=== PATIENT | male | born 1940 | race Caucasian/White ===

== ENCOUNTER → 2017-11-17 14:03 | Outpatient (CLI) | payer MEDICARE, OTHER, SELFPAY ==
[2017-11-17 14:29] LABS: Absolute Lymphocyte Count 0.58 X10^3/ul (0.83-4.51); Absolute Neutrophil Count 4.3 X10^3/uL (2.0-7.7); Basophil# 0.01 X10^3/uL; Basophil% 0.2 % (0-1); Differential Indicated SCAN CRITERIA MET; Eosinophil# 0.14 X10^3/uL; Eosinophils% 2.4 % (0-5); Hematocrit 42.3 % (40-54); Hemoglobin 13.9 g/dl (13.0-16.5); Lymphocyte # 0.58 X10^3/ul (4.0); Lymphocyte % 9.8 % (19-41); Mean Corp Hgb Conc 32.9 g/gl (32-36); Mean Corpuscular Hgb 31.4 pg (27.0-32.0); Mean Corpuscular Volume 95.5 fL (80-94); Mean Platelet Vol. 11.3 fl (6.2-12.0); Monocyte# 0.91 X10^3/uL; Monocyte% 15.3 % (0-10); Neutrophil # 4.27 X10^3/uL (2.7-7.7); POSITIVE COUNT NO; POSITIVE DIFFERENTIAL YES; POSITIVE MORPHOLOGY NO; Platelet Count 175 K/mm3 (150-450); RBC Distribution Width CV 13.6 % (11.6-14.6); RBC Distribution Width SD 46.2 fl (35.1-43.9); Red Blood Count 4.43 M/mm3 (4.6-6.2); White Blood Count 5.9 K/mm3 (4.4-11.0)
[2017-11-17 14:58] LABS: Platelet Estimate ADEQUATE (ADEQ); Platelet Morphology CLUMPED
[2017-11-17 15:35] LABS: BNP,B-Type NATRIURETIC PEPTIDE 278.2 pg/mL (0-100)
== END ==
PROVIDERS: PCP Internal Medicine; Visit Provider Family Medicine
DX: R06.00 Dyspnea, unspecified (principal); R05 Cough; R79.89 Other specified abnormal findings of blood chemistry
CPT/HCPCS: 83880; 85025

== ENCOUNTER → 2018-07-26 13:32 | Outpatient (CLI) | payer MEDICARE, OTHER, SELFPAY ==
--- NOTE | 2018-07-26 13:38 | VDLE_ITS ---
Reason For Study: LLE Pain and Swelling RIGHT LEFT CFV is compressible, spontaneous, phasic, GSV is normal. competent and demonstrates normal CFV is compressible, spontaneous, phasic, augmentation. competent, and demonstrates normal Procedure augmentation. Exam performed in department. FV is compressible, spontaneous, phasic, A preliminary report was called and/or faxed competent and demonstrates normal to Podlog[facility]. augmentation. POP V is compressible, spontaneous, phasic, competent and demonstrates normal augmentation. T/P Trunk is compressible. PTV is compressible. LT PerV is compressible. Interpretation Summary Deep veins of the left lower extremity are patent and compressible segmentally. There is no evidence of left lower extremity deep vein thrombosis. Valvular competence appears intact within the proximal deep venous system on the left . The left greater saphenous vein appears patent and compressible segmentally. Ordering Physician: Rufina Reed, EUFEMIA-Zelda Referring Physician: Ryan Rivera Performed By: Kaushik Coronel RVT and Student
== END ==
PROVIDERS: Family Provider Family Medicine; PCP Family Medicine; Referring Provider Nurse Practitioner Primary Care; Visit Provider Nurse Practitioner Primary Care
DX: M79.662 Pain in left lower leg (principal); M79.89 Other specified soft tissue disorders
CPT/HCPCS: 93971

== ENCOUNTER → 2018-09-19 16:49 | Outpatient (CLI) | payer MEDICARE, OTHER, SELFPAY ==
[2018-09-19 17:47] LABS: Prothrombin Time (Protime)PT. 38.9 SECONDS (11.7-14.9)
--- OUTSIDE RECORDS SUMMARY | 2018-11-06 01:54 | XMS RPT_ITS ---
:1940 Author Organization OHIP Care Team Providers Name Role Phone ROCKY RIVERA) Referring Unavailable ALEN RODRIGUEZ Attending Unavailable ALEN RODRIGUEZ Referring Unavailable ROCYK RIVERA) Referring Unavailable ROCKY RIVERA) Attending Unavailable ROCKY RIVERA) Referring Unavailable ROCKY RIVERA) Referring Unavailable ROCKY RIVERA) Referring Unavailable SUMEET GOLDBERG Attending Unavailable ROCKY RIVERA) Referring Unavailable ROCKY RIVERA) Referring Unavailable ASHAI, AGNIESZKA Attending Unavailable ROCKY RIVERA) Referring Unavailable ASHAI, AGNIESZKA Referring Unavailable ASHAI, AGNIESZKA Referring Unavailable ROCKY RIVERA) Referring Unavailable MAYRA KOLB (TIN CAN LABORER) Referring Unavailable GUILLE HIGH (PA) Attending Unavailable MARY VILLAR Referring Unavailable ROCKY RIVERA) Referring Unavailable ROCKY RIVERA) Attending Unavailable ROCKY RIVERA) Referring Unavailable ROCKY RIVERA) Referring Unavailable ROCKY RIVERA) Referring Unavailable ROCKY RIVERA) Referring Unavailable ASHAI, AGNIESZKA Attending Unavailable ROCKY RIVERA) Referring Unavailable BURSLEYROCKY) Referring Unavailable ALEN RODRIGUEZ Attending Unavailable TESTALEN HOYOS Referring Unavailable BURSLEYROCKY) Referring Unavailable AMALFITANO, SUMEET Valverde Attending Unavailable AMALFITSUMEET WEAVER Referring Unavailable BURSLEYROCKY) Referring Unavailable BURSLEY, ROCKY OLEA) Referring Unavailable BURSLEY, ROCKY OLEA) Referring Unavailable PODLOGAR, RUFINA (TIN CAN LABORER) Attending Unavailable PODLOGAR, RUFINA (TIN CAN LABORER) Attending Unavailable PODLOGAR, RUFINA (TIN CAN LABORER) Referring Unavailable PODLOGAR, RUFINA (TIN CAN LABORER) Referring Unavailable PODLOGAR, RUFINA (TIN CAN LABORER) Referring Unavailable BURSLEY, ROCKY OLEA) Referring Unavailable BURSLEY, ROCKY OLEA) Attending Unavailable ROCKY RIVERA) Referring Unavailable BURSLEY, ROCKY OLEA) Referring Unavailable BURSLEY, ROCKY OLEA) Referring Unavailable BURSLEYROCKY) Referring Unavailable BURSLEY, ROCKY OLEA) Referring Unavailable ABHISHEKTEZ (TIN CAN LABORER) Attending Unavailable ROCKY RIVERA) Referring Unavailable MEFFLGALILEA CABRERA (OD) Attending Unavailable ROCKY RIVERA) Referring Unavailable BURSROCKY HOFFMAN) Attending Unavailable ROCKY RIVERA) Referring Unavailable MARY VILLAR Referring Unavailable MARY VILLAR Admitting Unavailable MARY VILLAR Attending Unavailable Manuel Rivera Attending Unavailable Manuel Rivera Referring Unavailable Jeevan Riveraophe Primary Care Unavailable Manuel Rivera Attending Unavailable Podlogar, Rufina Attending Unavailable Podlogar, Rufina Referring Unavailable Miguel Manuel Primary Care Unavailable PROBLEMS PROBLEMS DATE TYPE CONDITION / CODE ATTENDING STATUS SOURCE Active Peripheral vascular NA Active [place] 8 disease, unspecified / Clinic Main I73.9(ICD-10) [facility] Unknown I48.91 - Unspecified [place], Active [place] 8 atrial fibrillation / Manuel [facility] I48.91(ICD-10) Hospital Repository Active Unspecified atrial NA Active [place] 6 fibrillation / [facility] Main I48.91(ICD-10) [facility] Rep[facility] Active Unspecified injury of Active [place] 8 head, initial encounter Clinic Main / S09.90XA(ICD-10) [facility] Rep[facility] Active Chronic atrial NA Active [place] 8 fibrillation / Clinic Main I48.2(ICD-10) [facility] Rep[facility] Active Secondary ASHAI, 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 Clinic Main renal origin / [facility] N25.81(ICD-10) Repository Active Type 2 diabetes mellitus NA Active [place] 7 without complications / Clinic [facility] E11.9(ICD-10) [facility] Rep[facility] Active Other fpc NA Active [place] 8 (current) drug therapy / Clinic Main Z79.899(ICD-10) [facility] Rep[facility] Active Type 2 diabetes mellitus NA Active [place] 8 with diabetic chronic Clinic Main kidney disease / [facility] E11.22(ICD-10) Repository Active Hypertensive chronic NA Active [place] 8 kidney disease with Clinic Main stage 1 through stage 4 [facility] chronic kidney disease, Repository or unspecified chronic kidney disease / I12.9(ICD-10) Active Chronic kidney disease, NA Active [place] 8 stage 3 (moderate) / Clinic Main N18.3(ICD-10) [facility] Active Other specified abnormal NA Active [place] 8 findings of blood Clinic Main chemistry / [facility] R79.89(ICD-10) Repository Active Dyspnea, unspecified / NA Active [place] 8 R06.00(ICD-10) Clinic Main [facility] Rep[facility] Active Cough / R05(ICD-10) NA Active [place] 8 Clinic Main [facility] Active Encounter for screening NA Active [place] 8 for malignant neoplasm Clinic Other of colon / [facility] Z12.11(ICD-10) Repository Active Essential (primary) NA Active [place] 7 hypertension / Clinic Other I10(ICD-10) [facility] Repository Active Other hyperlipidemia / NA Active [place] 6 E78.4(ICD-10) Clinic Other [facility] Active Encounter for other NA Active [place] 8 preprocedural Clinic Other examination / [facility] Z01.818(ICD-10) Repository Active Shortness of breath / NA Active [place] 8 R06.02(ICD-10) [facility] Repository Active Other specified soft NA Active [place] 8 tissue disorders / [facility] M79.89(ICD-10) [facility] Repository PROCEDURES PROCEDURES No Procedure Records FoundRESULTS RESULTS CNOV Observed: 10/25/2018 Status: COMPLETED Source: [place] 7:00 PM [facility] REPOSITORY Office Visit (FAMPWS) ALIA TREJO ([id number]) 1940 M Date Time Provider Department 10/25/18 7:00 PM ROCKY RIVERA) FAMPWS During your visit today, we recorded the following information about you: Pulse Respiration Blood pressure Weight 70/minute 12/minute 118/76 97.1 kg Rocky Rivera MD 10/26/2018 8:24 AM Signed Chief Complaint Patient presents with: 6 week follow up HPI Alia Trejo is a 78 year old male who presents here today for 3 month follow up. DIABETES MELLITUS: Mr. Trejo was last seen 3 months ago. Since our last visit, patient states he increased his lantus from 40 to 45 units due to hyperglycemia in the 200s. Since then, sugars have been in the 80-120. He denies excessive thirst or increased frequency of urination, numbness, tingling or pain in extremities, new or unusual visual symptoms and low sugar/hypoglycemic reactions. Follows a diabetic diet generally not very much. He is compliant with medication(s) and is tolerating med(s) without any side effects. He reports checking his glucose on a four times a day schedule with sugars in the >200 range in the afternoon and evening. Patient's last HgA1C was Hemoglobin A1C (%) Date Value 08/09/2018 7.9 02/17/2018 7.5 ) Last Ophthalmology exam was within the past 12 months Last Podiatry exam was within the past 12 months HTN: Mr. Trejo indicates that he is feeling well and denies any symptoms referable to elevated blood pressure. Specifically denies headache, chest pain, palpitations, dyspnea and peripheral edema. Patient denies any side effects of his medication(s) and is compliant with their regimen. Alia gets minimal exercise. He watches his diet for sodium, low fat and low cholesterol generally not very much. Last 3 Encounter BP Readings: Date: BP: 10/25/2018 118/76 10/05/2018 129/72 08/10/2018 126/78 Hyperlipidemia: taking Crestor as prescribed. Due for lipid panel in February. Afib: rate controlled on beta santo. Taking coumadin as prescribed for anticoagulation. INR low on last check. Needs to pickler helper 1 mg coumadin tablets. Denies bleeding symptoms. TIA history: denies slurred speech, vision changes, facial droop, numbness/tingling, weakness on current regimen. DERRICK: using CPAP nightly as prescribed. Sleeping well. Denies daytime somnolence. Up to date on immunizations. Past medical history, appointments, medications, allergies reviewed. Previous Medical History PAST MEDICAL HISTORY Diagnosis Date - Acute bronchitis with chronic obstructive pulmonary disease (COPD) ([facility]) 12/28/2015 Pulmonlogy managing - Acute diastolic CHF (congestive heart failure) ([facility]) 12/28/2015 - Atrial fibrillation, permanent ([facility]) 11/04/[address] Goldberg - Benign neoplasm of colon - CKD (chronic kidney disease) stage 3, GFR 30-59 ml/min ([facility]) 11/11/[address] Diaz - Diverticulosis of colon (without mention of hemorrhage) - Hiatal hernia 10/26/201710/2017 CT chest. 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 75 - Diabetes Father - Hypertension Father - other (Alcoholism) Father D. 57 - Cancer Brother Lung D.68 yo - other (MVA) Brother Fatal MVA. D. 17 Patient Allergies ALLERGIES Allergen Reactions - Nabeel Inhibitors Cough Current Medications Current Outpatient Prescriptions on File Prior to Visit: warfarin (COUMADIN) 1 mg tablet Take 3.5 mg PO Sat and 2.5 mg PO all other days insulin glargine (LANTUS SOLOSTAR U-100 INSULIN) 100 unit/mL (3 mL) inpn Inject 40 Units subcutaneously once daily. fluticasone (FLONASE) 50 mcg/actuation nasal spray Use 2 Sprays in each nostril once daily. Rinse mouth after use. insulin regular human (HUMULIN R REGULAR U-100 INSULN) 100 unit/mL injection Inject 5 units if sugar <200 at bedtime or 10 units if >200. losartan (COZAAR) 25 mg tablet Take 0.5 tablets by mouth once daily. metoprolol tartrate, short acting, (LOPRESSOR) 100 mg tablet Take 2 tablets by mouth twice daily. KeybrokerUCH ULTRA BLUE TEST STRIP test strip USE TO TEST 4 TIMES DAILY spironolactone (ALDACTONE) 25 mg tablet Take 1 tablet by mouth once daily. warfarin (COUMADIN) 5 mg tablet TAKE ONE TABLET ON WEDNESDAY/WEDNESDAY AND ONE-HALF TABLETS ON ALL OTHER DAYS rosuvastatin (CRESTOR) 40 mg tablet Take 0.5 tablets by mouth once daily. Cholecalciferol, Vitamin D3, 1,000 unit cap Take 1 capsule by mouth once daily. furosemide (LASIX) 40 mg tablet Take 1 tablet by mouth once daily. flash glucose scanning reader (FREESTYLE RUSSELL READER) misc 1 Device four times daily. flash glucose sensor (FREESTYLE RUSSELL SENSOR) kit 1 Device four times daily. Insulin Alsip, Disposable, (NOVOFINE 32) 32 gauge x 1/4 ndle 1 Each four times daily as needed. Use for Victoza and insulin injections 4 times daily. DX: E11.65 Blood-Glucose Meter (KeybrokerUCH ULTRA2) monitoring kit 1 Each as needed. One Touch Meter Kit Diagnosis: Type 2 DM - Uncontrolled E11.65 therapeutic multivitamin w/ iron (THERAGRAN-M) 9 mg iron-400 mcg tablet Take 1 tablet by mouth once daily. COMPOUNDED PRESCRIPTION insulin syringes 0.3 31 g 02/23 needle CPAP ASV machine. Initiate @ EEP14, Min ps. 3 Max ps 15, cm of water with humidification. Auto rate. Mask (per patient preference) optional chin strap (if indicated) , filters, tubing, humidifier and lifetime supplies. CSA 327.27 and Ryan-Leach 786.04 albuterol 5 mg/mL Nebu Inhale 0.5 mL as instructed every 4 hours as needed for 7 days. 1 DOSE NOW - BACK OFFICE. PLACE 0.5 ML PER DROPPER AND 2.5 ML OF NORMAL SALINE INTO RESERVOIR. No current facility-administered medications on file prior to visit. Social History Social History Marital status: Spouse name: Aixa Years of education: Number of children: 3 Occupational History Occupation Employer Comment [employer] Social History Main Topics Smoking status: Former Smoker Packs/day: 0.50 Years: 10.00 Types: Cigarettes Start date: 01/07/1955 Quit date: 01/08/1976 Smokeless tobacco: Never Used Comment: Age 13 to 31. No smoking in childhood home. Spouse ex-smoker. 12/05/15. TO Alcohol use: No Drug use: No Review of Symptoms REVIEW OF SYSTEMS GENERAL: No weight loss, malaise or fevers RESPIRATORY: Negative for cough, hemoptysis, wheezing, COPD, dyspnea or shortness of breath CARDIOVASCULAR: Negative for chest pain, leg swelling, hypertension, CHF or palpitations GI: No nausea, vomiting, or diarrhea SKIN: Negative for lesions, rash, and itching EXAM: BP 118/76 Pulse 70 Resp 12 Wt 97.1 kg (214 lb) SpO2 97% BMI 34.54 kg/m? General Appearance: Well appearing, alert, in no acute distress, well-hydrated, well nourished.. Skin: Skin color, texture, turgor normal, no suspicious rashes or lesions. Lungs: lungs clear to auscultation. No wheezing, rhonchi, rales. Heart: Negative findings: no murmurs, clicks, or gallops, Positive findings: irregularly irregular rhythm. Abdomen: Normal abdominal exam, Abdomen soft, non-tender. Bowel sounds normal. No masses, organomegaly. Extremities: No deformities, edema. Right foot cold compared to left with slow capillary refill. Pulses barely palpable bilaterally in DP and PT. Health Maintenance List URINE ALBUMIN:CREATININE RATIO due on 10/28/2018 NABEEL/ARB MED PRESCRIBED due on 11/11/2018 STATIN MED ADHERENCE due on 11/11/2018 DIABETES MED ADHERENCE due on 11/11/2018 NABEEL/ARB MED ADHERENCE due on 11/11/2018 HEMOGLOBIN/HEMATOCRIT due on 12/16/2018 HBA1C due on 02/07/2019 DIABETIC FOOT EXAM due on 02/14/2019 LDL CHOLESTEROL due on 02/17/2019 SERUM CREATININE due on 02/17/2019 ANNUAL PCP TEAM CHRONIC DISEASE VISIT due on 10/05/2019 BP CONTROLLED (<130/80) due on 10/05/2019 DILATED RETINAL EXAM due on 10/07/2019 COLORECTAL CANCER SCREENING,SEE MODIFIER due on 11/24/2019 DTAP,TDAP,TD(2 - Td) due on 07/26/2028 ADULT PREVNAR-13 Completed INFLUENZA Completed PNEUMOVAX AGE 65 AND OVER WITH 5YR LOOKBACK Completed Component Latest Ref Rng AND Units 02/17/2018 08/09/2018 Glucose 74 - 99 mg/dL 116 (H) BUN 9 - 24 mg/dL 16 Creatinine 0.73 - 1.22 mg/dL 1.19 Sodium 136 - 144 mmol/L 140 Potassium 3.7 - 5.1 mmol/L 4.3 Chloride 97 - 105 mmol/L 102 CO2 22 - 30 mmol/L 24 Anion Gap 9 - 18 mmol/L 14 Calcium 8.5 - 10.2 mg/dL 8.8 eGFR- >60 eGFR-All Other Races . 59 Cholesterol, Total <200 mg/dL 139 Triglyceride <150 mg/dL 82 HDL Cholesterol >39 mg/dL 33 (L) LDL Cholesterol <100 mg/dL 90 Non HDL Cholesterol <130 mg/dL 106 Fasting Time hrs 11 VLDL Cholesterol <30 mg/dL 16 TC:HDL Ratio <5.10 4.21 LDL:HDL Ratio <2.54 2.73 (H) Hemoglobin A1C 4.3 - 5.6 % 7.5 (H) 7.9 (H) Estimated Average Glucose mg/dL 169 180 ASSESSMENT/PLAN: 1. Type 2 DM with CKD stage 3 and hypertension (HCC) - ICD9: 250.40, 403.90, 585.3, ICD10: E11.22, I12.9, N18.3 (primary diagnosis) Controlled. - Continue current medications - Blood glucose monitoring on a four times a day schedule - Encouraged regular aerobic exercise and weight loss - Daily Asprin therapy recommended - Follow up in 3 months, sooner should any other issues arise. 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 - HGB A1C - ALBUMIN/CREAT RATIO RND UR 2. Atrial fibrillation, unspecified type (HCC) - ICD9: 427.31, ICD10: I48.91 Rate controlled on beta santo. Continue anticoagulation and f/u with cardiology. 3. DERRICK (obstructive sleep apnea) AHI 36 - ICD9: 327.23, ICD10: G47.33 Using CPAP nightly, symptoms controlled. 4. Essential hypertension - ICD9: 401.9, ICD10: I10 - good control - Continue current medication(s) - Encouraged dietary sodium restriction/DASH diet - Recommended regular aerobic exercise. - Reviewed risks of HTN and principles of treatment - Goal of BP <140/90 - COMP METABOLIC PANEL 5. Mixed hyperlipidemia - ICD9: 272.2, ICD10: E78.2 - good control - Continue current medication. - Encouraged following a low fat, low cholesterol diet. - Discussed the benefits of regular aerobic exercise and weight loss. 6. PAD (peripheral artery disease) (HCC) - ICD9: 443.9, ICD10: I73.9 Right foot colder than left. Poor pulses. Repeat GARETT. Consider f/u with vascular surgery. - PVR ANK PRESS MANDA V[facility] LAB 7. nursing home (current) use of anticoagulants - ICD9: V58.61, ICD10: Z79.01 INR recently subtherapeutic. Advised to take coumadin as prescribed. Recheck next week. 8. TIA due to embolism (HCC) - ICD9: 435.9, 444.9, ICD10: G45.9, I74.9 Asymptomatic. Continue secondary stroke prevention. Rocky Rivera MD Referring Provider: SELF [200] Allergies As of Date: 10/25/2018 Noted Allergy Reaction NABEEL INHIBITORS 05/16/2014 3 - Cough Date Reviewed: 10/25/2018 Reviewed by: Brian Kevin Ma - Fully Assessed Reason for Visit: 6 week follow up [Other] Primary Visit Diagnosis:Type 2 DM with CKD stage 3 and hypertension (HCC) [E11.22, I12.9, N18.3] Other Visit Diagnoses:Atrial fibrillation, unspecified type (HCC) [I48.91] DERRICK (obstructive sleep apnea) AHI 36 [G47.33] Essential hypertension [I10] Mixed hyperlipidemia [E78.2] PAD (peripheral artery disease) (HCC) [I73.9] nursing home (current) use of anticoagulants [Z79.01] TIA due to embolism (HCC) [G45.9, I74.9] Order(s):HGB A1C [QWAUK3L] Order #: [id number] FUTURE ALBUMIN/CREAT RATIO RND UR [SQUACR] Order #: [id number] FUTURE COMP METABOLIC PANEL [SQCMP] Order #: [id number] FUTURE PVR ANK PRESS MANDA V[facility] [[id number]] Order #: [id number] FUTURE insulin glargine (LANTUS SOLOSTAR U-100 INSULIN) 100 unit/mL (3 mL) inpnInject 45 Units subcutaneously once daily.Disp: 5 PenRfl: 3 Prescriptions as of 10/25/2018 Sig: INSULIN GLARGINE (U-100) 100 * Inject 45 Units subcutaneousl* WARFARIN 1 MG TABLET Take 3.5 mg PO Sat and 2.5 mg* FLUTICASONE 50 MCG/ACTUATION * Use 2 Sprays in each nostril * INSULIN U-100 REGULAR HUMAN 1* Inject 5 units if sugar <200 * LOSARTAN 25 MG TABLET Take 0.5 tablets by mouth onc* METOPROLOL TARTRATE 100 MG TA* Take 2 tablets by mouth twice* CSS CorpTOUCH ULTRA BLUE TEST STRIP USE TO TEST 4 TIMES DAILY SPIRONOLACTONE 25 MG TABLET Take 1 tablet by mouth once d* WARFARIN 5 MG TABLET TAKE ONE TABLET ON WEDNESDAY/* ROSUVASTATIN 40 MG TABLET Take 0.5 tablets by mouth onc* CHOLECALCIFEROL (VITAMIN D3) * Take 1 capsule by mouth once * FUROSEMIDE 40 MG TABLET Take 1 tablet by mouth once d* FLASH GLUCOSE SCANNING READER 1 Device four times daily. FLASH GLUCOSE SENSOR KIT 1 Device four times daily. PEN NEEDLE, DIABETIC 32 GAUGE* 1 Each four times daily as ne* BLOOD-GLUCOSE METER KIT 1 Each as needed. One Touch M* MULTIVITAMIN-IRON 9 MG-FOLIC * Take 1 tablet by mouth once d* COMPOUNDED PRESCRIPTION insulin syringes 0.3 31 g 5/* CPAP ASV machine. Initiate @ EEP1* Problem List As Of Date 10/25/2018 Noted Resolved Essential hypertension [I10] DIABETES MELLITUS TYPE II UNCONTR UNCOMPL [E11.* 09/12/2014 Hyperlipidemia [E78.5] CHRONIC RHINITIS [J31.0] INVALID FOR* PAD (peripheral artery disease) (HCC) [I73.9] INVALID FOR* VIRAL WARTS NOS [B07.9] INVALID FOR* Type I (juvenile type) diabetes mellitus withou*INVALID FOR*02/06/2014 Unspecified sleep apnea [G47.30] INVALID FOR*07/21/2014 More... BENIGN NEOPLASM LG BOWEL [D12.6] INVALID FOR* DIVERTICULOSIS OF COLON W/O BLEED [K57.30] INVALID FOR* INT HEMORRHOID W/O COMPL [K64.8] INVALID FOR* Premature atrial beats [I49.1] INVALID FOR* Atrial fibrillation, permanent [I48.2] INVALID FOR*01/30/2015 Atherosclerosis of aortic arch [I70.0] INVALID FOR* More... BMI 37.0-37.9, adult [Z68.37] INVALID FOR*01/30/2015 DERRICK (obstructive sleep apnea) AHI 36 [G47.33] INVALID FOR* DM (diabetes mellitus), type 2, uncontrolled (H*INVALID FOR*02/14/2018 Atrial fibrillation (HCC) [I48.91] INVALID FOR* BMI 35.0-35.9,adult [Z68.35] INVALID FOR*11/11/2017 long term care pharmacist (current) use of anticoagulants [Z79.*INVALID FOR* SUMMARY INVALID FOR* More... Cough with expectoration [R05] INVALID FOR* More... Atrial fibrillation with RVR (HCC) [I48.91] INVALID FOR*11/10/2017 Syncope [R55] INVALID FOR* Acute bronchitis with chronic obstructive pulmo*INVALID FOR*07/04/2016 Acute diastolic CHF (congestive heart failure) *INVALID FOR*07/04/2016 Status post placement of implantable loop recor*INVALID FOR* Type 2 diabetes mellitus without retinopathy (H*INVALID FOR* Vitreous floaters of both eyes [H43.393] INVALID FOR* TIA due to embolism (HCC) [G45.9, I74.9] INVALID FOR* Facial droop [R29.810] INVALID FOR*11/11/2017 Controlled type 2 diabetes mellitus without com*INVALID FOR* Combined forms of age-related cataract of both *INVALID FOR* Screening for colon cancer [Z12.11] INVALID FOR*02/14/2018 More... Hiatal hernia [K44.9] INVALID FOR* More... Acute bronchitis with chronic obstructive pulmo*INVALID FOR* More... CKD (chronic kidney disease) stage 3, GFR 30-59*INVALID FOR*03/22/2018 Type 2 DM with CKD stage 3 and hypertension (HC*INVALID FOR* Secondary renal hyperparathyroidism (HCC) [N25.*INVALID FOR* Persistent proteinuria [R80.1] INVALID FOR* Prescriptions ordered this encounter Disp Refills Start End INSULIN GLARGINE (U-100) 100 UNIT/ML* 5 Pen 3 10/26/2018 Class: Med Update Route: SUBCUTANEOUS Sig: Inject 45 Units subcutaneously once daily. Medications Discontinued During This Encounter albuterol 5 mg/mL Nebu 1 mL 0 11/01/2012 10/25/2018 Class: Back Office Route: INHALATION Sig: Inhale 0.5 mL as instructed every 4 hours as needed for 7 days. 1 DOSE NOW - BACK OFFICE. PLACE 0.5 ML PER DROPPER AND 2.5 ML OF NORMAL SALINE INTO RESERVOIR. Disc: Reason for discontinue is not on file. insulin glargine (LANTUS SOLOSTAR U-* 5 Pen 3 10/10/2018 10/26/2018 Route: SUBCUTANEOUS Sig: Inject 40 Units subcutaneously once daily. Disc: Reason for discontinue is not on file. Disposition: Return in about 3 months (around 01/23/2019). Follow-up and Disposition History Recorded Encounter Status:Closed by ROCKY RIVERA MD on 10/26/18 PROGRESS Observed: 10/25/2018 Status: COMPLETED Source: [place] 6:51 PM [facility] REPOSITORY O ID: [id number] Author: Rocky Olea) Miguel Service: (none) Author Type: Physician Type: Progress Notes Filed: 10/26/2018 8:24 AM Note Text: Chief Complaint Patient presents with: 6 week follow up HPI Alia Trejo is a 78 year old male who presents here today for 3 month follow up. DIABETES MELLITUS: Mr. Trejo was last seen 3 months ago. Since our last visit, patient states he increased his lantus from 40 to 45 units due to hyperglycemia in the 200s. Since then, sugars have been in the 80-120. He denies excessive thirst or increased frequency of urination, numbness, tingling or pain in extremities, new or unusual visual symptoms and low sugar/hypoglycemic reactions. Follows a diabetic diet generally not very much. He is compliant with medication(s) and is tolerating med(s) without any side effects. He reports checking his glucose on a four times a day schedule with sugars in the >200 range in the afternoon and evening. Patient's last HgA1C was Hemoglobin A1C (%) Date Value 08/09/2018 7.9 02/17/2018 7.5 ) Last Ophthalmology exam was within the past 12 months Last Podiatry exam was within the past 12 months HTN: Mr. Trejo indicates that he is feeling well and denies any symptoms referable to elevated blood pressure. Specifically denies headache, chest pain, palpitations, dyspnea and peripheral edema. Patient denies any side effects of his medication(s) and is compliant with their regimen. Alia gets minimal exercise. He watches his diet for sodium, low fat and low cholesterol generally not very much. Last 3 Encounter BP Readings: Date: BP: 10/25/2018 118/76 10/05/2018 129/72 08/10/2018 126/78 Hyperlipidemia: taking Crestor as prescribed. Due for lipid panel in February. Afib: rate controlled on beta santo. Taking coumadin as prescribed for anticoagulation. INR low on last check. Needs to pickler helper 1 mg coumadin tablets. Denies bleeding symptoms. TIA history: denies slurred speech, vision changes, facial droop, numbness/tingling, weakness on current regimen. DERRICK: using CPAP nightly as prescribed. Sleeping well. Denies daytime somnolence. Up to date on immunizations. Past medical history, appointments, medications, allergies reviewed. Previous Medical History PAST MEDICAL HISTORY Diagnosis Date - Acute bronchitis with chronic obstructive pulmonary disease (COPD) ([facility]) 12/28/2015 Pulmonlogy managing - Acute diastolic CHF (congestive heart failure) ([facility]) 12/28/2015 - Atrial fibrillation, permanent ([facility]) 11/04/[address] Amalfitano - Benign neoplasm of colon - CKD (chronic kidney disease) stage 3, GFR 30-59 ml/min ([facility]) 11/11/[address] Diaz - Diverticulosis of colon (without mention of hemorrhage) - Hiatal hernia 10/26/201710/2017 CT chest. 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 75 - Diabetes Father - Hypertension Father - other (Alcoholism) Father D. 57 - Cancer Brother Lung D.68 yo - other (MVA) Brother Fatal MVA. D. 17 Patient Allergies ALLERGIES Allergen Reactions - Nabeel Inhibitors Cough Current Medications Current Outpatient Prescriptions on File Prior to Visit: warfarin (COUMADIN) 1 mg tablet Take 3.5 mg PO Sat and 2.5 mg PO all other days insulin glargine (LANTUS SOLOSTAR U-100 INSULIN) 100 unit/mL (3 mL) inpn Inject 40 Units subcutaneously once daily. fluticasone (FLONASE) 50 mcg/actuation nasal spray Use 2 Sprays in each nostril once daily. Rinse mouth after use. insulin regular human (HUMULIN R REGULAR U-100 INSULN) 100 unit/mL injection Inject 5 units if sugar <200 at bedtime or 10 units if >200. losartan (COZAAR) 25 mg tablet Take 0.5 tablets by mouth once daily. metoprolol tartrate, short acting, (LOPRESSOR) 100 mg tablet Take 2 tablets by mouth twice daily. KeybrokerUCH ULTRA BLUE TEST STRIP test strip USE TO TEST 4 TIMES DAILY spironolactone (ALDACTONE) 25 mg tablet Take 1 tablet by mouth once daily. warfarin (COUMADIN) 5 mg tablet TAKE ONE TABLET ON WEDNESDAY/WEDNESDAY AND ONE-HALF TABLETS ON ALL OTHER DAYS rosuvastatin (CRESTOR) 40 mg tablet Take 0.5 tablets by mouth once daily. Cholecalciferol, Vitamin D3, 1,000 unit cap Take 1 capsule by mouth once daily. furosemide (LASIX) 40 mg tablet Take 1 tablet by mouth once daily. flash glucose scanning reader (FREESTYLE RUSSELL READER) misc 1 Device four times daily. flash glucose sensor (FREESTYLE RUSSELL SENSOR) kit 1 Device four times daily. Insulin Alsip, Disposable, (NOVOFINE 32) 32 gauge x 1/4 ndle 1 Each four times daily as needed. Use for Victoza and insulin injections 4 times daily. DX: E11.65 Blood-Glucose Meter (ONETOUCH ULTRA2) monitoring kit 1 Each as needed. One Touch Meter Kit Diagnosis: Type 2 DM - Uncontrolled E11.65 therapeutic multivitamin w/ iron (THERAGRAN-M) 9 mg iron-400 mcg tablet Take 1 tablet by mouth once daily. COMPOUNDED PRESCRIPTION insulin syringes 0.3 31 g 5/16 needle CPAP ASV machine. Initiate @ EEP14, Min ps. 3 Max ps 15, cm of water with humidification. Auto rate. Mask (per patient preference) optional chin strap (if indicated) , filters, tubing, humidifier and lifetime supplies. CSA 327.27 and [employer] 786.04 albuterol 5 mg/mL Nebu Inhale 0.5 mL as instructed every 4 hours as needed for 7 days. 1 DOSE NOW - BACK OFFICE. PLACE 0.5 ML PER DROPPER AND 2.5 ML OF NORMAL SALINE INTO RESERVOIR. No current facility-administered medications on file prior to visit. Social History Social History Marital status: Spouse name: Aixa Years of education: Number of children: 3 Occupational History Occupation Employer Comment [employer] Social History Main Topics Smoking status: Former Smoker Packs/day: 0.50 Years: 10.00 Types: Cigarettes Start date: 01/07/1955 Quit date: 01/08/1976 Smokeless tobacco: Never Used Comment: Age 13 to 31. No smoking in childhood home. Spouse ex-smoker. 12/05/15. TO Alcohol use: No Drug use: No Review of Symptoms REVIEW OF SYSTEMS GENERAL: No weight loss, malaise or fevers RESPIRATORY: Negative for cough, hemoptysis, wheezing, COPD, dyspnea or shortness of breath CARDIOVASCULAR: Negative for chest pain, leg swelling, hypertension, CHF or palpitations GI: No nausea, vomiting, or diarrhea SKIN: Negative for lesions, rash, and itching EXAM: BP 118/76 Pulse 70 Resp 12 Wt 97.1 kg (214 lb) SpO2 97% BMI 34.54 kg/m? General Appearance: Well appearing, alert, in no acute distress, well-hydrated, well nourished.. Skin: Skin color, texture, turgor normal, no suspicious rashes or lesions. Lungs: lungs clear to auscultation. No wheezing, rhonchi, rales. Heart: Negative findings: no murmurs, clicks, or gallops, Positive findings: irregularly irregular rhythm. Abdomen: Normal abdominal exam, Abdomen soft, non-tender. Bowel sounds normal. No masses, organomegaly. Extremities: No deformities, edema. Right foot cold compared to left with slow capillary refill. Pulses barely palpable bilaterally in DP and PT. Health Maintenance List URINE ALBUMIN:CREATININE RATIO due on 10/28/2018 NABEEL/ARB MED PRESCRIBED due on 11/11/2018 STATIN MED ADHERENCE due on 11/11/2018 DIABETES MED ADHERENCE due on 11/11/2018 NABEEL/ARB MED ADHERENCE due on 11/11/2018 HEMOGLOBIN/HEMATOCRIT due on 12/16/2018 HBA1C due on 02/07/2019 DIABETIC FOOT EXAM due on 02/14/2019 LDL CHOLESTEROL due on 02/17/2019 SERUM CREATININE due on 02/17/2019 ANNUAL PCP TEAM CHRONIC DISEASE VISIT due on 10/05/2019 BP CONTROLLED (<130/80) due on 10/05/2019 DILATED RETINAL EXAM due on 10/07/2019 COLORECTAL CANCER SCREENING,SEE MODIFIER due on 11/24/2019 DTAP,TDAP,TD(2 - Td) due on 07/26/2028 ADULT PREVNAR-13 Completed INFLUENZA Completed PNEUMOVAX AGE 65 AND OVER WITH 5YR LOOKBACK Completed Component Latest Ref Rng AND Units 02/17/2018 08/09/2018 Glucose 74 - 99 mg/dL 116 (H) BUN 9 - 24 mg/dL 16 Creatinine 0.73 - 1.22 mg/dL 1.19 Sodium 136 - 144 mmol/L 140 Potassium 3.7 - 5.1 mmol/L 4.3 Chloride 97 - 105 mmol/L 102 CO2 22 - 30 mmol/L 24 Anion Gap 9 - 18 mmol/L 14 Calcium 8.5 - 10.2 mg/dL 8.8 eGFR- >60 eGFR-All Other Races . 59 Cholesterol, Total <200 mg/dL 139 Triglyceride <150 mg/dL 82 HDL Cholesterol >39 mg/dL 33 (L) LDL Cholesterol <100 mg/dL 90 Non HDL Cholesterol <130 mg/dL 106 Fasting Time hrs 11 VLDL Cholesterol <30 mg/dL 16 TC:HDL Ratio <5.10 4.21 LDL:HDL Ratio <2.54 2.73 (H) Hemoglobin A1C 4.3 - 5.6 % 7.5 (H) 7.9 (H) Estimated Average Glucose mg/dL 169 180 ASSESSMENT/PLAN: 1. Type 2 DM with CKD stage 3 and hypertension (HCC) - ICD9: 250.40, 403.90, 585.3, ICD10: E11.22, I12.9, N18.3 (primary diagnosis) Controlled. - Continue current medications - Blood glucose monitoring on a four times a day schedule - Encouraged regular aerobic exercise and weight loss - Daily Asprin therapy recommended - Follow up in 3 months, sooner should any other issues arise. - Discussed diabetic education issues of fpc diabetic complications, hypoglycemic symptoms, hyperglycemic symptoms, diet, medications- side effects and need for compliance, importance of exercise and use and side effects of insulin with patient. - HGB A1C - ALBUMIN/CREAT RATIO RND UR 2. Atrial fibrillation, unspecified type (HCC) - ICD9: 427.31, ICD10: I48.91 Rate controlled on beta santo. Continue anticoagulation and f/u with cardiology. 3. DERRICK (obstructive sleep apnea) AHI 36 - ICD9: 327.23, ICD10: G47.33 Using CPAP nightly, symptoms controlled. 4. Essential hypertension - ICD9: 401.9, ICD10: I10 - good control - Continue current medication(s) - Encouraged dietary sodium restriction/DASH diet - Recommended regular aerobic exercise. - Reviewed risks of HTN and principles of treatment - Goal of BP <140/90 - COMP METABOLIC PANEL 5. Mixed hyperlipidemia - ICD9: 272.2, ICD10: E78.2 - good control - Continue current medication. - Encouraged following a low fat, low cholesterol diet. - Discussed the benefits of regular aerobic exercise and weight loss. 6. PAD (peripheral artery disease) (HCC) - ICD9: 443.9, ICD10: I73.9 Right foot colder than left. Poor pulses. Repeat GARETT. Consider f/u with vascular surgery. - PVR ANK PRESS MANDA [facility] 7. nursing home (current) use of anticoagulants - ICD9: V58.61, ICD10: Z79.01 INR recently subtherapeutic. Advised to take coumadin as prescribed. Recheck next week. 8. TIA due to embolism (HCC) - ICD9: 435.9, 444.9, ICD10: G45.9, I74.9 Asymptomatic. Continue secondary stroke prevention. Rocky Rivera MD PROGRESS Observed: 10/21/2018 Status: COMPLETED Source: [place] 1:12 PM [facility] REPOSITORY HNO ID: [id number] Author: Karen Haley Ma Service: (none) Author Type: (none) Type: Progress Notes Filed: 10/21/2018 3:24 PM Note Text: Detailed message left on , asked to return call to schedule 1 week INR. Tracker updated. Karen Haley Ma PROGRESS Observed: 10/21/2018 Status: COMPLETED Source: [place] 11:56 AM [facility] REPOSITORY HNO ID: [id number] Author: Rocky Rivera Service: (none) Author Type: Physician Type: Progress Notes Filed: 10/21/2018 3:24 PM Note Text: INR subtherapeutic. Increase coumadin to 3.5 mg Sat and 2.5 mg all other days. rx for 1 mg coumadin called to pharmacy. To take in conjunction with 1/2 of 5 mg dose to achieve 3.5 mg dose. Recheck INR in 1 week. PROGRESS Observed: 10/21/2018 Status: COMPLETED Source: [place] 11:44 AM [facility] REPOSITORY HNO ID: [id number] Author: Roseline Gurrola RN Service: (none) Author Type: (none) Type: Progress Notes Filed: 10/21/2018 11:46 AM Note Text: patient had inr completed at [facility] [place] patients inr is 1.7 (patients inr range is 2.0-3.0) patient is currently taking 2.5mg daily patients last dose change was on 09/19/18 due to a high level of 4.0 (dose at that time was 5mg sat and 2.5mg all other days) patient has had no changes in medication and no missed doses and no change in diet Advised patient that they would be contacted regarding medication dose and when to follow up after information is reviewed by provider. After provider review please contact the patient with information and schedule follow up appointment with coumadin clinic. FYI - patient is requesting to go bact on previous dosing of 5mg Sat and 2.5mg all other days patient has been scheduled for a 2 week follow up inr on 11/04/18 PROGRESS Observed: 10/07/2018 Status: COMPLETED Source: [place] 1:34 PM [facility] REPOSITORY HNO ID: [id number] Author: Blanco Scott Service: (none) Author Type: Physician Type: Progress Notes Filed: 10/07/2018 3:51 PM Note Text: I agree with the advice given; stay same and recheck in 2 weeks Blanco Scott MD PROGRESS Observed: 10/07/2018 Status: COMPLETED Source: [place] 12:06 PM [facility] REPOSITORY HNO ID: [id number] Author: Roseline Gurrola RN Service: (none) Author Type: (none) Type: Progress Notes Filed: 10/07/2018 12:07 PM Note Text: patient had inr completed at [facility] [place] patients inr is 1.9 (patients inr range is 2.0-3.0) patient is currently taking 2.5mg daily patients last dose change was on 09/19/18 due to a high level of 5.1 (dose at that time was 5mg Sat and 2.5mg all other days) patient has had no changes in medication and one missed doses and no change in diet Advised patient to continue on the same dose(s) and that they would only be contacted regarding dosage and follow up instructions after review with provider, if a change is needed. Written instructions given and patient verbalized understanding. Presently scheduled in 2 weeks (10/21/18) for follow up INR since level is just slightly low but most likely due to the missed dose PROGRESS Observed: 10/07/2018 Status: COMPLETED Source: [place] 11:01 AM [facility] REPOSITORY HNO ID: [id number] Author: Galilea Cazares Service: (none) Author Type: ROVING TELLER Type: Progress Notes Filed: 10/07/2018 11:03 AM Note Text: ASSESSMENT/PLAN: 1. Type 2 diabetes mellitus without retinopathy (HCC) - ICD9: 250.00, ICD10: E11.9 (primary diagnosis) Patient education on the importance of strict blood sugar control in order to minimize the risk of ocular complications from Diabetes Mellitus. Continue to manage Diabetes Mellitus under the care of Dr. Rivera 2. Vitreous floaters of both eyes - ICD9: 379.24, ICD10: H43.393 Patient was given both written and verbal information on flashes and floaters. Patient was instructed to call the office immediately upon noticing flashes of light, increase in floaters, or changes in vision. 3. Combined forms of age-related cataract of both eyes - ICD9: 366.19, ICD10: H25.813 Not visually significant / Observe Galilea Cazares, MONICA I have confirmed and edited as necessary the relevant ophthalmic history, review of systems, surgical history, and ophthalmological examination findings as obtained by the ophthalmic technical staff. I have seen and examined Alia Trejo. I have discussed the examination findings, diagnosis, and treatment options with Alia Trejo and/or his family. I have also reviewed and agree with the assessment and plan as stated above and agree with all its relevant components. I gave the patient the opportunity to ask questions about the findings, diagnosis, and treatment options. CNOV Observed: 10/05/2018 Status: COMPLETED Source: [place] 11:00 AM [facility] REPOSITORY Office Visit (FAMPWS) ALIA TREJO ([id number]) 1940 M Date Time Provider Department 10/05/18 11:00 AM TEZ WEISS [facility] During your visit today, we recorded the following information about you: Temperature Pulse Blood pressure Weight 97.4 degrees 72/minute 129/72 97.5 kg Tez Weiss APRN.CNP 10/05/2018 11:12 AM Signed Chief Complaint Patient presents with: Cough HPI Alia Trejo is a 78 year old male who presents here today for above complaints. Patient presents to the office for complaints of increased yellow mucus production. Present for the last 3 weeks. Denies any current wheezing, shortness breath, fevers, chills. Does have a cough present. Does have sinus congestion. No ear pain. No sore throat. Does have post- nasal drip. Does have a history of COPD. Does follow with pulmonology. Ex- smoker. Has been exposed to a large number of ill children as he plays as [employer]. Did have a prescription for Flonase, but ran out. Does have a nebulizer at home. Is not using regularly. Past medical history, appointments, medications, allergies reviewed. Previous Medical History PAST MEDICAL HISTORY Diagnosis Date - Acute bronchitis with chronic obstructive pulmonary disease (COPD) ([facility]) 12/28/2015 Pulmonlogy managing - Acute diastolic CHF (congestive heart failure) ([facility]) 12/28/2015 - Atrial fibrillation, permanent ([facility]) 11/04/[address] Goldberg - Benign neoplasm of colon - CKD (chronic kidney disease) stage 3, GFR 30-59 ml/min ([facility]) 11/11/[address] Diaz - Diverticulosis of colon (without mention of hemorrhage) - Hiatal hernia 10/26/201710/2017 CT chest. 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 75 - Diabetes Father - Hypertension Father - other (Alcoholism) Father D. 57 - Cancer Brother Lung D.68 yo - other (MVA) Brother Fatal MVA. D. 17 Patient Allergies ALLERGIES Allergen Reactions - Nabeel Inhibitors Cough Current Medications Current Outpatient Prescriptions on File Prior to Visit: albuterol 5 mg/mL Nebu Inhale 0.5 mL as instructed every 4 hours as needed for 7 days. 1 DOSE NOW - BACK OFFICE. PLACE 0.5 ML PER DROPPER AND 2.5 ML OF NORMAL SALINE INTO RESERVOIR. (Patient not taking: Reported on 02/14/2018 ) Blood-Glucose Meter (ONETOUCH ULTRA2) monitoring kit 1 Each as needed. One Touch Meter Kit Diagnosis: Type 2 DM - Uncontrolled E11.65 Cholecalciferol, Vitamin D3, 1,000 unit cap Take 1 capsule by mouth once daily. COMPOUNDED PRESCRIPTION insulin syringes 0.3 31 g 02/23 needle CPAP ASV machine. Initiate @ EEP14, Min ps. 3 Max ps 15, cm of water with humidification. Auto rate. Mask (per patient preference) optional chin strap (if indicated) , filters, tubing, humidifier and lifetime supplies. CSA 327.27 and [employer] 786.04 flash glucose scanning reader (FREESTYLE RUSSELL READER) misc 1 Device four times daily. flash glucose sensor (FREESTYLE RUSSELL SENSOR) kit 1 Device four times daily. furosemide (LASIX) 40 mg tablet Take 1 tablet by mouth once daily. insulin glargine (LANTUS SOLOSTAR U-100 INSULIN) 100 unit/mL (3 mL) inpn Inject 40 Units subcutaneously once daily. Insulin Alsip, Disposable, (NOVOFINE 32) 32 gauge x 1/4 ndle 1 Each four times daily as needed. Use for Victoza and insulin injections 4 times daily. DX: E11.65 insulin regular human (HUMULIN R REGULAR U-100 INSULN) 100 unit/mL injection Inject 5 units if sugar <200 at bedtime or 10 units if >200. losartan (COZAAR) 25 mg tablet Take 0.5 tablets by mouth once daily. metoprolol tartrate, short acting, (LOPRESSOR) 100 mg tablet Take 2 tablets by mouth twice daily. ONETOUCH ULTRA BLUE TEST STRIP test strip USE TO TEST 4 TIMES DAILY rosuvastatin (CRESTOR) 40 mg tablet Take 0.5 tablets by mouth once daily. spironolactone (ALDACTONE) 25 mg tablet Take 1 tablet by mouth once daily. therapeutic multivitamin w/ iron (THERAGRAN-M) 9 mg iron-400 mcg tablet Take 1 tablet by mouth once daily. warfarin (COUMADIN) 5 mg tablet TAKE ONE TABLET ON WEDNESDAY/WEDNESDAY AND ONE-HALF TABLETS ON ALL OTHER DAYS No current facility-administered medications on file prior to visit. Social History Social History Marital status: Spouse name: Aixa Years of education: Number of children: 3 Occupational History Occupation Employer Comment [employer] Social History Main Topics Smoking status: Former Smoker Packs/day: 0.50 Years: 10.00 Types: Cigarettes Start date: 01/07/1955 Quit date: 01/08/1976 Smokeless tobacco: Never Used Comment: Age 13 to 31. No smoking in childhood home. Spouse ex-smoker. 12/05/15. TO Alcohol use: No Drug use: No REVIEW OF SYSTEMS: as above ? Reviewed relevant PMHx, PSHx, Social Hx, current medications and allergies. EXAM: BP 129/72 Pulse 72 Temp 36.3 ?C (97.4 ?F) (Tympanic) Wt 97.5 kg (215 lb) SpO2 98% BMI 34.70 kg/m? General Appearance: Well appearing, alert, in no acute distress, well-hydrated, well nourished. and Overweight. Head: Normocephalic, no masses, lesions, tenderness or abnormalities. Eyes: Anicteric sclera. Pupils are equally round and reactive to light. Extraocular movements are intact. . Ears: External ears normal, canals clear. Nose/Sinuses: Nares normal, septum midline, mucosa normal, no drainage or sinus tenderness. Oropharynx: Lips, mucosa, and tongue normal, teeth and gums normal, oropharynx normal. Neck: Supple, no adenopathy; thyroid symmetric, normal size. Lungs: positive findings: wheezing in posterior bilateral lung tierney, cough. Heart: Irregularly irregular rhythm. Health Maintenance List DILATED RETINAL EXAM due on 07/13/2018 URINE ALBUMIN:CREATININE RATIO due on 10/28/2018 NABEEL/ARB MED PRESCRIBED due on 10/11/2018 STATIN MED ADHERENCE due on 10/11/2018 DIABETES MED ADHERENCE due on 10/11/2018 NABEEL/ARB MED ADHERENCE due on 10/11/2018 HEMOGLOBIN/HEMATOCRIT due on 12/16/2018 HBA1C due on 02/07/2019 DIABETIC FOOT EXAM due on 02/14/2019 LDL CHOLESTEROL due on 02/17/2019 SERUM CREATININE due on 02/17/2019 ANNUAL PCP TEAM CHRONIC DISEASE VISIT due on 08/10/2019 BP CONTROLLED (<130/80) due on 08/10/2019 COLORECTAL CANCER SCREENING,SEE MODIFIER due on 11/24/2019 DTAP,TDAP,TD(2 - Td) due on 07/26/2028 ADULT PREVNAR-13 Completed INFLUENZA Completed PNEUMOVAX AGE 65 AND OVER WITH 5YR LOOKBACK Completed Data reviewed Component Latest Ref Rng AND Units 02/17/2018 09/23/2018 Glucose 74 - 99 mg/dL 116 (H) BUN 9 - 24 mg/dL 16 Creatinine 0.73 - 1.22 mg/dL 1.19 Sodium 136 - 144 mmol/L 140 Potassium 3.7 - 5.1 mmol/L 4.3 Chloride 97 - 105 mmol/L 102 CO2 22 - 30 mmol/L 24 Anion Gap 9 - 18 mmol/L 14 Calcium 8.5 - 10.2 mg/dL 8.8 eGFR- >60 eGFR-All Other Races . 59 Cholesterol, Total <200 mg/dL 139 Triglyceride <150 mg/dL 82 HDL Cholesterol >39 mg/dL 33 (L) LDL Cholesterol <100 mg/dL 90 Non HDL Cholesterol <130 mg/dL 106 Fasting Time hrs 11 VLDL Cholesterol <30 mg/dL 16 TC:HDL Ratio <5.10 4.21 LDL:HDL Ratio <2.54 2.73 (H) Hemoglobin A1C 4.3 - 5.6 % 7.5 (H) Estimated Average Glucose mg/dL 169 INR (POCT) 0.8 - 1.2 2.6 (H) Internal Quality Check Acceptable ASSESSMENT/PLAN: 1. COPD with exacerbation (HCC) - ICD9: 491.21, ICD10: J44.1 - advised rest, plenty of fluids. We will hold off on antibiotics as he has had not had any fevers, he is on Coumadin and states that he usually ends up in the hospital when placed on antibiotics. - PREDNISONE 20 MG TABLET - FLUTICASONE 50 MCG/ACTUATION NASAL SPRAY,SUSPENSION - GUAIFENESIN ER 600 MG TABLET, EXTENDED RELEASE 12 HR I advised him to return to office if he has any fevers, chills, shortness of breath, wheezing. MEMO Mathis APRN.CNP 10/05/2018 11:08 AM Signed Please drink plenty of water, return to office if you develop fevers, chills, shortness of breath, wheezing. Tez Weiss APRN.CNP Referring Provider: SELF [[id number]] Allergies As of Date: 10/05/2018 Noted Allergy Reaction NABEEL INHIBITORS 05/16/2014 3 - Cough Date Reviewed: 10/05/2018 Reviewed by: Cristin Penaloza Felt Dyeing Machine Tender - Fully Assessed Reason for Visit: Cough [28] Cmt: mucinex - day/ny quil Reason For Visit History Recorded Primary Visit Diagnosis:COPD with exacerbation (HCC) [J44.1] Order(s):predniSONE (DELTASONE) 20 mg tabletTake 2 tablets by mouth once daily for 5 days. Take daily with food.Disp: 10 tabletRfl: 0 fluticasone (FLONASE) 50 mcg/actuation nasal sprayUse 2 Sprays in each nostril once daily. Rinse mouth after use.Disp: 3 BottleRfl: 5 guaiFENesin (MUCINEX) 600 mg 12 hr tabletTake 2 tablets by mouth twice daily for 7 days.Disp: 28 tabletRfl: 0 Prescriptions as of 10/05/2018 Sig: ALBUTEROL SULFATE CONCENTRATE* Inhale 0.5 mL as instructed e* BLOOD-GLUCOSE METER KIT 1 Each as needed. One Touch M* CHOLECALCIFEROL (VITAMIN D3) * Take 1 capsule by mouth once * COMPOUNDED PRESCRIPTION insulin syringes 0.3 31 g 5/* CPAP ASV machine. Initiate @ EEP1* FLASH GLUCOSE SCANNING READER 1 Device four times daily. FLASH GLUCOSE SENSOR KIT 1 Device four times daily. FUROSEMIDE 40 MG TABLET Take 1 tablet by mouth once d* INSULIN GLARGINE (U-100) 100 * Inject 40 Units subcutaneousl* PEN NEEDLE, DIABETIC 32 GAUGE* 1 Each four times daily as ne* INSULIN U-100 REGULAR HUMAN 1* Inject 5 units if sugar <200 * LOSARTAN 25 MG TABLET Take 0.5 tablets by mouth onc* METOPROLOL TARTRATE 100 MG TA* Take 2 tablets by mouth twice* ONETOUCH ULTRA BLUE TEST STRIP USE TO TEST 4 TIMES DAILY ROSUVASTATIN 40 MG TABLET Take 0.5 tablets by mouth onc* SPIRONOLACTONE 25 MG TABLET Take 1 tablet by mouth once d* MULTIVITAMIN-IRON 9 MG-FOLIC * Take 1 tablet by mouth once d* WARFARIN 5 MG TABLET TAKE ONE TABLET ON WEDNESDAY/* FLUTICASONE 50 MCG/ACTUATION * Use 2 Sprays in each nostril * GUAIFENESIN ER 600 MG TABLET,* Take 2 tablets by mouth twice* PREDNISONE 20 MG TABLET Take 2 tablets by mouth once * Problem List As Of Date 10/05/2018 Noted Resolved Essential hypertension [I10] DIABETES MELLITUS TYPE II UNCONTR UNCOMPL [E11.* 09/12/2014 Hyperlipidemia [E78.5] CHRONIC RHINITIS [J31.0] INVALID FOR* PAD (peripheral artery disease) (HCC) [I73.9] INVALID FOR* VIRAL WARTS NOS [B07.9] INVALID FOR* Type I (juvenile type) diabetes mellitus withou*INVALID FOR*02/06/2014 Unspecified sleep apnea [G47.30] INVALID FOR*07/21/2014 More... BENIGN NEOPLASM LG BOWEL [D12.6] INVALID FOR* DIVERTICULOSIS OF COLON W/O BLEED [K57.30] INVALID FOR* INT HEMORRHOID W/O COMPL [K64.8] INVALID FOR* Premature atrial beats [I49.1] INVALID FOR* Atrial fibrillation, permanent [I48.2] INVALID FOR*01/30/2015 Atherosclerosis of aortic arch [I70.0] INVALID FOR* More... BMI 37.0-37.9, adult [Z68.37] INVALID FOR*01/30/2015 DERRICK (obstructive sleep apnea) AHI 36 [G47.33] INVALID FOR* DM (diabetes mellitus), type 2, uncontrolled (H*INVALID FOR*02/14/2018 Atrial fibrillation (HCC) [I48.91] INVALID FOR* BMI 35.0-35.9,adult [Z68.35] INVALID FOR*11/11/2017 long term care pharmacist (current) use of anticoagulants [Z79.*INVALID FOR* SUMMARY INVALID FOR* More... Cough with expectoration [R05] INVALID FOR* More... Atrial fibrillation with RVR (HCC) [I48.91] INVALID FOR*11/10/2017 Syncope [R55] INVALID FOR* Acute bronchitis with chronic obstructive pulmo*INVALID FOR*07/04/2016 Acute diastolic CHF (congestive heart failure) *INVALID FOR*07/04/2016 Status post placement of implantable loop recor*INVALID FOR* Type 2 diabetes mellitus without retinopathy (H*INVALID FOR* Vitreous floaters of both eyes [H43.393] INVALID FOR* TIA due to embolism (HCC) [G45.9, I74.9] INVALID FOR* Facial droop [R29.810] INVALID FOR*11/11/2017 Controlled type 2 diabetes mellitus without com*INVALID FOR* Combined forms of age-related cataract of both *INVALID FOR* Screening for colon cancer [Z12.11] INVALID FOR*02/14/2018 More... Hiatal hernia [K44.9] INVALID FOR* More... Acute bronchitis with chronic obstructive pulmo*INVALID FOR* More... CKD (chronic kidney disease) stage 3, GFR 30-59*INVALID FOR*03/22/2018 Type 2 DM with CKD stage 3 and hypertension (HC*INVALID FOR* Secondary renal hyperparathyroidism (HCC) [N25.*INVALID FOR* Persistent proteinuria [R80.1] INVALID FOR* Other instructions from your clinician: Please drink plenty of water, return to office if you develop fevers, chills, shortness of breath, wheezing. Tez Weiss APRN.PINKY Prescriptions ordered this encounter Disp Refills Start End PREDNISONE 20 MG TABLET 10 t* 0 10/05/2018 10/10/2018 Route: ORAL Sig: Take 2 tablets by mouth once daily for 5 days. Take daily with food. FLUTICASONE 50 MCG/ACTUATION NASAL S* 3 Erlin* 5 10/05/2018 Route: EACH NOSTRIL Sig: Use 2 Sprays in each nostril once daily. Rinse mouth after use. GUAIFENESIN ER 600 MG TABLET, EXTEND* 28 t* 0 10/05/2018 10/12/2018 Route: ORAL Sig: Take 2 tablets by mouth twice daily for 7 days. Disposition: Return if symptoms worsen or fail to improve. Follow-up and Disposition History Recorded Encounter Status:Closed by TEZ WEISS CNP on 10/05/18 PROGRESS Observed: 10/05/2018 Status: COMPLETED Source: [place] 10:53 AM [facility] [place] REPOSITORY O ID: [id number] Author: Tez Weiss Service: (none) Author Type: Nurse Practitioner Type: Progress Notes Filed: 10/05/2018 11:12 AM Note Text: Chief Complaint Patient presents with: Cough HPI Alia Trejo is a 78 year old male who presents here today for above complaints. Patient presents to the office for complaints of increased yellow mucus production. Present for the last 3 weeks. Denies any current wheezing, shortness breath, fevers, chills. Does have a cough present. Does have sinus congestion. No ear pain. No sore throat. Does have post-nasal drip. Does have a history of COPD. Does follow with pulmonology. Ex-smoker. Has been exposed to a large number of ill children as he plays as [employer]. Did have a prescription for Flonase, but ran out. Does have a nebulizer at home. Is not using regularly. Past medical history, appointments, medications, allergies reviewed. Previous Medical History PAST MEDICAL HISTORY Diagnosis Date - Acute bronchitis with chronic obstructive pulmonary disease (COPD) ([facility]) 12/28/2015 Pulmonlogy managing - Acute diastolic CHF (congestive heart failure) ([facility]) 12/28/2015 - Atrial fibrillation, permanent ([facility]) 11/04/[address] Goldberg - Benign neoplasm of colon - CKD (chronic kidney disease) stage 3, GFR 30-59 ml/min ([facility]) 11/11/[address] Diaz - Diverticulosis of colon (without mention of hemorrhage) - Hiatal hernia 10/26/201710/2017 CT chest. 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 75 - Diabetes Father - Hypertension Father - other (Alcoholism) Father D. 57 - Cancer Brother Lung D.68 yo - other (MVA) Brother Fatal MVA. D. 17 Patient Allergies ALLERGIES Allergen Reactions - Nabeel Inhibitors Cough Current Medications Current Outpatient Prescriptions on File Prior to Visit: albuterol 5 mg/mL Nebu Inhale 0.5 mL as instructed every 4 hours as needed for 7 days. 1 DOSE NOW - BACK OFFICE. PLACE 0.5 ML PER DROPPER AND 2.5 ML OF NORMAL SALINE INTO RESERVOIR. (Patient not taking: Reported on 02/14/2018 ) Blood-Glucose Meter (Hytle ULTRA2) monitoring kit 1 Each as needed. One Touch Meter Kit Diagnosis: Type 2 DM - Uncontrolled E11.65 Cholecalciferol, Vitamin D3, 1,000 unit cap Take 1 capsule by mouth once daily. COMPOUNDED PRESCRIPTION insulin syringes 0.3 31 g 16 needle CPAP ASV machine. Initiate @ EEP14, Min ps. 3 Max ps 15, cm of water with humidification. Auto rate. Mask (per patient preference) optional chin strap (if indicated) , filters, tubing, humidifier and lifetime supplies. CSA 327.27 and Ryan-Leach 786.04 flash glucose scanning reader (FREESTYLE RUSSELL READER) misc 1 Device four times daily. flash glucose sensor (FREESTYLE RUSSELL SENSOR) kit 1 Device four times daily. furosemide (LASIX) 40 mg tablet Take 1 tablet by mouth once daily. insulin glargine (LANTUS SOLOSTAR U-100 INSULIN) 100 unit/mL (3 mL) inpn Inject 40 Units subcutaneously once daily. Insulin Alsip, Disposable, (NOVOFINE 32) 32 gauge x 1/4 ndle 1 Each four times daily as needed. Use for Victoza and insulin injections 4 times daily. DX: E11.65 insulin regular human (HUMULIN R REGULAR U-100 INSULN) 100 unit/mL injection Inject 5 units if sugar <200 at bedtime or 10 units if >200. losartan (COZAAR) 25 mg tablet Take 0.5 tablets by mouth once daily. metoprolol tartrate, short acting, (LOPRESSOR) 100 mg tablet Take 2 tablets by mouth twice daily. ONETOUCH ULTRA BLUE TEST STRIP test strip USE TO TEST 4 TIMES DAILY rosuvastatin (CRESTOR) 40 mg tablet Take 0.5 tablets by mouth once daily. spironolactone (ALDACTONE) 25 mg tablet Take 1 tablet by mouth once daily. therapeutic multivitamin w/ iron (THERAGRAN-M) 9 mg iron-400 mcg tablet Take 1 tablet by mouth once daily. warfarin (COUMADIN) 5 mg tablet TAKE ONE TABLET ON WEDNESDAY/WEDNESDAY AND ONE-HALF TABLETS ON ALL OTHER DAYS No current facility-administered medications on file prior to visit. Social History Social History Marital status: Spouse name: Aixa Years of education: Number of children: 3 Occupational History Occupation Employer Comment [employer] Social History Main Topics Smoking status: Former Smoker Packs/day: 0.50 Years: 10.00 Types: Cigarettes Start date: 01/07/1955 Quit date: 01/08/1976 Smokeless tobacco: Never Used Comment: Age 13 to 31. No smoking in childhood home. Spouse ex-smoker. 12/05/15. TO Alcohol use: No Drug use: No REVIEW OF SYSTEMS: as above ? Reviewed relevant PMHx, PSHx, Social Hx, current medications and allergies. EXAM: BP 129/72 Pulse 72 Temp 36.3 ?C (97.4 ?F) (Tympanic) Wt 97.5 kg (215 lb) SpO2 98% BMI 34.70 kg/m? General Appearance: Well appearing, alert, in no acute distress, well-hydrated, well nourished. and Overweight. Head: Normocephalic, no masses, lesions, tenderness or abnormalities. Eyes: Anicteric sclera. Pupils are equally round and reactive to light. Extraocular movements are intact. . Ears: External ears normal, canals clear. Nose/Sinuses: Nares normal, septum midline, mucosa normal, no drainage or sinus tenderness. Oropharynx: Lips, mucosa, and tongue normal, teeth and gums normal, oropharynx normal. Neck: Supple, no adenopathy; thyroid symmetric, normal size. Lungs: positive findings: wheezing in posterior bilateral lung tierney, cough. Heart: Irregularly irregular rhythm. Health Maintenance List DILATED RETINAL EXAM due on 07/13/2018 URINE ALBUMIN:CREATININE RATIO due on 10/28/2018 NABEEL/ARB MED PRESCRIBED due on 10/11/2018 STATIN MED ADHERENCE due on 10/11/2018 DIABETES MED ADHERENCE due on 10/11/2018 NABEEL/ARB MED ADHERENCE due on 10/11/2018 HEMOGLOBIN/HEMATOCRIT due on 12/16/2018 HBA1C due on 02/07/2019 DIABETIC FOOT EXAM due on 02/14/2019 LDL CHOLESTEROL due on 02/17/2019 SERUM CREATININE due on 02/17/2019 ANNUAL PCP TEAM CHRONIC DISEASE VISIT due on 08/10/2019 BP CONTROLLED (<130/80) due on 08/10/2019 COLORECTAL CANCER SCREENING,SEE MODIFIER due on 11/24/2019 DTAP,TDAP,TD(2 - Td) due on 07/26/2028 ADULT PREVNAR-13 Completed INFLUENZA Completed PNEUMOVAX AGE 65 AND OVER WITH 5YR LOOKBACK Completed Data reviewed Component Latest Ref Rng AND Units 02/17/2018 09/23/2018 Glucose 74 - 99 mg/dL 116 (H) BUN 9 - 24 mg/dL 16 Creatinine 0.73 - 1.22 mg/dL 1.19 Sodium 136 - 144 mmol/L 140 Potassium 3.7 - 5.1 mmol/L 4.3 Chloride 97 - 105 mmol/L 102 CO2 22 - 30 mmol/L 24 Anion Gap 9 - 18 mmol/L 14 Calcium 8.5 - 10.2 mg/dL 8.8 eGFR- >60 eGFR-All Other Races . 59 Cholesterol, Total <200 mg/dL 139 Triglyceride <150 mg/dL 82 HDL Cholesterol >39 mg/dL 33 (L) LDL Cholesterol <100 mg/dL 90 Non HDL Cholesterol <130 mg/dL 106 Fasting Time hrs 11 VLDL Cholesterol <30 mg/dL 16 TC:HDL Ratio <5.10 4.21 LDL:HDL Ratio <2.54 2.73 (H) Hemoglobin A1C 4.3 - 5.6 % 7.5 (H) Estimated Average Glucose mg/dL 169 INR (POCT) 0.8 - 1.2 2.6 (H) Internal Quality Check Acceptable ASSESSMENT/PLAN: 1. COPD with exacerbation (HCC) - ICD9: 491.21, ICD10: J44.1 - advised rest, plenty of fluids. We will hold off on antibiotics as he has had not had any fevers, he is on Coumadin and states that he usually ends up in the hospital when placed on antibiotics. - PREDNISONE 20 MG TABLET - FLUTICASONE 50 MCG/ACTUATION NASAL SPRAY,SUSPENSION - GUAIFENESIN ER 600 MG TABLET, EXTENDED RELEASE 12 HR I advised him to return to office if he has any fevers, chills, shortness of breath, wheezing. Tez Weiss APRN.TIN CAN LABORER PROGRESS Observed: 09/23/2018 Status: COMPLETED Source: [place] 11:46 AM [facility] REPOSITORY HNO ID: [id number] Author: Rocky Rivera Service: (none) Author Type: Physician Type: Progress Notes Filed: 09/23/2018 11:47 AM Note Text: INR therapeutic. Continue current coumadin dosage and follow up in 2 weeks. PROGRESS Observed: 09/23/2018 Status: COMPLETED Source: [place] 11:41 AM [facility] [place] REPOSITORY HNO ID: [id number] Author: Roseline Gurrola RN Service: (none) Author Type: (none) Type: Progress Notes Filed: 09/23/2018 11:42 AM Note Text: patient had inr completed at [facility] patients inr is 2.6 (patients inr range is 2.0-3.0) patient is currently taking 2.5mg daily patients last dose change was on 09/19/18 due to a high level of 5.1 (dose at that time was 5mg Sat and 2.5mg all other days) patient has had no changes in medication except for coumadin and no uninstructed missed doses and no change in diet Advised patient to continue on the same dose(s) and that they would only be contacted regarding dosage and follow up instructions after review with provider, if a change is needed. Written instructions given and patient verbalized understanding. Presently scheduled in 2 weeks (10/07/18) for follow up INR since this is the first normal reading since dose change. PROGRESS Observed: 09/19/2018 Status: COMPLETED Source: [place] 4:50 PM [facility] REPOSITORY O ID: [id number] Author: Rocky Olea) Miguel Service: (none) Author Type: Physician Type: Progress Notes Filed: 09/19/2018 4:50 PM Note Text: If taking in more than 2 g of tylenol daily this could elevate his INR. Will await confirmation from lab. Limit tylenol (acetaminophen) less than 1,500 mg daily. PROTIME Collected: 09/19/2018 Status: F Source: [place] 4:32 PM [facility] REPOSITORY TYPE CODE TESTS RESULT OUT OF REFERENCE UNITS RANGE LAB PSEC 9.7-13.0 sec Test PT sent to [facility]. Result Comment: Account Credited HIDE LAB INR 0.9-1.3 Test sent to PT INR [facility]. Result Comment: Account Credited HIDE PROTHROMBIN TIME W/INR Collected: 09/19/2018 Status: F Source: [place] 4:30 PM [facility] REPOSITORY TYPE CODE TESTS RESULT OUT OF REFERENCE UNITS RANGE LAB L300.4150 11.7-14.9 SECONDS High PROTIME 38.9 LAB L300.4200 High alert INR 4.0 Result Comment: CRITICAL VALUE VERIFIED. CALLED TO Moni OVALLE 09/19/18 1832 [address]ing. RESULTS READ BACK BY Moni OVALLE . Performed By: #### L300.3900 #### [facility] [address] [place], [address] PROGRESS Observed: 09/19/2018 Status: COMPLETED Source: [place] 3:58 PM [facility] REPOSITORY HNO ID: [id number] Author: Elsi Dawson LPN Service: (none) Author Type: (none) Type: Progress Notes Filed: 09/19/2018 4:02 PM Note Text: spoke with patient, he will come back to lab now, he was already home. Patient reports that he has taken an entire bottle of NyQuil in the past 5 days. PROGRESS Observed: 09/19/2018 Status: COMPLETED Source: [place] 2:38 PM [facility] REPOSITORY HNO ID: [id number] Author: Rocky Olea) Miguel Service: (none) Author Type: Physician Type: Progress Notes Filed: 09/19/2018 2:38 PM Note Text: INR supratherapeutic. Recommend he have repeat blood draw to confirm. Hold coumadin today while awaiting confirmation. PROGRESS Observed: 09/19/2018 Status: COMPLETED Source: [place] 2:13 PM [facility] REPOSITORY HNO ID: [id number] Author: Roseline Gurrola RN Service: (none) Author Type: (none) Type: Progress Notes Filed: 09/19/2018 2:15 PM Note Text: patient had inr completed at [facility] patients inr is 5.1 (patients inr range is 2.0-3.0) patient is currently taking 5mg Sat and 2.5mg all other days patients last dose change was on 12/01/17 due to a high level of 5.8 (dose at that time was 5mg Wed,Sat and 2.5mg all other days) patient has had no changes in medication and no missed doses and no change in diet Patient has been instructed to hold coumadin until contacted Advised patient that they would be contacted regarding medication dose and when to follow up after information is reviewed by provider. After provider review please contact the patient with information and schedule follow up appointment with coumadin clinic. FYI - patient is unable to return for follow up inr until Wednesday as he is leaving in the morning for [place] CNPTOUTREACH Observed: 09/06/2018 Status: COMPLETED Source: [place] 12:00 AM [facility] REPOSITORY Patient Outreach (FAMPST) ALIA TREJO ([id number]) 1940 M Date Time Provider Department 09/06/18 ROCKY RIVERA) FAMPST During your visit today, we recorded the following information about you: Allergies As of Date: 09/06/2018 Noted Allergy Reaction NABEEL INHIBITORS 05/16/2014 3 - Cough Date Reviewed: 08/10/2018 Reviewed by: Brian Kevin Ma - Fully Assessed Visit Diagnosis:Medication management [Z79.899] Order(s):ALBUMIN/CREAT RATIO RND UR [SQUACR] Order #: [id number] FUTURE Prescriptions as of 09/06/2018 Sig: ALBUTEROL SULFATE CONCENTRATE* Inhale 0.5 mL as instructed e* BLOOD-GLUCOSE METER KIT 1 Each as needed. One Touch M* CHOLECALCIFEROL (VITAMIN D3) * Take 1 capsule by mouth once * COMPOUNDED PRESCRIPTION insulin syringes 0.3 31 g 5/* CPAP ASV machine. Initiate @ EEP1* FLASH GLUCOSE SCANNING READER 1 Device four times daily. FLASH GLUCOSE SENSOR KIT 1 Device four times daily. FUROSEMIDE 40 MG TABLET Take 1 tablet by mouth once d* INSULIN GLARGINE (U-100) 100 * Inject 40 Units subcutaneousl* PEN NEEDLE, DIABETIC 32 GAUGE* 1 Each four times daily as ne* INSULIN U-100 REGULAR HUMAN 1* Inject 5 units if sugar <200 * LOSARTAN 25 MG TABLET Take 0.5 tablets by mouth onc* METOPROLOL TARTRATE 100 MG TA* Take 2 tablets by mouth twice* ONETOUCH ULTRA BLUE TEST STRIP USE TO TEST 4 TIMES DAILY ROSUVASTATIN 40 MG TABLET Take 0.5 tablets by mouth onc* SPIRONOLACTONE 25 MG TABLET Take 1 tablet by mouth once d* MULTIVITAMIN-IRON 9 MG-FOLIC * Take 1 tablet by mouth once d* WARFARIN 5 MG TABLET TAKE ONE TABLET ON WEDNESDAY/* Problem List As Of Date 09/06/2018 Noted Resolved Essential hypertension [I10] DIABETES MELLITUS TYPE II UNCONTR UNCOMPL [E11.* 09/12/2014 Hyperlipidemia [E78.5] CHRONIC RHINITIS [J31.0] INVALID FOR* PAD (peripheral artery disease) (HCC) [I73.9] INVALID FOR* VIRAL WARTS NOS [B07.9] INVALID FOR* Type I (juvenile type) diabetes mellitus withou*INVALID FOR*02/06/2014 Unspecified sleep apnea [G47.30] INVALID FOR*07/21/2014 More... BENIGN NEOPLASM LG BOWEL [D12.6] INVALID FOR* DIVERTICULOSIS OF COLON W/O BLEED [K57.30] INVALID FOR* INT HEMORRHOID W/O COMPL [K64.8] INVALID FOR* Premature atrial beats [I49.1] INVALID FOR* Atrial fibrillation, permanent [I48.2] INVALID FOR*01/30/2015 Atherosclerosis of aortic arch [I70.0] INVALID FOR* More... BMI 37.0-37.9, adult [Z68.37] INVALID FOR*01/30/2015 DERRICK (obstructive sleep apnea) AHI 36 [G47.33] INVALID FOR* DM (diabetes mellitus), type 2, uncontrolled (H*INVALID FOR*02/14/2018 Atrial fibrillation (HCC) [I48.91] INVALID FOR* BMI 35.0-35.9,adult [Z68.35] INVALID FOR*11/11/2017 nursing home (current) use of anticoagulants [Z79.*INVALID FOR* SUMMARY INVALID FOR* More... Cough with expectoration [R05] INVALID FOR* More... Atrial fibrillation with RVR (HCC) [I48.91] INVALID FOR*11/10/2017 Syncope [R55] INVALID FOR* Acute bronchitis with chronic obstructive pulmo*INVALID FOR*07/04/2016 Acute diastolic CHF (congestive heart failure) *INVALID FOR*07/04/2016 Status post placement of implantable loop recor*INVALID FOR* Type 2 diabetes mellitus without retinopathy (H*INVALID FOR* Vitreous floaters of both eyes [H43.393] INVALID FOR* TIA due to embolism (HCC) [G45.9, I74.9] INVALID FOR* Facial droop [R29.810] INVALID FOR*11/11/2017 Controlled type 2 diabetes mellitus without com*INVALID FOR* Combined forms of age-related cataract of both *INVALID FOR* Screening for colon cancer [Z12.11] INVALID FOR*02/14/2018 More... Hiatal hernia [K44.9] INVALID FOR* More... Acute bronchitis with chronic obstructive pulmo*INVALID FOR* More... CKD (chronic kidney disease) stage 3, GFR 30-59*INVALID FOR*03/22/2018 Type 2 DM with CKD stage 3 and hypertension (HC*INVALID FOR* Secondary renal hyperparathyroidism (HCC) [N25.*INVALID FOR* Persistent proteinuria [R80.1] INVALID FOR* Encounter Status:Closed by Sossee on 10/06/18 PROGRESS Observed: 08/24/2018 Status: COMPLETED Source: [place] 12:02 PM [facility] REPOSITORY HNO ID: [id number] Author: Rocky Olea) Miguel Service: (none) Author Type: Physician Type: Progress Notes Filed: 08/24/2018 12:02 PM Note Text: INR therapeutic. Continue current coumadin dosage and follow up in 4 weeks. PROGRESS Observed: 08/24/2018 Status: COMPLETED Source: [place] 11:38 AM [facility] REPOSITORY HNO ID: [id number] Author: Monique Charles RN Service: (none) Author Type: (none) Type: Progress Notes Filed: 08/24/2018 11:39 AM Note Text: Patient had INR completed at [facility] Patient's INR is 2.1 Patient is currently taking 5 mg Sat, 2.5 mg all other days Patient's last dose change was 12/09/17 due to low INR Patient has had NO medication and NO change in diet. Advised patient to continue on same dose and they would only be contacted with different instructions after provider review. Written instructions were given to patient and patient verbalized understanding. Presently, patient has been scheduled for 09/21/18 for INR follow up. PROGRESS Observed: 08/10/2018 Status: COMPLETED Source: [place] 11:45 AM [facility] REPOSITORY HNO ID: [id number] Author: Rocky Olea) Miguel Service: (none) Author Type: Physician Type: Progress Notes Filed: 08/10/2018 2:40 PM Note Text: Chief Complaint Patient presents with: 6 Month Exam HPI Alia Trejo is a 78 year old male who presents here today for 6 month follow up. Patient seen by HOME HOSPICE AIDE twice this month for leg swelling, rash and fall with head trauma. Given keflex for rash which has cleared up. Leg swelling has improved and venous duplex for DVT was negative. Head CT from fall with head trauma was negative for bleeding. Has not had any falls since OV on 07/29. Still not sure if he tripped or blacked out. Is not having any cardiac or neuro symptoms since and hand negative workup. DIABETES MELLITUS: Mr. Trejo was last seen 6 months ago. Since our last visit, switched him from Humalog to humulin R due to cost. He denies excessive thirst or increased frequency of urination, numbness, tingling or pain in extremities and new or unusual visual symptoms. Patient admits to have low sugar/hypoglycemic reactions with single fasting reading of 73, ate and symptoms improved. Follows a diabetic diet some of the time. He is compliant with medication(s) and is tolerating med(s) without any side effects. He reports checking his glucose on a three times a day schedule with sugars in the fasting <120 range. Getting high readings from 9 pm to 12 am into the 200s. Takes his humulin R and improves. Patient's last HgA1C was Hemoglobin A1C (%) Date Value 08/09/2018 7.9 02/17/2018 7.5 ) Last Ophthalmology exam was more than 12 months Last Podiatry exam was within the past 12 months DERRICK: using CPAP nightly and is working well for symptoms. A fib: asymptomatic on beta santo. Taking coumadin as prescribed without bleeding symptoms. F/u with cardiology Dr. Goldberg in November. Past medical history, appointments, medications, allergies reviewed. Previous Medical History PAST MEDICAL HISTORY Diagnosis Date - Acute bronchitis with chronic obstructive pulmonary disease (COPD) ([facility]) 12/28/2015 Pulmonlogy managing - Acute diastolic CHF (congestive heart failure) ([facility]) 12/28/2015 - Atrial fibrillation, permanent ([facility]) 11/04/[address] Goldberg - Benign neoplasm of colon - CKD (chronic kidney disease) stage 3, GFR 30-59 ml/min ([facility]) 11/11/[address] Diaz - Diverticulosis of colon (without mention of hemorrhage) - Hiatal hernia 10/26/201710/2017 CT chest. 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 75 - Diabetes Father - Hypertension Father - other (Alcoholism) Father D. 57 - Cancer Brother Lung D.68 yo - other (MVA) Brother Fatal MVA. D. 17 Patient Allergies ALLERGIES Allergen Reactions - Nabeel Inhibitors Cough Current Medications Current Outpatient Prescriptions on File Prior to Visit: metoprolol tartrate, short acting, (LOPRESSOR) 100 mg tablet Take 2 tablets by mouth twice daily. insulin regular human (HUMULIN R REGULAR U-100 INSULN) 100 unit/mL injection Inject 5 units if sugar <200 at bedtime or 10 units if >200. [place] ULTRA BLUE TEST STRIP test strip USE TO TEST 4 TIMES DAILY spironolactone (ALDACTONE) 25 mg tablet Take 1 tablet by mouth once daily. warfarin (COUMADIN) 5 mg tablet TAKE ONE TABLET ON WEDNESDAY/WEDNESDAY AND ONE-HALF TABLETS ON ALL OTHER DAYS rosuvastatin (CRESTOR) 40 mg tablet Take 0.5 tablets by mouth once daily. insulin glargine (LANTUS SOLOSTAR U-100 INSULIN) 100 unit/mL (3 mL) inpn Inject 40 Units subcutaneously once daily. Cholecalciferol, Vitamin D3, 1,000 unit cap Take 1 capsule by mouth once daily. furosemide (LASIX) 40 mg tablet Take 1 tablet by mouth once daily. flash glucose scanning reader (FREESTYLE RUSSELL READER) misc 1 Device four times daily. flash glucose sensor (FREESTYLE RUSSELL SENSOR) kit 1 Device four times daily. Insulin Alsip, Disposable, (NOVOFINE 32) 32 gauge x 1/4 ndle 1 Each four times daily as needed. Use for Victoza and insulin injections 4 times daily. DX: E11.65 Blood-Glucose Meter (ONETOUCH ULTRA2) monitoring kit 1 Each as needed. One Touch Meter Kit Diagnosis: Type 2 DM - Uncontrolled E11.65 therapeutic multivitamin w/ iron (THERAGRAN-M) 9 mg iron-400 mcg tablet Take 1 tablet by mouth once daily. COMPOUNDED PRESCRIPTION insulin syringes 0.3 31 g 5/16 needle CPAP ASV machine. Initiate @ EEP14, Min ps. 3 Max ps 15, cm of water with humidification. Auto rate. Mask (per patient preference) optional chin strap (if indicated) , filters, tubing, humidifier and lifetime supplies. CSA 327.27 and Ryan-Leach 786.04 insulin lispro (HUMALOG KWIKPEN INSULIN) 100 unit/mL inpn Inject 5 units if sugar <200 at bedtime or 10 units if >200. (Patient not taking: Reported on 08/10/2018 ) rosuvastatin (CRESTOR) 40 mg tablet Take 1 tablet by mouth once daily. (Patient not taking: Reported on 08/10/2018 ) fluticasone (FLONASE) 50 mcg/actuation nasal spray Use 1 Wideman in each nostril daily at bedtime. (Patient not taking: Reported on 08/10/2018 ) albuterol HFA (VENTOLIN HFA) 90 mcg/actuation inhaler Inhale 2 Puffs as instructed every 4 hours as needed. (Patient not taking: Reported on 02/14/2018 ) liraglutide (VICTOZA) 0.6 mg/0.1 mL (18 mg/3 mL) pnij Inject 1.2 mg subcutaneously once daily. DX: E11.65 albuterol 5 mg/mL Nebu Inhale 0.5 mL as instructed every 4 hours as needed for 7 days. 1 DOSE NOW - BACK OFFICE. PLACE 0.5 ML PER DROPPER AND 2.5 ML OF NORMAL SALINE INTO RESERVOIR. (Patient not taking: Reported on 02/14/2018 ) No current facility-administered medications on file prior to visit. Social History Social History Marital status: Spouse name: Aixa Years of education: Number of children: 3 Occupational History Occupation Employer Comment [employer] Social History Main Topics Smoking status: Former Smoker Packs/day: 0.50 Years: 10.00 Types: Cigarettes Start date: 01/07/1955 Quit date: 01/08/1976 Smokeless tobacco: Never Used Comment: Age 13 to 31. No smoking in childhood home. Spouse ex-smoker. 12/05/15. TO Alcohol use: No Drug use: No Review of Symptoms REVIEW OF SYSTEMS GENERAL: No weight loss, malaise or fevers RESPIRATORY: Negative for cough, hemoptysis, wheezing, COPD, dyspnea or shortness of breath CARDIOVASCULAR: Negative for chest pain, leg swelling, hypertension, CHF or palpitations GI: No nausea, vomiting, or diarrhea SKIN: Negative for lesions, rash, and itching EXAM: BP 126/78 Resp 16 Wt 93 kg (205 lb) SpO2 99% BMI 33.09 kg/m? General Appearance: Well appearing, alert, in no acute distress, well-hydrated, well nourished.. Skin: Skin color, texture, turgor normal, no suspicious rashes or lesions. Lungs: Lungs clear to auscultation. No wheezing, rhonchi, rales. Heart: irregularly irregular rhythm without RGM Abdomen: Normal abdominal exam, Abdomen soft, non-tender. Bowel sounds normal. No masses, organomegaly. Extremities: No deformities, edema, skin discoloration, clubbing or cyanosis. Good capillary refill. . Health Maintenance List BP CONTROLLED (<130/80) due on 1959 DILATED RETINAL EXAM due on 07/13/2018 NABEEL/ARB MED PRESCRIBED due on 08/11/2018 STATIN MED ADHERENCE due on 08/11/2018 DIABETES MED ADHERENCE due on 08/11/2018 HBA1C due on 08/20/2018 URINE ALBUMIN:CREATININE RATIO due on 10/28/2018 HEMOGLOBIN/HEMATOCRIT due on 12/16/2018 DIABETIC FOOT EXAM due on 02/14/2019 LDL CHOLESTEROL due on 02/17/2019 SERUM CREATININE due on 02/17/2019 ANNUAL PCP TEAM CHRONIC DISEASE VISIT due on 07/29/2019 COLORECTAL CANCER SCREENING,SEE MODIFIER due on 11/24/2019 DTAP,TDAP,TD(2 - Td) due on 07/26/2028 ADULT PREVNAR-13 Completed INFLUENZA Completed PNEUMOVAX AGE 65 AND OVER WITH 5YR LOOKBACK Completed Data reviewed Component Latest Ref Rng AND Units 12/23/2017 02/17/2018 08/09/2018 Albumin 3.9 - 4.9 g/dL 3.7 (L) Calcium 8.5 - 10.2 mg/dL 9.0 8.8 Phosphorus 2.7 - 4.8 mg/dL 4.3 Glucose 74 - 99 mg/dL 185 (H) 116 (H) BUN 9 - 24 mg/dL 24 16 Creatinine 0.73 - 1.22 mg/dL 1.17 1.19 Sodium 136 - 144 mmol/L 137 140 Potassium 3.7 - 5.1 mmol/L 4.6 4.3 Chloride 97 - 105 mmol/L 100 102 CO2 22 - 30 mmol/L 22 24 Anion Gap 9 - 18 mmol/L 15 14 eGFR- >60 >60 eGFR-All Other Races . >60 59 Cholesterol, Total <200 mg/dL 139 Triglyceride <150 mg/dL 82 HDL Cholesterol >39 mg/dL 33 (L) LDL Cholesterol <100 mg/dL 90 Non HDL Cholesterol <130 mg/dL 106 Fasting Time hrs 11 VLDL Cholesterol <30 mg/dL 16 TC:HDL Ratio <5.10 4.21 LDL:HDL Ratio <2.54 2.73 (H) Hemoglobin A1C 4.3 - 5.6 % 7.5 (H) 7.9 (H) Estimated Average Glucose mg/dL 169 180 ASSESSMENT/PLAN: 1. Type 2 DM with CKD stage 3 and hypertension (HCC) - ICD9: 250.40, 403.90, 585.3, ICD10: E11.22, I12.9, N18.3 (primary diagnosis) - worsening control - Continue current medications - Blood glucose monitoring on a four times a day schedule - Ophthalmology referral for eval/management of diabetic eye changes - Encouraged regular aerobic exercise and weight loss - Daily Asprin therapy recommended - Follow up in 6 weeks, sooner should any other issues arise. - Discussed diabetic education issues of fpc diabetic complications, hypoglycemic symptoms, hyperglycemic symptoms, diet, medications- side effects and need for compliance, importance of exercise and use and side effects of insulin with patient. - LOSARTAN 25 MG TABLET - INSULIN GLARGINE (U-100) 100 UNIT/ML (3 ML) SUBCUTANEOUS PEN 2. Essential hypertension - ICD9: 401.9, ICD10: I10 - good control - Continue current medication(s) - Encouraged dietary sodium restriction/DASH diet - Recommended regular aerobic exercise. - Reviewed risks of HTN and principles of treatment - Goal of BP <140/90 - LOSARTAN 25 MG TABLET 3. Mixed hyperlipidemia - ICD9: 272.2, ICD10: E78.2 - good control - Continue current medication. - Encouraged following a low fat, low cholesterol diet. - Discussed the benefits of regular aerobic exercise and weight loss. 4. DERRICK (obstructive sleep apnea) AHI 36 - ICD9: 327.23, ICD10: G47.33 Using CPAP nightly. Continue as prescribed. 5. Permanent atrial fibrillation (HCC) - ICD9: 427.31, ICD10: I48.2 Rate controlled. Continue anticoagulation. Follow up with cardiology 6. Fall, subsequent encounter - ICD9: V58.89, E888.9, ICD10: W19.XXXD No recurrent falls. Negative workup for CVA. F/u with cardiology with any palpitations or chest pain. Rocky Rivera MD CNOV Observed: 08/10/2018 Status: COMPLETED Source: [place] 11:40 AM [facility] REPOSITORY [facility] ALIA TREJO ([id number]) 1940 M Date Time Provider Department 08/10/18 11:40 AM ROCKY RIVERA () [facility]AMPWS During your visit today, we recorded the following information about you: Pulse Respiration Blood pressure Weight 90/minute 16/minute 126/78 93 kg Rocky Rivera MD 08/10/2018 2:40 PM Signed Chief Complaint Patient presents with: 6 Month Exam HPI Alia Trejo is a 78 year old male who presents here today for 6 month follow up. Patient seen by HOME HOSPICE AIDE twice this month for leg swelling, rash and fall with head trauma. Given keflex for rash which has cleared up. Leg swelling has improved and venous duplex for DVT was negative. Head CT from fall with head trauma was negative for bleeding. Has not had any falls since OV on 07/29. Still not sure if he tripped or blacked out. Is not having any cardiac or neuro symptoms since and hand negative workup. DIABETES MELLITUS: Mr. Trejo was last seen 6 months ago. Since our last visit, switched him from Humalog to humulin R due to cost. He denies excessive thirst or increased frequency of urination, numbness, tingling or pain in extremities and new or unusual visual symptoms. Patient admits to have low sugar/hypoglycemic reactions with single fasting reading of 73, ate and symptoms improved. Follows a diabetic diet some of the time. He is compliant with medication(s) and is tolerating med(s) without any side effects. He reports checking his glucose on a three times a day schedule with sugars in the fasting <120 range. Getting high readings from 9 pm to 12 am into the 200s. Takes his humulin R and improves. Patient's last HgA1C was Hemoglobin A1C (%) Date Value 08/09/2018 7.9 02/17/2018 7.5 ) Last Ophthalmology exam was more than 12 months Last Podiatry exam was within the past 12 months DERRICK: using CPAP nightly and is working well for symptoms. A fib: asymptomatic on beta santo. Taking coumadin as prescribed without bleeding symptoms. F/u with cardiology Dr. Goldberg in November. Past medical history, appointments, medications, allergies reviewed. Previous Medical History PAST MEDICAL HISTORY Diagnosis Date - Acute bronchitis with chronic obstructive pulmonary disease (COPD) ([facility]) 12/28/2015 Pulmonlogy managing - Acute diastolic CHF (congestive heart failure) ([facility]) 12/28/2015 - Atrial fibrillation, permanent ([facility]) 11/04/[address] Goldberg - Benign neoplasm of colon - CKD (chronic kidney disease) stage 3, GFR 30-59 ml/min ([facility]) 11/11/[address] Diaz - Diverticulosis of colon (without mention of hemorrhage) - Hiatal hernia 10/26/201710/2017 CT chest. 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 75 - Diabetes Father - Hypertension Father - other (Alcoholism) Father D. 57 - Cancer Brother Lung D.68 yo - other (MVA) Brother Fatal MVA. D. 17 Patient Allergies ALLERGIES Allergen Reactions - Nabeel Inhibitors Cough Current Medications Current Outpatient Prescriptions on File Prior to Visit: metoprolol tartrate, short acting, (LOPRESSOR) 100 mg tablet Take 2 tablets by mouth twice daily. insulin regular human (HUMULIN R REGULAR U-100 INSULN) 100 unit/mL injection Inject 5 units if sugar <200 at bedtime or 10 units if >200. ONEMesh [place] ULTRA BLUE TEST STRIP test strip USE TO TEST 4 TIMES DAILY spironolactone (ALDACTONE) 25 mg tablet Take 1 tablet by mouth once daily. warfarin (COUMADIN) 5 mg tablet TAKE ONE TABLET ON WEDNESDAY/WEDNESDAY AND ONE-HALF TABLETS ON ALL OTHER DAYS rosuvastatin (CRESTOR) 40 mg tablet Take 0.5 tablets by mouth once daily. insulin glargine (LANTUS SOLOSTAR U-100 INSULIN) 100 unit/mL (3 mL) inpn Inject 40 Units subcutaneously once daily. Cholecalciferol, Vitamin D3, 1,000 unit cap Take 1 capsule by mouth once daily. furosemide (LASIX) 40 mg tablet Take 1 tablet by mouth once daily. flash glucose scanning reader (FREESTYLE RUSSELL READER) misc 1 Device four times daily. flash glucose sensor (FREESTYLE RUSSELL SENSOR) kit 1 Device four times daily. Insulin Alsip, Disposable, (NOVOFINE 32) 32 gauge x 1/4 ndle 1 Each four times daily as needed. Use for Victoza and insulin injections 4 times daily. DX: E11.65 Blood-Glucose Meter (ONETOUCH ULTRA2) monitoring kit 1 Each as needed. One Touch Meter Kit Diagnosis: Type 2 DM - Uncontrolled E11.65 therapeutic multivitamin w/ iron (THERAGRAN-M) 9 mg iron-400 mcg tablet Take 1 tablet by mouth once daily. COMPOUNDED PRESCRIPTION insulin syringes 0.3 31 g 02/23 needle CPAP ASV machine. Initiate @ EEP14, Min ps. 3 Max ps 15, cm of water with humidification. Auto rate. Mask (per patient preference) optional chin strap (if indicated) , filters, tubing, humidifier and lifetime supplies. CSA 327.27 and Ryan-Leach 786.04 insulin lispro (HUMALOG KWIKPEN INSULIN) 100 unit/mL inpn Inject 5 units if sugar <200 at bedtime or 10 units if >200. (Patient not taking: Reported on 08/10/2018 ) rosuvastatin (CRESTOR) 40 mg tablet Take 1 tablet by mouth once daily. (Patient not taking: Reported on 08/10/2018 ) fluticasone (FLONASE) 50 mcg/actuation nasal spray Use 1 Wideman in each nostril daily at bedtime. (Patient not taking: Reported on 08/10/2018 ) albuterol HFA (VENTOLIN HFA) 90 mcg/actuation inhaler Inhale 2 Puffs as instructed every 4 hours as needed. (Patient not taking: Reported on 02/14/2018 ) liraglutide (VICTOZA) 0.6 mg/0.1 mL (18 mg/3 mL) pnij Inject 1.2 mg subcutaneously once daily. DX: E11.65 albuterol 5 mg/mL Nebu Inhale 0.5 mL as instructed every 4 hours as needed for 7 days. 1 DOSE NOW - BACK OFFICE. PLACE 0.5 ML PER DROPPER AND 2.5 ML OF NORMAL SALINE INTO RESERVOIR. (Patient not taking: Reported on 02/14/2018 ) No current facility-administered medications on file prior to visit. Social History Social History Marital status: Spouse name: Aixa Years of education: Number of children: 3 Occupational History Occupation Employer Comment [employer] Social History Main Topics Smoking status: Former Smoker Packs/day: 0.50 Years: 10.00 Types: Cigarettes Start date: 01/07/1955 Quit date: 01/08/1976 Smokeless tobacco: Never Used Comment: Age 13 to 31. No smoking in childhood home. Spouse ex-smoker. 12/05/15. TO Alcohol use: No Drug use: No Review of Symptoms REVIEW OF SYSTEMS GENERAL: No weight loss, malaise or fevers RESPIRATORY: Negative for cough, hemoptysis, wheezing, COPD, dyspnea or shortness of breath CARDIOVASCULAR: Negative for chest pain, leg swelling, hypertension, CHF or palpitations GI: No nausea, vomiting, or diarrhea SKIN: Negative for lesions, rash, and itching EXAM: BP 126/78 Resp 16 Wt 93 kg (205 lb) SpO2 99% BMI 33.09 kg/m? General Appearance: Well appearing, alert, in no acute distress, well-hydrated, well nourished.. Skin: Skin color, texture, turgor normal, no suspicious rashes or lesions. Lungs: Lungs clear to auscultation. No wheezing, rhonchi, rales. Heart: irregularly irregular rhythm without RGM Abdomen: Normal abdominal exam, Abdomen soft, non-tender. Bowel sounds normal. No masses, organomegaly. Extremities: No deformities, edema, skin discoloration, clubbing or cyanosis. Good capillary refill. . Health Maintenance List BP CONTROLLED (<130/80) due on 1959 DILATED RETINAL EXAM due on 07/13/2018 NABEEL/ARB MED PRESCRIBED due on 08/11/2018 STATIN MED ADHERENCE due on 08/11/2018 DIABETES MED ADHERENCE due on 08/11/2018 HBA1C due on 08/20/2018 URINE ALBUMIN:CREATININE RATIO due on 10/28/2018 HEMOGLOBIN/HEMATOCRIT due on 12/16/2018 DIABETIC FOOT EXAM due on 02/14/2019 LDL CHOLESTEROL due on 02/17/2019 SERUM CREATININE due on 02/17/2019 ANNUAL PCP TEAM CHRONIC DISEASE VISIT due on 07/29/2019 COLORECTAL CANCER SCREENING,SEE MODIFIER due on 11/24/2019 DTAP,TDAP,TD(2 - Td) due on 07/26/2028 ADULT PREVNAR-13 Completed INFLUENZA Completed PNEUMOVAX AGE 65 AND OVER WITH 5YR LOOKBACK Completed Data reviewed Component Latest Ref Rng AND Units 12/23/2017 02/17/2018 08/09/2018 Albumin 3.9 - 4.9 g/dL 3.7 (L) Calcium 8.5 - 10.2 mg/dL 9.0 8.8 Phosphorus 2.7 - 4.8 mg/dL 4.3 Glucose 74 - 99 mg/dL 185 (H) 116 (H) BUN 9 - 24 mg/dL 24 16 Creatinine 0.73 - 1.22 mg/dL 1.17 1.19 Sodium 136 - 144 mmol/L 137 140 Potassium 3.7 - 5.1 mmol/L 4.6 4.3 Chloride 97 - 105 mmol/L 100 102 CO2 22 - 30 mmol/L 22 24 Anion Gap 9 - 18 mmol/L 15 14 eGFR- >60 >60 eGFR-All Other Races . >60 59 Cholesterol, Total <200 mg/dL 139 Triglyceride <150 mg/dL 82 HDL Cholesterol >39 mg/dL 33 (L) LDL Cholesterol <100 mg/dL 90 Non HDL Cholesterol <130 mg/dL 106 Fasting Time hrs 11 VLDL Cholesterol <30 mg/dL 16 TC:HDL Ratio <5.10 4.21 LDL:HDL Ratio <2.54 2.73 (H) Hemoglobin A1C 4.3 - 5.6 % 7.5 (H) 7.9 (H) Estimated Average Glucose mg/dL 169 180 ASSESSMENT/PLAN: 1. Type 2 DM with CKD stage 3 and hypertension (HCC) - ICD9: 250.40, 403.90, 585.3, ICD10: E11.22, I12.9, N18.3 (primary diagnosis) - worsening control - Continue current medications - Blood glucose monitoring on a four times a day schedule - Ophthalmology referral for eval/management of diabetic eye changes - Encouraged regular aerobic exercise and weight loss - Daily Asprin therapy recommended - Follow up in 6 weeks, sooner should any other issues arise. 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 - LOSARTAN 25 MG TABLET - INSULIN GLARGINE (U-100) 100 UNIT/ML (3 ML) SUBCUTANEOUS PEN 2. Essential hypertension - ICD9: 401.9, ICD10: I10 - good control - Continue current medication(s) - Encouraged dietary sodium restriction/DASH diet - Recommended regular aerobic exercise. - Reviewed risks of HTN and principles of treatment - Goal of BP <140/90 - LOSARTAN 25 MG TABLET 3. Mixed hyperlipidemia - ICD9: 272.2, ICD10: E78.2 - good control - Continue current medication. - Encouraged following a low fat, low cholesterol diet. - Discussed the benefits of regular aerobic exercise and weight loss. 4. DERRICK (obstructive sleep apnea) AHI 36 - ICD9: 327.23, ICD10: G47.33 Using CPAP nightly. Continue as prescribed. 5. Permanent atrial fibrillation (HCC) - ICD9: 427.31, ICD10: I48.2 Rate controlled. Continue anticoagulation. Follow up with cardiology 6. Fall, subsequent encounter - ICD9: V58.89, E888.9, ICD10: W19.XXXD No recurrent falls. Negative workup for CVA. F/u with cardiology with any palpitations or chest pain. Rocky Rivera MD Referring Provider: ROCKY RIVERA () [[id number]] Allergies As of Date: 08/10/2018 Noted Allergy Reaction NABEEL INHIBITORS 05/16/2014 3 - Cough Date Reviewed: 08/10/2018 Reviewed by: Brian Kevin Ma - Fully Assessed Reason for Visit: 6 Month Exam [189] Primary Visit Diagnosis:Type 2 DM with CKD stage 3 and hypertension (HCC) [E11.22, I12.9, N18.3] Other Visit Diagnoses:Essential hypertension [I10] Mixed hyperlipidemia [E78.2] DERRICK (obstructive sleep apnea) AHI 36 [G47.33] Permanent atrial fibrillation (HCC) [I48.2] Fall, subsequent encounter [W19.XXXD] Order(s):losartan (COZAAR) 25 mg tabletTake 0.5 tablets by mouth once daily.Disp: 45 tabletRfl: 1 insulin glargine (LANTUS SOLOSTAR U-100 INSULIN) 100 unit/mL (3 mL) inpnInject 40 Units subcutaneously once daily.Disp: 5 PenRfl: 3 Prescriptions as of 08/10/2018 Sig: INSULIN GLARGINE (U-100) 100 * Inject 40 Units subcutaneousl* METOPROLOL TARTRATE 100 MG TA* Take 2 tablets by mouth twice* INSULIN U-100 REGULAR HUMAN 1* Inject 5 units if sugar <200 * ONETOUCH ULTRA BLUE TEST STRIP USE TO TEST 4 TIMES DAILY SPIRONOLACTONE 25 MG TABLET Take 1 tablet by mouth once d* WARFARIN 5 MG TABLET TAKE ONE TABLET ON WEDNESDAY/* ROSUVASTATIN 40 MG TABLET Take 0.5 tablets by mouth onc* CHOLECALCIFEROL (VITAMIN D3) * Take 1 capsule by mouth once * FUROSEMIDE 40 MG TABLET Take 1 tablet by mouth once d* FLASH GLUCOSE SCANNING READER 1 Device four times daily. FLASH GLUCOSE SENSOR KIT 1 Device four times daily. PEN NEEDLE, DIABETIC 32 GAUGE* 1 Each four times daily as ne* BLOOD-GLUCOSE METER KIT 1 Each as needed. One Touch M* MULTIVITAMIN-IRON 9 MG-FOLIC * Take 1 tablet by mouth once d* COMPOUNDED PRESCRIPTION insulin syringes 0.3 31 g 5/* CPAP ASV machine. Initiate @ EEP1* LOSARTAN 25 MG TABLET Take 0.5 tablets by mouth onc* ALBUTEROL SULFATE CONCENTRATE* Inhale 0.5 mL as instructed e* Patient not taking: Reported on 02/14/2018 Medication notes this encounter SPIRONOLACTONE 25 MG TABLET >> Rocky Rivera MD 08/10/2018 12:11 PM >> ROCKY RIVERA MD WedAug 10, 2018 12:11 PM Taking Problem List As Of Date 08/10/2018 Noted Resolved Essential hypertension [I10] DIABETES MELLITUS TYPE II UNCONTR UNCOMPL [E11.* 09/12/2014 Hyperlipidemia [E78.5] CHRONIC RHINITIS [J31.0] INVALID FOR* PAD (peripheral artery disease) (HCC) [I73.9] INVALID FOR* VIRAL WARTS NOS [B07.9] INVALID FOR* Type I (juvenile type) diabetes mellitus withou*INVALID FOR*02/06/2014 Unspecified sleep apnea [G47.30] INVALID FOR*07/21/2014 More... BENIGN NEOPLASM LG BOWEL [D12.6] INVALID FOR* DIVERTICULOSIS OF COLON W/O BLEED [K57.30] INVALID FOR* INT HEMORRHOID W/O COMPL [K64.8] INVALID FOR* Premature atrial beats [I49.1] INVALID FOR* Atrial fibrillation, permanent [I48.2] INVALID FOR*01/30/2015 Atherosclerosis of aortic arch [I70.0] INVALID FOR* More... BMI 37.0-37.9, adult [Z68.37] INVALID FOR*01/30/2015 DERRICK (obstructive sleep apnea) AHI 36 [G47.33] INVALID FOR* DM (diabetes mellitus), type 2, uncontrolled (H*INVALID FOR*02/14/2018 Atrial fibrillation (HCC) [I48.91] INVALID FOR* BMI 35.0-35.9,adult [Z68.35] INVALID FOR*11/11/2017 long term care pharmacist (current) use of anticoagulants [Z79.*INVALID FOR* SUMMARY INVALID FOR* More... Cough with expectoration [R05] INVALID FOR* More... Atrial fibrillation with RVR (HCC) [I48.91] INVALID FOR*11/10/2017 Syncope [R55] INVALID FOR* Acute bronchitis with chronic obstructive pulmo*INVALID FOR*07/04/2016 Acute diastolic CHF (congestive heart failure) *INVALID FOR*07/04/2016 Status post placement of implantable loop recor*INVALID FOR* Type 2 diabetes mellitus without retinopathy (H*INVALID FOR* Vitreous floaters of both eyes [H43.393] INVALID FOR* TIA due to embolism (HCC) [G45.9, I74.9] INVALID FOR* Facial droop [R29.810] INVALID FOR*11/11/2017 Controlled type 2 diabetes mellitus without com*INVALID FOR* Combined forms of age-related cataract of both *INVALID FOR* Screening for colon cancer [Z12.11] INVALID FOR*02/14/2018 More... Hiatal hernia [K44.9] INVALID FOR* More... Acute bronchitis with chronic obstructive pulmo*INVALID FOR* More... 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 INSULIN GLARGINE (U-100) 100 UNIT/ML* 5 Pen 3 08/10/2018 Route: SUBCUTANEOUS Sig: Inject 40 Units subcutaneously once daily. Medications Discontinued During This Encounter insulin lispro (HUMALOG KWIKPEN INSU* 45 mL 3 05/20/2018 08/10/2018 Sig: Inject 5 units if sugar <200 at bedtime or 10 units if >200. Patient not taking: Reported on 08/10/2018 Disc: Reason for discontinue is not on file. rosuvastatin (CRESTOR) 40 mg tablet 90 t* 3 02/18/2018 08/10/2018 Route: ORAL Sig: Take 1 tablet by mouth once daily. Patient not taking: Reported on 08/10/2018 Disc: Reason for discontinue is not on file. liraglutide (VICTOZA) 0.6 mg/0.1 mL * 2 Pa* 3 01/24/2016 08/10/2018 Class: Print RX Cmt: Please dispense: 2 packages of 3 pens for 90 days. Route: SUBCUTANEOUS Sig: Inject 1.2 mg subcutaneously once daily. DX: E11.65 Disc: Reason for discontinue is not on file. insulin glargine (LANTUS SOLOSTAR U-* 5 Pen 3 02/14/2018 08/10/2018 Class: Med Update Route: SUBCUTANEOUS Sig: Inject 40 Units subcutaneously once daily. Disc: Reason for discontinue is not on file. albuterol HFA (VENTOLIN HFA) 90 mcg/* 1 In* 1 10/06/2017 08/10/2018 Route: INHALATION Sig: Inhale 2 Puffs as instructed every 4 hours as needed. Patient not taking: Reported on 02/14/2018 Disc: Reason for discontinue is not on file. fluticasone (FLONASE) 50 mcg/actuati* 3 Erlin* 3 10/18/2017 08/10/2018 Route: EACH NOSTRIL Sig: Use 1 Wideman in each nostril daily at bedtime. Patient not taking: Reported on 08/10/2018 Disc: Reason for discontinue is not on file. Disposition: Return in about 6 weeks (around 09/21/2018). Follow-up and Disposition History Recorded Encounter Status:Closed by ROCKY RIVERA MD on 08/10/18 HEMOGLOBIN A1C Collected: 08/09/2018 Status: F Source: [place] 10:03 AM [facility] REPOSITORY TYPE CODE TESTS RESULT OUT OF REFERENCE UNITS RANGE LAB HGBA1C 4.3-5.6 % High Hemoglobin A1c 7.9 LAB HBA0 mg/dL Est. Average Glucose 180 Result Comment: eAG: (Estimated average glucose) is a calculated value from HgbA1c and is digital media representative of the average blood glucose level in the last 2-3 month period. Performed By: #### HBA1C #### [facility] [address] [place], [place] [address] PROGRESS Observed: 08/01/2018 Status: COMPLETED Source: [place] 7:24 AM [facility] REPOSITORY HNO ID: [id number] Author: Rufina (Orthodontist Vice President) Podlogar Service: (none) Author Type: Nurse Practitioner Type: Progress Notes Filed: 08/01/2018 7:24 AM Note Text: Can you adjust coumadin please. Rufina Crowe VENOUS DUPLEX LOWER Observed: 07/30/2018 Status: F Source: [facility] 10:49 AM [facility] Cardiovascular Services [address] [place] [address] Venous Duplex US, Unilateral 07/26/18 1357 MR#: [id number] Acct: [id number] Name: ALIA TREJO Rep #: [id number] : 1940 78 From: Dajuan Flores MD Attending Dr: EMMA Corona Status: REG CLI Ordering Dr: Rufina Reed Date: 07/26/18 Location: [facility] Sex: M C Admitted: Reason For Study: LLE Pain and Swelling RIGHT LEFT CFV is compressible, spontaneous, phasic, GSV is normal. competent and demonstrates normal CFV is compressible, spontaneous, phasic, augmentation. competent, and demonstrates normal Procedure augmentation. Exam performed in department. FV is compressible, spontaneous, phasic, A preliminary report was called and/or faxed competent and demonstrates normal to Podlogar. augmentation. POP V is compressible, spontaneous, phasic, competent and demonstrates normal augmentation. T/P Trunk is compressible. PTV is compressible. LT PerV is compressible. Interpretation Summary Deep veins of the left lower extremity are patent and compressible segmentally. There is no evidence of left lower extremity deep vein thrombosis. Valvular competence appears intact within the proximal deep venous system on the left . The left greater saphenous vein appears patent and compressible segmentally. Ordering Physician: EMMA Corona Referring Physician: Rocky Rivera Performed By: Kaushik Coronel RVT and Student 07/30/18 1048 Date Dajuan Flores MD CC: EMMA Almaraz Podlogar; Manuel Rivera MD Date Dictated: 07/26/18 1357 Date Transcribed: 07/30/18 1048 [employer] Technician: Signed CT BRAIN WO IVCON Observed: 07/29/2018 Status: F Source: [place] 1:49 PM [facility] REPOSITORY * * *Final Report* * * DATE OF EXAM: Jul 29 2018 1:49PM [facility] 0504 - CT BRAIN WO IVCON / PROCEDURE REASON: Injury of head, initial encounter * * * * Physician Interpretation * * * * EXAMINATION: CT BRAIN WO IVCON CLINICAL HISTORY: History of fall 6 days 4 days prior with loss of consciousness, on Coumadin. Facial bruising. Headache. TECHNIQUE: Serial axial images without IV contrast were obtained from the vertex to the foramen magnum. MQ: [id number] CT Dose-Length Product (DLP): 719 mGy*cm CT Dose Reduction Employed: No dose reduction techniques were required COMPARISON: 01/06/2017 RESULT: Post-operative change: None. Acute change: No evidence of an acute infarct or other acute parenchymal process. Hemorrhage: No evidence of acute intracranial hemorrhage. Mass Lesion / Mass Effect: There is no evidence of an intracranial mass or extraaxial fluid collection. No significant mass effect. Chronic change: Scattered patchy foci of low attenuation are present within supratentorial white matter which is a nonspecific finding but likely represents mild microvascular ischemia. Ventricles: Ventricular enlargement concordant with the degree of mild parenchymal volume loss. Paranasal sinuses and skull base: The visualized paranasal sinuses are grossly clear. Small left mastoid effusion. The skull base and imaged soft tissues are unremarkable. IMPRESSION: No acute intracranial abnormality. [employer] Technician: PSCB Transcribe Date/Time: Jul 29 2018 1:58P Dictated by : DIPTI BERNAL MD This examination was interpreted and the report reviewed and electronically signed by: DIPTI BERNAL MD on Jul 29 2018 2:04PM EST [id number] PROGRESS Observed: 07/29/2018 Status: COMPLETED Source: [place] 1:43 PM [facility] REPOSITORY HNO ID: [id number] Author: Melissa Lowry Ct Service: (none) Author Type: (none) Type: Progress Notes Filed: 07/29/2018 1:43 PM Note Text: Radiology Service Progress Note PATIENT NAME: Alia Trejo DATE OF SERVICE: July 29, 2018 TIME: 1:43 PM PATIENT IDENTITY VERIFICATION COMPLETED USING TWO (2) METHODS: Patient confirmed name verbally and Date of . PATIENT GENDER DATA: Male PATIENT RELEVANT IMPLANT DATA REVIEWED: Not Applicable RADIOLOGY DEPARTMENT: CT; Exam(s) Completed: Brain PERIPHERAL IV DATA: Not applicable SIGNED BY: Melissa Lorwy Ct July 29, 2018 1:43 PM PROTIME Collected: 07/29/2018 Status: F Source: [place] 11:40 AM [facility] REPOSITORY TYPE CODE TESTS RESULT OUT OF RANGE REFERENCE UNITS LAB PSEC 9.7-13.0 sec PT Sec 12.8 LAB INR 0.9-1.3 PT INR 1.2 Result Comment: Vitamin K Antagonist (VKA) Therapeutic Range: INR 2 to 3 (Target INR of 2.5) Note: For patients treated with VKA drugs, such as warfarin, the [employer] 2012 Guideline recommends a therapeutic INR range of 2 to 3 (target INR of 2.5). This recommendation includes high-risk patients with antiphospholipid syndrome with previous arterial or venous thromboembolism, current-generation mechanical or bioprosthetic aortic heart valve replacement. Note: Patients with mechanical aortic valve replacement and additional risk factors for thromboembolic events (atrial fibrillation, previous thromboembolism, LV dysfunction, hypercoagulable conditions) or an older generation mechanical AVR (i.e., ball in-Cage) or any mechanical MVR should have a INR therapeutic range of 2.5 to 3.5 (target INR of 3). Alexandro GH, et al. Chest 2012, 141:7S-47S Blanca RA, et al. [facility] 2017, 70: 252-289 Performed By: #### PT #### [facility] [address] [address] PROGRESS Observed: 07/29/2018 Status: COMPLETED Source: [place] 10:45 AM [facility] REPOSITORY HNO ID: [id number] Author: Rufina Velásquez) Podlogar Service: (none) Author Type: Nurse Practitioner Type: Progress Notes Filed: 07/29/2018 3:48 PM Note Text: 07/29/2018 Patient presents with: Recheck: left lower leg, pt states feels much better, redness has gone down quite a bit SUBJECTIVE: This is a 78 year old that is here today for Above Complaints. Seen in office on Wednesday for left lower redness, pain and swelling. US done for DVT which was negative. Place on keflex. Since office visit has been taking keflex and tolerating without side effects. Denies fever, chills, tenderness, increased redness, or warmth On Wednesday evening was walking friend in parking lot. Area was not well lit and he tripped over a curb. Reports he does not remember much about the fall- unsure if he had loss of consciosnessl. Did hit face, knocked out front teeth. Went home and went to bed after fall. Denies headaches, visual changes, slurred speech, confusion, extremity weakness/numbness, tingling, or balance difficulties. PAST MEDICAL HISTORY Diagnosis Date - Acute bronchitis with chronic obstructive pulmonary disease (COPD) ([facility]) 12/28/2015 Pulmonlogy managing - Acute diastolic CHF (congestive heart failure) ([facility]) 12/28/2015 - Atrial fibrillation, permanent ([facility]) 11/04/[address] Goldberg - Benign neoplasm of colon - CKD (chronic kidney disease) stage 3, GFR 30-59 ml/min ([facility]) 11/11/[address] Diaz - Diverticulosis of colon (without mention of hemorrhage) - Hiatal hernia 10/26/201710/2017 CT chest. 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 - Type II or unspecified type diabetes mellitus without mention of complication, uncontrolled Seeing podiatry - Unspecified essential hypertension ALLERGIES Nabeel Inhibitors MEDICATIONS Current Outpatient Prescriptions: cephALEXin (KEFLEX) 500 mg capsule Take 1 capsule by mouth four times daily for 10 days. insulin regular human (HUMULIN R REGULAR U-100 INSULN) 100 unit/mL injection Inject 5 units if sugar <200 at bedtime or 10 units if >200. metoprolol tartrate, short acting, (LOPRESSOR) 100 mg tablet Take 2 tablets by mouth twice daily. CSS CorpTOUCH ULTRA BLUE TEST STRIP test strip USE TO TEST 4 TIMES DAILY insulin lispro (HUMALOG KWIKPEN INSULIN) 100 unit/mL inpn Inject 5 units if sugar <200 at bedtime or 10 units if >200. warfarin (COUMADIN) 5 mg tablet TAKE ONE TABLET ON WEDNESDAY/WEDNESDAY AND ONE-HALF TABLETS ON ALL OTHER DAYS rosuvastatin (CRESTOR) 40 mg tablet Take 0.5 tablets by mouth once daily. rosuvastatin (CRESTOR) 40 mg tablet Take 1 tablet by mouth once daily. insulin glargine (LANTUS SOLOSTAR U-100 INSULIN) 100 unit/mL (3 mL) inpn Inject 40 Units subcutaneously once daily. Cholecalciferol, Vitamin D3, 1,000 unit cap Take 1 capsule by mouth once daily. furosemide (LASIX) 40 mg tablet Take 1 tablet by mouth once daily. flash glucose scanning reader (FREESTYLE RUSSELL READER) misc 1 Device four times daily. flash glucose sensor (FREESTYLE RUSSELL SENSOR) kit 1 Device four times daily. Insulin Alsip, Disposable, (NOVOFINE 32) 32 gauge x 1/4 ndle 1 Each four times daily as needed. Use for Victoza and insulin injections 4 times daily. DX: E11.65 Blood-Glucose Meter (KeybrokerUCH ULTRA2) monitoring kit 1 Each as needed. One Touch Meter Kit Diagnosis: Type 2 DM - Uncontrolled E11.65 therapeutic multivitamin w/ iron (THERAGRAN-M) 9 mg iron-400 mcg tablet Take 1 tablet by mouth once daily. COMPOUNDED PRESCRIPTION insulin syringes 0.3 31 g 5/16 needle CPAP ASV machine. Initiate @ EEP14, Min ps. 3 Max ps 15, cm of water with humidification. Auto rate. Mask (per patient preference) optional chin strap (if indicated) , filters, tubing, humidifier and lifetime supplies. CSA 327.27 and Ryan-Leach 786.04 spironolactone (ALDACTONE) 25 mg tablet Take 1 tablet by mouth once daily. fluticasone (FLONASE) 50 mcg/actuation nasal spray Use 1 Wideman in each nostril daily at bedtime. albuterol HFA (VENTOLIN HFA) 90 mcg/actuation inhaler Inhale 2 Puffs as instructed every 4 hours as needed. (Patient not taking: Reported on 02/14/2018 ) liraglutide (VICTOZA) 0.6 mg/0.1 mL (18 mg/3 mL) pnij Inject 1.2 mg subcutaneously once daily. DX: E11.65 albuterol 5 mg/mL Nebu Inhale 0.5 mL as instructed every 4 hours as needed for 7 days. 1 DOSE NOW - BACK OFFICE. PLACE 0.5 ML PER DROPPER AND 2.5 ML OF NORMAL SALINE INTO RESERVOIR. (Patient not taking: Reported on 02/14/2018 ) No current facility-administered medications for this visit. Medications and allergies reviewed by this provider. SOCIAL HISTORY Social History Marital status: Spouse name: Aixa Years of education: Number of children: 3 Occupational History Occupation Employer Comment [employer] Social History Main Topics Smoking status: Former Smoker Packs/day: 0.50 Years: 10.00 Types: Cigarettes Start date: 01/07/1955 Quit date: 01/08/1976 Smokeless tobacco: Never Used Comment: Age 13 to 31. No smoking in childhood home. Spouse ex-smoker. 12/05/15. TO Alcohol use: No Drug use: No REVIEW OF SYSTEMS All other reviewed and negative other than HPI. OBJECTIVE: BP 132/78 (BP Site: Left Arm, BP Position: Sitting, BP Cuff Size: Regular Adult) Pulse 78 Resp 18 Wt 91.2 kg (201 lb) BMI 32.44 kg/m? . Vital signs reviewed by this provider. APPEARANCE Well appearing, alert, in no acute distress, well-hydrated, well nourished. EYES PERRLA, conjunctiva and sclera normal. EARS External ears normal, canals clear NOSE/SINUS Nares normal. Septum midline. Mucosa normal. No drainage or sinus tenderness. HEART S1 and S2, no murmurs, no gallops, no JVD appreciated. Irregularly, irregular rhythm LUNG clear to auscultation. NO wheezes, rhonchi, or rales EXTREMITIES receding redness from outlines area placed on Wednesday. Trace edema BLE. Some tenderness to posterior calf. NEURO Awake, alert and oriented x 3, Cranial nerves II-XII grossly intact, Reflexes symmetrical, Normal gait, No involuntary motions. and negative findings: mental status intact, gait, including heel, toe, and tandem walking normal, Romberg negative, muscle tone normal, muscle strength normal, rapid alternating movements normal, finger to nose normal, reflexes normal and symmetric, plantar response downgoing bilaterally SKIN: ecchymosis under bilateral eyes and above eyes. Nose with ecchymosis. ASSESSMENT/PLAN: 1. Pain and swelling of right lower leg - ICD9: 729.5, 729.81, ICD10: M79.661, M79.89 (primary diagnosis) - resolving - complete full course of keflex - return to office if worsening or persisting, to ER with red flag symtpoms 2. Injury of head, initial encounter - ICD9: 959.01, ICD10: S09.90XA - concern for bleed with anticoagulation treatment, will get CT today - no red flag exam findings - red flag symptoms discussed, verbalizes understanding - CT BRAIN WO IVCON - follow-up pending results 3. long term care pharmacist current use of anticoagulant therapy - ICD9: V58.61, ICD10: Z79.01 - PROTHROMBIN TIME/PT Rufina Reed APRN.CNP Prescription instructions reviewed with patient as applicable. Patient advised if symptoms do not improve or if symptoms worsen sooner, to contact their primary care physician. Potential red flag symptoms discussed with the patient. Reviewed appropriate action plan to take if red flag symptoms occur. Patient agreeable to treatment plan. JOHANOV Observed: 07/29/2018 Status: COMPLETED Source: [place] 10:20 AM [facility] REPOSITORY Office Visit (FAMPWS) ALIA TREJO ([id number]) 1940 M Date Time Provider Department 07/29/18 10:20 AM RUFINA REED (PINKY) FAMPWS During your visit today, we recorded the following information about you: Pulse Respiration Blood pressure Weight 78/minute 18/minute 132/78 91.2 kg Rufina Reed APRN.CNP 07/29/2018 3:48 PM Signed 07/29/2018 Patient presents with: Recheck: left lower leg, pt states feels much better, redness has gone down quite a bit SUBJECTIVE: This is a 78 year old that is here today for Above Complaints. Seen in office on Wednesday for left lower redness, pain and swelling. US done for DVT which was negative. Place on keflex. Since office visit has been taking keflex and tolerating without side effects. Denies fever, chills, tenderness, increased redness, or warmth On Wednesday evening was walking friend in parking lot. Area was not well lit and he tripped over a curb. Reports he does not remember much about the fall- unsure if he had loss of consciosnessl. Did hit face, knocked out front teeth. Went home and went to bed after fall. Denies headaches, visual changes, slurred speech, confusion, extremity weakness/numbness, tingling, or balance difficulties. PAST MEDICAL HISTORY Diagnosis Date - Acute bronchitis with chronic obstructive pulmonary disease (COPD) ([facility]) 12/28/2015 Pulmonlogy managing - Acute diastolic CHF (congestive heart failure) ([facility]) 12/28/2015 - Atrial fibrillation, permanent ([facility]) 11/04/[address] Goldberg - Benign neoplasm of colon - CKD (chronic kidney disease) stage 3, GFR 30-59 ml/min ([facility]) 11/11/[address] Diaz - Diverticulosis of colon (without mention of hemorrhage) - Hiatal hernia 10/26/201710/2017 CT chest. 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 - Type II or unspecified type diabetes mellitus without mention of complication, uncontrolled Seeing podiatry - Unspecified essential hypertension ALLERGIES Nabeel Inhibitors MEDICATIONS Current Outpatient Prescriptions: cephALEXin (KEFLEX) 500 mg capsule Take 1 capsule by mouth four times daily for 10 days. insulin regular human (HUMULIN R REGULAR U-100 INSULN) 100 unit/mL injection Inject 5 units if sugar <200 at bedtime or 10 units if >200. metoprolol tartrate, short acting, (LOPRESSOR) 100 mg tablet Take 2 tablets by mouth twice daily. ONETOUCH ULTRA BLUE TEST STRIP test strip USE TO TEST 4 TIMES DAILY insulin lispro (HUMALOG KWIKPEN INSULIN) 100 unit/mL inpn Inject 5 units if sugar <200 at bedtime or 10 units if >200. warfarin (COUMADIN) 5 mg tablet TAKE ONE TABLET ON WEDNESDAY/WEDNESDAY AND ONE-HALF TABLETS ON ALL OTHER DAYS rosuvastatin (CRESTOR) 40 mg tablet Take 0.5 tablets by mouth once daily. rosuvastatin (CRESTOR) 40 mg tablet Take 1 tablet by mouth once daily. insulin glargine (LANTUS SOLOSTAR U-100 INSULIN) 100 unit/mL (3 mL) inpn Inject 40 Units subcutaneously once daily. Cholecalciferol, Vitamin D3, 1,000 unit cap Take 1 capsule by mouth once daily. furosemide (LASIX) 40 mg tablet Take 1 tablet by mouth once daily. flash glucose scanning reader (FREESTYLE RUSSELL READER) misc 1 Device four times daily. flash glucose sensor (FREESTYLE RUSSELL SENSOR) kit 1 Device four times daily. Insulin Alsip, Disposable, (NOVOFINE 32) 32 gauge x 1/4 ndle 1 Each four times daily as needed. Use for Victoza and insulin injections 4 times daily. DX: E11.65 Blood-Glucose Meter (KeybrokerUCH ULTRA2) monitoring kit 1 Each as needed. One Touch Meter Kit Diagnosis: Type 2 DM - Uncontrolled E11.65 therapeutic multivitamin w/ iron (THERAGRAN-M) 9 mg iron-400 mcg tablet Take 1 tablet by mouth once daily. COMPOUNDED PRESCRIPTION insulin syringes 0.3 31 g 02/23 needle CPAP ASV machine. Initiate @ EEP14, Min ps. 3 Max ps 15, cm of water with humidification. Auto rate. Mask (per patient preference) optional chin strap (if indicated) , filters, tubing, humidifier and lifetime supplies. CSA 327.27 and Ryan-Leach 786.04 spironolactone (ALDACTONE) 25 mg tablet Take 1 tablet by mouth once daily. fluticasone (FLONASE) 50 mcg/actuation nasal spray Use 1 Wideman in each nostril daily at bedtime. albuterol HFA (VENTOLIN HFA) 90 mcg/actuation inhaler Inhale 2 Puffs as instructed every 4 hours as needed. (Patient not taking: Reported on 02/14/2018 ) liraglutide (VICTOZA) 0.6 mg/0.1 mL (18 mg/3 mL) pnij Inject 1.2 mg subcutaneously once daily. DX: E11.65 albuterol 5 mg/mL Nebu Inhale 0.5 mL as instructed every 4 hours as needed for 7 days. 1 DOSE NOW - BACK OFFICE. PLACE 0.5 ML PER DROPPER AND 2.5 ML OF NORMAL SALINE INTO RESERVOIR. (Patient not taking: Reported on 02/14/2018 ) No current facility-administered medications for this visit. Medications and allergies reviewed by this provider. SOCIAL HISTORY Social History Marital status: Spouse name: Aixa Years of education: Number of children: 3 Occupational History Occupation Employer Comment [employer] Social History Main Topics Smoking status: Former Smoker Packs/day: 0.50 Years: 10.00 Types: Cigarettes Start date: 01/07/1955 Quit date: 01/08/1976 Smokeless tobacco: Never Used Comment: Age 13 to 31. No smoking in childhood home. Spouse ex-smoker. 12/05/15. TO Alcohol use: No Drug use: No REVIEW OF SYSTEMS All other reviewed and negative other than HPI. OBJECTIVE: BP 132/78 (BP Site: Left Arm, BP Position: Sitting, BP Cuff Size: Regular Adult) Pulse 78 Resp 18 Wt 91.2 kg (201 lb) BMI 32.44 kg/m? . Vital signs reviewed by this provider. APPEARANCE Well appearing, alert, in no acute distress, well- hydrated, well nourished. EYES PERRLA, conjunctiva and sclera normal. EARS External ears normal, canals clear NOSE/SINUS Nares normal. Septum midline. Mucosa normal. No drainage or sinus tenderness. HEART S1 and S2, no murmurs, no gallops, no JVD appreciated. Irregularly, irregular rhythm LUNG clear to auscultation. NO wheezes, rhonchi, or rales EXTREMITIES receding redness from outlines area placed on Wednesday. Trace edema BLE. Some tenderness to posterior calf. NEURO Awake, alert and oriented x 3, Cranial nerves II-XII grossly intact, Reflexes symmetrical, Normal gait, No involuntary motions. and negative findings: mental status intact, gait, including heel, toe, and tandem walking normal, Romberg negative, muscle tone normal, muscle strength normal, rapid alternating movements normal, finger to nose normal, reflexes normal and symmetric, plantar response downgoing bilaterally SKIN: ecchymosis under bilateral eyes and above eyes. Nose with ecchymosis. ASSESSMENT/PLAN: 1. Pain and swelling of right lower leg - ICD9: 729.5, 729.81, ICD10: M79.661, M79.89 (primary diagnosis) - resolving - complete full course of keflex - return to office if worsening or persisting, to ER with red flag symtpoms 2. Injury of head, initial encounter - ICD9: 959.01, ICD10: S09.90XA - concern for bleed with anticoagulation treatment, will get CT today - no red flag exam findings - red flag symptoms discussed, verbalizes understanding - CT BRAIN WO IVCON - follow-up pending results 3. nursing home current use of anticoagulant therapy - ICD9: V58.61, ICD10: Z79.01 - PROTHROMBIN TIME/PT Rufina Reed APRN.TIN CAN LABORER Prescription instructions reviewed with patient as applicable. Patient advised if symptoms do not improve or if symptoms worsen sooner, to contact their primary care physician. Potential red flag symptoms discussed with the patient. Reviewed appropriate action plan to take if red flag symptoms occur. Patient agreeable to treatment plan. Rufina Reed APRN.CNP 07/29/2018 11:16 AM Signed If you develop headaches, confusion, visual changes, slurred speech, extremity numbness, tingling weakness, or balance difficulty go to ER Referring Provider: RUFINA REED (PINKY) [[id number]] Allergies As of Date: 07/29/2018 Noted Allergy Reaction NABEEL INHIBITORS 05/16/2014 3 - Cough Date Reviewed: 07/29/2018 Reviewed by: Jane Jasmine (Appraiser Art) WILFREDO Serrano - Fully Assessed Reason for Visit: Recheck [92] Cmt: left lower leg, pt states feels much better, redness has gone down quite a bit Primary Visit Diagnosis:Pain and swelling of right lower leg [M79.661, M79.89] Other Visit Diagnoses:Injury of head, initial encounter [S09.90XA] long term care pharmacist current use of anticoagulant therapy [Z79.01] Order(s):CT BRAIN WO IVCON [[id number]] Order #: [id number] FUTURE PROTHROMBIN TIME/PT [SQPT] Order #: [id number] FUTURE Prescriptions as of 07/29/2018 Sig: FLASH GLUCOSE SCANNING READER 1 Device four times daily. PEN NEEDLE, DIABETIC 32 GAUGE* 1 Each four times daily as ne* BLOOD-GLUCOSE METER KIT 1 Each as needed. One Touch M* MULTIVITAMIN-IRON 9 MG-FOLIC * Take 1 tablet by mouth once d* COMPOUNDED PRESCRIPTION insulin syringes 0.3 31 g 5/* CPAP ASV machine. Initiate @ EEP1* CEPHALEXIN 500 MG CAPSULE Take 1 capsule by mouth four * INSULIN U-100 REGULAR HUMAN 1* Inject 5 units if sugar <200 * METOPROLOL TARTRATE 100 MG TA* Take 2 tablets by mouth twice* Hytle ULTRA BLUE TEST STRIP USE TO TEST 4 TIMES DAILY SPIRONOLACTONE 25 MG TABLET Take 1 tablet by mouth once d* INSULIN LISPRO (U-100) 100 UN* Inject 5 units if sugar <200 * WARFARIN 5 MG TABLET TAKE ONE TABLET ON * ROSUVASTATIN 40 MG TABLET Take 0.5 tablets by mouth onc* ROSUVASTATIN 40 MG TABLET Take 1 tablet by mouth once d* INSULIN GLARGINE (U-100) 100 * Inject 40 Units subcutaneousl* CHOLECALCIFEROL (VITAMIN D3) * Take 1 capsule by mouth once * FUROSEMIDE 40 MG TABLET Take 1 tablet by mouth once d* FLASH GLUCOSE SENSOR KIT 1 Device four times daily. FLUTICASONE 50 MCG/ACTUATION * Use 1 Wideman in each nostril d* ALBUTEROL SULFATE HFA 90 MCG/* Inhale 2 Puffs as instructed * Patient not taking: Reported on 02/14/2018 LIRAGLUTIDE 0.6 MG/0.1 ML (18* Inject 1.2 mg subcutaneously * ALBUTEROL SULFATE CONCENTRATE* Inhale 0.5 mL as instructed e* Patient not taking: Reported on 02/14/2018 Problem List As Of Date 07/29/2018 Noted Resolved Essential hypertension [I10] DIABETES MELLITUS TYPE II UNCONTR UNCOMPL [E11.* 09/12/2014 Hyperlipidemia [E78.5] CHRONIC RHINITIS [J31.0] INVALID FOR* PAD (peripheral artery disease) (HCC) [I73.9] INVALID FOR* VIRAL WARTS NOS [B07.9] INVALID FOR* Type I (juvenile type) diabetes mellitus withou*INVALID FOR*02/06/2014 Unspecified sleep apnea [G47.30] INVALID FOR*07/21/2014 More... BENIGN NEOPLASM LG BOWEL [D12.6] INVALID FOR* DIVERTICULOSIS OF COLON W/O BLEED [K57.30] INVALID FOR* INT HEMORRHOID W/O COMPL [K64.8] INVALID FOR* Premature atrial beats [I49.1] INVALID FOR* Atrial fibrillation, permanent [I48.2] INVALID FOR*01/30/2015 Atherosclerosis of aortic arch [I70.0] INVALID FOR* More... BMI 37.0-37.9, adult [Z68.37] INVALID FOR*01/30/2015 DERRICK (obstructive sleep apnea) AHI 36 [G47.33] INVALID FOR* DM (diabetes mellitus), type 2, uncontrolled (H*INVALID FOR*02/14/2018 Atrial fibrillation (HCC) [I48.91] INVALID FOR* BMI 35.0-35.9,adult [Z68.35] INVALID FOR*11/11/2017 long term care pharmacist (current) use of anticoagulants [Z79.*INVALID FOR* SUMMARY INVALID FOR* More... Cough with expectoration [R05] INVALID FOR* More... Atrial fibrillation with RVR (HCC) [I48.91] INVALID FOR*11/10/2017 Syncope [R55] INVALID FOR* Acute bronchitis with chronic obstructive pulmo*INVALID FOR*07/04/2016 Acute diastolic CHF (congestive heart failure) *INVALID FOR*07/04/2016 Status post placement of implantable loop recor*INVALID FOR* Type 2 diabetes mellitus without retinopathy (H*INVALID FOR* Vitreous floaters of both eyes [H43.393] INVALID FOR* TIA due to embolism (HCC) [G45.9, I74.9] INVALID FOR* Facial droop [R29.810] INVALID FOR*11/11/2017 Controlled type 2 diabetes mellitus without com*INVALID FOR* Combined forms of age-related cataract of both *INVALID FOR* Screening for colon cancer [Z12.11] INVALID FOR*02/14/2018 More... Hiatal hernia [K44.9] INVALID FOR* More... Acute bronchitis with chronic obstructive pulmo*INVALID FOR* More... CKD (chronic kidney disease) stage 3, GFR 30-59*INVALID FOR*03/22/2018 Type 2 DM with CKD stage 3 and hypertension (HC*INVALID FOR* Secondary renal hyperparathyroidism (HCC) [N25.*INVALID FOR* Persistent proteinuria [R80.1] INVALID FOR* Other instructions from your clinician: If you develop headaches, confusion, visual changes, slurred speech, extremity numbness, tingling weakness, or balance difficulty go to ER Follow-up and Disposition History Recorded Encounter Status:Closed by PODLOGRUFINA IQBAL CNP on 07/29/18 PROGRESS Observed: 07/26/2018 Status: COMPLETED Source: [place] 10:35 AM [facility] [place] REPOSITORY HNO ID: [id number] Author: Rufina (Orthodontist Vice President) Podlogar Service: (none) Author Type: Nurse Practitioner Type: Progress Notes Filed: 07/26/2018 1:26 PM Note Text: 78 year old male here for INACTIVATED INFLUENZA VACCINE. Season Patient is identified by name and date of : Yes [] CONTRAINDICATIONS color enhanced section Age less than 6 months? No Allergy to eggs, chicken, chicken feathers, or chicken dander? No Allergy to thimerosal (a preservative) or formaldehyde, gelatin? No History of severe reaction to any vaccine component or a previous dose of influenza vaccination? No History of Guillain-Willard Syndrome within 6 weeks after a previous influenza vaccine? No Patient is not moderately or severely ill? No Current temperature greater or equal to 100.4F? No History of Bone Marrow Transplant prior 6 months or solid organ transplant in the past 3 months ? No History of fainting after a prior injection or medical procedure? No- ? If patient has fainted in the past, the CDC recommends sitting or lying down for 15 minutes after the vaccination. [] VERIFICATION color enhanced section Was the answer Yes for any of the above contraindications? No contraindications present. Acceptable to proceed with vaccine. Patient/guardian agrees the above answers are true to the best of their knowledge? Yes Flu vaccine information sheet given? Yes See immunization activity in [facility] for details of immunizations adminstered today. Patient age: [age] year old For The 4026-3673 Flu Season 6-35 months old: Fluzone 0.25 ml - IM (Preservative Free) 3 years of age: Fluzone 0.5 ml - IM (Preservative Free) 3 years and older: Fluzone 0.5 ml- IM-(with Preservatives) 65+ years old: 2-49 years old Fluzone High-Dose 0.5 ml - IM (Preservative Free) FLUMIST- intranasal REMEMBER: If patient is less than 9 years of age and this is the first vaccine of Influenza to be received in any flu season, they should receive a second dose in one months time. PROGRESS Observed: 07/26/2018 Status: COMPLETED Source: [place] 10:24 AM [facility] REPOSITORY HNO ID: [id number] Author: Rufina Velásquez) Podlogar Service: (none) Author Type: Nurse Practitioner Type: Progress Notes Filed: 07/26/2018 1:26 PM Note Text: 07/26/2018 Patient presents with: Edema: left lower leg and red warm to touch from ankle almost up to knee. Started wednesday the Imm/Inj: Flu Vaccine SUBJECTIVE: This is a 78 year old that is here today for Above Complaints. ONSET: July 24 LOCATION: left lower leg DURATION: constant CHARACTERISTICS: swelling, red and warm to touch, painful when walking on it AGGRAVATING FEATURES: walking on it ALLEVIATING FEATURES: has not tried anything to help Denies fever, chills, recent injury or traveling, hx of DVT, SOB, dyspnea, or chest pain. Positive for hx of A-Fb- Last INR 07/22/2018 was 2.1 Modified Wells Rule for DVT (1pt each) - active cancer (tx or palliation in last 6mo)= 0 - paralysis, paresis or recent leg casting= 0 - bedridden >3D/major surgery w/in 4 wks= 0 - localized tenderness along deep venous system= 1 - entire ext swollen= 0 - unilateral calf swelling >3cm below Tibial tuberosity= 0 - unilateral pitting edema= 0 - prominent non-varicose collateral superficial veins= 0 Score -2 if alt dx as likely as DVT= -2 Score Total: 0 Pretest probabilty: High >= 3, Intermediate 1-2, Low 0 PAST MEDICAL HISTORY Diagnosis Date - Acute bronchitis with chronic obstructive pulmonary disease (COPD) ([facility]) 12/28/2015 Pulmonlogy managing - Acute diastolic CHF (congestive heart failure) ([facility]) 12/28/2015 - Atrial fibrillation, permanent ([facility]) 11/04/[address] Goldberg - Benign neoplasm of colon - CKD (chronic kidney disease) stage 3, GFR 30-59 ml/min ([facility]) 11/11/[address] Diaz - Diverticulosis of colon (without mention of hemorrhage) - Hiatal hernia 10/26/201710/2017 CT chest. 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 - Type II or unspecified type diabetes mellitus without mention of complication, uncontrolled Seeing podiatry - Unspecified essential hypertension ALLERGIES Nabeel Inhibitors MEDICATIONS Current Outpatient Prescriptions: insulin regular human (HUMULIN R REGULAR U-100 INSULN) 100 unit/mL injection Inject 5 units if sugar <200 at bedtime or 10 units if >200. metoprolol tartrate, short acting, (LOPRESSOR) 100 mg tablet Take 2 tablets by mouth twice daily. Hytle ULTRA BLUE TEST STRIP test strip USE TO TEST 4 TIMES DAILY spironolactone (ALDACTONE) 25 mg tablet Take 1 tablet by mouth once daily. insulin lispro (HUMALOG KWIKPEN INSULIN) 100 unit/mL inpn Inject 5 units if sugar <200 at bedtime or 10 units if >200. warfarin (COUMADIN) 5 mg tablet TAKE ONE TABLET ON WEDNESDAY/WEDNESDAY AND ONE-HALF TABLETS ON ALL OTHER DAYS rosuvastatin (CRESTOR) 40 mg tablet Take 0.5 tablets by mouth once daily. (Patient not taking: Reported on 03/22/2018 ) rosuvastatin (CRESTOR) 40 mg tablet Take 1 tablet by mouth once daily. insulin glargine (LANTUS SOLOSTAR U-100 INSULIN) 100 unit/mL (3 mL) inpn Inject 40 Units subcutaneously once daily. Cholecalciferol, Vitamin D3, 1,000 unit cap Take 1 capsule by mouth once daily. furosemide (LASIX) 40 mg tablet Take 1 tablet by mouth once daily. flash glucose scanning reader (FREESTYLE RUSSELL READER) misc 1 Device four times daily. flash glucose sensor (FREESTYLE RUSSELL SENSOR) kit 1 Device four times daily. fluticasone (FLONASE) 50 mcg/actuation nasal spray Use 1 Wideman in each nostril daily at bedtime. albuterol HFA (VENTOLIN HFA) 90 mcg/actuation inhaler Inhale 2 Puffs as instructed every 4 hours as needed. (Patient not taking: Reported on 02/14/2018 ) Insulin Alsip, Disposable, (NOVOFINE 32) 32 gauge x 1/4 ndle 1 Each four times daily as needed. Use for Victoza and insulin injections 4 times daily. DX: E11.65 Blood-Glucose Meter (ONETOUCH ULTRA2) monitoring kit 1 Each as needed. One Touch Meter Kit Diagnosis: Type 2 DM - Uncontrolled E11.65 liraglutide (VICTOZA) 0.6 mg/0.1 mL (18 mg/3 mL) pnij Inject 1.2 mg subcutaneously once daily. DX: E11.65 therapeutic multivitamin w/ iron (THERAGRAN-M) 9 mg iron-400 mcg tablet Take 1 tablet by mouth once daily. COMPOUNDED PRESCRIPTION insulin syringes 0.3 31 g 16 needle CPAP ASV machine. Initiate @ EEP14, Min ps. 3 Max ps 15, cm of water with humidification. Auto rate. Mask (per patient preference) optional chin strap (if indicated) , filters, tubing, humidifier and lifetime supplies. CSA 327.27 and Ryan-Leach 786.04 albuterol 5 mg/mL Nebu Inhale 0.5 mL as instructed every 4 hours as needed for 7 days. 1 DOSE NOW - BACK OFFICE. PLACE 0.5 ML PER DROPPER AND 2.5 ML OF NORMAL SALINE INTO RESERVOIR. (Patient not taking: Reported on 02/14/2018 ) No current facility-administered medications for this visit. Medications and allergies reviewed by this provider. SOCIAL HISTORY Social History Marital status: Spouse name: Aixa Years of education: Number of children: 3 Occupational History Occupation Employer Comment [employer] Social History Main Topics Smoking status: Former Smoker Packs/day: 0.50 Years: 10.00 Types: Cigarettes Start date: 01/07/1955 Quit date: 01/08/1976 Smokeless tobacco: Never Used Comment: Age 13 to 31. No smoking in childhood home. Spouse ex-smoker. 12/05/15. TO Alcohol use: No Drug use: No REVIEW OF SYSTEMS All other reviewed and negative other than HPI. OBJECTIVE: BP 120/62 (BP Site: Left Arm, BP Position: Sitting, BP Cuff Size: Large Adult) Pulse 64 Temp 36.9 ?C (98.5 ?F) Resp 18 Wt 93.9 kg (207 lb 0.6 oz) BMI 33.42 kg/m? . Vital signs reviewed by this provider. APPEARANCE Well appearing, alert, in no acute distress, well-hydrated, well nourished. HEART normal S1 and S2, no murmurs, no gallops, no JVD appreciated and irregularly, irregular rhythm LUNG clear to auscultation EXTREMITIES positive findings: normal exam of the extremities, edema on right: Trace, 1+, edema onTrace, 1+ erythema to left lower extremity from ankle extending to below knee. Mild TTP posterior calf and warmth. No palpable cords. Discomfort with plantar flexion and extension. Right calf 15.5 inches Right tibial tuberosity 15.5 inches. Left calf 15 inches Left tibial tuberosity 15 inches ASSESSMENT/PLAN: 1. Pain and swelling of lower leg, left - ICD9: 729.5, 729.81, ICD10: M79.662, M79.89 (primary diagnosis) - consider DVT vs cellulitis vs unknown - is on coumadin for A-fib - will start keflex 500 mg four times daily for 10 days - red flag symptoms discussed, verbalizes understanding - area of erythema defined for patient- discussed redness or red streaking need to go to ER - US LEG VEIN DVT UNL VAS LAB- STAT - follow-up Wednesday, sooner if needed, to ER with red flag symptoms 2. Redness - ICD9: 695.9, ICD10: L53.9 -plan as in #1 3. Need for vaccination - ICD9: V05.9, ICD10: Z23 - INFLUENZA SEASONAL HIGH DOSE AGE 65+ Rufina Podlogsteph, HOUSEKEEPING AIDE.TIN CAN LABORER Prescription instructions reviewed with patient as applicable. Patient advised if symptoms do not improve or if symptoms worsen sooner, to contact their primary care physician. Potential red flag symptoms discussed with the patient. Reviewed appropriate action plan to take if red flag symptoms occur. Patient agreeable to treatment plan. CNOV Observed: 07/26/2018 Status: COMPLETED Source: [place] 10:20 AM [facility] REPOSITORY [facility] ALIA TREJO ([id number]) 1940 M Date Time Provider Department 07/26/18 10:20 AM RUFINA REED (PINKY) JENNA During your visit today, we recorded the following information about you: Temperature Pulse Respiration Blood pressure 98.5 degrees 64/minute 18/minute 120/62 Weight 93.9 kg Rufina Reed APRN.CNP 07/26/2018 1:26 PM Signed 07/26/2018 Patient presents with: Edema: left lower leg and red warm to touch from ankle almost up to knee. Started wednesday the Imm/Inj: Flu Vaccine SUBJECTIVE: This is a 78 year old that is here today for Above Complaints. ONSET: July 24 LOCATION: left lower leg DURATION: constant CHARACTERISTICS: swelling, red and warm to touch, painful when walking on it AGGRAVATING FEATURES: walking on it ALLEVIATING FEATURES: has not tried anything to help Denies fever, chills, recent injury or traveling, hx of DVT, SOB, dyspnea, or chest pain. Positive for hx of A-Fb- Last INR 07/22/2018 was 2.1 Modified Wells Rule for DVT (1pt each) - active cancer (tx or palliation in last 6mo)= 0 - paralysis, paresis or recent leg casting= 0 - bedridden >3D/major surgery w/in 4 wks= 0 - localized tenderness along deep venous system= 1 - entire ext swollen= 0 - unilateral calf swelling >3cm below Tibial tuberosity= 0 - unilateral pitting edema= 0 - prominent non-varicose collateral superficial veins= 0 Score -2 if alt dx as likely as DVT= -2 Score Total: 0 Pretest probabilty: High >= 3, Intermediate 1-2, Low 0 PAST MEDICAL HISTORY Diagnosis Date - Acute bronchitis with chronic obstructive pulmonary disease (COPD) ([facility]) 12/28/2015 Pulmonlogy managing - Acute diastolic CHF (congestive heart failure) ([facility]) 12/28/2015 - Atrial fibrillation, permanent ([facility]) 11/04/[address] Goldberg - Benign neoplasm of colon - CKD (chronic kidney disease) stage 3, GFR 30-59 ml/min ([facility]) 11/11/[address] Diza - Diverticulosis of colon (without mention of hemorrhage) - Hiatal hernia 10/26/201710/2017 CT chest. 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 - Type II or unspecified type diabetes mellitus without mention of complication, uncontrolled Seeing podiatry - Unspecified essential hypertension ALLERGIES Nabeel Inhibitors MEDICATIONS Current Outpatient Prescriptions: insulin regular human (HUMULIN R REGULAR U-100 INSULN) 100 unit/mL injection Inject 5 units if sugar <200 at bedtime or 10 units if >200. metoprolol tartrate, short acting, (LOPRESSOR) 100 mg tablet Take 2 tablets by mouth twice daily. ONETOUCH ULTRA BLUE TEST STRIP test strip USE TO TEST 4 TIMES DAILY spironolactone (ALDACTONE) 25 mg tablet Take 1 tablet by mouth once daily. insulin lispro (HUMALOG KWIKPEN INSULIN) 100 unit/mL inpn Inject 5 units if sugar <200 at bedtime or 10 units if >200. warfarin (COUMADIN) 5 mg tablet TAKE ONE TABLET ON WEDNESDAY/WEDNESDAY AND ONE-HALF TABLETS ON ALL OTHER DAYS rosuvastatin (CRESTOR) 40 mg tablet Take 0.5 tablets by mouth once daily. (Patient not taking: Reported on 03/22/2018 ) rosuvastatin (CRESTOR) 40 mg tablet Take 1 tablet by mouth once daily. insulin glargine (LANTUS SOLOSTAR U-100 INSULIN) 100 unit/mL (3 mL) inpn Inject 40 Units subcutaneously once daily. Cholecalciferol, Vitamin D3, 1,000 unit cap Take 1 capsule by mouth once daily. furosemide (LASIX) 40 mg tablet Take 1 tablet by mouth once daily. flash glucose scanning reader (FREESTYLE RUSSELL READER) misc 1 Device four times daily. flash glucose sensor (FREESTYLE RUSSELL SENSOR) kit 1 Device four times daily. fluticasone (FLONASE) 50 mcg/actuation nasal spray Use 1 Wideman in each nostril daily at bedtime. albuterol HFA (VENTOLIN HFA) 90 mcg/actuation inhaler Inhale 2 Puffs as instructed every 4 hours as needed. (Patient not taking: Reported on 02/14/2018 ) Insulin Alsip, Disposable, (NOVOFINE 32) 32 gauge x 1/4 ndle 1 Each four times daily as needed. Use for Victoza and insulin injections 4 times daily. DX: E11.65 Blood-Glucose Meter (CSS CorpTOUCH ULTRA2) monitoring kit 1 Each as needed. One Touch Meter Kit Diagnosis: Type 2 DM - Uncontrolled E11.65 liraglutide (VICTOZA) 0.6 mg/0.1 mL (18 mg/3 mL) pnij Inject 1.2 mg subcutaneously once daily. DX: E11.65 therapeutic multivitamin w/ iron (THERAGRAN-M) 9 mg iron-400 mcg tablet Take 1 tablet by mouth once daily. COMPOUNDED PRESCRIPTION insulin syringes 0.3 31 g 02/23 needle CPAP ASV machine. Initiate @ EEP14, Min ps. 3 Max ps 15, cm of water with humidification. Auto rate. Mask (per patient preference) optional chin strap (if indicated) , filters, tubing, humidifier and lifetime supplies. CSA 327.27 and Ryan-Leach 786.04 albuterol 5 mg/mL Nebu Inhale 0.5 mL as instructed every 4 hours as needed for 7 days. 1 DOSE NOW - BACK OFFICE. PLACE 0.5 ML PER DROPPER AND 2.5 ML OF NORMAL SALINE INTO RESERVOIR. (Patient not taking: Reported on 02/14/2018 ) No current facility-administered medications for this visit. Medications and allergies reviewed by this provider. SOCIAL HISTORY Social History Marital status: Spouse name: Aixa Years of education: Number of children: 3 Occupational History Occupation Employer Comment [employer] Social History Main Topics Smoking status: Former Smoker Packs/day: 0.50 Years: 10.00 Types: Cigarettes Start date: 01/07/1955 Quit date: 01/08/1976 Smokeless tobacco: Never Used Comment: Age 13 to 31. No smoking in childhood home. Spouse ex-smoker. 12/05/15. TO Alcohol use: No Drug use: No REVIEW OF SYSTEMS All other reviewed and negative other than HPI. OBJECTIVE: BP 120/62 (BP Site: Left Arm, BP Position: Sitting, BP Cuff Size: Large Adult) Pulse 64 Temp 36.9 ?C (98.5 ?F) Resp 18 Wt 93.9 kg (207 lb 0.6 oz) BMI 33.42 kg/m? . Vital signs reviewed by this provider. APPEARANCE Well appearing, alert, in no acute distress, well- hydrated, well nourished. HEART normal S1 and S2, no murmurs, no gallops, no JVD appreciated and irregularly, irregular rhythm LUNG clear to auscultation EXTREMITIES positive findings: normal exam of the extremities, edema on right: Trace, 1+, edema onTrace, 1+ erythema to left lower extremity from ankle extending to below knee. Mild TTP posterior calf and warmth. No palpable cords. Discomfort with plantar flexion and extension. Right calf 15.5 inches Right tibial tuberosity 15.5 inches. Left calf 15 inches Left tibial tuberosity 15 inches ASSESSMENT/PLAN: 1. Pain and swelling of lower leg, left - ICD9: 729.5, 729.81, ICD10: M79.662, M79.89 (primary diagnosis) - consider DVT vs cellulitis vs unknown - is on coumadin for A-fib - will start keflex 500 mg four times daily for 10 days - red flag symptoms discussed, verbalizes understanding - area of erythema defined for patient- discussed redness or red streaking need to go to ER - US LEG VEIN DVT UNL VAS LAB- STAT - follow-up Wednesday, sooner if needed, to ER with red flag symptoms 2. Redness - ICD9: 695.9, ICD10: L53.9 -plan as in #1 3. Need for vaccination - ICD9: V05.9, ICD10: Z23 - INFLUENZA SEASONAL HIGH DOSE AGE 65+ Rufina Podlogar, AMAIRANI.PINKY Prescription instructions reviewed with patient as applicable. Patient advised if symptoms do not improve or if symptoms worsen sooner, to contact their primary care physician. Potential red flag symptoms discussed with the patient. Reviewed appropriate action plan to take if red flag symptoms occur. Patient agreeable to treatment plan. Rufina Reed APRN.CNP 07/26/2018 1:26 PM Signed 78 year old male here for INACTIVATED INFLUENZA VACCINE. [id number] Season Patient is identified by name and date of : Yes [] CONTRAINDICATIONS color enhanced section Age less than 6 months? No Allergy to eggs, chicken, chicken feathers, or chicken dander? No Allergy to thimerosal (a preservative) or formaldehyde, gelatin? No History of severe reaction to any vaccine component or a previous dose of influenza vaccination? No History of Guillain-Willard Syndrome within 6 weeks after a previous influenza vaccine? No Patient is not moderately or severely ill? No Current temperature greater or equal to 100.4F? No History of Bone Marrow Transplant prior 6 months or solid organ transplant in the past 3 months ? No History of fainting after a prior injection or medical procedure? No- ? If patient has fainted in the past, the CDC recommends sitting or lying down for 15 minutes after the vaccination. [] VERIFICATION color enhanced section Was the answer Yes for any of the above contraindications? No contraindications present. Acceptable to proceed with vaccine. Patient/guardian agrees the above answers are true to the best of their knowledge? Yes Flu vaccine information sheet given? Yes See immunization activity in [facility] for details of immunizations adminstered today. Patient age: [age] year old For The 0345-9968 Flu Season 6-35 months old: Fluzone 0.25 ml - IM (Preservative Free) 3 years of age: Fluzone 0.5 ml - IM (Preservative Free) 3 years and older: Fluzone 0.5 ml- IM-(with Preservatives) 65+ years old: 2-49 years old Fluzone High-Dose 0.5 ml - IM (Preservative Free) FLUMIST- intranasal REMEMBER: If patient is less than 9 years of age and this is the first vaccine of Influenza to be received in any flu season, they should receive a second dose in one months time. Rufina Reed APRN.TIN CAN LABORER 07/26/2018 10:57 AM Signed If you develop redness extending beyond the marked area, fever, chills, increased tenderness and warmth go to ER Referring Provider: SELF [200] Allergies As of Date: 07/26/2018 Noted Allergy Reaction NABEEL INHIBITORS 05/16/2014 3 - Cough Date Reviewed: 07/26/2018 Reviewed by: Jane Jasmine (Wilfredo) WILFREDO Serrano - Fully Assessed Reason for Visit: Edema [39] Cmt: left lower leg and red warm to touch from ankle almost up to knee. Started wednesday the Imm/Inj [58] Cmt: Flu Vaccine Reason For Visit History Recorded Primary Visit Diagnosis:Pain and swelling of lower leg, left [M79.662, M79.89] Other Visit Diagnoses:Redness [L53.9] Need for vaccination [Z23] Order(s):INFLUENZA SEASONAL HIGH DOSE AGE 65+ [[id number]] Order #: [id number] cephALEXin (KEFLEX) 500 mg capsuleTake 1 capsule by mouth four times daily for 10 days.Disp: 40 capsuleRfl: 0 US LEG VEIN DVT UNL VAS LAB [[id number]] Order #: [id number] FUTURE Prescriptions as of 07/26/2018 Sig: INSULIN U-100 REGULAR HUMAN 1* Inject 5 units if sugar <200 * METOPROLOL TARTRATE 100 MG TA* Take 2 tablets by mouth twice* ONEMesh KoreaUCH ULTRA BLUE TEST STRIP USE TO TEST 4 TIMES DAILY SPIRONOLACTONE 25 MG TABLET Take 1 tablet by mouth once d* INSULIN LISPRO (U-100) 100 UN* Inject 5 units if sugar <200 * WARFARIN 5 MG TABLET TAKE ONE TABLET ON WEDNESDAY/* ROSUVASTATIN 40 MG TABLET Take 0.5 tablets by mouth onc* ROSUVASTATIN 40 MG TABLET Take 1 tablet by mouth once d* INSULIN GLARGINE (U-100) 100 * Inject 40 Units subcutaneousl* CHOLECALCIFEROL (VITAMIN D3) * Take 1 capsule by mouth once * FUROSEMIDE 40 MG TABLET Take 1 tablet by mouth once d* FLASH GLUCOSE SCANNING READER 1 Device four times daily. FLASH GLUCOSE SENSOR KIT 1 Device four times daily. PEN NEEDLE, DIABETIC 32 GAUGE* 1 Each four times daily as ne* BLOOD-GLUCOSE METER KIT 1 Each as needed. One Touch M* MULTIVITAMIN-IRON 9 MG-FOLIC * Take 1 tablet by mouth once d* COMPOUNDED PRESCRIPTION insulin syringes 0.3 31 g 5/* CPAP ASV machine. Initiate @ EEP1* CEPHALEXIN 500 MG CAPSULE Take 1 capsule by mouth four * FLUTICASONE 50 MCG/ACTUATION * Use 1 Wideman in each nostril d* ALBUTEROL SULFATE HFA 90 MCG/* Inhale 2 Puffs as instructed * Patient not taking: Reported on 02/14/2018 LIRAGLUTIDE 0.6 MG/0.1 ML (18* Inject 1.2 mg subcutaneously * ALBUTEROL SULFATE CONCENTRATE* Inhale 0.5 mL as instructed e* Patient not taking: Reported on 02/14/2018 Problem List As Of Date 07/26/2018 Noted Resolved Essential hypertension [I10] DIABETES MELLITUS TYPE II UNCONTR UNCOMPL [E11.* 09/12/2014 Hyperlipidemia [E78.5] CHRONIC RHINITIS [J31.0] INVALID FOR* PAD (peripheral artery disease) (HCC) [I73.9] INVALID FOR* VIRAL WARTS NOS [B07.9] INVALID FOR* Type I (juvenile type) diabetes mellitus withou*INVALID FOR*02/06/2014 Unspecified sleep apnea [G47.30] INVALID FOR*07/21/2014 More... BENIGN NEOPLASM LG BOWEL [D12.6] INVALID FOR* DIVERTICULOSIS OF COLON W/O BLEED [K57.30] INVALID FOR* INT HEMORRHOID W/O COMPL [K64.8] INVALID FOR* Premature atrial beats [I49.1] INVALID FOR* Atrial fibrillation, permanent [I48.2] INVALID FOR*01/30/2015 Atherosclerosis of aortic arch [I70.0] INVALID FOR* More... BMI 37.0-37.9, adult [Z68.37] INVALID FOR*01/30/2015 DERRICK (obstructive sleep apnea) AHI 36 [G47.33] INVALID FOR* DM (diabetes mellitus), type 2, uncontrolled (H*INVALID FOR*02/14/2018 Atrial fibrillation (HCC) [I48.91] INVALID FOR* BMI 35.0-35.9,adult [Z68.35] INVALID FOR*11/11/2017 long term care pharmacist (current) use of anticoagulants [Z79.*INVALID FOR* SUMMARY INVALID FOR* More... Cough with expectoration [R05] INVALID FOR* More... Atrial fibrillation with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 KIT 1 Each as needed. One Touch M* LIRAGLUTIDE 0.6 MG/0.1 ML (18* Inject 1.2 mg subcutaneously * MULTIVITAMIN-IRON 9 MG-FOLIC * Take 1 tablet by mouth once d* COMPOUNDED PRESCRIPTION insulin syringes 0.3 31 g 5/* CPAP ASV machine. Initiate @ EEP1* ROSUVASTATIN 40 MG TABLET Take 0.5 tablets by mouth onc* Patient not taking: Reported on 03/22/2018 ALBUTEROL SULFATE HFA 90 MCG/* Inhale 2 Puffs as instructed * Patient not taking: Reported on 02/14/2018 ALBUTEROL SULFATE CONCENTRATE* Inhale 0.5 mL as instructed e* Patient not taking: Reported on 02/14/2018 Problem List As Of Date 04/07/2018 Noted Resolved Essential hypertension [I10] DIABETES MELLITUS TYPE II UNCONTR UNCOMPL [E11.* 09/12/2014 Hyperlipidemia [E78.5] CHRONIC RHINITIS [J31.0] INVALID FOR* PAD (peripheral artery disease) (HCC) [I73.9] INVALID FOR* VIRAL WARTS NOS [B07.9] INVALID FOR* Type I (juvenile type) diabetes mellitus withou*INVALID FOR*02/06/2014 Unspecified sleep apnea [G47.30] INVALID FOR*07/21/2014 More... BENIGN NEOPLASM LG BOWEL [D12.6] INVALID FOR* DIVERTICULOSIS OF COLON W/O BLEED [K57.30] INVALID FOR* INT HEMORRHOID W/O COMPL [K64.8] INVALID FOR* Premature atrial beats [I49.1] INVALID FOR* Atrial fibrillation, permanent [I48.2] INVALID FOR*01/30/2015 Atherosclerosis of aortic arch [I70.0] INVALID FOR* More... BMI 37.0-37.9, adult [Z68.37] INVALID FOR*01/30/2015 DERRICK (obstructive sleep apnea) AHI 36 [G47.33] INVALID FOR* DM (diabetes mellitus), type 2, uncontrolled (H*INVALID FOR*02/14/2018 Atrial fibrillation (HCC) [I48.91] INVALID FOR* BMI 35.0-35.9,adult [Z68.35] INVALID FOR*11/11/2017 nursing home (current) use of anticoagulants [Z79.*INVALID FOR* SUMMARY INVALID FOR* More... Cough with expectoration [R05] INVALID FOR* More... Atrial fibrillation with RVR (HCC) [I48.91] INVALID FOR*11/10/2017 Syncope [R55] INVALID FOR* Acute bronchitis with chronic obstructive pulmo*INVALID FOR*07/04/2016 Acute diastolic CHF (congestive heart failure) *INVALID FOR*07/04/2016 Status post placement of implantable loop recor*INVALID FOR* Type 2 diabetes mellitus without retinopathy (H*INVALID FOR* Vitreous floaters of both eyes [H43.393] INVALID FOR* TIA due to embolism (HCC) [G45.9, I74.9] INVALID FOR* Facial droop [R29.810] INVALID FOR*11/11/2017 Controlled type 2 diabetes mellitus without com*INVALID FOR* Combined forms of age-related cataract of both *INVALID FOR* Screening for colon cancer [Z12.11] INVALID FOR*02/14/2018 More... Hiatal hernia [K44.9] INVALID FOR* More... Acute bronchitis with chronic obstructive pulmo*INVALID FOR* More... CKD (chronic kidney disease) stage 3, GFR 30-59*INVALID FOR*03/22/2018 Type 2 DM with CKD stage 3 and hypertension (HC*INVALID FOR* Secondary renal hyperparathyroidism (HCC) [N25.*INVALID FOR* Persistent proteinuria [R80.1] INVALID FOR* Encounter Status:Closed by ALEN RODRIGUEZ DPM on 04/07/18 PROGRESS Observed: 04/07/2018 Status: COMPLETED Source: [place] 1:15 PM [facility] REPOSITORY O ID: [id number] Author: Alen Rodriguez Service: (none) Author Type: Physician Type: Progress Notes Filed: 04/07/2018 1:46 PM Note Text: Alen Rodriguez DPM Department of Podiatry [address] [facility] [address] Dept: [phone] Dept Diabetic Nail Care SUBJECTIVE: Follow up office visit: This 77 year old male presents to clinic c/o painful toenails. Patient states that the nails are especially painful with shoe gear and pressure. Patient questioning status of pvr. Denies any sores. Patient admits to being diabetic and states that their blood sugar was 78 mg/dL this AM. Patient denies claudication type symptoms when walking. No other pedal complaints at this time. No change in medications or medical history since last visit. REVIEW OF SYSTEMS: CONSTITUTIONAL: No fevers, chills, nightsweats, unintended weight loss HEENT: Denies frequent or severe heaches, nasal congestion/sinus symptoms, problematic allergy problems. EYES: No diplopia or blurry vision. CARDIOVASCULAR: No chest pain, dyspnea, palpitations, orthopnea, PND, ankle edema. PULM: No dyspnea, unexplained cough. GI: No dysphagia/odynophagia, problematic reflux, constipation, diarrhea, changes in stool habits, hematochezia, melena. : No new urinary complaints, including dysuria, gross hematuria or pyuria. NEURO: No new balance problems, peripheral weakness/paresthesias or numbness of concern. MUSC-SKEL: No new joint pain, swelling, or erythema. PSY: No concerns regarding depression, anxiety or panic. INTEGUMENTARY: Thick discolored toenails OBJECTIVE: Patient presents to clinic ambulating in slip on shoes. Vasc: DP and PT pulses are nonpalpable bilateral. CFT is less than 5 seconds bilateral. Skin temperature is warm to cool proximal to distal bilateral. There is moderate edema or varicosities noted. Hair growth absent. Neuro: Protective sensation is absent to the foot and toes when tested with the 5.07 SWM bilateral. Vibratory sensation is absent at the hallux bilateral. significant neurological defecits. Derm: Inspection and palpation performed. Nails 1-5 b/l are painful, discolored-yellow, thick, crumbly, dystrophic and with subungal debris. Skin is pallor upon elevation. Hyperkeratosis not present. NO ulcerations, scars, verruca or other lesions noted. Mild macerated webspaces. No open wounds or signs of infection. Ortho: Ankle joint DF is full with the knee extended and full with knee flexed. No pain or crepitus noted. STJ, MTJ ROM are full and free of pain or crepitus. Muscle strength is 5/5 for dorsiflexors, plantarflexors, inverters, everters. ASSESSMENT: (E11.49) Other diabetic neurological complication associated with type 2 diabetes mellitus (HCC) (primary encounter diagnosis) Plan: 1. Patient was seen and evaluated. 2. Nails 1-5 bilateral were debrided in length and thickness. 3. Patient was instructed on the continued importance of diabetic foot care along with proper diet and keeping their blood sugar under control to prevent complications. 4. RTC 3-4 months for DFC (B35.1) Onychomycosis Plan: same as above (M79.675) Pain in toe of left foot Plan: same as above (M79.674) Pain in toe of right foot Plan: same as above (I73.9) PAD (peripheral artery disease) (HCC) Reviewed pvr. Patient has falsely elevated garett with likely small vessel disease. He has no sores on exam. If he develops sores, he is to present to ed immediately. Offered vascular referral, he declined. Diabetic shoes were ordered today. Recommend he dry thoroughly between toes. DFE due 02/14/19 Diabetic shoes due 11/04/18 although patient pt states he chooses not wear them Alen Rodriguez DPM PROGRESS Observed: 03/25/2018 Status: COMPLETED Source: [place] 5:33 PM [facility] REPOSITORY HNO ID: [id number] Author: Roseline Gurrola RN Service: (none) Author Type: (none) Type: Progress Notes Filed: 03/25/2018 5:34 PM Note Text: per written order by dr ovalle he agrees with information below PROGRESS Observed: 03/25/2018 Status: COMPLETED Source: [place] 9:59 AM [facility] REPOSITORY HNO ID: [id number] Author: Roseline Gurrola RN Service: (none) Author Type: (none) Type: Progress Notes Filed: 03/25/2018 10:00 AM Note Text: patient had inr completed at [facility] patients inr is 2.6 (patients inr range is 2.0-3.0) patient is currently taking 5mg Sat and 2.5mg all other days patients last dose change was on 12/01/17 due to a high level of 5.8 (dose at that time was 5mg Wed,Sat and 2.5mg all other days) patient has had no changes in medication and no missed doses and no change in diet Advised patient to continue on the same dose(s) and that they would only be contacted regarding dosage and follow up instructions after review with provider, if a change is needed. Written instructions given and patient verbalized understanding. Presently scheduled in 4 weeks (04/22/18) for follow up INR. CNOV Observed: 03/22/2018 Status: COMPLETED Source: [place] 1:45 PM [facility] REPOSITORY Office Visit (NEPHST) ALIA TREJO ([id number]) 1940 M Date Time Provider Department 03/22/18 1:45 PM AGNIESZKA DIAZ NEPH During your visit today, we recorded the following information about you: Blood pressure Weight 103/69 95.3 kg Agnieszka Diaz MD 03/22/2018 2:16 PM Signed [facility]ION [facility]: Name:Alia Trejo The patient, Alia Trejo, identity was verified by name and MRN. He is accompanied in the office today by his CHIEF COMPLAINT: F/U for DM2 with diabetic CKD stage 3 w/HTN Initial visit with me on 12/16/17 Subjective/interval history: Alia Trejo is a 77 year old male with moderate CKD in the setting of DM and HTN. His serum creatinine was noted to be elevated on 10/28/2017 at 1.52 mg/dL. Serum creatinine prior to that was from 10/09/17 and was normal. His eGFR has been less than 60 even with normal serum creatinine as far back as December 2016. He has microalbuminuria. Kidney US done on 06/19/18 was reported as Rt kidney 11.8cm;Left Kidney 13.2 cm with a complex cyst Other medical problems include hyperlipidemia, PAD, atrial fibrillation-on Coumadin, DERRICK-on CPAP, COPD, history of TIA, DJD. Patient denies CP, worsening SOB, orthopnea or PND. Denies progressive leg edema No nausea, emesis,abdominal pain or diarrhea No dysuria, gross hematuria or new flank pain. No fever or chills. No dizziness,WILKINSON or focal numbness or weakness. Current Outpatient Prescriptions: insulin lispro (HUMALOG KWIKPEN INSULIN) 100 unit/mL inpn Inject 5 units if sugar <200 at bedtime or 10 units if >200. insulin glargine (LANTUS SOLOSTAR U-100 INSULIN) 100 unit/mL (3 mL) inpn Inject 40 Units subcutaneously once daily. spironolactone (ALDACTONE) 25 mg tablet TAKE ONE BY MOUTH DAILY Cholecalciferol, Vitamin D3, 1,000 unit cap Take 1 capsule by mouth once daily. warfarin (COUMADIN) 5 mg tablet Take 5 mg Sat, 2.5 mg all other days or as directed furosemide (LASIX) 40 mg tablet Take 1 tablet by mouth once daily. flash glucose scanning reader (FREESTYLE RUSSELL READER) misc 1 Device four times daily. flash glucose sensor (FREESTYLE RUSSELL SENSOR) kit 1 Device four times daily. fluticasone (FLONASE) 50 mcg/actuation nasal spray Use 1 Wideman in each nostril daily at bedtime. metoprolol tartrate, short acting, (LOPRESSOR) 100 mg tablet Take 2 tablets by mouth twice daily. Insulin Alsip, Disposable, (NOVOFINE 32) 32 gauge x 1/4 ndle 1 Each four times daily as needed. Use for Victoza and insulin injections 4 times daily. DX: E11.65 therapeutic multivitamin w/ iron (THERAGRAN-M) 9 mg iron-400 mcg tablet Take 1 tablet by mouth once daily. COMPOUNDED PRESCRIPTION insulin syringes 0.3 31 g 02/23 needle CPAP ASV machine. Initiate @ EEP14, Min ps. 3 Max ps 15, cm of water with humidification. Auto rate. Mask (per patient preference) optional chin strap (if indicated) , filters, tubing, humidifier and lifetime supplies. CSA 327.27 and Ryan-Leach 786.04 rosuvastatin (CRESTOR) 40 mg tablet Take 0.5 tablets by mouth once daily. (Patient not taking: Reported on 03/22/2018 ) rosuvastatin (CRESTOR) 40 mg tablet Take 1 tablet by mouth once daily. ONETOUCH ULTRA BLUE TEST STRIP test strip USE TO TEST 4 TIMES DAILY albuterol HFA (VENTOLIN HFA) 90 mcg/actuation inhaler Inhale 2 Puffs as instructed every 4 hours as needed. (Patient not taking: Reported on 02/14/2018 ) insulin lispro (HUMALOG) 100 unit/mL injection Inject 10 Units subcutaneously daily at bedtime. Blood-Glucose Meter (ONETOUCH ULTRA2) monitoring kit 1 Each as needed. One Touch Meter Kit Diagnosis: Type 2 DM - Uncontrolled E11.65 liraglutide (VICTOZA) 0.6 mg/0.1 mL (18 mg/3 mL) pnij Inject 1.2 mg subcutaneously once daily. DX: E11.65 (Patient not taking: Reported on 02/14/2018 ) albuterol 5 mg/mL Nebu Inhale 0.5 mL as instructed every 4 hours as needed for 7 days. 1 DOSE NOW - BACK OFFICE. PLACE 0.5 ML PER DROPPER AND 2.5 ML OF NORMAL SALINE INTO RESERVOIR. (Patient not taking: Reported on 02/14/2018 ) No current facility-administered medications for this visit. PAST MEDICAL HISTORY Diagnosis Date - Acute bronchitis with chronic obstructive pulmonary disease (COPD) ([facility]) 12/28/2015 Pulmonlogy managing - Acute diastolic CHF (congestive heart failure) ([facility]) 12/28/2015 - Atrial fibrillation, permanent ([facility]) 11/04/[address] Goldberg - Benign neoplasm of colon - CKD (chronic kidney disease) stage 3, GFR 30-59 ml/min 11/11/[address] Diaz - Diverticulosis of colon (without mention of hemorrhage) - Hiatal hernia 10/26/201710/2017 CT chest. 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 - Type II or unspecified type diabetes mellitus without mention of complication, uncontrolled Seeing podiatry - Unspecified essential hypertension Social History Substance Use Topics - Smoking status: Former Smoker Packs/day: 0.50 Years: 10.00 Types: Cigarettes Start date: 01/07/1955 Quit date: 01/08/1976 - Smokeless tobacco: Never Used Comment: Age 13 to 31. No smoking in childhood home. Spouse ex-smoker. 12/05/15. TO - Alcohol use No FAMILY HISTORY Problem Relation Age of Onset - Diabetes Mother - Hypertension Mother - Stroke Mother - Alzheimer's Disease Mother D. 75 - Diabetes Father - Hypertension Father - Alcoholism [OTHER] Father D. 57 - Cancer Brother Lung D.68 yo - MVA [OTHER] Brother Fatal MVA. D. 17 REVIEW OF SYSTEMS: Pertinent positives and negatives in HPI. All other systems reviewed and negative PHYSICAL EXAM: Last 3 Encounter BP Readings: Date: BP: 02/14/2018 128/82 01/13/2018 92/68 12/16/2017 125/87 Last 3 Encounter Wt Readings: Date: Wt: 02/14/2018 99.3 kg (219 lb) 01/13/2018 95.3 kg (210 lb) 12/16/2017 92.1 kg (203 lb) O: BP 103/69 (BP Site: Right Arm, BP Position: Sitting, BP Cuff Size: Large Adult) Wt 95.3 kg (210 lb) BMI 33.89 kg/m? GENERAL: alert, well appearing, in no acute distress. LUNGS: clear to auscultation;Normal respiratory effort CVS: S1 S2 normal. NO S3 OR S4. No murmurs ABD: soft,protuberant, nontender; organomegaly could not be excluded : BS positive EXT: Trace leg edema ; no cyanosis. SKIN: no generalized skin rash or ulcers. NEURO:Alert;No focal deficit on limited exam PSYCHIATRY: Appropriate mood and affect. LABS: Following labs were reviewed in today's visit. CKD LAB FLOWSHEET Latest Ref Rng AND Units 10/09/2017 10/28/2017 11/17/2017 12/16/2017 12/23/2017 02/17/2018 EGFR- - >60 54 - 41 >60 >60 EGFR-ALL OTHER RACES . 59 45 - 34 >60 59 CREATININE 0.73 - 1.22 mg/dL 1.20 1.52(H) - 1.94(H) 1.17 1.19 BUN 9 - 24 mg/dL 12 25(H) - 30(H) 24 16 SODIUM 136 - 144 mmol/L 136 140 - 138 137 140 POTASSIUM 3.7 - 5.1 mmol/L 4.0 4.3 - 5.4(H) 4.6 4.3 CHLORIDE 97 - 105 mmol/L 96(L) 98 - 97 100 102 CO2 22 - 30 mmol/L 29 28 - 22 22 24 GLUCOSE 74 - 99 mg/dL 95 120(H) - 275(H) 185(H) 116(H) CALCIUM 8.5 - 10.2 mg/dL 9.5 9.3 - 9.3 9.0 8.8 PHOSPHORUS 2.7 - 4.8 mg/dL - - - 4.1 4.3 - ALBUMIN 3.9 - 4.9 g/dL 3.4(L) 4.0 - 4.1 3.7(L) - ALT 10 - 54 U/L 53(H) 43 - - - - WBC 3.70 - 11.00 k/uL 8.72 6.43 Test sent to [facility]. - - - HEMOGLOBIN 13.0 - 17.0 g/dL 13.5 14.5 Test sent to [facility]. 14.9 - - PLATELET COUNT 150 - 400 k/uL 253 267 Test sent to [facility]. - - - VITAMIN D 25 HYDROXY 31.0 - 80.0 ng/mL - - - 26.9(L) - - PTH, INTACT 15 - 65 pg/mL - - - 118(H) - - CREATININE, UR RANDOM (UCRR) 20 - 300 mg/dL - 64.1 - - - - CHOLESTEROL, TOTAL <200 mg/dL - - - - - 139 TRIGLYCERIDE <150 mg/dL - - - - - 82 HDL CHOLESTEROL >39 mg/dL - - - - - 33(L) LDL CHOLESTEROL <100 mg/dL - - - - - 90 URIC ACID 4.0 - 8.1 mg/dL - - - 6.2 - - Some recent data might be hidden ] ASSESSMENT: 1. Type 2 DM with CKD stage 3 and hypertension (HCC) (primary encounter diagnosis): Elevation in serum creatinine in the setting of long-standing DM and HTN and eGFR less than 60 even with normal serum creatinine since December 2016. Latest serum creatinine from February 2018 was in the normal range with eGFR less than 60 -consistent with stage III CKD. Noted to have microalbuminuria in the past-no dipstick proteinuria on recent check. Discussed at length the management of risk factors to prevent progression of CKD. BP controlled on current regimen Blood sugar controlled-last hemoglobin A1c from February 2018 was on target. 2. Secondary renal hyperparathyroidism (HCC): Stable without need for Rocaltrol. Received vitamin D replacement for low vitamin D. Will update labs periodically to check need for Rocaltrol/25 hydroxy vitamin D PLAN: Avoid Advil ,Ibuprofen(Motrin),Aleve(Naproxen),Meloxicam and other pain/arthritis medications called NSAIDS. You can take Tylenol if necessary. Continue current management Follow low salt diet. Do in 6 months: -RENAL FUNCTION PANEL -PTH INTACT BLD -URINALYSIS WITH MICROSCOPIC -VITAMIN D 25 HYDROXY FOLLOW-UP: In 6 months with Mayra Kolb SIGNATURE:Agnieszka Diaz MD Staff Pediatric Clinical Nurse Specialist DATE:March 21, 2018 TIME:6:43 PM Agnieszka Diaz MD 03/22/2018 2:01 PM Signed Avoid Advil ,Ibuprofen(Motrin),Aleve(Naproxen),Meloxicam and other pain/arthritis medications called NSAIDS. You can take Tylenol if necessary. Avoid intravenous contrast Follow low salt diet. Have blood work done in 6 months . Follow up with Mayra Kolb in 6 months. Please have you lab work done one week prior to your appointment. Please bring a complete list of your medications, the dosage and times taken- to every visit. We want to know that ALL of your concerns/needs relevant to this visit- were met today and that we have hopefully exceeded your expectations. If not-please let us know how we can improve our service to you by calling [phone] You may be receiving a survey regarding your care today. If you do, please take a few minutes to fill it out and send it back. It would be greatly appreciated. Referring Provider: ROCKY RIVERA) [[id number]] Allergies As of Date: 03/22/2018 Noted Allergy Reaction NABEEL INHIBITORS 05/16/2014 3 - Cough Date Reviewed: 03/22/2018 Reviewed by: Agnieszka Diaz - Fully Assessed Reason for Visit: Follow Up [171] Primary Visit Diagnosis:Type 2 DM with CKD stage 3 and hypertension (HCC) [E11.22, I12.9, N18.3] Other Visit Diagnosis:Secondary renal hyperparathyroidism (HCC) [N25.81] Order(s):RENAL FUNCTION PANEL [SQRFP] Order #: [id number] PTH INTACT BLD [SQPTHI] Order #: [id number] URINALYSIS WITH MICROSCOPIC [SQUAWMIC] Order #: [id number] FUTURE VITAMIN D 25 HYDROXY [SQVITD] Order #: [id number] Prescriptions as of 03/22/2018 Sig: INSULIN LISPRO (U-100) 100 UN* Inject 5 units if sugar <200 * INSULIN GLARGINE (U-100) 100 * Inject 40 Units subcutaneousl* SPIRONOLACTONE 25 MG TABLET TAKE ONE BY MOUTH DAILY CHOLECALCIFEROL (VITAMIN D3) * Take 1 capsule by mouth once * WARFARIN 5 MG TABLET Take 5 mg Sat, 2.5 mg all oth* FUROSEMIDE 40 MG TABLET Take 1 tablet by mouth once d* FLASH GLUCOSE SCANNING READER 1 Device four times daily. FLASH GLUCOSE SENSOR KIT 1 Device four times daily. FLUTICASONE 50 MCG/ACTUATION * Use 1 Wideman in each nostril d* METOPROLOL TARTRATE 100 MG TA* Take 2 tablets by mouth twice* PEN NEEDLE, DIABETIC 32 GAUGE* 1 Each four times daily as ne* MULTIVITAMIN-IRON 9 MG-FOLIC * Take 1 tablet by mouth once d* COMPOUNDED PRESCRIPTION insulin syringes 0.3 31 g 5/* CPAP ASV machine. Initiate @ EEP1* ROSUVASTATIN 40 MG TABLET Take 0.5 tablets by mouth onc* Patient not taking: Reported on 03/22/2018 ROSUVASTATIN 40 MG TABLET Take 1 tablet by mouth once d* [place] ULTRA BLUE TEST STRIP USE TO TEST 4 TIMES DAILY ALBUTEROL SULFATE HFA 90 MCG/* Inhale 2 Puffs as instructed * Patient not taking: Reported on 02/14/2018 INSULIN LISPRO (U-100) 100 UN* Inject 10 Units subcutaneousl* BLOOD-GLUCOSE METER KIT 1 Each as needed. One Touch M* LIRAGLUTIDE 0.6 MG/0.1 ML (18* Inject 1.2 mg subcutaneously * Patient not taking: Reported on 02/14/2018 ALBUTEROL SULFATE CONCENTRATE* Inhale 0.5 mL as instructed e* Patient not taking: Reported on 02/14/2018 Problem List As Of Date 03/22/2018 Noted Resolved Essential hypertension [I10] DIABETES MELLITUS TYPE II UNCONTR UNCOMPL [E11.* 09/12/2014 Hyperlipidemia [E78.5] CHRONIC RHINITIS [J31.0] INVALID FOR* PAD (peripheral artery disease) (HCC) [I73.9] INVALID FOR* VIRAL WARTS NOS [B07.9] INVALID FOR* Type I (juvenile type) diabetes mellitus withou*INVALID FOR*02/06/2014 Unspecified sleep apnea [G47.30] INVALID FOR*07/21/2014 More... BENIGN NEOPLASM LG BOWEL [D12.6] INVALID FOR* DIVERTICULOSIS OF COLON W/O BLEED [K57.30] INVALID FOR* INT HEMORRHOID W/O COMPL [K64.8] INVALID FOR* Premature atrial beats [I49.1] INVALID FOR* Atrial fibrillation, permanent [I48.2] INVALID FOR*01/30/2015 Atherosclerosis of aortic arch [I70.0] INVALID FOR* More... BMI 37.0-37.9, adult [Z68.37] INVALID FOR*01/30/2015 DERRICK (obstructive sleep apnea) AHI 36 [G47.33] INVALID FOR* DM (diabetes mellitus), type 2, uncontrolled (H*INVALID FOR*02/14/2018 Atrial fibrillation (HCC) [I48.91] INVALID FOR* BMI 35.0-35.9,adult [Z68.35] INVALID FOR*11/11/2017 long term care pharmacist (current) use of anticoagulants [Z79.*INVALID FOR* SUMMARY INVALID FOR* More... Cough with expectoration [R05] INVALID FOR* More... Atrial fibrillation with RVR (HCC) [I48.91] INVALID FOR*11/10/2017 Syncope [R55] INVALID FOR* Acute bronchitis with chronic obstructive pulmo*INVALID FOR*07/04/2016 Acute diastolic CHF (congestive heart failure) *INVALID FOR*07/04/2016 Status post placement of implantable loop recor*INVALID FOR* Type 2 diabetes mellitus without retinopathy (H*INVALID FOR* Vitreous floaters of both eyes [H43.393] INVALID FOR* TIA due to embolism (HCC) [G45.9, I74.9] INVALID FOR* Facial droop [R29.810] INVALID FOR*11/11/2017 Controlled type 2 diabetes mellitus without com*INVALID FOR* Combined forms of age-related cataract of both *INVALID FOR* Screening for colon cancer [Z12.11] INVALID FOR*02/14/2018 More... Hiatal hernia [K44.9] INVALID FOR* More... Acute bronchitis with chronic obstructive pulmo*INVALID FOR* More... CKD (chronic kidney disease) stage 3, GFR 30-59*INVALID FOR*03/22/2018 Type 2 DM with CKD stage 3 and hypertension (HC*INVALID FOR* Secondary renal hyperparathyroidism (HCC) [N25.*INVALID FOR* Persistent proteinuria [R80.1] INVALID FOR* Other instructions from your clinician: Avoid Advil ,Ibuprofen(Motrin),Aleve(Naproxen),Meloxicam and other pain/arthritis medications called NSAIDS. You can take Tylenol if necessary. Avoid intravenous contrast Follow low salt diet. Have blood work done in 6 months . Follow up with Mayra Kolb in 6 months. Please have you lab work done one week prior to your appointment. Please bring a complete list of your medications, the dosage and times taken- to every visit. We want to know that ALL of your concerns/needs relevant to this visit- were met today and that we have hopefully exceeded your expectations. If not-please let us know how we can improve our service to you by calling [phone] You may be receiving a survey regarding your care today. If you do, please take a few minutes to fill it out and send it back. It would be greatly appreciated. Disposition: Return in about 6 months (around 09/21/2018). Follow-up and Disposition History Recorded Encounter Status:Closed by AGNIESZKA DIAZ on 03/22/18 PROGRESS Observed: 03/21/2018 Status: COMPLETED Source: [place] 6:42 PM [facility] REPOSITORY O ID: [id number] Author: Agnieszka Diaz Service: (none) Author Type: Physician Type: Progress Notes Filed: 03/22/2018 2:16 PM Note Text: [facility]: Name:Alia Trejo The patient, Alia Trejo, identity was verified by name and MRN. He is accompanied in the office today by his CHIEF COMPLAINT: F/U for DM2 with diabetic CKD stage 3 w/HTN Initial visit with me on 12/16/17 Subjective/interval history: Alia Trejo is a 77 year old male with moderate CKD in the setting of DM and HTN. His serum creatinine was noted to be elevated on 10/28/2017 at 1.52 mg/dL. Serum creatinine prior to that was from 10/09/17 and was normal. His eGFR has been less than 60 even with normal serum creatinine as far back as December 2016. He has microalbuminuria. Kidney US done on 06/19/18 was reported as Rt kidney 11.8cm;Left Kidney 13.2 cm with a complex cyst Other medical problems include hyperlipidemia, PAD, atrial fibrillation-on Coumadin, DERRICK-on CPAP, COPD, history of TIA, DJD. Patient denies CP, worsening SOB, orthopnea or PND. Denies progressive leg edema No nausea, emesis,abdominal pain or diarrhea No dysuria, gross hematuria or new flank pain. No fever or chills. No dizziness,WILKINSON or focal numbness or weakness. Current Outpatient Prescriptions: insulin lispro (HUMALOG KWIKPEN INSULIN) 100 unit/mL inpn Inject 5 units if sugar <200 at bedtime or 10 units if >200. insulin glargine (LANTUS SOLOSTAR U-100 INSULIN) 100 unit/mL (3 mL) inpn Inject 40 Units subcutaneously once daily. spironolactone (ALDACTONE) 25 mg tablet TAKE ONE BY MOUTH DAILY Cholecalciferol, Vitamin D3, 1,000 unit cap Take 1 capsule by mouth once daily. warfarin (COUMADIN) 5 mg tablet Take 5 mg Sat, 2.5 mg all other days or as directed furosemide (LASIX) 40 mg tablet Take 1 tablet by mouth once daily. flash glucose scanning reader (FREESTYLE RUSSELL READER) misc 1 Device four times daily. flash glucose sensor (FREESTYLE RUSSELL SENSOR) kit 1 Device four times daily. fluticasone (FLONASE) 50 mcg/actuation nasal spray Use 1 Wideman in each nostril daily at bedtime. metoprolol tartrate, short acting, (LOPRESSOR) 100 mg tablet Take 2 tablets by mouth twice daily. Insulin Alsip, Disposable, (NOVOFINE 32) 32 gauge x 1/4 ndle 1 Each four times daily as needed. Use for Victoza and insulin injections 4 times daily. DX: E11.65 therapeutic multivitamin w/ iron (THERAGRAN-M) 9 mg iron-400 mcg tablet Take 1 tablet by mouth once daily. COMPOUNDED PRESCRIPTION insulin syringes 0.3 31 g 02/23 needle CPAP ASV machine. Initiate @ EEP14, Min ps. 3 Max ps 15, cm of water with humidification. Auto rate. Mask (per patient preference) optional chin strap (if indicated) , filters, tubing, humidifier and lifetime supplies. CSA 327.27 and Ryan-Leach 786.04 rosuvastatin (CRESTOR) 40 mg tablet Take 0.5 tablets by mouth once daily. (Patient not taking: Reported on 03/22/2018 ) rosuvastatin (CRESTOR) 40 mg tablet Take 1 tablet by mouth once daily. ONETOUCH ULTRA BLUE TEST STRIP test strip USE TO TEST 4 TIMES DAILY albuterol HFA (VENTOLIN HFA) 90 mcg/actuation inhaler Inhale 2 Puffs as instructed every 4 hours as needed. (Patient not taking: Reported on 02/14/2018 ) insulin lispro (HUMALOG) 100 unit/mL injection Inject 10 Units subcutaneously daily at bedtime. Blood-Glucose Meter (ONETOUCH ULTRA2) monitoring kit 1 Each as needed. One Touch Meter Kit Diagnosis: Type 2 DM - Uncontrolled E11.65 liraglutide (VICTOZA) 0.6 mg/0.1 mL (18 mg/3 mL) pnij Inject 1.2 mg subcutaneously once daily. DX: E11.65 (Patient not taking: Reported on 02/14/2018 ) albuterol 5 mg/mL Nebu Inhale 0.5 mL as instructed every 4 hours as needed for 7 days. 1 DOSE NOW - BACK OFFICE. PLACE 0.5 ML PER DROPPER AND 2.5 ML OF NORMAL SALINE INTO RESERVOIR. (Patient not taking: Reported on 02/14/2018 ) No current facility-administered medications for this visit. PAST MEDICAL HISTORY Diagnosis Date - Acute bronchitis with chronic obstructive pulmonary disease (COPD) ([facility]) 12/28/2015 Pulmonlogy managing - Acute diastolic CHF (congestive heart failure) ([facility]) 12/28/2015 - Atrial fibrillation, permanent ([facility]) 11/04/[address] Goldberg - Benign neoplasm of colon - CKD (chronic kidney disease) stage 3, GFR 30-59 ml/min 11/11/[address] Diaz - Diverticulosis of colon (without mention of hemorrhage) - Hiatal hernia 10/26/201710/2017 CT chest. 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 - Type II or unspecified type diabetes mellitus without mention of complication, uncontrolled Seeing podiatry - Unspecified essential hypertension Social History Substance Use Topics - Smoking status: Former Smoker Packs/day: 0.50 Years: 10.00 Types: Cigarettes Start date: 01/07/1955 Quit date: 01/08/1976 - Smokeless tobacco: Never Used Comment: Age 13 to 31. No smoking in childhood home. Spouse ex-smoker. 12/05/15. TO - Alcohol use No FAMILY HISTORY Problem Relation Age of Onset - Diabetes Mother - Hypertension Mother - Stroke Mother - Alzheimer's Disease Mother D. 75 - Diabetes Father - Hypertension Father - Alcoholism [OTHER] Father D. 57 - Cancer Brother Lung D.68 yo - MVA [OTHER] Brother Fatal MVA. D. 17 REVIEW OF SYSTEMS: Pertinent positives and negatives in HPI. All other systems reviewed and negative PHYSICAL EXAM: Last 3 Encounter BP Readings: Date: BP: 02/14/2018 128/82 01/13/2018 92/68 12/16/2017 125/87 Last 3 Encounter Wt Readings: Date: Wt: 02/14/2018 99.3 kg (219 lb) 01/13/2018 95.3 kg (210 lb) 12/16/2017 92.1 kg (203 lb) O: BP 103/69 (BP Site: Right Arm, BP Position: Sitting, BP Cuff Size: Large Adult) Wt 95.3 kg (210 lb) BMI 33.89 kg/m? GENERAL: alert, well appearing, in no acute distress. LUNGS: clear to auscultation;Normal respiratory effort CVS: S1 S2 normal. NO S3 OR S4. No murmurs ABD: soft,protuberant, nontender; organomegaly could not be excluded : BS positive EXT: Trace leg edema ; no cyanosis. SKIN: no generalized skin rash or ulcers. NEURO:Alert;No focal deficit on limited exam PSYCHIATRY: Appropriate mood and affect. LABS: Following labs were reviewed in today's visit. CKD LAB FLOWSHEET Latest Ref Rng AND Units 10/09/2017 10/28/2017 11/17/2017 12/16/2017 12/23/2017 02/17/2018 EGFR- - >60 54 - 41 >60 >60 EGFR-ALL OTHER RACES . 59 45 - 34 >60 59 CREATININE 0.73 - 1.22 mg/dL 1.20 1.52(H) - 1.94(H) 1.17 1.19 BUN 9 - 24 mg/dL 12 25(H) - 30(H) 24 16 SODIUM 136 - 144 mmol/L 136 140 - 138 137 140 POTASSIUM 3.7 - 5.1 mmol/L 4.0 4.3 - 5.4(H) 4.6 4.3 CHLORIDE 97 - 105 mmol/L 96(L) 98 - 97 100 102 CO2 22 - 30 mmol/L 29 28 - 22 22 24 GLUCOSE 74 - 99 mg/dL 95 120(H) - 275(H) 185(H) 116(H) CALCIUM 8.5 - 10.2 mg/dL 9.5 9.3 - 9.3 9.0 8.8 PHOSPHORUS 2.7 - 4.8 mg/dL - - - 4.1 4.3 - ALBUMIN 3.9 - 4.9 g/dL 3.4(L) 4.0 - 4.1 3.7(L) - ALT 10 - 54 U/L 53(H) 43 - - - - WBC 3.70 - 11.00 k/uL 8.72 6.43 Test sent to [facility]. - - - HEMOGLOBIN 13.0 - 17.0 g/dL 13.5 14.5 Test sent to [facility]. 14.9 - - PLATELET COUNT 150 - 400 k/uL 253 267 Test sent to [facility]. - - - VITAMIN D 25 HYDROXY 31.0 - 80.0 ng/mL - - - 26.9(L) - - PTH, INTACT 15 - 65 pg/mL - - - 118(H) - - CREATININE, UR RANDOM (UCRR) 20 - 300 mg/dL - 64.1 - - - - CHOLESTEROL, TOTAL <200 mg/dL - - - - - 139 TRIGLYCERIDE <150 mg/dL - - - - - 82 HDL CHOLESTEROL >39 mg/dL - - - - - 33(L) LDL CHOLESTEROL <100 mg/dL - - - - - 90 URIC ACID 4.0 - 8.1 mg/dL - - - 6.2 - - Some recent data might be hidden ] ASSESSMENT: 1. Type 2 DM with CKD stage 3 and hypertension (HCC) (primary encounter diagnosis): Elevation in serum creatinine in the setting of long-standing DM and HTN and eGFR less than 60 even with normal serum creatinine since December 2016. Latest serum creatinine from February 2018 was in the normal range with eGFR less than 60 -consistent with stage III CKD. Noted to have microalbuminuria in the past-no dipstick proteinuria on recent check. Discussed at length the management of risk factors to prevent progression of CKD. BP controlled on current regimen Blood sugar controlled-last hemoglobin A1c from February 2018 was on target. 2. Secondary renal hyperparathyroidism (HCC): Stable without need for Rocaltrol. Received vitamin D replacement for low vitamin D. Will update labs periodically to check need for Rocaltrol/25 hydroxy vitamin D PLAN: Avoid Advil ,Ibuprofen(Motrin),Aleve(Naproxen),Meloxicam and other pain/arthritis medications called NSAIDS. You can take Tylenol if necessary. Continue current management Follow low salt diet. Do in 6 months: -RENAL FUNCTION PANEL -PTH INTACT BLD -URINALYSIS WITH MICROSCOPIC -VITAMIN D 25 HYDROXY FOLLOW-UP: In 6 months with Mayra Kolb SIGNATURE:Agnieszka Diaz MD Staff Pediatric Clinical Nurse Specialist DATE:March 21, 2018 TIME:6:43 PM PROGRESS Observed: 02/25/2018 Status: COMPLETED Source: [place] 10:14 AM [facility] REPOSITORY HNO ID: [id number] Author: Rocky Olea) Miguel Service: (none) Author Type: Physician Type: Progress Notes Filed: 02/25/2018 10:14 AM Note Text: INR therapeutic. Continue current coumadin dosage and follow up in 4 weeks. PROGRESS Observed: 02/25/2018 Status: COMPLETED Source: [place] 10:07 AM [facility] REPOSITORY HNO ID: [id number] Author: Roseline Gurrola RN Service: (none) Author Type: (none) Type: Progress Notes Filed: 02/25/2018 10:09 AM Note Text: patient had inr completed at [facility] patients inr is 2.2 (patients inr range is 2.0-3.0) patient is currently taking 5mg Sat and 2.5mg all other days patients last dose change was on 12/01/17 due to a high level of 5.8 (dose at that time was 5mg Wed,Sat and 2.5mg all other days) patient has had no changes in medication and no missed doses and no change in diet Advised patient to continue on the same dose(s) and that they would only be contacted regarding dosage and follow up instructions after review with provider, if a change is needed. Written instructions given and patient verbalized understanding. Presently scheduled in 4 weeks (03/25/18) for follow up INR. PROGRESS Observed: 02/17/2018 Status: COMPLETED Source: [place] 11:58 AM [facility] REPOSITORY HNO ID: [id number] Author: Monique Charles RN Service: (none) Author Type: (none) Type: Progress Notes Filed: 02/17/2018 12:01 PM Note Text: Patient notified of instructions below. Verbalized understanding. Scheduled for 02/24/18 PROGRESS Observed: 02/17/2018 Status: COMPLETED Source: [place] 10:23 AM [facility] REPOSITORY HNO ID: [id number] Author: Rocky Rivera) Service: (none) Author Type: Physician Type: Progress Notes Filed: 02/17/2018 10:24 AM Note Text: INR low, likely due to missed doses. Have patient take daily as prescribed and return in 1 week for recheck. PROGRESS Observed: 02/17/2018 Status: COMPLETED Source: [place] 10:18 AM [facility] REPOSITORY HNO ID: [id number] Author: Monique Charles RN Service: (none) Author Type: (none) Type: Progress Notes Filed: 02/17/2018 10:20 AM Note Text: Patient had INR completed at [facility] Patient's INR is 1.5 Patient is currently taking 5 mg Sat, 2.5mg all other days. Patient's last dose change was 12/09/17 due to low INR at 2.0 Patient has had no medication and no change in diet. States he missed two days of Coumadin this past week but unsure which days he missed. Advised patient that they would be contacted regarding medication dose and follow-up once reviewed by provider. After provider review, please contact patient with information and schedule follow-up appointment with coumadin clinic. BASIC METABOLIC PANL Collected: 02/17/2018 Status: F Source: [place] 9:54 AM [facility] REPOSITORY TYPE CODE TESTS RESULT OUT OF REFERENCE UNITS RANGE LAB GLU 74-99 mg/dL High Glucose 116 Result Comment: The [place] Diabetes Association (ADA) provides guidance for cutoff values for fasting glucose and random glucose. The ADA defines fasting as no caloric intake for at least 8 hours. Fas ting plasma glucose results between 100 to 125 mg/dL indicate increased risk for diabetes (prediabetes). Fasting plasma glucose results greater than or equal to 126 mg/dL meet the criteria for diagnosis of diabetes. In the absence of unequivocal hyperglycemia, results should be confirmed by repeat testing. In a patient with classic symptoms of hyperglycemia or hyperglycemic crisis, random plasma glucose results greater than or equal to 200 mg/dL meet the criteria for diagnosis of diabetes. Reference: Standards of Medical Care in Diabetes 2016, [place] [employer] Association. Diabetes Care. 2016.39(Suppl 1). LAB BUN 9-24 mg/dL BUN 16 LAB CRET 0.73-1.22 mg/dL Creatinine 1.19 LAB NA 136-144 mmol/L Sodium 140 LAB K 3.7-5.1 mmol/L Potassium 4.3 LAB CL 97-105 mmol/L Chloride 102 LAB CO2 22-30 mmol/L CO2 24 LAB AGAP 9-18 mmol/L Anion Gap 14 LAB CA 8.5-10.2 mg/dL Calcium, Total 8.8 LAB GFRAA eGFR- Amer. >60 LAB GFRNAA . eGFR-All Other Races 59 Result Comment: eGFR (Estimated GFR) Units of measure: mL/min/1.73 meters squared eGFR is derived from the reexpressed MDRD Study equation using the following parameters: serum creatinine, age, gender and race. The creatinine assay has been calibrated to be traceable to IDMS. An eGFR <60 mL/min/1.73m2 for >3 months is consistent with chronic kidney disease. Refer to KDOQI guidelines for clinical interpretation. In patients with unstable renal function, e.g. those with acute kidney injury, the eGFR may not accurately reflect actual GFR. Performed By: #### BMP #### [facility] [address], [place] [address] LIPID PANEL, BASIC Collected: 02/17/2018 Status: F Source: [place] 9:54 AM [facility] REPOSITORY TYPE CODE TESTS RESULT OUT OF REFERENCE UNITS RANGE LAB CHOL <200 mg/dL Cholesterol 139 Result Comment: <200 mg/dL, Desirable 200-239 mg/dL, Borderline high >239 mg/dL, High LAB TRIGLY <150 mg/dL Triglyceride 82 Result Comment: <150 mg/dL, Normal 150-199 mg/dL, Borderline high 200-499 mg/dL, High >499 mg/dL, Very high LAB HDL >39 mg/dL HDL-Cholesterol Low 33 Result Comment: 40-59 mg/dL, Acceptable >59 mg/dL, High: Negative risk factor for coronary heart disease <40 mg/dL, Low: Positive risk factor for coronary heart disease LAB LDL <100 mg/dL LDL-Cholesterol 90 Result Comment: <100 mg/dL, Optimal 100-129 mg/dL, Near optimal/above optimal 130-159 mg/dL, Borderline high 160-189 mg/dL, High >189 mg/dL, Very high Secondary prevention optimal LDL Cholesterol levels are recommended to be < 70 mg/dL LAB NONHDL <130 mg/dL Non HDL Cholesterol 106 Result Comment: <130 mg/dL, Optimal 130-159 mg/dL, Near optimal/above optimal 160-189 mg/dL, Borderline high 190-219 mg/dL, High >219 mg/dL, Very high Secondary prevention optimal non HDL Cholesterol levels are recommended to be < 100 mg/dL LAB FT hrs Fasting Time 11 LAB VLDL <30 mg/dL VLDL Cholesterol 16 LAB TCHDL <5.10 TC:HDL Ratio 4.21 LAB LDLHDL <2.54 High LDL:HDL Ratio 2.73 Result Comment: Reference: 1. National Cholesterol Education Program ATP III Guideline At-A-Glance Quick Desk Reference: National Heart, Lung, and Blood [place]. National Institutes of Health. 2001: NIH Publication No. 01-3305. 2. An International Atherosclerosis Society position paper: global recommendations for the management of dyslipidemia: executive summary, Atherosclerosis. 2014: 232(2):410-413. Performed By: #### LIPB #### [facility] [address] [place] [address] HEMOGLOBIN A1C Collected: 02/17/2018 Status: F Source: [place] 9:54 AM [facility] REPOSITORY TYPE CODE TESTS RESULT OUT OF REFERENCE UNITS RANGE LAB HGBA1C 4.3-5.6 % High Hemoglobin A1c 7.5 LAB HBA0 mg/dL Est. Average Glucose 169 Result Comment: eAG: (Estimated average glucose) is a calculated value from HgbA1c and is digital media representative of the average blood glucose level in the last 2-3 month period. Performed By: #### HBA1C #### [facility] [address] [place] [address] CNOV Observed: 02/14/2018 Status: COMPLETED Source: [place] 1:20 PM [facility] REPOSITORY Office Visit (FAMPWS) ALIA TREJO ([id number]) 1940 M Date Time Provider Department 02/14/18 1:20 PM ROCKY RIVERA) FAMPWS During your visit today, we recorded the following information about you: Pulse Respiration Blood pressure Weight 88/minute 22/minute 128/82 99.3 kg Rocky Rivera () 02/14/2018 2:08 PM Signed Chief Complaint Patient presents with: F/U 3 Month HPI Alia Trejo is a 77 year old male who presents here today for 3 month follow up visit. DIABETES MELLITUS: Mr. Trejo was last seen 4 months ago. Since our last visit he denies excessive thirst or increased frequency of urination, numbness, tingling or pain in extremities, new or unusual visual symptoms and low sugar/hypoglycemic reactions. Follows a diabetic diet most of the time. He is compliant with medication(s) and is tolerating med(s) without any side effects. Has increased his Lantus from 25-35 to 40 units in the morning. Taking 10 units of Humalog at night. He reports checking his glucose on a three times a day schedule with sugars in the fasting 120s range with evening sugars up to 200. Patient's last HgA1C was Hemoglobin A1C (%) Date Value 10/28/2017 7.5 01/07/2017 7.0 ) Last Ophthalmology exam was within the past 12 months Last Podiatry exam was within the past 12 months, follows up with Dr. Rodriguez Has followed up with Dr. Diaz regarding CKD stage III and they recommended he eat low sodium diet, avoid NSAIDs, no IV contrast, and continue hydration. Seen by Dr. Goldberg (Cardiology) for history of a fib and CHF and they recommended continuing metoprolol and coumadin, but decreased his lasix to 40 mg daily due to lightheadedness. Past medical history, appointments, medications, allergies reviewed. Previous Medical History PAST MEDICAL HISTORY Diagnosis Date - Acute bronchitis with chronic obstructive pulmonary disease (COPD) ([facility]) 12/28/2015 Pulmonlogy managing - Acute diastolic CHF (congestive heart failure) ([facility]) 12/28/2015 - Atrial fibrillation, permanent ([facility]) 11/04/[address] Goldberg - Benign neoplasm of colon - CKD (chronic kidney disease) stage 3, GFR 30-59 ml/min 11/11/2017 - Diverticulosis of colon (without mention of hemorrhage) - Hiatal hernia 10/26/201710/2017 CT chest. 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 75 - Diabetes Father - Hypertension Father - Alcoholism [OTHER] Father D. 57 - Cancer Brother Lung D.68 yo - MVA [OTHER] Brother Fatal MVA. D. 17 Patient Allergies ALLERGIES Allergen Reactions - Nabeel Inhibitors Cough Current Medications Current Outpatient Prescriptions on File Prior to Visit: [place] ULTRA BLUE TEST STRIP test strip USE TO TEST 4 TIMES DAILY spironolactone (ALDACTONE) 25 mg tablet TAKE ONE BY MOUTH DAILY Cholecalciferol, Vitamin D3, 1,000 unit cap Take 1 capsule by mouth once daily. warfarin (COUMADIN) 5 mg tablet Take 5 mg Sat, 2.5 mg all other days or as directed LANTUS SOLOSTAR U-100 INSULIN 100 unit/mL (3 mL) inpn INJECT 25-35 UNITS SUBCUTANEOUSLY ONCE DAILY. furosemide (LASIX) 40 mg tablet Take 1 tablet by mouth once daily. flash glucose scanning reader (FREESTYLE RUSSELL READER) misc 1 Device four times daily. flash glucose sensor (FREESTYLE RUSSELL SENSOR) kit 1 Device four times daily. fluticasone (FLONASE) 50 mcg/actuation nasal spray Use 1 Wideman in each nostril daily at bedtime. albuterol HFA (VENTOLIN HFA) 90 mcg/actuation inhaler Inhale 2 Puffs as instructed every 4 hours as needed. insulin lispro (HUMALOG) 100 unit/mL injection Inject 10 Units subcutaneously daily at bedtime. metoprolol tartrate, short acting, (LOPRESSOR) 100 mg tablet Take 2 tablets by mouth twice daily. rosuvastatin (CRESTOR) 40 mg tablet Take 20 mg by mouth once daily. Insulin Alsip, Disposable, (NOVOFINE 32) 32 gauge x 1/4 ndle 1 Each four times daily as needed. Use for Victoza and insulin injections 4 times daily. DX: E11.65 Insulin Lispro, Human, (HUMALOG KWIKPEN) 100 unit/mL inpn Inject 5 units if sugar <200 at bedtime or 10 units if >200. Blood-Glucose Meter (ONETOUCH ULTRA2) monitoring kit 1 Each as needed. One Touch Meter Kit Diagnosis: Type 2 DM - Uncontrolled E11.65 liraglutide (VICTOZA) 0.6 mg/0.1 mL (18 mg/3 mL) pnij Inject 1.2 mg subcutaneously once daily. DX: E11.65 therapeutic multivitamin w/ iron (THERAGRAN-M) 9 mg iron-400 mcg tablet Take 1 tablet by mouth once daily. COMPOUNDED PRESCRIPTION insulin syringes 0.3 31 g 02/23 needle CPAP ASV machine. Initiate @ EEP14, Min ps. 3 Max ps 15, cm of water with humidification. Auto rate. Mask (per patient preference) optional chin strap (if indicated) , filters, tubing, humidifier and lifetime supplies. CSA 327.27 and Ryan-Leach 786.04 albuterol 5 mg/mL Nebu Inhale 0.5 mL as instructed every 4 hours as needed for 7 days. 1 DOSE NOW - BACK OFFICE. PLACE 0.5 ML PER DROPPER AND 2.5 ML OF NORMAL SALINE INTO RESERVOIR. No current facility-administered medications on file prior to visit. Social History Social History Marital status: Spouse name: Aixa Years of education: Number of children: 3 Occupational History Occupation Employer Comment [employer] Social History Main Topics Smoking status: Former Smoker Packs/day: 0.50 Years: 10.00 Types: Cigarettes Start date: 01/07/1955 Quit date: 01/08/1976 Smokeless tobacco: Never Used Comment: Age 13 to 31. No smoking in childhood home. Spouse ex-smoker. 12/05/15. TO Alcohol use: No Drug use: No Review of Symptoms REVIEW OF SYSTEMS GENERAL: No weight loss, malaise or fevers RESPIRATORY: Negative for cough, hemoptysis, wheezing, COPD, dyspnea or shortness of breath CARDIOVASCULAR: Negative for chest pain, leg swelling, hypertension, CHF or palpitations GI: No nausea, vomiting, or diarrhea SKIN: Negative for lesions, rash, and itching EXAM: BP 128/82 Pulse 88 Resp 22 Wt 99.3 kg (219 lb) BMI 35.35 kg/m? General Appearance: Well appearing, alert, in no acute distress, well-hydrated, well nourished.. Skin: Skin color, texture, turgor normal, no suspicious rashes or lesions. Lungs: Lungs clear to auscultation. No wheezing, rhonchi, rales. Heart: Negative findings: no murmurs, rubs, clicks or gallops, Positive findings: irregularly irregular rhythm. Abdomen: Normal abdominal exam, Abdomen soft, non-tender. Bowel sounds normal. No masses, organomegaly. Extremities: No deformities, edema, skin discoloration, clubbing or cyanosis. Good capillary refill. . Feet: Shoes and socks removed, No deformities, ulcers, calluses, normal distal pulses and not sensitive to monofilament bilaterally Health Maintenance List DTAP,TDAP,TD(1 - Tdap) due on 1960 DIABETIC FOOT EXAM due on 03/20/2017 LDL due on 01/07/2018 HBA1C due on 04/27/2018 DILATED RETINAL EXAM due on 07/13/2018 URINE ALBUMIN CREATININE RATIO due on 10/28/2018 COLORECTAL CANCER SCREENING,SEE MODIFIER due on 11/24/2019 PROSTATE CANCER SCREENING DISCUSSION Completed ADULT PREVNAR-13 Completed INFLUENZA Completed PNEUMOVAX AGE 65 AND OVER WITH 5YR LOOKBACK Completed Data reviewed Component Latest Ref Rng AND Units 10/28/2017 12/16/2017 12/23/2017 01/20/2018 Protein, Total 6.3 - 8.0 g/dL 7.0 Albumin 3.9 - 4.9 g/dL 4.0 4.1 3.7 (L) Calcium 8.5 - 10.2 mg/dL 9.3 9.3 9.0 Bilirubin, Total 0.2 - 1.3 mg/dL 0.6 Alkaline Phosphatase 36 - 108 U/L 82 AST 14 - 40 U/L 44 (H) Glucose 74 - 99 mg/dL 120 (H) 275 (H) 185 (H) BUN 9 - 24 mg/dL 25 (H) 30 (H) 24 Creatinine 0.73 - 1.22 mg/dL 1.52 (H) 1.94 (H) 1.17 Sodium 136 - 144 mmol/L 140 138 137 Potassium 3.7 - 5.1 mmol/L 4.3 5.4 (H) 4.6 Chloride 97 - 105 mmol/L 98 97 100 CO2 22 - 30 mmol/L 28 22 22 Anion Gap 9 - 18 mmol/L 14 19 (H) 15 ALT 10 - 54 U/L 43 eGFR- 54 41 >60 eGFR-All Other Races . 45 34 >60 Phosphorus 2.7 - 4.8 mg/dL 4.1 4.3 Creatinine, Ur Random (UCRR) 20 - 300 mg/dL 64.1 Albumin, Urine Random 0.0 - 23.0 mg/L 92.6 (H) Albumin/Creat Ratio 0 - 30 mg/g 144 (H) Hemoglobin A1C 4.3 - 5.6 % 7.5 (H) Estimated Average Glucose mg/dL 169 INR (POCT) 0.8 - 1.2 2.6 (H) Internal Quality Check Acceptable PTH, Intact 15 - 65 pg/mL 118 (H) Uric Acid 4.0 - 8.1 mg/dL 6.2 Vitamin D 25 Hydroxy 31.0 - 80.0 ng/mL 26.9 (L) Hemoglobin 13.0 - 17.0 g/dL 14.9 Hematocrit 39.0 - 51.0 % 45.7 ASSESSMENT/PLAN: 1. Controlled type 2 diabetes mellitus without complication, without long-term current use of insulin (HCC) - ICD9: 250.00, ICD10: E11.9 (primary diagnosis) Controlled. - Continue current medications - Blood glucose monitoring on a three times a day schedule - Encouraged regular aerobic exercise and weight loss - Daily Asprin therapy recommended - Follow up in 6 months, sooner should any other issues arise. - Will have patient follow up with Dr. Rodriguez regarding bilateral numbness without pain. - HGB A1C 2. Essential hypertension - ICD9: 401.9, ICD10: I10 - good control - Continue current medication(s) - Encouraged dietary sodium restriction/DASH diet - Recommended regular aerobic exercise. - Reviewed risks of HTN and principles of treatment - Goal of BP <140/90 3. Hyperlipidemia, unspecified hyperlipidemia type - ICD9: 272.4, ICD10: E78.5 - to be determined upon return of lab results - Continue current medication. - Encouraged following a low fat, low cholesterol diet. - Discussed the benefits of regular aerobic exercise and weight loss. 4. Permanent atrial fibrillation (HCC) - ICD9: 427.31, ICD10: I48.2 Continue beta santo and anticoagulation. INR well controlled on last check. f/u with cardiology. 5. DERRICK (obstructive sleep apnea) AHI 36 - ICD9: 327.23, ICD10: G47.33 Continue CPAP nightly, working well for symptoms. 6. CKD (chronic kidney disease) stage 3, GFR 30-59 ml/min - ICD9: 585.3, ICD10: N18.3 Improved on last CMP. Continue recommendations per Dr. Diaz. 7. Secondary renal hyperparathyroidism (HCC) - ICD9: 588.81, ICD10: N25.81 Per nephrology. Rocky Rivera MD Referring Provider: ROCKY RIVERA () [[id number]] Allergies As of Date: 02/14/2018 Noted Allergy Reaction NABEEL INHIBITORS 05/16/2014 3 - Cough Date Reviewed: 02/14/2018 Reviewed by: Brian Kevin Ma - Fully Assessed Reason for Visit: F/U 3 Month [443] Primary Visit Diagnosis:Controlled type 2 diabetes mellitus without complication, without long-term current use of insulin (HCC) [E11.9] Other Visit Diagnoses:Essential hypertension [I10] Hyperlipidemia, unspecified hyperlipidemia type [E78.5] Permanent atrial fibrillation (HCC) [I48.2] DERRICK (obstructive sleep apnea) AHI 36 [G47.33] CKD (chronic kidney disease) stage 3, GFR 30-59 ml/min [N18.3] Secondary renal hyperparathyroidism (HCC) [N25.81] Order(s):insulin glargine (LANTUS SOLOSTAR U-100 INSULIN) 100 unit/mL (3 mL) inpnInject 40 Units subcutaneously once daily.Disp: 5 PenRfl: 3 HGB A1C [[id number]] Order #: [id number] FUTURE Prescriptions as of 02/14/2018 Sig: INSULIN GLARGINE (U-100) 100 * Inject 40 Units subcutaneousl* CSS CorpTOUCH ULTRA BLUE TEST STRIP USE TO TEST 4 TIMES DAILY SPIRONOLACTONE 25 MG TABLET TAKE ONE BY MOUTH DAILY CHOLECALCIFEROL (VITAMIN D3) * Take 1 capsule by mouth once * WARFARIN 5 MG TABLET Take 5 mg Sat, 2.5 mg all oth* FUROSEMIDE 40 MG TABLET Take 1 tablet by mouth once d* FLASH GLUCOSE SCANNING READER 1 Device four times daily. FLASH GLUCOSE SENSOR KIT 1 Device four times daily. FLUTICASONE 50 MCG/ACTUATION * Use 1 Wideman in each nostril d* INSULIN LISPRO (U-100) 100 UN* Inject 10 Units subcutaneousl* METOPROLOL TARTRATE 100 MG TA* Take 2 tablets by mouth twice* ROSUVASTATIN 40 MG TABLET Take 20 mg by mouth once jenn* PEN NEEDLE, DIABETIC 32 GAUGE* 1 Each four times daily as ne* INSULIN LISPRO (U-100) 100 UN* Inject 5 units if sugar <200 * BLOOD-GLUCOSE METER KIT 1 Each as needed. One Touch M* MULTIVITAMIN-IRON 9 MG-FOLIC * Take 1 tablet by mouth once d* COMPOUNDED PRESCRIPTION insulin syringes 0.3 31 g 5/* CPAP ASV machine. Initiate @ EEP1* ALBUTEROL SULFATE HFA 90 MCG/* Inhale 2 Puffs as instructed * Patient not taking: Reported on 02/14/2018 LIRAGLUTIDE 0.6 MG/0.1 ML (18* Inject 1.2 mg subcutaneously * Patient not taking: Reported on 02/14/2018 ALBUTEROL SULFATE CONCENTRATE* Inhale 0.5 mL as instructed e* Patient not taking: Reported on 02/14/2018 Problem List As Of Date 02/14/2018 Noted Resolved Essential hypertension [I10] DIABETES MELLITUS TYPE II UNCONTR UNCOMPL [E11.* 09/12/2014 Hyperlipidemia [E78.5] CHRONIC RHINITIS [J31.0] INVALID FOR* PAD (peripheral artery disease) (HCC) [I73.9] INVALID FOR* VIRAL WARTS NOS [B07.9] INVALID FOR* Type I (juvenile type) diabetes mellitus withou*INVALID FOR*02/06/2014 Unspecified sleep apnea [G47.30] INVALID FOR*07/21/2014 More... BENIGN NEOPLASM LG BOWEL [D12.6] INVALID FOR* DIVERTICULOSIS OF COLON W/O BLEED [K57.30] INVALID FOR* INT HEMORRHOID W/O COMPL [K64.8] INVALID FOR* Premature atrial beats [I49.1] INVALID FOR* Atrial fibrillation, permanent [I48.2] INVALID FOR*01/30/2015 Atherosclerosis of aortic arch [I70.0] INVALID FOR* More... BMI 37.0-37.9, adult [Z68.37] INVALID FOR*01/30/2015 DERRICK (obstructive sleep apnea) AHI 36 [G47.33] INVALID FOR* DM (diabetes mellitus), type 2, uncontrolled (H*INVALID FOR*02/14/2018 Atrial fibrillation (HCC) [I48.91] INVALID FOR* BMI 35.0-35.9,adult [Z68.35] INVALID FOR*11/11/2017 nursing home (current) use of anticoagulants [Z79.*INVALID FOR* SUMMARY INVALID FOR* More... Cough with expectoration [R05] INVALID FOR* More... Atrial fibrillation with RVR (HCC) [I48.91] INVALID FOR*11/10/2017 Syncope [R55] INVALID FOR* Acute bronchitis with chronic obstructive pulmo*INVALID FOR*07/04/2016 Acute diastolic CHF (congestive heart failure) *INVALID FOR*07/04/2016 Status post placement of implantable loop recor*INVALID FOR* Type 2 diabetes mellitus without retinopathy (H*INVALID FOR* Vitreous floaters of both eyes [H43.393] INVALID FOR* TIA due to embolism (HCC) [G45.9, I74.9] INVALID FOR* Facial droop [R29.810] INVALID FOR*11/11/2017 Controlled type 2 diabetes mellitus without com*INVALID FOR* Combined forms of age-related cataract of both *INVALID FOR* Screening for colon cancer [Z12.11] INVALID FOR*02/14/2018 More... Hiatal hernia [K44.9] INVALID FOR* More... Acute bronchitis with chronic obstructive pulmo*INVALID FOR* More... CKD (chronic kidney disease) stage 3, GFR 30-59*INVALID FOR* Type 2 DM with CKD stage 3 and hypertension (HC*INVALID FOR* Secondary renal hyperparathyroidism (HCC) [N25.*INVALID FOR* Persistent proteinuria [R80.1] INVALID FOR* Prescriptions ordered this encounter Disp Refills Start End INSULIN GLARGINE (U-100) 100 UNIT/ML* 5 Pen 3 02/14/2018 Class: Med Update Route: SUBCUTANEOUS Sig: Inject 40 Units subcutaneously once daily. Medications Discontinued During This Encounter LANTUS SOLOSTAR U-100 INSULIN 100 un* 5 Pen 3 12/01/2017 02/14/2018 Sig: INJECT 25-35 UNITS SUBCUTANEOUSLY ONCE DAILY. Disc: Reason for discontinue is not on file. Disposition: Return in about 6 months (around 08/17/2018). Follow-up and Disposition History Recorded Encounter Status:Closed by ROCKY RIVERA MD on 02/14/18 PROGRESS Observed: 02/14/2018 Status: COMPLETED Source: [place] 1:14 PM [facility] [place] REPOSITORY HNO ID: [id number] Author: Rocky Rivera () Service: (none) Author Type: Physician Type: Progress Notes Filed: 02/14/2018 2:08 PM Note Text: Chief Complaint Patient presents with: F/U 3 Month HPI Alia Trejo is a 77 year old male who presents here today for 3 month follow up visit. DIABETES MELLITUS: Mr. Trejo was last seen 4 months ago. Since our last visit he denies excessive thirst or increased frequency of urination, numbness, tingling or pain in extremities, new or unusual visual symptoms and low sugar/hypoglycemic reactions. Follows a diabetic diet most of the time. He is compliant with medication(s) and is tolerating med(s) without any side effects. Has increased his Lantus from 25-35 to 40 units in the morning. Taking 10 units of Humalog at night. He reports checking his glucose on a three times a day schedule with sugars in the fasting 120s range with evening sugars up to 200. Patient's last HgA1C was Hemoglobin A1C (%) Date Value 10/28/2017 7.5 01/07/2017 7.0 ) Last Ophthalmology exam was within the past 12 months Last Podiatry exam was within the past 12 months, follows up with Dr. Rodriguez Has followed up with Dr. Diaz regarding CKD stage III and they recommended he eat low sodium diet, avoid NSAIDs, no IV contrast, and continue hydration. Seen by Dr. Goldberg (Cardiology) for history of a fib and CHF and they recommended continuing metoprolol and coumadin, but decreased his lasix to 40 mg daily due to lightheadedness. Past medical history, appointments, medications, allergies reviewed. Previous Medical History PAST MEDICAL HISTORY Diagnosis Date - Acute bronchitis with chronic obstructive pulmonary disease (COPD) ([facility]) 12/28/2015 Pulmonlogy managing - Acute diastolic CHF (congestive heart failure) ([facility]) 12/28/2015 - Atrial fibrillation, permanent ([facility]) 11/04/[address] Goldberg - Benign neoplasm of colon - CKD (chronic kidney disease) stage 3, GFR 30-59 ml/min 11/11/2017 - Diverticulosis of colon (without mention of hemorrhage) - Hiatal hernia 10/26/201710/2017 CT chest. 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 75 - Diabetes Father - Hypertension Father - Alcoholism [OTHER] Father D. 57 - Cancer Brother Lung D.68 yo - MVA [OTHER] Brother Fatal MVA. D. 17 Patient Allergies ALLERGIES Allergen Reactions - Nabeel Inhibitors Cough Current Medications Current Outpatient Prescriptions on File Prior to Visit: Hytle ULTRA BLUE TEST STRIP test strip USE TO TEST 4 TIMES DAILY spironolactone (ALDACTONE) 25 mg tablet TAKE ONE BY MOUTH DAILY Cholecalciferol, Vitamin D3, 1,000 unit cap Take 1 capsule by mouth once daily. warfarin (COUMADIN) 5 mg tablet Take 5 mg Sat, 2.5 mg all other days or as directed LANTUS SOLOSTAR U-100 INSULIN 100 unit/mL (3 mL) inpn INJECT 25-35 UNITS SUBCUTANEOUSLY ONCE DAILY. furosemide (LASIX) 40 mg tablet Take 1 tablet by mouth once daily. flash glucose scanning reader (PictureHealingSTYLE RUSSELL READER) misc 1 Device four times daily. flash glucose sensor (FREESTYLE RUSSELL SENSOR) kit 1 Device four times daily. fluticasone (FLONASE) 50 mcg/actuation nasal spray Use 1 Wideman in each nostril daily at bedtime. albuterol HFA (VENTOLIN HFA) 90 mcg/actuation inhaler Inhale 2 Puffs as instructed every 4 hours as needed. insulin lispro (HUMALOG) 100 unit/mL injection Inject 10 Units subcutaneously daily at bedtime. metoprolol tartrate, short acting, (LOPRESSOR) 100 mg tablet Take 2 tablets by mouth twice daily. rosuvastatin (CRESTOR) 40 mg tablet Take 20 mg by mouth once daily. Insulin Alsip, Disposable, (NOVOFINE 32) 32 gauge x 1/4 ndle 1 Each four times daily as needed. Use for Victoza and insulin injections 4 times daily. DX: E11.65 Insulin Lispro, Human, (HUMALOG KWIKPEN) 100 unit/mL inpn Inject 5 units if sugar <200 at bedtime or 10 units if >200. Blood-Glucose Meter (Hytle ULTRA2) monitoring kit 1 Each as needed. One Touch Meter Kit Diagnosis: Type 2 DM - Uncontrolled E11.65 liraglutide (VICTOZA) 0.6 mg/0.1 mL (18 mg/3 mL) pnij Inject 1.2 mg subcutaneously once daily. DX: E11.65 therapeutic multivitamin w/ iron (THERAGRAN-M) 9 mg iron-400 mcg tablet Take 1 tablet by mouth once daily. COMPOUNDED PRESCRIPTION insulin syringes 0.3 31 g /16 needle CPAP ASV machine. Initiate @ EEP14, Min ps. 3 Max ps 15, cm of water with humidification. Auto rate. Mask (per patient preference) optional chin strap (if indicated) , filters, tubing, humidifier and lifetime supplies. CSA 327.27 and Ryan-Leach 786.04 albuterol 5 mg/mL Nebu Inhale 0.5 mL as instructed every 4 hours as needed for 7 days. 1 DOSE NOW - BACK OFFICE. PLACE 0.5 ML PER DROPPER AND 2.5 ML OF NORMAL SALINE INTO RESERVOIR. No current facility-administered medications on file prior to visit. Social History Social History Marital status: Spouse name: Aixa Years of education: Number of children: 3 Occupational History Occupation Employer Comment [employer] Social History Main Topics Smoking status: Former Smoker Packs/day: 0.50 Years: 10.00 Types: Cigarettes Start date: 01/07/1955 Quit date: 01/08/1976 Smokeless tobacco: Never Used Comment: Age 13 to 31. No smoking in childhood home. Spouse ex-smoker. 12/05/15. TO Alcohol use: No Drug use: No Review of Symptoms REVIEW OF SYSTEMS GENERAL: No weight loss, malaise or fevers RESPIRATORY: Negative for cough, hemoptysis, wheezing, COPD, dyspnea or shortness of breath CARDIOVASCULAR: Negative for chest pain, leg swelling, hypertension, CHF or palpitations GI: No nausea, vomiting, or diarrhea SKIN: Negative for lesions, rash, and itching EXAM: BP 128/82 Pulse 88 Resp 22 Wt 99.3 kg (219 lb) BMI 35.35 kg/m? General Appearance: Well appearing, alert, in no acute distress, well-hydrated, well nourished.. Skin: Skin color, texture, turgor normal, no suspicious rashes or lesions. Lungs: Lungs clear to auscultation. No wheezing, rhonchi, rales. Heart: Negative findings: no murmurs, rubs, clicks or gallops, Positive findings: irregularly irregular rhythm. Abdomen: Normal abdominal exam, Abdomen soft, non-tender. Bowel sounds normal. No masses, organomegaly. Extremities: No deformities, edema, skin discoloration, clubbing or cyanosis. Good capillary refill. . Feet: Shoes and socks removed, No deformities, ulcers, calluses, normal distal pulses and not sensitive to monofilament bilaterally Health Maintenance List DTAP,TDAP,TD(1 - Tdap) due on 1960 DIABETIC FOOT EXAM due on 03/20/2017 LDL due on 01/07/2018 HBA1C due on 04/27/2018 DILATED RETINAL EXAM due on 07/13/2018 URINE ALBUMIN CREATININE RATIO due on 10/28/2018 COLORECTAL CANCER SCREENING,SEE MODIFIER due on 11/24/2019 PROSTATE CANCER SCREENING DISCUSSION Completed ADULT PREVNAR-13 Completed INFLUENZA Completed PNEUMOVAX AGE 65 AND OVER WITH 5YR LOOKBACK Completed Data reviewed Component Latest Ref Rng AND Units 10/28/2017 12/16/2017 12/23/2017 01/20/2018 Protein, Total 6.3 - 8.0 g/dL 7.0 Albumin 3.9 - 4.9 g/dL 4.0 4.1 3.7 (L) Calcium 8.5 - 10.2 mg/dL 9.3 9.3 9.0 Bilirubin, Total 0.2 - 1.3 mg/dL 0.6 Alkaline Phosphatase 36 - 108 U/L 82 AST 14 - 40 U/L 44 (H) Glucose 74 - 99 mg/dL 120 (H) 275 (H) 185 (H) BUN 9 - 24 mg/dL 25 (H) 30 (H) 24 Creatinine 0.73 - 1.22 mg/dL 1.52 (H) 1.94 (H) 1.17 Sodium 136 - 144 mmol/L 140 138 137 Potassium 3.7 - 5.1 mmol/L 4.3 5.4 (H) 4.6 Chloride 97 - 105 mmol/L 98 97 100 CO2 22 - 30 mmol/L 28 22 22 Anion Gap 9 - 18 mmol/L 14 19 (H) 15 ALT 10 - 54 U/L 43 eGFR- 54 41 >60 eGFR-All Other Races . 45 34 >60 Phosphorus 2.7 - 4.8 mg/dL 4.1 4.3 Creatinine, Ur Random (UCRR) 20 - 300 mg/dL 64.1 Albumin, Urine Random 0.0 - 23.0 mg/L 92.6 (H) Albumin/Creat Ratio 0 - 30 mg/g 144 (H) Hemoglobin A1C 4.3 - 5.6 % 7.5 (H) Estimated Average Glucose mg/dL 169 INR (POCT) 0.8 - 1.2 2.6 (H) Internal Quality Check Acceptable PTH, Intact 15 - 65 pg/mL 118 (H) Uric Acid 4.0 - 8.1 mg/dL 6.2 Vitamin D 25 Hydroxy 31.0 - 80.0 ng/mL 26.9 (L) Hemoglobin 13.0 - 17.0 g/dL 14.9 Hematocrit 39.0 - 51.0 % 45.7 ASSESSMENT/PLAN: 1. Controlled type 2 diabetes mellitus without complication, without long-term current use of insulin (HCC) - ICD9: 250.00, ICD10: E11.9 (primary diagnosis) Controlled. - Continue current medications - Blood glucose monitoring on a three times a day schedule - Encouraged regular aerobic exercise and weight loss - Daily Asprin therapy recommended - Follow up in 6 months, sooner should any other issues arise. - Will have patient follow up with Dr. Rodriguez regarding bilateral numbness without pain. - HGB A1C 2. Essential hypertension - ICD9: 401.9, ICD10: I10 - good control - Continue current medication(s) - Encouraged dietary sodium restriction/DASH diet - Recommended regular aerobic exercise. - Reviewed risks of HTN and principles of treatment - Goal of BP <140/90 3. Hyperlipidemia, unspecified hyperlipidemia type - ICD9: 272.4, ICD10: E78.5 - to be determined upon return of lab results - Continue current medication. - Encouraged following a low fat, low cholesterol diet. - Discussed the benefits of regular aerobic exercise and weight loss. 4. Permanent atrial fibrillation (HCC) - ICD9: 427.31, ICD10: I48.2 Continue beta santo and anticoagulation. INR well controlled on last check. f/u with cardiology. 5. DERRICK (obstructive sleep apnea) AHI 36 - ICD9: 327.23, ICD10: G47.33 Continue CPAP nightly, working well for symptoms. 6. CKD (chronic kidney disease) stage 3, GFR 30-59 ml/min - ICD9: 585.3, ICD10: N18.3 Improved on last CMP. Continue recommendations per Dr. Diaz. 7. Secondary renal hyperparathyroidism (HCC) - ICD9: 588.81, ICD10: N25.81 Per nephrology. Rocky Rivera MD [facility] Observed: 01/25/2018 Status: COMPLETED Source: [place] 12:00 AM [facility] REPOSITORY Patient Outreach ([facility]) ALIA TREJO ([id number]) 1940 M Date Time Provider Department 01/25/18 ROCKY RIVERA) [facility] During your visit today, we recorded the following information about you: Allergies As of Date: 01/25/2018 Noted Allergy Reaction NABEEL INHIBITORS 05/16/2014 3 - Cough Date Reviewed: 01/13/2018 Reviewed by: Mervat Morrow Ma - Fully Assessed Visit Diagnosis:Medication management [Z79.899] Order(s):LIPID PANEL BASIC [SQLIPB] Order #: [id number] FUTURE Prescriptions as of 01/25/2018 Sig: CHOLECALCIFEROL (VITAMIN D3) * Take 1 capsule by mouth once * X WARFARIN 5 MG TABLET Take 5 mg Sat, 2.5 mg all oth* X LANTUS SOLOSTAR U-100 INSULIN* INJECT 25-35 UNITS SUBCUTANEO* FUROSEMIDE 40 MG TABLET Take 1 tablet by mouth once d* FLASH GLUCOSE SCANNING READER 1 Device four times daily. FLASH GLUCOSE SENSOR KIT 1 Device four times daily. FLUTICASONE 50 MCG/ACTUATION * Use 1 Wideman in each nostril d* ALBUTEROL SULFATE HFA 90 MCG/* Inhale 2 Puffs as instructed * Patient not taking: Reported on 02/14/2018 X INSULIN LISPRO (U-100) 100 UN* Inject 10 Units subcutaneousl* X METOPROLOL TARTRATE 100 MG TA* Take 2 tablets by mouth twice* X SPIRONOLACTONE 25 MG TABLET Take 1 tablet by mouth once d* X ROSUVASTATIN 40 MG TABLET Take 20 mg by mouth once jenn* X BLOOD SUGAR DIAGNOSTIC STRIPS Use as instructed to check gl* PEN NEEDLE, DIABETIC 32 GAUGE* 1 Each four times daily as ne* X INSULIN LISPRO (U-100) 100 UN* Inject 5 units if sugar <200 * BLOOD-GLUCOSE METER KIT 1 Each as needed. One Touch M* LIRAGLUTIDE 0.6 MG/0.1 ML (18* Inject 1.2 mg subcutaneously * MULTIVITAMIN-IRON 9 MG-FOLIC * Take 1 tablet by mouth once d* COMPOUNDED PRESCRIPTION insulin syringes 0.3 31 g 5/* CPAP ASV machine. Initiate @ EEP1* ALBUTEROL SULFATE CONCENTRATE* Inhale 0.5 mL as instructed e* Patient not taking: Reported on 02/14/2018 Problem List As Of Date 01/25/2018 Noted Resolved Essential hypertension [I10] DIABETES MELLITUS TYPE II UNCONTR UNCOMPL [E11.* 09/12/2014 Hyperlipidemia [E78.5] CHRONIC RHINITIS [J31.0] INVALID FOR* PAD (peripheral artery disease) (HCC) [I73.9] INVALID FOR* VIRAL WARTS NOS [B07.9] INVALID FOR* Type I (juvenile type) diabetes mellitus withou*INVALID FOR*02/06/2014 Unspecified sleep apnea [G47.30] INVALID FOR*07/21/2014 More... BENIGN NEOPLASM LG BOWEL [D12.6] INVALID FOR* DIVERTICULOSIS OF COLON W/O BLEED [K57.30] INVALID FOR* INT HEMORRHOID W/O COMPL [K64.8] INVALID FOR* Premature atrial beats [I49.1] INVALID FOR* Atrial fibrillation, permanent [I48.2] INVALID FOR*01/30/2015 Atherosclerosis of aortic arch [I70.0] INVALID FOR* More... BMI 37.0-37.9, adult [Z68.37] INVALID FOR*01/30/2015 DERRICK (obstructive sleep apnea) AHI 36 [G47.33] INVALID FOR* DM (diabetes mellitus), type 2, uncontrolled (H*INVALID FOR* Atrial fibrillation (HCC) [I48.91] INVALID FOR* BMI 35.0-35.9,adult [Z68.35] INVALID FOR*11/11/2017 nursing home (current) use of anticoagulants [Z79.*INVALID FOR* SUMMARY INVALID FOR* More... Cough with expectoration [R05] INVALID FOR* More... Atrial fibrillation with RVR (HCC) [I48.91] INVALID FOR*11/10/2017 Syncope [R55] INVALID FOR* Acute bronchitis with chronic obstructive pulmo*INVALID FOR*07/04/2016 Acute diastolic CHF (congestive heart failure) *INVALID FOR*07/04/2016 Status post placement of implantable loop recor*INVALID FOR* Type 2 diabetes mellitus without retinopathy (H*INVALID FOR* Vitreous floaters of both eyes [H43.393] INVALID FOR* TIA due to embolism (HCC) [G45.9, I74.9] INVALID FOR* Facial droop [R29.810] INVALID FOR*11/11/2017 Controlled type 2 diabetes mellitus without com*INVALID FOR* Combined forms of age-related cataract of both *INVALID FOR* Screening for colon cancer [Z12.11] INVALID FOR* More... Hiatal hernia [K44.9] INVALID FOR* More... Acute bronchitis with chronic obstructive pulmo*INVALID FOR* More... CKD (chronic kidney disease) stage 3, GFR 30-59*INVALID FOR* Type 2 DM with CKD stage 3 and hypertension (HC*INVALID FOR* Secondary renal hyperparathyroidism (HCC) [N25.*INVALID FOR* Persistent proteinuria [R80.1] INVALID FOR* Encounter Status:Closed by VALORIE PRODUSER on 07/22/18 PROGRESS Observed: 01/20/2018 Status: COMPLETED Source: [place] 11:00 AM [facility] REPOSITORY HNO ID: [id number] Author: Rocky Rivera Service: (none) Author Type: Physician Type: Progress Notes Filed: 01/20/2018 11:00 AM Note Text: INR therapeutic. Continue current coumadin dosage and follow up in 4 weeks. PROGRESS Observed: 01/20/2018 Status: COMPLETED Source: [place] 10:59 AM [facility] REPOSITORY HNO ID: [id number] Author: Monique Charles RN Service: (none) Author Type: (none) Type: Progress Notes Filed: 01/20/2018 10:59 AM Note Text: Patient had INR completed at [facility] Patient's INR is 2.6 Patient is currently taking 5 mg Sat, 2.5 mg all other days Patient's last dose change was 12/09/17 due to low INR at 2.0 Patient has had no medication and no change in diet. Advised patient to continue on same dose and they would only be contacted with different instructions after provider review. Written instructions were given to patient and patient verbalized understanding. Presently, patient has been scheduled for 02/17/18 for INR follow up. PROGRESS Observed: 01/13/2018 Status: COMPLETED Source: [place] 1:51 PM [facility] REPOSITORY HNO ID: [id number] Author: Guille High ([place]) Service: (none) Author Type: Physician Ship Rigger Apprentice Type: Progress Notes Filed: 01/17/2018 12:05 PM Note Text: [facility] [place] PATIENT INFO: Alia Trejo 77 year old PCP: Rocky Rivera MD Referred by: Dr. Villar Consult: Aconsultation requested by Dr. Villar for an opinion regarding My final recommendations communicated back to the requesting physician by way of shared Medical record. CHIEF COMPLAINT: Elevated PSA HPI: This is a 77 year old male, who has had a colonoscopy in November 2017 and a PSA the same day , which started in 2017, and involves the Prostate Patient states this mild in severity and mild in quality, and is happening N/A Aggravating factors: No , Alleviating Factors: No . And the patient denies having Fever, Chills, Rigors and Nausea I have discussed the elevated PSA with the patient and his at length, the PSA could be elevated simply by manipulation of the colonoscopy But there was also a nodule noted during that exam as well. So , Discussed the possible causes of this finding and the patient and his Were quite clear that at this point they are doing very [facility] and are not interested in having any further PSA 's or prostate biopsy. But that they would call the office and let us know if they change their minds VOIDING SYMPTOMS: NTF: 2 Times DTF: Q 2-3 HOURS FOS: Average SEXUAL SYMPTOMS: No Complaints ALLERGY: ALLERGIES Allergen Reactions - Nabeel Inhibitors Cough MEDICATIONS: Current Outpatient Prescriptions: Cholecalciferol, Vitamin D3, 1,000 unit cap Take 1 capsule by mouth once daily. Disp: Rfl: warfarin (COUMADIN) 5 mg tablet Take 5 mg Sat, 2.5 mg all other days or as directed Disp: 30 tablet Rfl: 11 LANTUS SOLOSTAR U-100 INSULIN 100 unit/mL (3 mL) inpn INJECT 25-35 UNITS SUBCUTANEOUSLY ONCE DAILY. Disp: 5 Pen Rfl: 3 furosemide (LASIX) 40 mg tablet Take 1 tablet by mouth once daily. Disp: 30 tablet Rfl: 6 flash glucose scanning reader (FREESTYLE RUSSELL READER) misc 1 Device four times daily. Disp: 1 Device Rfl: 0 flash glucose sensor (FREESTYLE RUSSELL SENSOR) kit 1 Device four times daily. Disp: 1 Device Rfl: 0 fluticasone (FLONASE) 50 mcg/actuation nasal spray Use 1 Wideman in each nostril daily at bedtime. Disp: 3 Bottle Rfl: 3 insulin lispro (HUMALOG) 100 unit/mL injection Inject 10 Units subcutaneously daily at bedtime. Disp: Rfl: metoprolol tartrate, short acting, (LOPRESSOR) 100 mg tablet Take 2 tablets by mouth twice daily. Disp: 360 tablet Rfl: 3 spironolactone (ALDACTONE) 25 mg tablet Take 1 tablet by mouth once daily. Disp: 90 tablet Rfl: 3 rosuvastatin (CRESTOR) 40 mg tablet Take 20 mg by mouth once daily. Disp: Rfl: blood sugar diagnostic (ONETOUCH ULTRA TEST) test strip Use as instructed to check glucose 4 times daily. Dx: insulin dependent type II diabetic. Disp: 500 Strip Rfl: 3 Insulin Alsip, Disposable, (NOVOFINE 32) 32 gauge x 1/4 ndle 1 Each four times daily as needed. Use for Victoza and insulin injections 4 times daily. DX: E11.65 Disp: 400 Each Rfl: 3 Insulin Lispro, Human, (HUMALOG KWIKPEN) 100 unit/mL inpn Inject 5 units if sugar <200 at bedtime or 10 units if >200. Disp: 15 mL Rfl: 11 Blood-Glucose Meter (ONETOUCH ULTRA2) monitoring kit 1 Each as needed. One Touch Meter Kit Diagnosis: Type 2 DM - Uncontrolled Disp: 1 Each Rfl: 0 liraglutide (VICTOZA) 0.6 mg/0.1 mL (18 mg/3 mL) pnij Inject 1.2 mg subcutaneously once daily. DX: E11 Disp: 2 Package Rfl: 3 therapeutic multivitamin w/ iron (THERAGRAN-M) 9 mg iron-400 mcg tablet Take 1 tablet by mouth once daily. Disp: Rfl: COMPOUNDED PRESCRIPTION insulin syringes 0.3 31 g 02/23 needle Disp: 100 Each Rfl: 11 CPAP ASV machine. Initiate @ EEP14, Min ps. 3 Max ps 15, cm of water with humidification. Auto rate. Mask (per patient preference) optional chin strap (if indicated) , filters, tubing, humidifier and lifetime supplies. CSA [phone] and Ryan-Leach [phone] Disp: 1 Units Rfl: 0 albuterol HFA (VENTOLIN HFA) 90 mcg/actuation inhaler Inhale 2 Puffs as instructed every 4 hours as needed. Disp: 1 Inhaler Rfl: 1 albuterol 5 mg/mL Nebu Inhale 0.5 mL as instructed every 4 hours as needed for 7 days. 1 DOSE NOW - BACK OFFICE. PLACE 0.5 ML PER DROPPER AND 2.5 ML OF NORMAL SALINE INTO RESERVOIR. Disp: 1 mL Rfl: 0 No current facility-administered medications for this visit. Past Medical History PAST MEDICAL HISTORY Diagnosis Date - Acute bronchitis with chronic obstructive pulmonary disease (COPD) ([facility]) 12/28/2015 Pulmonlogy managing - Acute diastolic CHF (congestive heart failure) ([facility]) 12/28/2015 - Atrial fibrillation, permanent ([facility]) 11/04/[address] Goldberg - Benign neoplasm of colon - CKD (chronic kidney disease) stage 3, GFR 30-59 ml/min 11/11/2017 - Diverticulosis of colon (without mention of hemorrhage) - Hiatal hernia 10/26/201710/2017 CT chest. 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 75 - Diabetes Father - Hypertension Father - Alcoholism [OTHER] Father D. 57 - Cancer Brother Lung D.68 yo - MVA [OTHER] Brother Fatal MVA. D. 17 REVIEW OF SYSTEMS: General: General: Well developed, well nourished. No acute distress HEENT: Negative for sore throat, difficulty swallowing. Negative for frequent or significant headaches, changes in vision or hearing. Cardiovascular: No history of cardiovascular symtoms or problems. No history of angina, CHF, PA, cardiac surgery of stents. Respiratory: Negative for current cough, dyspnea. No hx of pneumonia in the past six weeks Gastrointestinal: No history of GERD, PUD, abd pain, difficulty swallowing, GI bleed. Renal: Negative for renal failure Musculoskeletal: Negative for joint pain or swelling, back pain or muscle pain. Skin: Negative for lesions, rash and itching. Psychological: No history of psychiatric symptoms or problems. Neurologic: No neurological symptoms or problems. Hematology/Oncology: No history of bleeding or clotting disorder. Pt is not taking anti-coagulation or platelet medications. No history of hematological symptoms or problems. Endocrine: No history of endocrinological symtoms or problems No history of DM; has not taken steroids w/in past 30 days. Negative for excessive sweating, thirst or hunger PHYSICAL EXAMINATION: General Appearance/ Constitutional: Well developed, well nourished, and in no apparent distress HEENT: Not examined Neck: Lymph Nodes: Not examined Cardiac: Normal Breast: Not examined Pulmonary: Ascultation: Normal Effort: Normal GI: Soft and Non-tender Peripheral Vascular: Not examined Extremities: Cyanosis absent and Edema absent Skin: Normal Neurologic: Grossly non-focal and Alert and oriented ADDITIONAL DATA REVIEWED: Most recent imaging Most recent labs Results for orders placed or performed in visit on 01/13/18 UA DIP, URINE (POC) Result Value Ref Range GLUCOSE UA (POCT) Negative Negative mg/dL BILIRUBIN UA (POCT) Negative Negative KETONE UA (POCT) Negative Negative mg/dL SPECIFIC GRAVITY UA (POCT) 1.010 (A) 1.005 - 1.030 HEMOGLOBIN/BLOOD UA (POCT) Negative Negative PH UA (POCT) 5.5 4.5 - 8.0 PROTEIN UA (POCT) Negative Negative mg/dL UROBILINOGEN UA (POCT) 0.2 Normal E.U./dL NITRITE UA (POCT) Negative Negative LEUKOCYTES UA (POCT) Negative Negative COLOR UA (POCT) Yellow CLARITY UA (POCT) Clear *Note: Due to a large number of results and/or encounters for the requested time period, some results have not been displayed. A complete set of results can be found in Results Review. RADIOLOGY: N/A IMPRESSION / PLAN: > History of Elevated PSA > Patient does not wish to pursue any further PSA and prostate testing > Patient will call if anything changes or has urinary symptoms I spent approximately 40 minutes in this visit, with more than 50% of the time devoted to patient discussion, counseling, review of records and/or coordination of care. RUCHI Dyer, [place], ALISON KRAUS Observed: 01/13/2018 Status: COMPLETED Source: [place] 10:30 AM [facility] REPOSITORY Office Visit (UROLWS) ALIA TREJO ([id number]) 1940 M Date Time Provider Department 01/13/18 10:30 AM GUILLE HIGH) UROLWS During your visit today, we recorded the following information about you: Pulse Blood pressure Weight Height 68/minute 92/68 95.3 kg 1.676 m GLENN Hickman 01/17/2018 12:05 PM Signed [facility] [place] PATIENT INFO: Alia Trejo 77 year old PCP: Rocky Rivera MD Referred by: Dr. Villar Consult: Aconsultation requested by Dr. Villar for an opinion regarding My final recommendations communicated back to the requesting physician by way of shared Medical record. CHIEF COMPLAINT: Elevated PSA HPI: This is a 77 year old male, who has had a colonoscopy in November 2017 and a PSA the same day , which started in 2018, and involves the Prostate Patient states this mild in severity and mild in quality, and is happening N/A Aggravating factors: No , Alleviating Factors: No . And the patient denies having Fever, Chills, Rigors and Nausea I have discussed the elevated PSA with the patient and his at length, the PSA could be elevated simply by manipulation of the colonoscopy But there was also a nodule noted during that exam as well. So , Discussed the possible causes of this finding and the patient and his Were quite clear that at this point they are doing very [facility] and are not interested in having any further PSA 's or prostate biopsy. But that they would call the office and let us know if they change their minds VOIDING SYMPTOMS: NTF: 2 Times DTF: Q 2-3 HOURS FOS: Average SEXUAL SYMPTOMS: No Complaints ALLERGY: ALLERGIES Allergen Reactions - Nabeel Inhibitors Cough MEDICATIONS: Current Outpatient Prescriptions: Cholecalciferol, Vitamin D3, 1,000 unit cap Take 1 capsule by mouth once daily. Disp: Rfl: warfarin (COUMADIN) 5 mg tablet Take 5 mg Sat, 2.5 mg all other days or as directed Disp: 30 tablet Rfl: 11 LANTUS SOLOSTAR U-100 INSULIN 100 unit/mL (3 mL) inpn INJECT 25-35 UNITS SUBCUTANEOUSLY ONCE DAILY. Disp: 5 Pen Rfl: 3 furosemide (LASIX) 40 mg tablet Take 1 tablet by mouth once daily. Disp: 30 tablet Rfl: 6 flash glucose scanning reader (FREESTYLE RUSSELL READER) misc 1 Device four times daily. Disp: 1 Device Rfl: 0 flash glucose sensor (FREESTYLE RUSSELL SENSOR) kit 1 Device four times daily. Disp: 1 Device Rfl: 0 fluticasone (FLONASE) 50 mcg/actuation nasal spray Use 1 Wideman in each nostril daily at bedtime. Disp: 3 Bottle Rfl: 3 insulin lispro (HUMALOG) 100 unit/mL injection Inject 10 Units subcutaneously daily at bedtime. Disp: Rfl: metoprolol tartrate, short acting, (LOPRESSOR) 100 mg tablet Take 2 tablets by mouth twice daily. Disp: 360 tablet Rfl: 3 spironolactone (ALDACTONE) 25 mg tablet Take 1 tablet by mouth once daily. Disp: 90 tablet Rfl: 3 rosuvastatin (CRESTOR) 40 mg tablet Take 20 mg by mouth once daily. Disp: Rfl: blood sugar diagnostic (ONETOUCH ULTRA TEST) test strip Use as instructed to check glucose 4 times daily. Dx: insulin dependent type II diabetic. Disp: 500 Strip Rfl: 3 Insulin Alsip, Disposable, (NOVOFINE 32) 32 gauge x 1/4ANDquot; ndle 1 Each four times daily as needed. Use for Victoza and insulin injections 4 times daily. DX: E11. Disp: 400 Each Rfl: 3 Insulin Lispro, Human, (HUMALOG KWIKPEN) 100 unit/mL inpn Inject 5 units if sugar ANDlt;200 at bedtime or 10 units if ANDgt;200. Disp: 15 mL Rfl: 11 Blood-Glucose Meter (ONETOUCH ULTRA2) monitoring kit 1 Each as needed. One Touch Meter Kit Diagnosis: Type 2 DM - Uncontrolled Disp: 1 Each Rfl: 0 liraglutide (VICTOZA) 0.6 mg/0.1 mL (18 mg/3 mL) pnij Inject 1.2 mg subcutaneously once daily. DX: E11 Disp: 2 Package Rfl: 3 therapeutic multivitamin w/ iron (THERAGRAN-M) 9 mg iron-400 mcg tablet Take 1 tablet by mouth once daily. Disp: Rfl: COMPOUNDED PRESCRIPTION insulin syringes 0.3 31 g 5/16 needle Disp: 100 Each Rfl: 11 CPAP ASV machine. Initiate @ EEP14, Min ps. 3 Max ps 15, cm of water with humidification. Auto rate. Mask (per patient preference) optional chin strap (if indicated) , filters, tubing, humidifier and lifetime supplies. CSA [phone] and Ryan-Leach [phone] Disp: 1 Units Rfl: 0 albuterol HFA (VENTOLIN HFA) 90 mcg/actuation inhaler Inhale 2 Puffs as instructed every 4 hours as needed. Disp: 1 Inhaler Rfl: 1 albuterol 5 mg/mL Nebu Inhale 0.5 mL as instructed every 4 hours as needed for 7 days. 1 DOSE NOW - BACK OFFICE. PLACE 0.5 ML PER DROPPER AND 2.5 ML OF NORMAL SALINE INTO RESERVOIR. Disp: 1 mL Rfl: 0 No current facility-administered medications for this visit. Past Medical History PAST MEDICAL HISTORY Diagnosis Date - Acute bronchitis with chronic obstructive pulmonary disease (COPD) ([facility]) 12/28/2015 Pulmonlogy managing - Acute diastolic CHF (congestive heart failure) ([facility]) 12/28/2015 - Atrial fibrillation, permanent ([facility]) 11/04/[address] Goldberg - Benign neoplasm of colon - CKD (chronic kidney disease) stage 3, GFR 30-59 ml/min 11/11/2017 - Diverticulosis of colon (without mention of hemorrhage) - Hiatal hernia 10/26/201710/2017 CT chest. 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 75 - Diabetes Father - Hypertension Father - Alcoholism [OTHER] Father D. 57 - Cancer Brother Lung D.68 yo - MVA [OTHER] Brother Fatal MVA. D. 17 REVIEW OF SYSTEMS: General: General: Well developed, well nourished. No acute distress HEENT: Negative for sore throat, difficulty swallowing. Negative for frequent or significant headaches, changes in vision or hearing. Cardiovascular: No history of cardiovascular symtoms or problems. No history of angina, CHF, PA, cardiac surgery of stents. Respiratory: Negative for current cough, dyspnea. No hx of pneumonia in the past six weeks Gastrointestinal: No history of GERD, PUD, abd pain, difficulty swallowing, GI bleed. Renal: Negative for renal failure Musculoskeletal: Negative for joint pain or swelling, back pain or muscle pain. Skin: Negative for lesions, rash and itching. Psychological: No history of psychiatric symptoms or problems. Neurologic: No neurological symptoms or problems. Hematology/Oncology: No history of bleeding or clotting disorder. Pt is not taking anti-coagulation or platelet medications. No history of hematological symptoms or problems. Endocrine: No history of endocrinological symtoms or problems No history of DM; has not taken steroids w/in past 30 days. Negative for excessive sweating, thirst or hunger PHYSICAL EXAMINATION: General Appearance/ Constitutional: Well developed, well nourished, and in no apparent distress HEENT: Not examined Neck: Lymph Nodes: Not examined Cardiac: Normal Breast: Not examined Pulmonary: Ascultation: Normal Effort: Normal GI: Soft and Non-tender Peripheral Vascular: Not examined Extremities: Cyanosis absent and Edema absent Skin: Normal Neurologic: Grossly non-focal and Alert and oriented ADDITIONAL DATA REVIEWED: Most recent imaging Most recent labs Results for orders placed or performed in visit on 01/13/18 UA DIP, URINE (POC) Result Value Ref Range GLUCOSE UA (POCT) Negative Negative mg/dL BILIRUBIN UA (POCT) Negative Negative KETONE UA (POCT) Negative Negative mg/dL SPECIFIC GRAVITY UA (POCT) 1.010 (A) 1.005 - 1.030 HEMOGLOBIN/BLOOD UA (POCT) Negative Negative PH UA (POCT) 5.5 4.5 - 8.0 PROTEIN UA (POCT) Negative Negative mg/dL UROBILINOGEN UA (POCT) 0.2 Normal E.U./dL NITRITE UA (POCT) Negative Negative LEUKOCYTES UA (POCT) Negative Negative COLOR UA (POCT) Yellow CLARITY UA (POCT) Clear *Note: Due to a large number of results and/or encounters for the requested time period, some results have not been displayed. A complete set of results can be found in Results Review. RADIOLOGY: N/A IMPRESSION / PLAN: ANDgt; History of Elevated PSA ANDgt; Patient does not wish to pursue any further PSA and prostate testing ANDgt; Patient will call if anything changes or has urinary symptoms I spent approximately 40 minutes in this visit, with more than 50% of the time devoted to patient discussion, counseling, review of records and/or coordination of care. Guille High, RUCHI, MT, PA-C Referring Provider: MARY VILLAR [[id number]] Allergies As of Date: 01/13/2018 Noted Allergy Reaction NABEEL INHIBITORS 05/16/2014 3 - Cough Date Reviewed: 01/13/2018 Reviewed by: Mervat Morrow Ma - Fully Assessed Reason for Visit: New Patient [172] PSA [337] Primary Visit Diagnosis:Elevated prostate specific antigen (PSA) [R97.20] Order(s):UA DIP, URINE (POC) [[id number]] Order #: [id number] UA DIP, URINE (POC) [[id number]] Order #: [id number]. #:[id number] Prescriptions as of 01/13/2018 Sig: CHOLECALCIFEROL (VITAMIN D3) * Take 1 capsule by mouth once * WARFARIN 5 MG TABLET Take 5 mg Sat, 2.5 mg all oth* LANTUS SOLOSTAR U-100 INSULIN* INJECT 25-35 UNITS SUBCUTANEO* FUROSEMIDE 40 MG TABLET Take 1 tablet by mouth once d* FLASH GLUCOSE SCANNING READER 1 Device four times daily. FLASH GLUCOSE SENSOR KIT 1 Device four times daily. FLUTICASONE 50 MCG/ACTUATION * Use 1 Wideman in each nostril d* INSULIN LISPRO (U-100) 100 UN* Inject 10 Units subcutaneousl* METOPROLOL TARTRATE 100 MG TA* Take 2 tablets by mouth twice* SPIRONOLACTONE 25 MG TABLET Take 1 tablet by mouth once d* ROSUVASTATIN 40 MG TABLET Take 20 mg by mouth once jenn* BLOOD SUGAR DIAGNOSTIC STRIPS Use as instructed to check gl* PEN NEEDLE, DIABETIC 32 GAUGE* 1 Each four times daily as ne* INSULIN LISPRO (U-100) 100 UN* Inject 5 units if sugar <200 * BLOOD-GLUCOSE METER KIT 1 Each as needed. One Touch M* LIRAGLUTIDE 0.6 MG/0.1 ML (18* Inject 1.2 mg subcutaneously * MULTIVITAMIN-IRON 9 MG-FOLIC * Take 1 tablet by mouth once d* COMPOUNDED PRESCRIPTION insulin syringes 0.3 31 g 5/* CPAP ASV machine. Initiate @ EEP1* ALBUTEROL SULFATE HFA 90 MCG/* Inhale 2 Puffs as instructed * ALBUTEROL SULFATE CONCENTRATE* Inhale 0.5 mL as instructed e* Problem List As Of Date 01/13/2018 Noted Resolved Essential hypertension [I10] DIABETES MELLITUS TYPE II UNCONTR UNCOMPL [E11.* 09/12/2014 Hyperlipidemia [E78.5] CHRONIC RHINITIS [J31.0] INVALID FOR* PAD (peripheral artery disease) (HCC) [I73.9] INVALID FOR* VIRAL WARTS NOS [B07.9] INVALID FOR* Type I (juvenile type) diabetes mellitus withou*INVALID FOR*02/06/2014 Unspecified sleep apnea [G47.30] INVALID FOR*07/21/2014 More... BENIGN NEOPLASM LG BOWEL [D12.6] INVALID FOR* DIVERTICULOSIS OF COLON W/O BLEED [K57.30] INVALID FOR* INT HEMORRHOID W/O COMPL [K64.8] INVALID FOR* Premature atrial beats [I49.1] INVALID FOR* Atrial fibrillation, permanent [I48.2] INVALID FOR*01/30/2015 Atherosclerosis of aortic arch [I70.0] INVALID FOR* More... BMI 37.0-37.9, adult [Z68.37] INVALID FOR*01/30/2015 DERRICK (obstructive sleep apnea) AHI 36 [G47.33] INVALID FOR* DM (diabetes mellitus), type 2, uncontrolled (H*INVALID FOR* Atrial fibrillation (HCC) [I48.91] INVALID FOR* BMI 35.0-35.9,adult [Z68.35] INVALID FOR*11/11/2017 long term care pharmacist (current) use of anticoagulants [Z79.*INVALID FOR* SUMMARY INVALID FOR* More... Cough with expectoration [R05] INVALID FOR* More... Atrial fibrillation with RVR (HCC) [I48.91] INVALID FOR*11/10/2017 Syncope [R55] INVALID FOR* Acute bronchitis with chronic obstructive pulmo*INVALID FOR*07/04/2016 Acute diastolic CHF (congestive heart failure) *INVALID FOR*07/04/2016 Status post placement of implantable loop recor*INVALID FOR* Type 2 diabetes mellitus without retinopathy (H*INVALID FOR* Vitreous floaters of both eyes [H43.393] INVALID FOR* TIA due to embolism (HCC) [G45.9, I74.9] INVALID FOR* Facial droop [R29.810] INVALID FOR*11/11/2017 Controlled type 2 diabetes mellitus without com*INVALID FOR* Combined forms of age-related cataract of both *INVALID FOR* Screening for colon cancer [Z12.11] INVALID FOR* More... Hiatal hernia [K44.9] INVALID FOR* More... Acute bronchitis with chronic obstructive pulmo*INVALID FOR* More... 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 The ADA defines fasting as no caloric intake for at least 8 hours. Fas ting plasma glucose results between 100 to 125 mg/dL indicate increased risk for diabetes (prediabetes). Fasting plasma glucose results greater than or equal to 126 mg/dL meet the criteria for diagnosis of diabetes. In the absence of unequivocal hyperglycemia, results should be confirmed by repeat testing. In a patient with classic symptoms of hyperglycemia or hyperglycemic crisis, random plasma glucose results greater than or equal to 200 mg/dL meet the criteria for diagnosis of diabetes. Reference: Standards of Medical Care in Diabetes 2016, [place] [employer]. Diabetes Care. 2016.39(Suppl 1). LAB BUN 9-24 mg/dL BUN 24 LAB CRET 0.73-1.22 mg/dL Creatinine 1.17 LAB NA 136-144 mmol/L Sodium 137 LAB K 3.7-5.1 mmol/L Potassium 4.6 LAB CL 97-105 mmol/L Chloride 100 LAB CO2 22-30 mmol/L CO2 22 LAB AGAP 9-18 mmol/L Anion Gap 15 LAB GFRAA eGFR- Amer. >60 LAB GFRNAA . eGFR-All Other Races >60 Result Comment: eGFR (Estimated GFR) Units of measure: mL/min/1.73 meters squared eGFR is derived from the reexpressed MDRD Study equation using the following parameters: serum creatinine, age, gender and race. The creatinine assay has been calibrated to be traceable to IDMS. An eGFR <60 mL/min/1.73m2 for >3 months is consistent with chronic kidney disease. Refer to KDOQI guidelines for clinical interpretation. In patients with unstable renal function, e.g. those with acute kidney injury, the eGFR may not accurately reflect actual GFR. Performed By: #### RFP #### [facility] [address] [place] [id number] PROGRESS Observed: 12/23/2017 Status: COMPLETED Source: [place] 9:53 AM [facility] REPOSITORY HNO ID: [id number] Author: Rocky Olea) Miguel Service: (none) Author Type: Physician Type: Progress Notes Filed: 12/23/2017 9:54 AM Note Text: INR therapeutic. Continue current coumadin dosage and follow up in 4 weeks. PROGRESS Observed: 12/23/2017 Status: COMPLETED Source: [place] 9:51 AM [facility] REPOSITORY HNO ID: [id number] Author: Roseline Gurrola RN Service: (none) Author Type: (none) Type: Progress Notes Filed: 12/23/2017 9:52 AM Note Text: patient had inr completed at [facility] patients inr is 2.5 (patients inr range is 2.0-3.0) patient is currently taking 5mg Sat and 2.5mg all other days patients last dose change was on 12/01/17 due to a high level of 5.8 (dose at that time was 5mg Wed,Sat and 2.5mg all other days) patient has had no changes in medication and no missed doses and no change in diet Advised patient to continue on the same dose(s) and that they would only be contacted regarding dosage and follow up instructions after review with provider, if a change is needed. Written instructions given and patient verbalized understanding. Presently scheduled in 4 weeks (01/20/18) for follow up INR. US KIDNEY/BLADDER Observed: 12/17/2017 Status: F Source: [place] 10:24 AM [facility] REPOSITORY * * *Final Report* * * DATE OF EXAM: Dec 17 2017 10:24AM [id number] - US KIDNEY/BLADDER / PROCEDURE REASON: multiple diagnoses * * * * Physician Interpretation * * * * US KIDNEY/BLADDER HISTORY: CKD stage III. COMPARISON: None. TECHNIQUE: Sonography of the kidneys and urinary bladder was performed. Images were obtained and stored in a permanent archive. RESULT: Limitations: Body habitus. Right Kidney: -Renal length: 11.8 cm. -Parenchyma: Renal parenchyma echogenicity is normal. -Parenchymal thickness: 2 cm. -Hydronephrosis: None. -Calculus: No echogenic, shadowing calculus. -Lesion: None. Left Kidney: -Renal length: 13.2 cm. -Parenchyma: Renal parenchyma echogenicity is normal. -Parenchymal thickness: 1.3 cm. -Hydronephrosis: None. -Calculus: No echogenic, shadowing calculus. -Lesion: There are 2 cysts/cystic lesions noted, including a 1.1 x 0.7 x 1 cm cyst in the lower pole of the kidney and a 1.5 x 1.1 x 1.4 cm cyst with septations in the interpolar kidney. Bladder: The prevoid volume was 234 cc and post void volume was 44 cc. No mass lesion identified. IMPRESSION: Left renal cysts/cystic lesions. Consider follow-up. [employer] [facility] Technician: ASIA Transcribe Date/Time: Dec 17 2017 2:47P Dictated by : SAMMY KANG MD This examination was interpreted and the report reviewed and electronically signed by: SAMMY KANG MD on Dec 17 2017 2:52PM EST [id number] PROGRESS Observed: 12/17/2017 Status: COMPLETED Source: [place] 9:46 AM [facility] REPOSITORY HNO ID: [id number] Author: Sunitha Cline Service: (none) Author Type: (none) Type: Progress Notes Filed: 12/17/2017 10:25 AM Note Text: Radiology Service Progress Note PATIENT NAME: Alia Trejo DATE OF SERVICE: December 17, 2017 TIME: 9:46 AM PATIENT IDENTITY VERIFICATION COMPLETED USING TWO (2) METHODS: Patient confirmed name verbally and Date of . PATIENT GENDER DATA: Male PATIENT RELEVANT IMPLANT DATA REVIEWED: Not Applicable RADIOLOGY DEPARTMENT: Ultrasound PERIPHERAL IV DATA: Not applicable SIGNED BY: Sunitha Cline December 17, 2017 9:46 AM HEMATOCRIT Collected: 12/16/2017 Status: F Source: [place] 2:00 PM [facility] REPOSITORY TYPE CODE TESTS RESULT OUT OF REFERENCE UNITS RANGE LAB HCT 39.0-51.0 % Hematocrit 45.7 Performed By: #### HCT, HGB #### [facility] [address] [place] [address] HEMOGLOBIN Collected: 12/16/2017 Status: F Source: [place] 2:00 PM [facility] REPOSITORY TYPE CODE TESTS RESULT OUT OF REFERENCE UNITS RANGE LAB HGB 13.0-17.0 g/dL Hemoglobin 14.9 Performed By: #### HCT, HGB #### [place] [address] PTH, INTACT Collected: 12/16/2017 Status: F Source: [place] 2:00 PM [facility] REPOSITORY TYPE CODE TESTS RESULT OUT OF REFERENCE UNITS RANGE LAB PTH 15-65 pg/mL High PTH, Intact 118 Performed By: #### PTHI, RFP, URIC, VITD #### [place] [address] RENAL FUNCTION PANEL Collected: 12/16/2017 Status: F Source: [place] 2:00 [facility] REPOSITORY TYPE CODE TESTS RESULT OUT OF REFERENCE UNITS RANGE LAB ALB 3.9-4.9 g/dL Albumin 4.1 LAB CA 8.5-10.2 mg/dL Calcium, Total 9.3 LAB PHOS 2.7-4.8 mg/dL Phosphorus 4.1 LAB GLU 74-99 mg/dL Glucose High 275 Result Comment: The [place] Diabetes Association (ADA) provides guidance for cutoff values for fasting glucose and random glucose. The ADA defines fasting as no caloric intake for at least 8 hours. Fas ting plasma glucose results between 100 to 125 mg/dL indicate increased risk for diabetes (prediabetes). Fasting plasma glucose results greater than or equal to 126 mg/dL meet the criteria for diagnosis of diabetes. In the absence of unequivocal hyperglycemia, results should be confirmed by repeat testing. In a patient with classic symptoms of hyperglycemia or hyperglycemic crisis, random plasma glucose results greater than or equal to 200 mg/dL meet the criteria for diagnosis of diabetes. Reference: Standards of Medical Care in Diabetes 2016, [place] [employer]. Diabetes Care. 2016.39(Suppl 1). LAB BUN 9-24 mg/dL BUN High 30 LAB CRET 0.73-1.22 mg/dL Creatinine High 1.94 LAB NA 136-144 mmol/L Sodium 138 LAB K 3.7-5.1 mmol/L Potassium High 5.4 LAB CL 97-105 mmol/L Chloride 97 LAB CO2 22-30 mmol/L CO2 22 LAB AGAP 9-18 mmol/L Anion Gap High 19 LAB GFRAA eGFR- Amer. 41 LAB GFRNAA . eGFR-All Other Races 34 Result Comment: eGFR (Estimated GFR) Units of measure: mL/min/1.73 meters squared eGFR is derived from the reexpressed MDRD Study equation using the following parameters: serum creatinine, age, gender and race. The creatinine assay has been calibrated to be traceable to IDMS. An eGFR <60 mL/min/1.73m2 for >3 months is consistent with chronic kidney disease. Refer to KDOQI guidelines for clinical interpretation. In patients with unstable renal function, e.g. those with acute kidney injury, the eGFR may not accurately reflect actual GFR. Performed By: #### PTHI, RFP, URIC, VITD #### [facility] [address] [place] [address] URIC ACID Collected: 12/16/2017 Status: F Source: [place] 2:00 [facility] REPOSITORY TYPE CODE TESTS RESULT OUT OF RANGE REFERENCE UNITS LAB URIC 4.0-8.1 mg/dL Uric Acid 6.2 Performed By: #### PTHI, RFP, URIC, VITD #### [facility] [address] [place] [address] VITAMIN D 25 HYDROXY Collected: 12/16/2017 Status: F Source: [place] 2:00 PM [facility] REPOSITORY TYPE CODE TESTS RESULT OUT OF REFERENCE UNITS RANGE LAB VITD 31.0-80.0 ng/mL Low Vitamin D 25 26.9 Hydroxy Result Comment: Classification of 25 OH Vitamin D status: Insufficiency/Moderate Deficiency: < or = 30 ng/mL Sufficiency/Optimal Levels: 31 to 80 ng/mL Toxicity: > 100 ng/mL Test performed by chemiluminescent immunoassay. Performed By: #### PTHI, RFP, URIC, VITD #### [facility] [address] [place] [address] PROGRESS Observed: 12/16/2017 Status: COMPLETED Source: [place] 1:41 PM [facility] REPOSITORY HNO ID: [id number] Author: Agnieszka Diaz Service: (none) Author Type: Physician Type: Progress Notes Filed: 12/16/2017 3:07 PM Note Text: [facility]. Name:Alia Trejo The patient, Alia Trejo's, identity was verified by name and MRN. Pt is accompanied in the office today by his Consultation requested by Dr. Rocky Rivera ,for my opinion regarding CKD. My final recommendations will be communicated back to the requesting physician by way of shared Medical record or letter . PCP:Rocky Rivera MD HPI: 77-year-old male with long-standing history of DM and HTN. Other medical problems include hyperlipidemia, PAD, atrial fibrillation-on Coumadin, DERRICK-on CPAP, COPD, history of TIA, DJD and CKD. His serum creatinine was noted to be elevated on 10/28/2017 at 1.52 mg/dL. Serum creatinine prior to that was from 10/09/17 and was normal. His eGFR has been less than 60 even with normal serum creatinine as far back as December 2016. He has microalbuminuria. No H/O frequent bladder infections or kidney stones in the past. Denies NSAID use. Has COPD and DERRICK-on CPAP Denies CP,worsening SOB, orthopnea, PND or palpitations. No fever, chills or dizziness. No dysuria, gross hematuria or new flank pain. 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 Detailed review of systems is as below. I have reviewed current medications and allergies Current Outpatient Prescriptions: warfarin (COUMADIN) 5 mg tablet Take 5 mg Sat, 2.5 mg all other days or as directed LANTUS SOLOSTAR U-100 INSULIN 100 unit/mL (3 mL) inpn INJECT 25-35 UNITS SUBCUTANEOUSLY ONCE DAILY. furosemide (LASIX) 40 mg tablet Take 1 tablet by mouth once daily. flash glucose scanning reader (PictureHealingSTYLE RUSSELL READER) misc 1 Device four times daily. flash glucose sensor (FREESTYLE RUSSELL SENSOR) kit 1 Device four times daily. fluticasone (FLONASE) 50 mcg/actuation nasal spray Use 1 Wideman in each nostril daily at bedtime. insulin lispro (HUMALOG) 100 unit/mL injection Inject 10 Units subcutaneously daily at bedtime. metoprolol tartrate, short acting, (LOPRESSOR) 100 mg tablet Take 2 tablets by mouth twice daily. spironolactone (ALDACTONE) 25 mg tablet Take 1 tablet by mouth once daily. rosuvastatin (CRESTOR) 40 mg tablet Take 20 mg by mouth once daily. blood sugar diagnostic (ONETOUCH ULTRA TEST) test strip Use as instructed to check glucose 4 times daily. Dx: insulin dependent type II diabetic. Insulin Alsip, Disposable, (NOVOFINE 32) 32 gauge x 1/4 ndle 1 Each four times daily as needed. Use for Victoza and insulin injections 4 times daily. DX: E11.65 Insulin Lispro, Human, (HUMALOG KWIKPEN) 100 unit/mL inpn Inject 5 units if sugar <200 at bedtime or 10 units if >200. Blood-Glucose Meter (ONETOUCH ULTRA2) monitoring kit 1 Each as needed. One Touch Meter Kit Diagnosis: Type 2 DM - Uncontrolled E11.65 liraglutide (VICTOZA) 0.6 mg/0.1 mL (18 mg/3 mL) pnij Inject 1.2 mg subcutaneously once daily. DX: E11.65 therapeutic multivitamin w/ iron (THERAGRAN-M) 9 mg iron-400 mcg tablet Take 1 tablet by mouth once daily. COMPOUNDED PRESCRIPTION insulin syringes 0.3 31 g 5/16 needle CPAP ASV machine. Initiate @ EEP14, Min ps. 3 Max ps 15, cm of water with humidification. Auto rate. Mask (per patient preference) optional chin strap (if indicated) , filters, tubing, humidifier and lifetime supplies. CSA 327.27 and Ryan-Leach 786.04 albuterol HFA (VENTOLIN HFA) 90 mcg/actuation inhaler Inhale 2 Puffs as instructed every 4 hours as needed. albuterol 5 mg/mL Nebu Inhale 0.5 mL as instructed every 4 hours as needed for 7 days. 1 DOSE NOW - BACK OFFICE. PLACE 0.5 ML PER DROPPER AND 2.5 ML OF NORMAL SALINE INTO RESERVOIR. No current facility-administered medications for this visit. PAST MEDICAL HISTORY Diagnosis Date - Acute bronchitis with chronic obstructive pulmonary disease (COPD) ([facility]) 12/28/2015 Pulmonlogy managing - Acute diastolic CHF (congestive heart failure) ([facility]) 12/28/2015 - Atrial fibrillation, permanent ([facility]) 11/04/[address] Goldberg - Benign neoplasm of colon - CKD (chronic kidney disease) stage 3, GFR 30-59 ml/min 11/11/2017 - Diverticulosis of colon (without mention of hemorrhage) - Hiatal hernia 10/26/201710/2017 CT chest. 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 No smoking in childhood home. Spouse ex-smoker. 12/05/15. TO Alcohol use: No Drug use: No FAMILY HISTORY: FAMILY HISTORY Problem Relation Age of Onset - Diabetes Mother - Hypertension Mother - Stroke Mother - Alzheimer's Disease Mother D. 75 - Diabetes Father - Hypertension Father - Alcoholism [OTHER] Father D. 57 - Cancer Brother Lung D.68 yo - MVA [OTHER] Brother Fatal MVA. D. 17 No known history of any hereditary renal disease REVIEW OF SYSTEMS: GENERAL: no fever, chills or weight loss HEENT: no blurred vision, WILKINSON or oral lesions RESP: no worsening SOB, cough, or pleuritic chest pain CARDIAC: no chest pain, palpitations or leg edema GASTROINTESTINAL:No nausea,emesis or abdominal pain;No diarrhea GENITO-URINARY: no dysuria or gross hematuria PERIPHERAL VASCULAR: History of PAD RHEUMATOLOGICAL: DJD SKIN: no generalized skin rash or ulcers INFECTIOUS DISEASES: no complaints stated NEUROLOGICAL: History of TIA no focal weakness or seizures PSYCHIATRIC: Denies depressive illness,anxiety disorder. PHYSICAL EXAMINATION: BP 125/87 Pulse 91 Temp 36.4 ?C (97.6 ?F) Wt 92.1 kg (203 lb) BMI 32.77 kg/m2 GENERAL: alert, well appearing, and in no acute distress. SPEECH PATTERN: normal HEENT: EOMI-nonicteric sclera. Moist mucosa NECK: supple- no carotid bruit; No LN or thyromegaly LUNGS: clear to auscultation, normal respiratory effort. HEART: Irregularly irregular rhythm Normal S1, S2, no S3,S4- No murmurs or rub. ABDOMEN: Abdomen soft and protuberant with slight asymmetry, nontender, organomegaly could not be excluded ; bowel sounds present. EXTREMITIES: no leg edema, no cyanosis MUSCULOSKELETAL: No spinal or CVA tenderness. NEURO: Alert and oriented ?3; no focal deficit on limited exam;normal gait SKIN: no generalized skin rash or ulcers PSYCHIATRY:Appropriate mood and affect REVIEWED LABS : CKD LAB FLOWSHEET Latest Ref Rng AND Units 01/06/2017 01/07/2017 10/09/2017 10/28/2017 11/17/2017 EGFR- - - - >60 54 - EGFR-ALL OTHER RACES . >60 58 59 45 - CREATININE 0.73 - 1.22 mg/dL 1.09 1.22 1.20 1.52(H) - BUN 9 - 24 mg/dL 16 18 12 25(H) - SODIUM 136 - 144 mmol/L 139 140 136 140 - POTASSIUM 3.7 - 5.1 mmol/L 4.2 4.2 4.0 4.3 - CHLORIDE 97 - 105 mmol/L 97(L) 99 96(L) 98 - CO2 22 - 30 mmol/L 24 28 29 28 - GLUCOSE 74 - 99 mg/dL 218(H) 134(H) 95 120(H) - CALCIUM 8.5 - 10.2 mg/dL 9.4 8.5 9.5 9.3 - ALBUMIN 3.9 - 4.9 g/dL 4.0 3.1(L) 3.4(L) 4.0 - ALT 10 - 54 U/L 32 25 53(H) 43 - WBC 3.70 - 11.00 k/uL 12.43(H) 8.12 8.72 6.43 Test sent to [facility]. HEMOGLOBIN 13.0 - 17.0 g/dL 14.3 11.3(L) 13.5 14.5 Test sent to [facility]. PLATELET COUNT 150 - 400 k/uL 275 232 253 267 Test sent to [facility]. CREATININE, UR RANDOM (UCRR) 20 - 300 mg/dL - - - 64.1 - CHOLESTEROL, TOTAL 100 - 199 mg/dL - 100 - - - TRIGLYCERIDE 30 - 149 mg/dL - 151(H) - - - HDL CHOLESTEROL >45 mg/dL - 3(L) - - - LDL CHOLESTEROL 60 - 129 mg/dL - 67 - - - Some recent data might be hidden ] CBC, Coags, BMP, Mg, Phos Invalid input(s): ICA Office urinalysis: GLUCOSE UA (POCT) Negative Neg mg/dL Final [facility] BILIRUBIN UA (POCT) Negative Neg Final [facility] KETONE UA (POCT) Negative Neg mg/dL Final [facility] SPECIFIC GRAVITY UA (POCT) 1.015 1.005 - 1.030 Final [facility] HEMOGLOBIN/BLOOD UA ?(POCT) Trace-intact (A) Neg Final [facility] PH UA (POCT) 5.0 4.5 - 8 Final [facility] PROTEIN UA (POCT) Negative Neg mg/dL Final [facility] UROBILINOGEN UA (POCT) 0.2 Normal(<1.1) E.U./dL Final [facility] NITRITE UA (POCT) Negative Neg Final [facility] LEUKOCYTES UA (POCT) Negative Neg Final [facility] COLOR UA (POCT) Yellow Final [facility] CLARITY UA (POCT) Clear Final ASSESSMENT: 1. Type 2 DM with CKD stage 3 and hypertension (HCC) (primary encounter diagnosis): Elevation in serum creatinine in the setting of long-standing DM and HTN and eGFR less than 60 even with normal serum creatinine since December 2016. Noted to have microalbuminuria in the past-no dipstick proteinuria at this time. Lack of significant proteinuria makes acute or subacute GN less likely. He has no signs or symptoms suggestive of vasculitis.Will update labs to check trend of creatinine before initiating further workup. Discussed at length the management of risk factors to prevent progression of CKD. 2. Secondary renal hyperparathyroidism (HCC): Will update labs to check need for Rocaltrol/25 hydroxy vitamin D 3. Hyperlipidemia:On statins-Recommend LDL goal of <100 to prevent progression of CKD. PLAN: Avoid Aleve,Advil,Naproxen,Indocin and other related medications called NSAIDS. Can take Tylenol if necessary. Avoid intravenous contrast Follow low salt diet. Daily fluid intake should be around 50 ounces per day -US KIDNEY/BLADDER to assess size -UA DIP, URINE (POC) Do today: -RENAL FUNCTION PANEL -PTH INTACT BLD -URIC ACID BLOOD -VITAMIN D 25 HYDROXY -HEMOGLOBIN (HGB) -HEMATOCRIT (HCT) -ALBUMIN BLD BMP in 2 weeks Do in 3 months: -RENAL FUNCTION PANEL -PTH INTACT BLD -PROTEIN CREATININE RATIO -URIC ACID BLOOD -URINALYSIS WITH MICROSCOPIC -VITAMIN D 25 HYDROXY -HEMOGLOBIN (HGB) -HEMATOCRIT (HCT) F/U in 3 months Thank you for the consult. SIGNATURE:Agnieszka Diaz MD DATE:December 16, 2017 TIME:1:41 PM CC: REFERRING PROVIDER: Rocky Rivera * PRIMARY CARE PHYSICIAN: Rocky Rivera MD This note was generated with voice recognition software and may contain errors, including spelling, grammar, syntax and misrecognition of what was dictated, that are not fully corrected CNOV Observed: 12/16/2017 Status: COMPLETED Source: [place] 1:00 PM [facility] REPOSITORY Office Visit (NEPHST) ALIA TREJO ([id number]) 1940 M Date Time Provider Department 12/16/17 1:00 PM AGNIESZKA DIAZ NEPH During your visit today, we recorded the following information about you: Temperature Pulse Blood pressure Weight 97.6 degrees 91/minute 125/87 92.1 kg Agnieszka Diaz MD 12/16/2017 1:38 PM Addendum Avoid Advil ,Ibuprofen(Motrin),Aleve(Naproxen),Meloxicam and other pain/arthritis medications called NSAIDS. You can take Tylenol if necessary. Avoid intravenous contrast Follow low salt diet. Daily fluid intake should be around 50 ounces per day Kidney US in 1-2 weeks Please stop by the lab today and in 2 weeks to have blood work drawn. Have blood work done in 3 months . Follow up with Dr. Diaz in 3 months. Please have you lab work done one week prior to your appointment. Please bring a complete list of your medications, the dosage and times taken- to every visit. We want to know that ALL of your concerns/needs relevant to this visit- were met today and that we have hopefully exceeded your expectations. If not-please let us know how we can improve our service to you by calling [phone] You may be receiving a survey regarding your care today. If you do, please take a few minutes to fill it out and send it back. It would be greatly appreciated. Agnieszka Diaz MD 12/16/2017 3:07 PM Signed [facility]; [facility]. Name:Alia Trejo The patient, Alia Trejo'huong, identity was verified by name and MRN. Pt is accompanied in the office today by his Consultation requested by Dr. Rocky Rivera ,for my opinion regarding CKD. My final recommendations will be communicated back to the requesting physician by way of shared Medical record or letter . PCP:Rocky Rivera MD HPI: 77-year-old male with long-standing history of DM and HTN. Other medical problems include hyperlipidemia, PAD, atrial fibrillation-on Coumadin, DERRICK-on CPAP, COPD, history of TIA, DJD and CKD. His serum creatinine was noted to be elevated on 10/28/2017 at 1.52 mg/dL. Serum creatinine prior to that was from 10/09/17 and was normal. His eGFR has been less than 60 even with normal serum creatinine as far back as December 2016. He has microalbuminuria. No H/O frequent bladder infections or kidney stones in the past. Denies NSAID use. Has COPD and DERRICK-on CPAP Denies CP,worsening SOB, orthopnea, PND or palpitations. No fever, chills or dizziness. No dysuria, gross hematuria or new flank pain. 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 Detailed review of systems is as below. I have reviewed current medications and allergies Current Outpatient Prescriptions: warfarin (COUMADIN) 5 mg tablet Take 5 mg Sat, 2.5 mg all other days or as directed LANTUS SOLOSTAR U-100 INSULIN 100 unit/mL (3 mL) inpn INJECT 25-35 UNITS SUBCUTANEOUSLY ONCE DAILY. furosemide (LASIX) 40 mg tablet Take 1 tablet by mouth once daily. flash glucose scanning reader (FREESTYLE RUSSELL READER) misc 1 Device four times daily. flash glucose sensor (FREESTYLE RUSSELL SENSOR) kit 1 Device four times daily. fluticasone (FLONASE) 50 mcg/actuation nasal spray Use 1 Wideman in each nostril daily at bedtime. insulin lispro (HUMALOG) 100 unit/mL injection Inject 10 Units subcutaneously daily at bedtime. metoprolol tartrate, short acting, (LOPRESSOR) 100 mg tablet Take 2 tablets by mouth twice daily. spironolactone (ALDACTONE) 25 mg tablet Take 1 tablet by mouth once daily. rosuvastatin (CRESTOR) 40 mg tablet Take 20 mg by mouth once daily. blood sugar diagnostic (ONETOUCH ULTRA TEST) test strip Use as instructed to check glucose 4 times daily. Dx: insulin dependent type II diabetic. Insulin Alsip, Disposable, (NOVOFINE 32) 32 gauge x 1/4ANDquot; ndle 1 Each four times daily as needed. Use for Victoza and insulin injections 4 times daily. DX: E11.65 Insulin Lispro, Human, (HUMALOG KWIKPEN) 100 unit/mL inpn Inject 5 units if sugar ANDlt;200 at bedtime or 10 units if ANDgt;200. Blood-Glucose Meter (ONETOUCH ULTRA2) monitoring kit 1 Each as needed. One Touch Meter Kit Diagnosis: Type 2 DM - Uncontrolled E11.65 liraglutide (VICTOZA) 0.6 mg/0.1 mL (18 mg/3 mL) pnij Inject 1.2 mg subcutaneously once daily. DX: E11.65 therapeutic multivitamin w/ iron (THERAGRAN-M) 9 mg iron-400 mcg tablet Take 1 tablet by mouth once daily. COMPOUNDED PRESCRIPTION insulin syringes 0.3 31 g 02/23 needle CPAP ASV machine. Initiate @ EEP14, Min ps. 3 Max ps 15, cm of water with humidification. Auto rate. Mask (per patient preference) optional chin strap (if indicated) , filters, tubing, humidifier and lifetime supplies. CSA 327.27 and [place]Leach 786.04 albuterol HFA (VENTOLIN HFA) 90 mcg/actuation inhaler Inhale 2 Puffs as instructed every 4 hours as needed. albuterol 5 mg/mL Nebu Inhale 0.5 mL as instructed every 4 hours as needed for 7 days. 1 DOSE NOW - BACK OFFICE. PLACE 0.5 ML PER DROPPER AND 2.5 ML OF NORMAL SALINE INTO RESERVOIR. No current facility-administered medications for this visit. PAST MEDICAL HISTORY Diagnosis Date - Acute bronchitis with chronic obstructive pulmonary disease (COPD) ([facility]) 12/28/2015 Pulmonlogy managing - Acute diastolic CHF (congestive heart failure) ([facility]) 12/28/2015 - Atrial fibrillation, permanent ([facility]) 11/04/[address] Goldberg - Benign neoplasm of colon - CKD (chronic kidney disease) stage 3, GFR 30-59 ml/min 11/11/2017 - Diverticulosis of colon (without mention of hemorrhage) - Hiatal hernia 10/26/201710/2017 CT chest. 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 No smoking in childhood home. Spouse ex-smoker. 12/05/15. TO Alcohol use: No Drug use: No FAMILY HISTORY: FAMILY HISTORY Problem Relation Age of Onset - Diabetes Mother - Hypertension Mother - Stroke Mother - Alzheimer's Disease Mother D. 75 - Diabetes Father - Hypertension Father - Alcoholism [OTHER] Father D. 57 - Cancer Brother Lung D.68 yo - MVA [OTHER] Brother Fatal MVA. D. 17 No known history of any hereditary renal disease REVIEW OF SYSTEMS: GENERAL: no fever, chills or weight loss HEENT: no blurred vision, WILKINSON or oral lesions RESP: no worsening SOB, cough, or pleuritic chest pain CARDIAC: no chest pain, palpitations or leg edema GASTROINTESTINAL:No nausea,emesis or abdominal pain;No diarrhea GENITO-URINARY: no dysuria or gross hematuria PERIPHERAL VASCULAR: History of PAD RHEUMATOLOGICAL: DJD SKIN: no generalized skin rash or ulcers INFECTIOUS DISEASES: no complaints stated NEUROLOGICAL: History of TIA no focal weakness or seizures PSYCHIATRIC: Denies depressive illness,anxiety disorder. PHYSICAL EXAMINATION: BP 125/87 Pulse 91 Temp 36.4 ?C (97.6 ?F) Wt 92.1 kg (203 lb) BMI 32.77 kg/m2 GENERAL: alert, well appearing, and in no acute distress. SPEECH PATTERN: normal HEENT: EOMI-nonicteric sclera. Moist mucosa NECK: supple- no carotid bruit; No LN or thyromegaly LUNGS: clear to auscultation, normal respiratory effort. HEART: Irregularly irregular rhythm Normal S1, S2, no S3,S4- No murmurs or rub. ABDOMEN: Abdomen soft and protuberant with slight asymmetry, nontender, organomegaly could not be excluded ; bowel sounds present. EXTREMITIES: no leg edema, no cyanosis MUSCULOSKELETAL: No spinal or CVA tenderness. NEURO: Alert and oriented ?3; no focal deficit on limited exam;normal gait SKIN: no generalized skin rash or ulcers PSYCHIATRY:Appropriate mood and affect REVIEWED LABS : CKD LAB FLOWSHEET Latest Ref Rng ANDamp; Units 01/06/2017 01/07/2017 10/09/2017 10/28/2017 11/17/2017 EGFR- - - - ANDgt;60 54 - EGFR-ALL OTHER RACES . ANDgt;60 58 59 45 - CREATININE 0.73 - 1.22 mg/dL 1.09 1.22 1.20 1.52(H) - BUN 9 - 24 mg/dL 16 18 12 25(H) - SODIUM 136 - 144 mmol/L 139 140 136 140 - POTASSIUM 3.7 - 5.1 mmol/L 4.2 4.2 4.0 4.3 - CHLORIDE 97 - 105 mmol/L 97(L) 99 96(L) 98 - CO2 22 - 30 mmol/L 24 28 29 28 - GLUCOSE 74 - 99 mg/dL 218(H) 134(H) 95 120(H) - CALCIUM 8.5 - 10.2 mg/dL 9.4 8.5 9.5 9.3 - ALBUMIN 3.9 - 4.9 g/dL 4.0 3.1(L) 3.4(L) 4.0 - ALT 10 - 54 U/L 32 25 53(H) 43 - WBC 3.70 - 11.00 k/uL 12.43(H) 8.12 8.72 6.43 Test sent to [facility]. HEMOGLOBIN 13.0 - 17.0 g/dL 14.3 11.3(L) 13.5 14.5 Test sent to [facility]. PLATELET COUNT 150 - 400 k/uL 275 232 253 267 Test sent to [facility]. CREATININE, UR RANDOM (UCRR) 20 - 300 mg/dL - - - 64.1 - CHOLESTEROL, TOTAL 100 - 199 mg/dL - 100 - - - TRIGLYCERIDE 30 - 149 mg/dL - 151(H) - - - HDL CHOLESTEROL ANDgt;45 mg/dL - 3(L) - - - LDL CHOLESTEROL 60 - 129 mg/dL - 67 - - - Some recent data might be hidden ] CBC, Coags, BMP, Mg, Phos Invalid input(s): ICA Office urinalysis: GLUCOSE UA (POCT) Negative Neg mg/dL Final [facility] BILIRUBIN UA (POCT) Negative Neg Final [facility] KETONE UA (POCT) Negative Neg mg/dL Final [facility] SPECIFIC GRAVITY UA (POCT) 1.015 1.005 - 1.030 Final [facility] HEMOGLOBIN/BLOOD UA ?(POCT) Trace-intact (A) Neg Final [facility] PH UA (POCT) 5.0 4.5 - 8 Final [facility] PROTEIN UA (POCT) Negative Neg mg/dL Final [facility] UROBILINOGEN UA (POCT) 0.2 Normal(ANDlt;1.1) E.U./dL Final [facility] NITRITE UA (POCT) Negative Neg Final [facility] LEUKOCYTES UA (POCT) Negative Neg Final [facility] COLOR UA (POCT) Yellow Final [facility] CLARITY UA (POCT) Clear Final ASSESSMENT: 1. Type 2 DM with CKD stage 3 and hypertension (HCC) (primary encounter diagnosis): Elevation in serum creatinine in the setting of long-standing DM and HTN and eGFR less than 60 even with normal serum creatinine since December 2016. Noted to have microalbuminuria in the past-no dipstick proteinuria at this time. Lack of significant proteinuria makes acute or subacute GN less likely. He has no signs or symptoms suggestive of vasculitis.Will update labs to check trend of creatinine before initiating further workup. Discussed at length the management of risk factors to prevent progression of CKD. 2. Secondary renal hyperparathyroidism (HCC): Will update labs to check need for Rocaltrol/25 hydroxy vitamin D 3. Hyperlipidemia:On statins-Recommend LDL goal of ANDlt;100 to prevent progression of CKD. PLAN: Avoid Aleve,Advil,Naproxen,Indocin and other related medications called NSAIDS. Can take Tylenol if necessary. Avoid intravenous contrast Follow low salt diet. Daily fluid intake should be around 50 ounces per day -US KIDNEY/BLADDER to assess size -UA DIP, URINE (POC) Do today: -RENAL FUNCTION PANEL -PTH INTACT BLD -URIC ACID BLOOD -VITAMIN D 25 HYDROXY -HEMOGLOBIN (HGB) -HEMATOCRIT (HCT) -ALBUMIN BLD BMP in 2 weeks Do in 3 months: -RENAL FUNCTION PANEL -PTH INTACT BLD -PROTEIN CREATININE RATIO -URIC ACID BLOOD -URINALYSIS WITH MICROSCOPIC -VITAMIN D 25 HYDROXY -HEMOGLOBIN (HGB) -HEMATOCRIT (HCT) F/U in 3 months Thank you for the consult. SIGNATURE:Agnieszka Diaz MD DATE:December 16, 2017 TIME:1:41 PM CC: REFERRING PROVIDER: Rocky Rivera * PRIMARY CARE PHYSICIAN: Rocky Rivera MD This note was generated with voice recognition software and may contain errors, including spelling, grammar, syntax and misrecognition of what was dictated, that are not fully corrected Referring Provider: ROCKY RIVERA) [[id number]] Allergies As of Date: 12/16/2017 Noted Allergy Reaction NABEEL INHIBITORS 05/16/2014 3 - Cough Date Reviewed: 12/16/2017 Reviewed by: Agnieszka Diaz - Fully Assessed Reason for Visit: New Patient [172] Primary Visit Diagnosis:Type 2 DM with CKD stage 3 and hypertension (HCC) [E11.22, I12.9, N18.3] Other Visit Diagnoses:Secondary renal hyperparathyroidism (HCC) [N25.81] Hyperlipidemia, unspecified hyperlipidemia type [E78.5] Order(s):UA DIP, URINE (POC) [1248112] Order #: [id number]. #:[id number] RENAL FUNCTION PANEL [SQRFP] Order #: [id number]. #:[id number] PTH INTACT BLD [SQPTHI] Order #: [id number]. #:[id number] URIC ACID BLOOD [SQURIC] Order #: [id number]. #:[id number] VITAMIN D 25 HYDROXY [SQVITD] Order #: [id number]. #:[id number] HEMOGLOBIN (HGB) [SQHGB] Order #: [id number] FUTURE HEMATOCRIT (HCT) [SQHCT] Order #: [id number] FUTURE ALBUMIN BLD [SQALB] Order #: [id number] FUTURE US KIDNEY/BLADDER [1926428] Order #: [id number] FUTURE RENAL FUNCTION PANEL [SQRFP] Order #: [id number] FUTURE PTH INTACT BLD [SQPTHI] Order #: [id number] FUTURE PROTEIN CREATININE RATIO [SQPRATIO] Order #: [id number] FUTURE URIC ACID BLOOD [SQURIC] Order #: [id number] FUTURE URINALYSIS WITH MICROSCOPIC [SQUAWMIC] Order #: [id number] FUTURE VITAMIN D 25 HYDROXY [SQVITD] Order #: [id number] FUTURE HEMOGLOBIN (HGB) [SQHGB] Order #: [id number] FUTURE HEMATOCRIT (HCT) [SQHCT] Order #: [id number] FUTURE BASIC METABOLIC PNL [SQBMP] Order #: [id number] FUTURE Prescriptions as of 12/16/2017 Sig: WARFARIN 5 MG TABLET Take 5 mg Sat, 2.5 mg all oth* LANTUS SOLOSTAR U-100 INSULIN* INJECT 25-35 UNITS SUBCUTANEO* FUROSEMIDE 40 MG TABLET Take 1 tablet by mouth once d* FLASH GLUCOSE SCANNING READER 1 Device four times daily. FLASH GLUCOSE SENSOR KIT 1 Device four times daily. FLUTICASONE 50 MCG/ACTUATION * Use 1 Wideman in each nostril d* INSULIN LISPRO (U-100) 100 UN* Inject 10 Units subcutaneousl* METOPROLOL TARTRATE 100 MG TA* Take 2 tablets by mouth twice* SPIRONOLACTONE 25 MG TABLET Take 1 tablet by mouth once d* ROSUVASTATIN 40 MG TABLET Take 20 mg by mouth once jenn* BLOOD SUGAR DIAGNOSTIC STRIPS Use as instructed to check gl* PEN NEEDLE, DIABETIC 32 GAUGE* 1 Each four times daily as ne* INSULIN LISPRO (U-100) 100 UN* Inject 5 units if sugar <200 * BLOOD-GLUCOSE METER KIT 1 Each as needed. One Touch M* LIRAGLUTIDE 0.6 MG/0.1 ML (18* Inject 1.2 mg subcutaneously * MULTIVITAMIN-IRON 9 MG-FOLIC * Take 1 tablet by mouth once d* COMPOUNDED PRESCRIPTION insulin syringes 0.3 31 g 5/* CPAP ASV machine. Initiate @ EEP1* ALBUTEROL SULFATE HFA 90 MCG/* Inhale 2 Puffs as instructed * ALBUTEROL SULFATE CONCENTRATE* Inhale 0.5 mL as instructed e* Problem List As Of Date 12/16/2017 Noted Resolved Essential hypertension [I10] DIABETES MELLITUS TYPE II UNCONTR UNCOMPL [E11.* 09/12/2014 Hyperlipidemia [E78.5] CHRONIC RHINITIS [J31.0] INVALID FOR* PAD (peripheral artery disease) (HCC) [I73.9] INVALID FOR* VIRAL WARTS NOS [B07.9] INVALID FOR* Type I (juvenile type) diabetes mellitus withou*INVALID FOR*02/06/2014 Unspecified sleep apnea [G47.30] INVALID FOR*07/21/2014 More... BENIGN NEOPLASM LG BOWEL [D12.6] INVALID FOR* DIVERTICULOSIS OF COLON W/O BLEED [K57.30] INVALID FOR* INT HEMORRHOID W/O COMPL [K64.8] INVALID FOR* Premature atrial beats [I49.1] INVALID FOR* Atrial fibrillation, permanent [I48.2] INVALID FOR*01/30/2015 Atherosclerosis of aortic arch [I70.0] INVALID FOR* More... BMI 37.0-37.9, adult [Z68.37] INVALID FOR*01/30/2015 DERRICK (obstructive sleep apnea) AHI 36 [G47.33] INVALID FOR* DM (diabetes mellitus), type 2, uncontrolled (H*INVALID FOR* Atrial fibrillation (HCC) [I48.91] INVALID FOR* BMI 35.0-35.9,adult [Z68.35] INVALID FOR*11/11/2017 long term care pharmacist (current) use of anticoagulants [Z79.*INVALID FOR* SUMMARY INVALID FOR* More... Cough with expectoration [R05] INVALID FOR* More... Atrial fibrillation with RVR (HCC) [I48.91] INVALID FOR*11/10/2017 Syncope [R55] INVALID FOR* Acute bronchitis with chronic obstructive pulmo*INVALID FOR*07/04/2016 Acute diastolic CHF (congestive heart failure) *INVALID FOR*07/04/2016 Status post placement of implantable loop recor*INVALID FOR* Type 2 diabetes mellitus without retinopathy (H*INVALID FOR* Vitreous floaters of both eyes [H43.393] INVALID FOR* TIA due to embolism (HCC) [G45.9, I74.9] INVALID FOR* Facial droop [R29.810] INVALID FOR*11/11/2017 Controlled type 2 diabetes mellitus without com*INVALID FOR* Combined forms of age-related cataract of both *INVALID FOR* Screening for colon cancer [Z12.11] INVALID FOR* More... Hiatal hernia [K44.9] INVALID FOR* More... Acute bronchitis with chronic obstructive pulmo*INVALID FOR* More... CKD (chronic kidney disease) stage 3, GFR 30-59*INVALID FOR* Type 2 DM with CKD stage 3 and hypertension (HC*INVALID FOR* Secondary renal hyperparathyroidism (HCC) [N25.*INVALID FOR* Persistent proteinuria [R80.1] INVALID FOR* Other instructions from your clinician: Avoid Advil ,Ibuprofen(Motrin),Aleve(Naproxen),Meloxicam and other pain/arthritis medications called NSAIDS. You can take Tylenol if necessary. Avoid intravenous contrast Follow low salt diet. Daily fluid intake should be around 50 ounces per day Kidney US in 1-2 weeks Please stop by the lab today and in 2 weeks to have blood work drawn. Have blood work done in 3 months . Follow up with Dr. Diaz in 3 months. Please have you lab work done one week prior to your appointment. Please bring a complete list of your medications, the dosage and times taken- to every visit. We want to know that ALL of your concerns/needs relevant to this visit- were met today and that we have hopefully exceeded your expectations. If not-please let us know how we can improve our service to you by calling [phone] You may be receiving a survey regarding your care today. If you do, please take a few minutes to fill it out and send it back. It would be greatly appreciated. Disposition: Return in about 3 months (around 03/18/2018). Follow-up and Disposition History Recorded Encounter Status:Closed by AGNIESZKA DIAZ on 12/16/17 PROGRESS Observed: 12/09/2017 Status: COMPLETED Source: [place] 11:30 AM [facility] REPOSITORY HNO ID: [id number] Author: Mervat Gaming RN Service: (none) Author Type: (none) Type: Progress Notes Filed: 12/09/2017 11:32 AM Note Text: Left detailed message with instructions below and asked patient to call back if any questions and Scheduled next INR check for 2 weeks at 10 am. Mervat Gaming RN PROGRESS Observed: 12/09/2017 Status: COMPLETED Source: [place] 9:38 AM [facility] REPOSITORY HNO ID: [id number] Author: Rocky Rivera Service: (none) Author Type: Physician Type: Progress Notes Filed: 12/09/2017 9:38 AM Note Text: INR therapeutic. Continue current coumadin dosage and follow up in 2 weeks. PROGRESS Observed: 12/09/2017 Status: COMPLETED Source: [place] 9:30 AM [facility] REPOSITORY HNO ID: [id number] Author: Mervat Gaming RN Service: (none) Author Type: (none) Type: Progress Notes Filed: 12/09/2017 11:32 AM Note Text: INR 2.0-results reviewed with patient. Current Coumadin dose is Hold next 2 doses of coumadin and then decrease dose to 5 mg Sat, 2.5 mg all other days with last dose change on 12/01/17 and previous dose of 5 mg Wed/Sat and 2.5 mg all other days. Last INR on 12/01/17 was 5.8 and previous INR on 11/16/17 was 2.2. Advised patient would be contacted regarding dosage and followup instructions after review by provider. Written instructions given and patient verbalized understanding. Mervat Gaming RN PROGRESS Observed: 12/01/2017 Status: COMPLETED Source: [place] 11:49 AM [facility] REPOSITORY HNO ID: [id number] Author: Florecita Garcia Ma Service: (none) Author Type: (none) Type: Progress Notes Filed: 12/01/2017 11:51 AM Note Text: Pt notified and voiced understanding. Appt set up in 1 week with coumadin clinic for recheck. Tracker and med list updated. Florecita Garcia Ma PROGRESS Observed: 12/01/2017 Status: COMPLETED Source: [place] 11:06 AM [facility] REPOSITORY HNO ID: [id number] Author: Rocky Olea) Miguel Service: (none) Author Type: Physician Type: Progress Notes Filed: 12/01/2017 11:07 AM Note Text: INR supra therapeutic. Hold next 2 doses of coumadin and then decrease dose to 5 mg Sat, 2.5 mg all other days. Recheck in 1 week. To contact us sooner with bleeding symptoms. PROGRESS Observed: 12/01/2017 Status: COMPLETED Source: [place] 9:41 AM [facility] REPOSITORY HNO ID: [id number] Author: Roseline Gurrola RN Service: (none) Author Type: (none) Type: Progress Notes Filed: 12/01/2017 9:41 AM Note Text: patient had inr completed at [facility] patients inr is 5.8 (patients inr range is 2.0-3.0) patient is currently taking 5mg WEd,Sat and 2.5mg all other days patients last dose change was on 11/09/17 due to a low level of 1.5 (dose at that time was 2.5mg daily) patient has had no changes in medications and no missed doses and no change in diet Advised patient that they would be contacted regarding medication dose and when to follow up after information is reviewed by provider. After provider review please contact the patient with information and schedule follow up appointment with coumadin clinic. PROGRESS Observed: 11/30/2017 Status: COMPLETED Source: [place] 8:28 AM [facility] REPOSITORY HNO ID: [id number] Author: Sumeet Goldberg Service: (none) Author Type: Physician Type: Progress Notes Filed: 11/30/2017 9:20 AM Note Text: [facility] [place] [facility] Department of Cardiovascular Medicine SECTION OF REGIONAL CARDIOLOGY ASIA: 09/26/17 HPI: Alia Trejo is a 77 year old male who is here today for follow up. He was in the emergency room October 09, 2017 in [place] was found to have pneumonia. He also had elevated BNP during that time. The chest x-ray however did not suggest any heart failure. He also has had a CT scan of the chest since then on 10/29/17 that did not show any pulmonary congestion however he had a persistent small stable pericardial effusion. He has been doing well since his ER visit. He did have his Lasix increased for her BNP greater than 4000. The patient denies any regular aerobic exercise Patient denies SOB, chest pain, dizziness, lightheadedness, palpitations, lower extremity edema, PND, orthopnea, presyncope, syncope or claudication symptoms. Prior history: He has a history of metabolic syndrome including hypertension, diabetes, obesity with chronic atrial fibrillation and remote unexplained syncope. He has had an implantable loop recorder with initially no evidence of hemodynamically significant dysrhythmias. He initially had loop recorder placed for syncope but has not had any recurrent episodes in the last 2 years since this was placed. In December 2016 he had a possible (MRI/CT negative) CVA likely embolic secondary to atrial fibrillation. He did have a second episode of some facial twitching on adequate anticoagulation. His atrial fibrillation had been poorly controlled and on at his prior visit with Dr. Curtis his metoprolol was titrated to 200 mg twice a day and his rate was much better controlled. He feels well and has lost weight. PAST MEDICAL HISTORY Diagnosis Date - Acute bronchitis with chronic obstructive pulmonary disease (COPD) ([facility]) 12/28/2015 Pulmonlogy managing - Acute diastolic CHF (congestive heart failure) ([facility]) 12/28/2015 - Atrial fibrillation, permanent ([facility]) 11/04/[address] Goldberg - Benign neoplasm of colon - CKD (chronic kidney disease) stage 3, GFR 30-59 ml/min 11/11/2017 - Diverticulosis of colon (without mention of hemorrhage) - Hiatal hernia 10/26/201710/2017 CT chest. 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 75 - Diabetes Father - Hypertension Father - Alcoholism [OTHER] Father D. 57 - Cancer Brother Lung D.68 yo - MVA [OTHER] Brother Fatal MVA. D. 17 SOCIAL HISTORY Social History Marital status: Spouse name: Aixa Years of education: Number of children: 3 Occupational History Occupation Employer Comment [employer] Social History Main Topics Smoking status: Former Smoker Packs/day: 0.50 Years: 10.00 Types: Cigarettes Start date: 01/07/1955 Quit date: 01/08/1976 Smokeless status: Never Used Comment: Age 13 to 31. No smoking in childhood home. Spouse ex-smoker. 12/05/15. TO Alcohol use: No Drug use: No ALLERGIES: Nabeel Inhibitors CURRENT MEDICATIONS: Current Outpatient Prescriptions: flash glucose scanning reader (FREESTYLE RUSSELL READER) misc 1 Device four times daily. flash glucose sensor (FREESTYLE RUSSELL SENSOR) kit 1 Device four times daily. furosemide (LASIX) 40 mg tablet Take 1 tablet by mouth twice daily. fluticasone (FLONASE) 50 mcg/actuation nasal spray Use 1 Wideman in each nostril daily at bedtime. warfarin (COUMADIN) 5 mg tablet hold his coumadin for next 3 days and take 1/2 of normal dose on Wednesday 10/11. To return on 10/12 for recheck INR. all other days insulin lispro (HUMALOG) 100 unit/mL injection Inject 10 Units subcutaneously daily at bedtime. metoprolol tartrate, short acting, (LOPRESSOR) 100 mg tablet Take 2 tablets by mouth twice daily. spironolactone (ALDACTONE) 25 mg tablet Take 1 tablet by mouth once daily. rosuvastatin (CRESTOR) 40 mg tablet Take 20 mg by mouth once daily. blood sugar diagnostic (ONETOUCH ULTRA TEST) test strip Use as instructed to check glucose 4 times daily. Dx: insulin dependent type II diabetic. Insulin Alsip, Disposable, (NOVOFINE 32) 32 gauge x 1/4 ndle 1 Each four times daily as needed. Use for Victoza and insulin injections 4 times daily. DX: E11.65 insulin glargine (LANTUS SOLOSTAR) 100 unit/mL (3 mL) inpn Inject 30 Units subcutaneously once daily. (Patient taking differently: Inject 40 Units subcutaneously once daily.) Insulin Lispro, Human, (HUMALOG KWIKPEN) 100 unit/mL inpn Inject 5 units if sugar <200 at bedtime or 10 units if >200. Blood-Glucose Meter (ONETOUCH ULTRA2) monitoring kit 1 Each as needed. One Touch Meter Kit Diagnosis: Type 2 DM - Uncontrolled E11.65 liraglutide (VICTOZA) 0.6 mg/0.1 mL (18 mg/3 mL) pnij Inject 1.2 mg subcutaneously once daily. DX: E11.65 therapeutic multivitamin w/ iron (THERAGRAN-M) 9 mg iron-400 mcg tablet Take 1 tablet by mouth once daily. COMPOUNDED PRESCRIPTION insulin syringes 0.3 31 g 5/16 needle CPAP ASV machine. Initiate @ EEP14, Min ps. 3 Max ps 15, cm of water with humidification. Auto rate. Mask (per patient preference) optional chin strap (if indicated) , filters, tubing, humidifier and lifetime supplies. CSA 327.27 and Ryan-Leach 786.04 albuterol HFA (VENTOLIN HFA) 90 mcg/actuation inhaler Inhale 2 Puffs as instructed every 4 hours as needed. albuterol 5 mg/mL Nebu Inhale 0.5 mL as instructed every 4 hours as needed for 7 days. 1 DOSE NOW - BACK OFFICE. PLACE 0.5 ML PER DROPPER AND 2.5 ML OF NORMAL SALINE INTO RESERVOIR. No current facility-administered medications for this visit. ROS: Card: See present history. Pulm: Negative for cough, hemoptysis, wheezing, COPD, dyspnea or shortness of breath Gastro: No nausea, vomiting, or diarrhea GenUr: No history of dysuria, frequency or incontinence Endo: Negative for cold or heat intolerance, polyuria or polydipsia. Neuro: no focal weakness, focal sensory loss, headache, visual changes, seizure activity, ataxia, speech/language loss. Musculoskeletal: Negative for joint or muscle pain, back pain, or swelling. Infect: no fevers, chills, rigors or night sweats. Skin: Negative for lesions, rash, and itching. Heme: Negative for prolonged bleeding, bruising easily or swollen nodes. The remainder of the review of systems is negative. PHYSICAL EXAMINATION: GENERAL: alert cooperative, pleasant oriented x 3 (self, time and place) in no acute distress obese BP 98/58 (BP Site: Left Arm, BP Position: Sitting, BP Cuff Size: Large Adult) Pulse 88 Ht 167.6 cm (5' 6) Wt 93.7 kg (206 lb 8 oz) SpO2 96% BMI 33.33 kg/m2 Last 3 Encounter BP Readings: Date: BP: 09/16/2017 88/62 03/17/2017 116/80 02/26/2017 112/68 Last 3 Encounter Pulse Readings: Date: Pulse: 09/16/2017 75 03/17/2017 62 02/26/2017 56 Last 3 Encounter Wt Readings: Date: Wt: 09/16/2017 94.9 kg (209 lb 4.8 oz) 03/17/2017 95.7 kg (211 lb) 02/26/2017 95.3 kg (210 lb) SKIN: warm, dry, no rash. NECK: supple, no palpable masses, no JVD, carotids well felt, no bruits. CARDIAC: Butler palpable in the 5th intercostal space mid clavicular line, normal S1 and S2, no murmurs, gallops, or rubs. CHEST: Normal respiratory efforts, lungs clear to auscultation bilaterally. ABDOMEN: Soft, no tenderness, rigidity, or masses. No palpable liver or spleen. Normal bowel sounds, no bruits. NEURO: intact cranial nerves II through XII, no motor or sensory deficits in all 4 extremities. EXTREMITIES: No cyanosis, clubbing, or edema. Peripheral pulses well felt. CARDIAC (AND OTHER IMPORTANT) TESTING: LABS: Cholesterol, Total (mg/dL) Date Value 01/07/2017 100 HDL Cholesterol (mg/dL) Date Value 01/07/2017 3 LDL Cholesterol (mg/dL) Date Value 01/07/2017 67 Triglyceride (mg/dL) Date Value 01/07/2017 151 ASSESSMENT/PLAN: 1. Permanent atrial fibrillation Continue rate control (Metoprolol 200 twice a day) and anticoagulation (warfarin) 2. Acute on chronic diastolic heart failure - Likely exacerbation due to pneumonia however can have elevated BNP with pneumonia alone. 3. Transient cerebral ischemia, unspecified type Remote 4. Essential hypertension - good control - Encouraged dietary sodium restriction/DASH diet - Recommended regular aerobic exercise. - Discussed need and benefit for weight loss. - Goal of BP <130/80 5. Other hyperlipidemia - suboptimal control - Continue current medication. 6. Syncope, unspecified syncope type 7. Status post placement of implantable loop recorder 8. DERRICK (obstructive sleep apnea) AHI 36 9. Uncontrolled type 2 diabetes mellitus with chronic kidney disease, without long-term current use of insulin, unspecified CKD stage He was in the emergency room on October 09, 2017 in [place] and was found to have pneumonia. He also had elevated BNP during that time at > 4k. The chest x-ray however did not suggest any heart failure. He also has had a CT scan of the chest since then on 10/29/17 done for bilateral pulmonary nodules that did not show any pulmonary congestion however he had a persistent small stable pericardial effusion. He has been doing well since his ER visit. He did have his Lasix increased to 40 twice a day for BNP elevation and possibly some peripheral edema. It is possible he had acute diastolic heart failure exacerbated by pneumonia however BNP may also be elevated in any respiratory disease -including pneumonia. He is fortunately doing quite well without complaints. His echocardiogram done in [place] and read by [facility] on 10/29/17 showed normal LV systolic function with mild biatrial enlargement. There was mild tricuspid regurgitation. Diastolic function was not assessed due to atrial fibrillation. I will decrease his Lasix back to 40 mg daily in light of his occasional dizziness and low blood pressure. He should otherwise continue his cardiac medications and we'll follow-up with him periodically. Thank you for allowing me the privilege of participating in the care of your patient. Please do not hesitate to contact me if there are any questions. Sumeet Goldberg, DO, FACC, FCCP, FACOI CC: Rocky Rivera MD [address] [place] [address] ANES POST Observed: 11/24/2017 Status: COMPLETED Source: [place] 4:25 PM [facility] OTHER CAMPUS REPOSITORY HNO ID: [id number] Author: Haseeb Donovan Service: Anesthesiology Author Type: Anesthesiologist Type: Anesthesia PostOp Filed: 11/24/2017 5:13 PM Note Text: POST ANESTHESIA EVALUATION NOTE SERVICE DATE: 11/24/2017 SERVICE TIME: 1599 : 1941 Vitals: 11/24/17 1027 11/24/17 1510 11/24/17 1600 Temp: 36.2 ?C (97.2 ?F) 36.3 ?C (97.3 ?F) 36.4 ?C (97.5 ?F) 11/24/17 1530 11/24/17 1545 11/24/17 1600 11/24/17 1615 BP: 143/64 140/68 143/72 148/76 11/24/17 1530 11/24/17 1545 11/24/17 1600 11/24/17 1615 Pulse: 82 89 95 88 11/24/17 1530 11/24/17 1545 11/24/17 1600 11/24/17 1615 Resp: 16 16 16 16 11/24/17 1530 11/24/17 1545 11/24/17 1600 11/24/17 1615 SpO2: 99% 96% 95% 95% Validated Vital Signs: YES No apparent anesthetic complications. The patient is appropriately hydrated with stable respiratory and cardiovascular status. Patient has safe and adequate airway control. The patient has appropriate pain relief and no significant post operative nausea or vomiting. The patient has achieved baseline mental status. Further assessment by Anesthesia Service: None Other Remarks: SIGNATURE: Haseeb Donovan MD PATIENT NAME: Alia Trejo DATE: November 24, 2017 TIME: 5:13 PM PAGER/CONTACT #: [phone] PT ED Observed: 11/24/2017 Status: COMPLETED Source: [place] 4:17 PM [facility] REPOSITORY HNO ID: [id number] Author: Tamie AugusteRn) YEMI Ridley Service: (none) Author Type: Registered Nurse Type: Patient Education Filed: 11/24/2017 4:18 PM Note Text: POST OP LEARNING RESPONSE INSTRUCTION PROVIDED TO: Patient and family member METHOD OF INSTRUCTION: Teach Back done Written instruction - handouts PATIENT / FAMILY RESPONSE: Verbalizes understanding of: POST-OPERATIVE INSTRUCTIONS-Correct actions to take to reduce postoperative complications FOLLOW-UP PLAN: Patient instructed to call with any further issues SUPPLEMENTAL MATERIAL: None REFERRAL (RECOMMENDATION): None Electronically Signed By: Tamie Ridley RN In Department: [facility] NURSING PROG Observed: 11/24/2017 Status: COMPLETED Source: [place] 4:16 PM [facility] REPOSITORY HNO ID: [id number] Author: Tamie (Rn) YEMI Ridley Service: (none) Author Type: Registered Nurse Type: Nursing Progress Note Filed: 11/24/2017 4:16 PM Note Text: Nursing Progress Note Patient Name: Alia Trejo Patient Location: [facility] 1540 Dr. Villar at bedside. Lab called re: need for lab draw. Pt awake and appropriate. Passing gas intermittently. 1545 maintenance parts technician at bedside. 1600 Dr[address] Villar called and he confirmed pt may resume Coumadin this evening. at bedside. Pt laughing and joking. This note was completed by: Tamie Ridley RN PSA, DIAGNOSTIC Collected: 11/24/2017 Status: F Source: [place] 3:37 PM [facility] REPOSITORY TYPE CODE TESTS RESULT OUT OF REFERENCE UNITS RANGE LAB PSAD 0.00-2.59 ng/mL PSA, High Diagnostic 3.74 Result Comment: Total PSA test methodology used is the Electrochemiluminescence Immunoassay. The presence of an abnormal result flag in this range (2.6 to 4.0 ng/mL) should not necessarily be an automatic indicator for prostate biopsy. For an individual patient, the significance of a PSA level should be interpreted in a broad clinical context, including age, race, family history, digital rectal exam, prostate size, results of prior te sting (prostate biopsy, free PSA, PCA3), and use of 5-alpha reductase inhibitors. Considering the high incidence of asymptomatic cancer in the general population that may not pose an ultimate risk to a patient, the decision to recommend urological evaluation or prostate biopsy should be individualized after consideration of all these factors. REFERENCE: Mahesh Florez M.D., M.P.H., Yoav Barger M.D., Ph.D., Juan Diego Worley M.D., Melissa Flynn, M.P.H., Sana Weir, Sc.D. Effect of Verification Bias on Screening for Prostate Cancer by Measurement of Prostatic Specific Antigen. N Engl J Med 2003,349:335-42. Performed By: #### PSAD #### [facility] [address] [place], [place] [address] SURGICAL PATHOLOGY Observed: 11/24/2017 Status: F Source: [place] 3:30 PM [facility] OTHER CAMPUS REPOSITORY Specimen originated from [facility] Specimen #: [id number] Submitting Physician: MARY VILLAR MD FINAL DIAGNOSIS Polyp, rectum, polypectomy - Fragments of tubulovillous adenoma. JJ/rw 11/25/2017 Cristin Restrepo M.D. (Electronic Signature) SPECIMEN SUBMITTED A: RECTAL POLYP CLINICAL DATA HISTORY POLYPS GROSS DESCRIPTION A. Received in formalin are six pieces of reyes, soft tissue aggregating to 1.5 x 0.3 x 0.2 cm. Totally submitted in one cassette. Gross examination performed at [facility], [address] [place] [address] 11/24/2017 8:23:11 PM Date of Report: 11/25/2017 Date of Procedure: 11/24/2017 Date of Receipt: 11/24/2017 Submitted by: MARY VILLAR MD Location: [facility] Diagnostic interpretation performed at [facility], [address] [place] [address]. Performed By: #### PATHS #### [place] [address] [phone] HISTORY PHYSICAL Observed: 11/24/2017 Status: COMPLETED Source: [place] 11:03 AM CLINIC OTHER CAMPUS REPOSITORY HNO ID: [id number] Author: Mary Villar Service: General Surgery Author Type: Physician Type: HANDP Filed: 11/24/2017 11:03 AM Note Text: HISTORY AND PHYSICAL ? Alia Trejo 1940 ? REFERRING PHYSICIAN: Rocky Rivera ? CHIEF COMPLAINT: Consult (Consult Colonoscopy) ? HPI: The patient is a 77 year old male referred for endoscopy. Alia notes no history of colon complaints. Specifically he denies any change in bowel habits, weight changes, blood in stools, black tarry stools or abdominal pain. He denies any known family history of colon cancer. The patient notes no history of upper GI complaints. Alia has undergone prior endoscopy. Most recent was in 2006 with benign non-adenomatous polyp at that time, due for 10-year follow-up. ? The patient is being seen by me today at the request of Dr. Rivera for my opinion and advice regarding screening colonoscopy. Patient notes he is currently being treated for pneumonia. He notes feeling improved, has follow-up scheduled with pulmonology on 10/29/17. Other past medical history is significant for atrial fibrillation-maintained on warfarin, TIA approximately one year ago, implantable loop recorder, CHF, sleep apnea, and insulin-dependent diabetes mellitus for which he follows with Dr. Rivera. ? ? PAST?MEDICAL?HISTORY PAST MEDICAL HISTORY Diagnosis Date - Acute bronchitis with chronic obstructive pulmonary disease (COPD) (HCC) 12/28/2015 - Acute diastolic CHF (congestive heart failure) (HCC) 12/28/2015 - Atrial fibrillation, permanent (HCC) 11/04/2011 ? Seeing Dr Curtis-cardiology - Benign neoplasm of colon ? - Diverticulosis of colon (without mention of hemorrhage) ? - Obstructive sleep apnea ? - Other and unspecified hyperlipidemia ? - Other malignant neoplasm of other specified sites of skin 01/2007 ? Forehead. - Type II or unspecified type diabetes mellitus without mention of complication, uncontrolled ? ? Seeing WILDER Rodrigues - Unspecified essential hypertension ? ? ? PAST?SURGICAL?HISTORY PAST SURGICAL HISTORY Procedure Laterality Date - COLONOSCOPY W/BX ? 10/25/06 - SKIN BX, 1 LESION ? 01/2007 ? BASAL CELL CARCINOMA - UNLISTED CARDIAC SURGERY ? 01/2016 ? 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 ? ? CURRENT?MEDICATIONS ? Current Outpatient Prescriptions: fluticasone (FLONASE) 50 mcg/actuation nasal spray Use 1 Wideman in each nostril daily at bedtime. amoxicillin (AMOXIL) 875 mg tablet Take 1 tablet by mouth twice daily for 10 days. warfarin (COUMADIN) 5 mg tablet hold his coumadin for next 3 days and take 1/2 of normal dose on Wednesday 10/11. To return on 10/12 for recheck INR. all other days albuterol HFA (VENTOLIN HFA) 90 mcg/actuation inhaler Inhale 2 Puffs as instructed every 4 hours as needed. insulin lispro (HUMALOG) 100 unit/mL injection Inject 10 Units subcutaneously daily at bedtime. metoprolol tartrate, short acting, (LOPRESSOR) 100 mg tablet Take 2 tablets by mouth twice daily. furosemide (LASIX) 40 mg tablet Take 1 tablet by mouth once daily. spironolactone (ALDACTONE) 25 mg tablet Take 1 tablet by mouth once daily. rosuvastatin (CRESTOR) 40 mg tablet Take 20 mg by mouth once daily. blood sugar diagnostic (Hytle ULTRA TEST) test strip Use as instructed to check glucose 4 times daily. Dx: insulin dependent type II diabetic. Insulin Alsip, Disposable, (NOVOFINE 32) 32 gauge x 1/4 ndle 1 Each four times daily as needed. Use for Victoza and insulin injections 4 times daily. DX: E11.65 insulin glargine (LANTUS SOLOSTAR) 100 unit/mL (3 mL) inpn Inject 30 Units subcutaneously once daily. (Patient taking differently: Inject 40 Units subcutaneously once daily.) Insulin Lispro, Human, (HUMALOG KWIKPEN) 100 unit/mL inpn Inject 5 units if sugar <200 at bedtime or 10 units if >200. Blood-Glucose Meter (ONETOUCH ULTRA2) monitoring kit 1 Each as needed. One Touch Meter Kit Diagnosis: Type 2 DM - Uncontrolled E11.65 liraglutide (VICTOZA) 0.6 mg/0.1 mL (18 mg/3 mL) pnij Inject 1.2 mg subcutaneously once daily. DX: E11.65 therapeutic multivitamin w/ iron (THERAGRAN-M) 9 mg iron-400 mcg tablet Take 1 tablet by mouth once daily. COMPOUNDED PRESCRIPTION insulin syringes 0.3 31 g 02/23 needle CPAP ASV machine. Initiate @ EEP14, Min ps. 3 Max ps 15, cm of water with humidification. Auto rate. Mask (per patient preference) optional chin strap (if indicated) , filters, tubing, humidifier and lifetime supplies. CSA 327.27 and Ryan-Leach 786.04 albuterol 5 mg/mL Nebu Inhale 0.5 mL as instructed every 4 hours as needed for 7 days. 1 DOSE NOW - BACK OFFICE. PLACE 0.5 ML PER DROPPER AND 2.5 ML OF NORMAL SALINE INTO RESERVOIR. ? No current facility-administered medications for this visit. ? ALLERGIES: Nabeel Inhibitors ? PERSONAL HISTORY: SOCIAL?HISTORY Social History Marital status: Spouse name: Aixa Years of education: Number of children: 3 ? Occupational History Occupation Employer Comment [employer] ? Social History Main Topics Smoking status: Former Smoker Packs/day: 1.00 Years: 21.00 Types: Cigarettes Start date: 01/07/1955 Quit date: 01/08/1976 Smokeless status: Never Used Comment: Age 13 to 31. No smoking in childhood home. Spouse ex-smoker. 12/05/15. TO Alcohol use: No Drug use: No ? FAMILY HISTORY: FAMILY?HISTORY FAMILY HISTORY Problem Relation Age of Onset - Diabetes Mother ? - Hypertension Mother ? - Stroke Mother ? - Alzheimer's Disease Mother ? - Diabetes Father ? - Hypertension Father ? - Alcoholism [OTHER] Father ? - Cancer Brother ? ? ? Lung - MVA [OTHER] Brother ? ? ? Fatal MVA. ? ? REVIEW OF SYMPTOMS: The review of systems data was entered by the nurse and reviewed by me ? There are no exam notes on file for this visit. ? ?? PHYSICAL EXAMINATION: ? General: The patient is 77 year old male, well nourished, well hydrated in no acute distress. The patient is oriented to time, place, and person. ? VITALS: There were no vitals taken for this visit. There is no height or weight on file to calculate BMI. ? HEENT: Normal cephalic, ataumatic, pupils are equally round, sclera are anicteric, mucous membranes are moist, oropharynx is clear. Neck has no masses, asymmetry or lymphadenopathy. Thyroid is unremarkable. ? Respiratory: Clear to auscultation and percussion. Normal respiratory excursion and pattern. ? Cardiac: Examination is regular rate and rhythm. ? Abdominal exam: Soft, nontender, with no palpable masses. No hepatosplenomegaly. No palpable hernias. ? Rectal exam: exam deferred ? Extremities: no clubbing, cyanosis or edema. No adenopathy. ? Other: ? LABORATORY VALUES: As Noted ? RADIOLOGIC STUDIES: As Noted ? Assessment IMPRESSION: encounter for screening colonoscopy. Pneumonia- will require clearance prior to endoscopy ? PLAN: Pending medical maximization, will plan for screening colonoscopy. Would delay this until after he has followed up with pulmonology to ensure pneumonia has resolved. The patient also notes he just had an echocardiogram performed today. Will plan for MAC for his procedure. We discussed the risks and benefits of the planned endoscopy. I have informed the patient that complications can occur including failure to complete the endoscopy and perforation. The patient had the opportunity to ask questions concerning the planned endoscopy. My staff has also explained the procedure to the patient in understandable terms and has given the patient printed material concerning the procedure. The patient freely consents to surgery. ? I plan to use golytely bowel preparation for endoscopy ? The patient may remain on his warfarin per Dr. Villar ? Patient is instructed to follow up with his PCP for instructions regarding his diabetic medications for the clear liquid diet, bowel prep and procedure day ? The patient has medical comorbidities for which I plan to perform the procedure under monitored anesthetic care. ? Patient verbalized understanding of all above and agreed with the plan ? Diagnoses: (Z12.11) Special screening for malignant neoplasms, colon (primary encounter diagnosis) (I48.91) Atrial fibrillation, unspecified type (HCC) (J18.1) Community acquired pneumonia of right lower lobe of lung (HCC) ? My findings have been communicated to Dr. Rivera via shared medical record. This note will be forwarded to Dr. Rocky Rivera MD. ?? Return to Clinic: The patient is instructed to follow-up with me 1 week post operatively. ? I spent 30 minutes in the visit, with more than 50% of the total [id number] time of the visit in counseling / coordination of care. ? Allison Wisdom PA-C ANES PREOP Observed: 11/24/2017 Status: COMPLETED Source: [place] 10:46 AM [facility] OTHER CAMPUS REPOSITORY O ID: [id number] Author: Abdi Henderson Service: Anesthesiology Author Type: Anesthesiologist Type: Anesthesia PreOp Filed: 11/24/2017 10:47 AM Note Text: ANESTHESIOLOGY DAY OF SURGERY NOTE SERVICE DATE: 11/24/2017 SERVICE TIME: 10:46 AM : 1940 Procedure(s) (LRB): COLONOSCOPY (N/A) Surgeon(s): Mary Villar Estimated body mass index is 32.79 kg/(m2) as calculated from the following: Height as of this encounter: 167.6 cm (5' 5.98). Weight as of this encounter: 92.1 kg (203 lb 0.7 oz). Most recent hematocrit and potassium results: Hematocrit Test sent to [facility]. 11/17/2017 Potassium 4.3 10/28/2017 ANES DOS/PREOP NOTE: Vitals: 11/24/17 1027 BP: 103/63 Pulse: 72 Resp: 16 Temp: 36.2 ?C (97.2 ?F) TempSrc: Temporal Artery SpO2: 98% Weight: 92.1 kg (203 lb 0.7 oz) Height: 167.6 cm (5' 5.98) ACTIVE PROBLEM LIST Essential Hypertension Hyperlipidemia Chronic Rhinitis Pad (Peripheral Artery Disease) ([facility]) Viral Warts, Unspecified Benign Neoplasm of Colon Diverticulosis of Colon (Without Mention of Hemorrhage) Internal Hemorrhoids Without Mention of Complication Premature Atrial Beats Atherosclerosis of Aortic Arch ([facility]) DERRICK (obstructive sleep apnea) AHI 36 Dm (Diabetes Mellitus), Type 2, Uncontrolled ([facility]) Atrial Fibrillation ([facility]) [place] Sewer (Current) Use of Anticoagulants Summary Cough With Expectoration Syncope Status Post Placement of Implantable Loop Recorder Type 2 Diabetes Mellitus Without Retinopathy ([facility]) Vitreous Floaters of Both Eyes Tia Due to Embolism ([facility]) Controlled Type 2 Diabetes Mellitus Without Complication, Without Long-Term Current Use of Insulin ([facility]) Combined Forms of Age-Related Cataract of Both Eyes Screening for Colon Cancer Hiatal Hernia Acute Bronchitis With Chronic Obstructive Pulmonary Disease (Copd) ([facility]) Ckd (Chronic Kidney Disease) Stage 3, Gfr 30-59 Ml/Min PAST MEDICAL HISTORY Diagnosis Date - Acute bronchitis with chronic obstructive pulmonary disease (COPD) ([facility]) 12/28/2015 Pulmonlogy managing - Acute diastolic CHF (congestive heart failure) ([facility]) 12/28/2015 - Atrial fibrillation, permanent ([facility]) 11/04/[address] Goldberg - Benign neoplasm of colon - CKD (chronic kidney disease) stage 3, GFR 30-59 ml/min 11/11/2017 - Diverticulosis of colon (without mention of hemorrhage) - Hiatal hernia 10/26/201710/2017 CT chest. 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 75 - Diabetes Father - Hypertension Father - Alcoholism [OTHER] Father D. 57 - Cancer Brother Lung D.68 yo - MVA [OTHER] Brother Fatal MVA. D. 17 Social History: Social History Substance Use Topics - Smoking status: Former Smoker Packs/day: 0.50 Years: 10.00 Types: Cigarettes Start date: 01/07/1955 Quit date: 01/08/1976 - Smokeless tobacco: Never Used Comment: Age 13 to 31. No smoking in childhood home. Spouse ex-smoker. 12/05/15. TO - Alcohol use No No current facility-administered medications on file prior to encounter. Current Outpatient Prescriptions on File Prior to Encounter: fluticasone (FLONASE) 50 mcg/actuation nasal spray Use 1 Wideman in each nostril daily at bedtime. warfarin (COUMADIN) 5 mg tablet hold his coumadin for next 3 days and take 1/2 of normal dose on Wednesday 10/11. To return on 10/12 for recheck INR. all other days albuterol HFA (VENTOLIN HFA) 90 mcg/actuation inhaler Inhale 2 Puffs as instructed every 4 hours as needed. metoprolol tartrate, short acting, (LOPRESSOR) 100 mg tablet Take 2 tablets by mouth twice daily. rosuvastatin (CRESTOR) 40 mg tablet Take 20 mg by mouth once daily. insulin glargine (LANTUS SOLOSTAR) 100 unit/mL (3 mL) inpn Inject 30 Units subcutaneously once daily. (Patient taking differently: Inject 40 Units subcutaneously once daily.) Insulin Lispro, Human, (HUMALOG KWIKPEN) 100 unit/mL inpn Inject 5 units if sugar <200 at bedtime or 10 units if >200. liraglutide (VICTOZA) 0.6 mg/0.1 mL (18 mg/3 mL) pnij Inject 1.2 mg subcutaneously once daily. DX: E11.65 therapeutic multivitamin w/ iron (THERAGRAN-M) 9 mg iron-400 mcg tablet Take 1 tablet by mouth once daily. albuterol 5 mg/mL Nebu Inhale 0.5 mL as instructed every 4 hours as needed for 7 days. 1 DOSE NOW - BACK OFFICE. PLACE 0.5 ML PER DROPPER AND 2.5 ML OF NORMAL SALINE INTO RESERVOIR. insulin lispro (HUMALOG) 100 unit/mL injection Inject 10 Units subcutaneously daily at bedtime. spironolactone (ALDACTONE) 25 mg tablet Take 1 tablet by mouth once daily. blood sugar diagnostic (ONETOUCH ULTRA TEST) test strip Use as instructed to check glucose 4 times daily. Dx: insulin dependent type II diabetic. Insulin Alsip, Disposable, (NOVOFINE 32) 32 gauge x 1/4 ndle 1 Each four times daily as needed. Use for Victoza and insulin injections 4 times daily. DX: E11.65 Blood-Glucose Meter (ONETOUCH ULTRA2) monitoring kit 1 Each as needed. One Touch Meter Kit Diagnosis: Type 2 DM - Uncontrolled E11.65 COMPOUNDED PRESCRIPTION insulin syringes 0.3 31 g 5/16 needle CPAP ASV machine. Initiate @ EEP14, Min ps. 3 Max ps 15, cm of water with humidification. Auto rate. Mask (per patient preference) optional chin strap (if indicated) , filters, tubing, humidifier and lifetime supplies. CSA 327.27 and Ryan-Leach 786.04 Current Facility-Administered Medications: NaCl 0.9% iv infusion 30 mL/hr INTRAVENOUS CONTINUOUS Mary Villar Allergies: ALLERGIES Allergen Reactions - Nabeel Inhibitors Cough DOS EXAM: Adequate NPO status: has protein shake at 6 Anesthetic risks, benefits, alternatives, personnel and consent discussed: Yes Patient agrees to proceed: Yes Previous Anesthesia: No history of adverse event. Airway Assessment: MP 2; Neck ROM: Full ROM without neurologic symptoms; Airway Evaluation: No significant abnormalities Symptoms of Sleep Apnea: None Dentition: Teeth intact Additional Physical Exam: Lungs: Patient health status unchanged since recent history and physical. See history and physical for exam findings. Cardiac: Patient health status unchanged since recent history and physical. See history and physical for exam findings. Additional Pertinent Findings: N/A Blood Products: Not anticipated for this procedure. Anesthetic Plan: General, Standard ASA Monitors/ MAC Pain Management Plan: Parenteral or Oral ASA Class: 3 Other Medical Problems: None I have interviewed and examined the patient. I have reviewed the medical record and/or the pre-anesthesia evaluation, pertinent labs, and test results. Significant changes in the patient's condition since the History and Physical, not otherwise documented in primary service progress notes: No This contains updated information obtained within 48 hours of Surgery/Procedure. SIGNATURE: Abdi Henderson MD PATIENT NAME: Alia Trejo DATE: November 24, 2017 TIME: 10:46 AM CSN: [id number] NURSING PROG Observed: 11/24/2017 Status: COMPLETED Source: [place] 10:12 AM [facility] REPOSITORY HNO ID: [id number] Author: Lauren Saldivar) YEMI Presley Service: Nursing Author Type: Registered Nurse Type: Nursing Progress Note Filed: 11/24/2017 11:02 AM Note Text: 1012 pt to ASCU. AANDOx3. BAUER TCx4. Denies pain. PIV started. BS 62. Pt states drinking 8oz Protein shake @ 0600, Dr. Henderson updated on BS AND drinking, states procedure will be delayed. Endo aware AND pt aware. VSS no s/sx of distress. 1045 pt ready for Endo, family @ BS. XR CHEST 2V FRONTAL/LAT Observed: 11/17/2017 Status: F Source: [place] 1:08 PM [facility] REPOSITORY * * *Final Report* * * DATE OF EXAM: Nov 17 2017 1:08PM WOX [id number] - XR CHEST 2V FRONTAL/LAT / PROCEDURE REASON: Cough * * * * Physician Interpretation * * * * EXAMINATION: CHEST RADIOGRAPH (2 VIEW FRONTAL and LATERAL) Clinical History: Cough M: XC2_4 Comparison: 10/09/2017 RESULT: Lines, tubes, and devices: None. Lungs and pleura: When compared to the prior examination there has been clearing of the previously noted infiltrate within the right lower lobe. Both lungs are now expanded and clear. Calcified granulomas again identified within the left lower lobe. There is no evidence of pleural effusion or pneumothorax. Cardiomediastinal silhouette: Normal cardiomediastinal silhouette. The thoracic aorta is tortuous and contains atherosclerotic calcification. Other: There is diffuse osteopenia and mild multilevel degenerative disc disease present within the thoracic spine. IMPRESSION: INTERVAL CLEARING OF THE PREVIOUSLY NOTED RIGHT LOWER LOBE INFILTRATE. [employer] Laboratory Technician: [facility] Transcribe Date/Time: Nov 17 2017 3:40P Dictated by : SHELBI REBOLLAR MD This examination was interpreted and the report reviewed and electronically signed by: SHELBI REBOLLAR MD on Nov 17 2017 3:43PM EST [id number] CBC AND DIFFERENTIAL Collected: 11/17/2017 Status: F Source: [place] 1:06 PM [facility] REPOSITORY TYPE CODE TESTS RESULT OUT OF REFERENCE UNITS RANGE LAB WBC 3.70-11.00 k/uL Test WBC sent to [facility]. Result Comment: Account Credited HIDE LAB RBC 4.20-6.00 m/uL Test sent RBC to [facility]. Result Comment: Account Credited HIDE LAB HGB 13.0-17.0 g/dL Hemoglobin Test sent to [facility]. Result Comment: Account Credited HIDE LAB HCT 39.0-51.0 % Hematocrit Test sent to [facility]. Result Comment: Account Credited HIDE LAB MCV 80.0-100.0 fL Test sent MCV to [facility]. Result Comment: Account Credited HIDE LAB MCH 26.0-34.0 pG Test sent MCH to [facility]. Result Comment: Account Credited HIDE LAB MCHC 30.5-36.0 g/dL Test MCHC sent to [facility]. Result Comment: Account Credited HIDE LAB RDWCV 11.5-15.0 % Test RDW-CV sent to [facility]. Result Comment: Account Credited HIDE LAB PLTCT 150-400 k/uL Test Platelet Count sent to [facility]. Result Comment: Account Credited HIDE LAB MPV 9.0-12.7 fL Test sent MPV to [facility]. Result Comment: Account Credited HIDE LAB DAYANA Recheck Test sent to [facility]. Result Comment: Account Credited HIDE LAB [facility]EUT [facility] Result Comment: Account Credited HIDE LAB AANEUT 1.45-7.50 k/uL Test Abs sent to [facility]. Result Comment: Account Credited HIDE LAB ALYMP % [facility] Result Comment: Account Credited HIDE LAB AALYMP 1.00-4.00 k/uL Test Abs Lymph sent to [facility]. Result Comment: Account Credited HIDE LAB AMONO % Test sent to Crockett% [facility]. Result Comment: Account Credited HIDE LAB AAMONO <0.87 k/uL Test sent Abs Crockett to [facility]. Result Comment: Account Credited HIDE LAB AEOS % Test sent to Eosin% [facility]. Result Comment: Account Credited HIDE LAB AAEOS <0.46 k/uL Test sent Abs Eosin to [facility]. Result Comment: Account Credited HIDE LAB ABASO % Test sent to Baso% [facility]. Result Comment: Account Credited HIDE LAB AABASO <0.11 k/uL Test sent Abs Baso to [facility]. Result Comment: Account Credited BETTY LAB REVW Test sent to Review [facility]. Result Comment: Account Credited BETTY LAB CBCCOM Comment Test sent to [facility]. Result Comment: Account Credited BETTY NT PRO BNP Collected: 11/17/2017 Status: F Source: [place] 1:06 PM [facility] [place] REPOSITORY TYPE CODE TESTS RESULT OUT OF REFERENCE UNITS RANGE LAB PBNP <450 pg/mL Test PRO B Natr sent to [facility]. Result Comment: Account Credited BETTY CBC W/DIFF, AUTOMATED Collected: 11/17/2017 Status: F Source: [place] 1:04 PM [facility] REPOSITORY TYPE CODE TESTS RESULT OUT OF RANGE REFERENCE UNITS LAB L100.1000 4.4-11.0 K/mm3 Normal WBC 5.9 LAB L100.1200 4.6-6.2 M/mm3 Low RBC 4.43 LAB L100.1300 13.0-16.5 g/dl Normal HGB 13.9 LAB L100.1400 40-54 % Normal HCT 42.3 LAB L100.1500 80-94 fL High MCV 95.5 LAB L100.1600 27.0-32.0 pg Normal MCH 31.4 LAB L100.1700 32-36 g/gl Normal MCHC 32.9 LAB L100.1810 11.6-14.6 % Normal RDW CV 13.6 LAB L100.1820 35.1-43.9 fl High RDW SD 46.2 LAB L100.1900 150-450 K/mm3 Normal PLT 175 LAB L100.2000 6.2-12.0 fl Normal MPV 11.3 LAB L100.2100 47-70 % High NEUT% 72.0 LAB L100.2200 19-41 % Low LY% 9.8 LAB L100.2300 0-10 % High MONO% 15.3 LAB L100.2400 0-5 % Normal EO% 2.4 LAB L100.2500 0-1 % Normal BASO% 0.2 LAB L100.2550 0.0-0.9 % Normal IM GRAN % 0.300 Result Comment: IG% - Immature Granulocytes (promyelocytes, myelocytes and metamyelocytes) > 1% indicates that a LEFT SHIFT is Present. LAB L100.2620 2.0-7.7 X10 3/uL Normal Absolute Neut 4.3 LAB L100.2720 0.83-4.51 X10 3/ul Low Absolute Lymph 0.58 LAB L100.5500 ADEQ Normal PLT EST ADEQUATE LAB L100.5650 Normal PLT MORPH CLUMPED Performed By: #### L100.0100 #### [facility] [address] [place], [address] BNP,B-TYPE NATRIURETIC Collected: 11/17/2017 Status: F Source: [place] 1:04 PM [facility] REPOSITORY TYPE CODE TESTS RESULT OUT OF RANGE REFERENCE UNITS LAB L503.6620 0-100 pg/mL High B-TYPE 278.2 UNIQUE PEP Performed By: #### L503.6620 #### [facility] [address] [place], [address] PROGRESS Observed: 11/17/2017 Status: COMPLETED Source: [place] 12:59 PM [facility] REPOSITORY HNO ID: [id number] Author: Leatha Ko Service: (none) Author Type: (none) Type: Progress Notes Filed: 11/17/2017 1:08 PM Note Text: Radiology Service Progress Note PATIENT NAME: Alia Trejo DATE OF SERVICE: November 17, 2017 TIME: 12:59 PM PATIENT IDENTITY VERIFICATION COMPLETED USING TWO (2) METHODS: Patient confirmed name verbally and Date of . PATIENT GENDER DATA: Male PATIENT RELEVANT IMPLANT DATA REVIEWED: Not Applicable RADIOLOGY DEPARTMENT: General X-ray: Exam(s) Completed: Chest X-Ray PERIPHERAL IV DATA: Not applicable SIGNED BY: Leatha Ko November 17, 2017 12:59 PM PROGRESS Observed: 11/16/2017 Status: COMPLETED Source: [place] 1:36 PM [facility] [place] REPOSITORY HNO ID: [id number] Author: Zakia Rutledge Ma Service: (none) Author Type: (none) Type: Progress Notes Filed: 11/16/2017 1:37 PM Note Text: Patient notified of results, verbalizes understanding of instructions. Tracker updated. Patient refused to reschedule for 4 week recheck wants to keep 2 week recheck. PROGRESS Observed: 11/16/2017 Status: COMPLETED Source: [place] 11:53 AM [facility] [place] REPOSITORY HNO ID: [id number] Author: Rocky Olea) Miguel Service: (none) Author Type: Physician Type: Progress Notes Filed: 11/16/2017 11:53 AM Note Text: INR therapeutic. Continue current coumadin dosage and follow up in 4 weeks. PROGRESS Observed: 11/16/2017 Status: COMPLETED Source: [place] 11:48 AM [facility] REPOSITORY HNO ID: [id number] Author: Roseline Gurrola RN Service: (none) Author Type: (none) Type: Progress Notes Filed: 11/16/2017 11:50 AM Note Text: patient had inr completed at [facility] patients inr is 2.2 (patients inr range is 2.0-3.0) patient is currently taking 5mg Wed,Sat and 2.5mg all other days patients last dose change was on 11/09/17 due to a low level of 1.5 (dose at that time was 2.5mg daily) patient has had no changes in medication except for the coumadin and no change in diet FYI - a new anticoag flowsheet has to be created in [employer] due to other episode report got closed. Advised patient to continue on the same dose(s) and that they would only be contacted regarding dosage and follow up instructions after review with provider, if a change is needed. Written instructions given and patient verbalized understanding. Presently scheduled in 2 weeks (12/01/17) for follow up INR. NURSING PROG Observed: 11/12/2017 Status: COMPLETED Source: [place] 8:10 AM [facility] REPOSITORY HNO ID: [id number] Author: Aure AugutseRn) YEMI Donaldson Service: (none) Author Type: Registered Nurse Type: Nursing Progress Note Filed: 11/12/2017 8:18 AM Note Text: PACC Nurse Progress Note History AND Physical: PACC Visit Date: 11/11/2017 Labs Within Last 6 Months: 10/28/2017 CMP (BUN 25, creatinine 1.52) - H/O CKD stage III CBC HGB A1C (7.5) - known diabetic Labs reviewed and within acceptable limits per anesthesia guidelines. Imaging Within Last 12 Months: N/A Cardiac Testing: EKG in last 12 Months: Yes: Date: 09/16/2017, Comment: in epic ECHO Date: 10/19/2017, Comment: EF 54%, RVSP 33 Device:Medtronic Loop Recorder, Comment: last check 10/27/2017 in epic Risk Assessment: No new consults ordered. Anesthesia Review: PACC Provider sent e-mail requesting review due to patient's health history. Await response. Narrative: N/A Pre-op Considerations: A-fib, anticoagulated on Coumadin. Not stopping for procedure. Loop recorder Diabetic CKD stage III DERRICK on CPAP COPD uses inhaler Difficult IV access Chart Check: IN PROGRESS Aure Donaldson RN November 12, 2017 8:10 AM HISTORY PHYSICAL Observed: 11/11/2017 Status: COMPLETED Source: [place] 11:28 AM CLINIC OTHER CAMPUS REPOSITORY HNO ID: [id number] Author: Radha Velásquez) PINKY Mcclellan Service: (none) Author Type: Nurse Practitioner Type: HANDP Filed: 11/16/2017 9:56 AM Note Text: HISTORY AND PHYSICAL EXAMINATION SERVICE DATE: 11/11/2017 SERVICE TIME: 11:29 AM PRIMARY CARE PHYSICIAN: Rocky Rivera MD REASON FOR VISIT: Alia Trejo is a 77 year old male who is scheduled for colonoscopy at the request of Dr. Mary Villar for consultation. My final recommendation will be communicated back to the requesting physician by way of shared medical record or letter. The patient has the following: ACTIVE PROBLEM LIST Essential Hypertension Hyperlipidemia Chronic Rhinitis Pad (Peripheral Artery Disease) (Hcc) Viral Warts, Unspecified Benign Neoplasm of Colon Diverticulosis of Colon (Without Mention of Hemorrhage) Internal Hemorrhoids Without Mention of Complication Premature Atrial Beats Atherosclerosis of Aortic Arch (Hcc) DERRICK (obstructive sleep apnea) AHI 36 Dm (Diabetes Mellitus), Type 2, Uncontrolled (Hcc) Atrial Fibrillation (Hcc) [place]er (Current) Use of Anticoagulants Summary Cough With Expectoration Syncope Status Post Placement of Implantable Loop Recorder Type 2 Diabetes Mellitus Without Retinopathy (Hcc) 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 Last scope was in 2006; a single polyp, diverticula and some internal hemorrhoids were found. Denies current abdominal pain, nausea, vomiting, constipation or diarrhea. No blood in the stool. No changes in appetite. No history of IBS, crohn's disease or diverticulitis. No known liver disease. Does not drink alcohol. PAST MEDICAL HISTORY Diagnosis Date - Acute bronchitis with chronic obstructive pulmonary disease (COPD) ([facility]) 12/28/2015 Pulmonlogy managing - Acute diastolic CHF (congestive heart failure) ([facility]) 12/28/2015 - Atrial fibrillation, permanent ([facility]) 11/04/[address] Goldberg - Benign neoplasm of colon - CKD (chronic kidney disease) stage 3, GFR 30-59 ml/min 11/11/2017 - Diverticulosis of colon (without mention of hemorrhage) - Hiatal hernia 10/26/201710/2017 CT chest. 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 75 - Diabetes Father - Hypertension Father - Alcoholism [OTHER] Father D. 57 - Cancer Brother Lung D.68 yo - MVA [OTHER] Brother Fatal MVA. D. 17 SOCIAL HISTORY: Social History Marital status: Spouse name: Aixa Years of education: Number of children: 3 Occupational History Occupation Employer Comment [employer] Social History Main Topics Smoking status: Former Smoker Packs/day: 0.50 Years: 10.00 Types: Cigarettes Start date: 01/07/1955 Quit date: 01/08/1976 Smokeless status: Never Used Comment: Age 13 to 31. No smoking in childhood home. Spouse ex-smoker. 12/05/15. TO Alcohol use: No Drug use: No MEDICATIONS: Prior to Admission medications as of 11/11/17 1144 Medication Sig Last Dose Taking furosemide (LASIX) 40 mg tablet Take 1 tablet by mouth twice daily. Yes fluticasone (FLONASE) 50 mcg/actuation nasal spray Use 1 Wideman in each nostril daily at bedtime. Yes warfarin (COUMADIN) 5 mg tablet hold his coumadin for next 3 days and take 1/2 of normal dose on Wednesday 10/11. To return on 10/12 for recheck INR. all other days Yes insulin lispro (HUMALOG) 100 unit/mL injection Inject 10 Units subcutaneously daily at bedtime. Yes metoprolol tartrate, short acting, (LOPRESSOR) 100 mg tablet Take 2 tablets by mouth twice daily. Yes spironolactone (ALDACTONE) 25 mg tablet Take 1 tablet by mouth once daily. Yes rosuvastatin (CRESTOR) 40 mg tablet Take 20 mg by mouth once daily. Yes blood sugar diagnostic (ONETOUCH ULTRA TEST) test strip Use as instructed to check glucose 4 times daily. Dx: insulin dependent type II diabetic. Yes Insulin Alsip, Disposable, (NOVOFINE 32) 32 gauge x 1/4 ndle 1 Each four times daily as needed. Use for Victoza and insulin injections 4 times daily. DX: E11.65 Yes insulin glargine (LANTUS SOLOSTAR) 100 unit/mL (3 mL) inpn Inject 30 Units subcutaneously once daily. Patient taking differently: Inject 40 Units subcutaneously once daily. Yes Insulin Lispro, Human, (HUMALOG KWIKPEN) 100 unit/mL inpn Inject 5 units if sugar <200 at bedtime or 10 units if >200. Yes Blood-Glucose Meter (ONETOUCH ULTRA2) monitoring kit 1 Each as needed. One Touch Meter Kit Diagnosis: Type 2 DM - Uncontrolled E11.65 Yes liraglutide (VICTOZA) 0.6 mg/0.1 mL (18 mg/3 mL) pnij Inject 1.2 mg subcutaneously once daily. DX: E11.65 Yes therapeutic multivitamin w/ iron (THERAGRAN-M) 9 mg iron-400 mcg tablet Take 1 tablet by mouth once daily. Yes COMPOUNDED PRESCRIPTION insulin syringes 0.3 31 g 16 needle Yes CPAP ASV machine. Initiate @ EEP14, Min ps. 3 Max ps 15, cm of water with humidification. Auto rate. Mask (per patient preference) optional chin strap (if indicated) , filters, tubing, humidifier and lifetime supplies. CSA 327.27 and Ryan-Leach 786.04 Yes albuterol HFA (VENTOLIN HFA) 90 mcg/actuation inhaler Inhale 2 Puffs as instructed every 4 hours as needed. albuterol 5 mg/mL Nebu Inhale 0.5 mL as instructed every 4 hours as needed for 7 days. 1 DOSE NOW - BACK OFFICE. PLACE 0.5 ML PER DROPPER AND 2.5 ML OF NORMAL SALINE INTO RESERVOIR. No medication comments found. CURRENT ALLERGIES: ALLERGIES Allergen Reactions - Nabeel Inhibitors Cough REVIEW OF SYSTEMS: PAIN ASSESSMENT: General: No weight loss, malaise or fevers. Neuro: Postive for H/O TIA ? 12/2016 - episode of right facial drooping. Most likely secondary to AFIB. Denies major strokes, seizures, impaired sensorium or headaches. Respiratory: Positive for Current cough - productive, clear. Sinus drainage. (+) DERRICK using CPAP. (+) Recent pneumonia 10/09/2017 - CAP; prescribed ABX but didn't take. Last chest CT was clear of pneumonia (10/2017). Denies history of asthma or COPD. Denies SOB with activity. Cardiovascular: Positive for: Hypertension on Rx. (+) HLD on Rx. (+) AFIB - on Coumadin; persistent. Denies palpitations. (+) Lightheaded/dizziness occasionally. (+) H/O syncopal episodes - last was 2015. States no one can figure out why they are happening. Had loop recorder implanted at that time. (+) Suspected CHF - will see Dr. Goldberg on 11/30. (+) PAD - recent PVR done; patient has no interest in vascular consult at this time. Denies CP, PA, DVT, PE or CAD. ECHO (10/2017) CONCLUSIONS: - Technically difficult exam due to body habitus. - Exam indication: Atrial fibrillation - The left ventricle is normal in size. Left ventricular systolic function is normal. EF = 54 ? 5% (2D 4-ch.) - The right ventricle is normal in size. Right ventricular systolic function is mildly decreased. - The left atrial cavity is moderately dilated. - The right atrial cavity is mildly dilated. - Mild (1-2+) tricuspid regurgitation. - Exam was compared with the prior echocardiographic exam performed on 10/29/2011. TR more prominent on today' study. Otherwise, similar results. GI: See HPI. : Positive for frequency and urgency; incontinence frequently throughout the day. (+) Nighttime frequency - up at least once. (+) CKD stage 3. Denies pain or burning with urination; no recent UTIs. No hematuria. No history of kidney stones or renal disease. Endocrine: Diabetes Mellitus on insulin and injectable (Victoza). Denies history of thyroid disease. Hematology: Easy bruising / bleeding, Chronic anti-coagulation / platelet meds (Coumadin). Denies anemia or bleeding/clotting disorders. 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 Psych: No history of psychiatric symptoms or problems. Musculoskeletal: Swelling on BLE - Lasix recently increased and doing much better. Denies joint pain. Skin: Negative for lesions, rash and itching. Objective PHYSICAL EXAM: VITALS: BP 126/71 Pulse 64 Temp (Src) 97.4 (Tympanic) Resp 16 Ht 5' 6 (1.68m) Wt 203 lb (92.1kg) SpO2 98% BMI 32.78 kg/(m2). General: Alert and oriented, No acute distress, Obese Skin: Normal color, no rash, no lesions. HEENT: Pupils equal, round and reactive., No carotid bruits Cardiovascular: Pulse irregular. Heart sounds distant. Lungs: Normal breath sounds, no wheezes or crackles., No chest deformities or chest wall tenderness. Abdomen: Soft, non-tender, no rigidity., No masses or organomegaly., Positive bowel sounds Extremities: BLE edema, non-pitting, +1. Compression stockings on. Neurological: Normal cognition and motor skills. Pulses: Carotid pulses; left 2+ / right 2+. Radial pulses; left 1+ / right 1+. Diagnostic tests reviewed for today's visit: Lab Value Units Date High Low HB 14.5 g/dL 10/28/2017 17.0 13.0 HCT 46.0 % 10/28/2017 51.0 39.0 WBC 6.43 k/uL 10/28/2017 11.00 3.70 PLT 267 k/uL 10/28/2017 400 150 NA 140 mmol/L 10/28/2017 144 136 K 4.3 mmol/L 10/28/2017 5.1 3.7 GLUC 120 mg/dL 10/28/2017 99 74 BUN 25 mg/dL 10/28/2017 24 9 CREAT 1.52 mg/dL 10/28/2017 1.22 0.73 PTSEC Test s* sec 10/07/2017 13.0 9.7 INR 1.5 no uni* 11/09/2017 INR Test s* no uni* 10/07/2017 1.3 0.9 APTT No results within date range. ALT 43 U/L 10/28/2017 54 10 AST 44 U/L 10/28/2017 40 14 TBILI 0.6 mg/dL 10/28/2017 1.3 0.2 TSH No results within date range. Lab Value Units Date High Low HCGQT No results within date range. UHCG No results within date range. HCG, BODY* No results within date range. Lab Value Units Date High Low ABORHD No results within date range. ABSCREEN No results within date range. Hemoglobin A1C (%) Date Value 10/28/2017 7.5 01/07/2017 7.0 07/15/2016 7.3 10/28/2015 7.4 07/11/2015 7.7 Hemoglobin A1c (%) Date Value 03/20/2016 8.2 Most recent labs Most recent imaging Most recent EKG Most recent Echo Most recent PFT's All in Epic Assessment ASSESSMENT Atrial Fibrillation - Is Anticoagulated with Coumadin; Persistent. Follows with Dr. Goldberg. Diabetes - last A1C - 7.5 (10/2017); on Victoza and Insulin. HTN - Well controlled on Rx Hyperlipidemia on Rx DERRICK - Patient is using CPAP/BIPAP. Advised to bring CPAP/BIPAP machine to hospital. CKD stage 3 - last BUN - 25, Cr. - 1.25 AND GFR - 45 (10/2017) CHF (? Possible) - increased BNP, dilated atrial cavity, BLE edema PAD - recent PVR done H/O suspected TIA 12/2016 secondary to AFIB H/O unexplained syncopal episodes - loop recorder implanted; last episode in 2015. Recent pneumonia - 10/09/2018; did not take prescribed ABX. Recent CT 10/2017 clear. Difficult IV access METS: Climb a flight of stairs or walk up a hill (5.50 METs) Patient denies any chest pain or undue shortness of breath with the above physical activity. ASA Class: 3 ANESTHESIA FINDINGS: Intubation History: No history of difficult intubation Significant Anesthesia Considerations: Difficult IV/Vein Access: - multiple sticks, states they need a machine to find a vein. Airway Exam: General: Obese Mallampati Score is CLASS II ULBT: Class II - Lower incisors can bite the upper lip below the chelsea line Neck: Normal appearance and function, Distance from hyoid to mentum during neck extension is at least 3 finger breaths Mouth: Normal tongue size and Mouth opening greater than 2 finger breaths Dentition: Partial upper denture. Airway History: No abnormal airway history STOP BANG Score: DERRICK uses CPAP/BiPAP PLAN This patient is optimally prepared for surgery pending ANESTHESIA CLEARANCE. Patient OK to continue Coumadin per Dr. Villar (noted 10/19/2017 in OV) CONSULTS: E-mail sent to anesthesia regarding patient's health history. Dr. Henderson aware - as long as functional capacity is OK, patient may proceed as colonoscopy is minimal risk procedure. The Following Tests/Procedures Have Been Initiated: Labs not indicated per PACC protocol, EKG not indicated per PACC protocol Planned Anesthetic: MAC Instructions Given to Patient: Patient given verbal and written preop instructions and voices comprehension and compliance. SIGNATURE: Radha Mcclellan CNP PATIENT NAME: Alia Trejo DATE: November 11, 2017 TIME: 11:28 AM PAGER/CONTACT #: DELISA Observed: 11/11/2017 Status: COMPLETED Source: [place] 11:20 AM [facility] REPOSITORY PAT (PREANME) ALIA TREJO ([id number]) 1940 M Date Time Provider Department 11/11/17 11:20 AM [facility] 2 PREANME During your visit today, we recorded the following information about you: Temperature Pulse Respiration Blood pressure 97.4 degrees 64/minute 16/minute 126/71 Weight Height 92.1 kg 1.676 m Radha Mcclellan CNP, CNP 11/16/2017 9:56 AM Addendum HISTORY AND PHYSICAL EXAMINATION SERVICE DATE: 11/11/2017 SERVICE TIME: 11:29 AM PRIMARY CARE PHYSICIAN: Rocky Rivera MD REASON FOR VISIT: Alia Trejo is a 77 year old male who is scheduled for colonoscopy at the request of Dr. Mary Villar for consultation. My final recommendation will be communicated back to the requesting physician by way of shared medical record or letter. The patient has the following: ACTIVE PROBLEM LIST Essential Hypertension Hyperlipidemia Chronic Rhinitis Pad (Peripheral Artery Disease) (Former[facility]) Viral Warts, Unspecified Benign Neoplasm of Colon Diverticulosis of Colon (Without Mention of Hemorrhage) Internal Hemorrhoids Without Mention of Complication Premature Atrial Beats Atherosclerosis of Aortic Arch (Hcc) DERRICK (obstructive sleep apnea) AHI 36 Dm (Diabetes Mellitus), Type 2, Uncontrolled (Hcc) Atrial Fibrillation (Hcc) [place] (Current) Use of Anticoagulants Summary Cough With Expectoration Syncope Status Post Placement of Implantable Loop Recorder Type 2 Diabetes Mellitus Without Retinopathy (Hcc) 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 Last scope was in 2006; a single polyp, diverticula and some internal hemorrhoids were found. Denies current abdominal pain, nausea, vomiting, constipation or diarrhea. No blood in the stool. No changes in appetite. No history of IBS, crohn's disease or diverticulitis. No known liver disease. Does not drink alcohol. PAST MEDICAL HISTORY Diagnosis Date - Acute bronchitis with chronic obstructive pulmonary disease (COPD) ([facility]) 12/28/2015 Pulmonlogy managing - Acute diastolic CHF (congestive heart failure) ([facility]) 12/28/2015 - Atrial fibrillation, permanent ([facility]) 11/04/[address] Goldberg - Benign neoplasm of colon - CKD (chronic kidney disease) stage 3, GFR 30-59 ml/min 11/11/2017 - Diverticulosis of colon (without mention of hemorrhage) - Hiatal hernia 10/26/201710/2017 CT chest. 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 75 - Diabetes Father - Hypertension Father - Alcoholism [OTHER] Father D. 57 - Cancer Brother Lung D.68 yo - MVA [OTHER] Brother Fatal MVA. D. 17 SOCIAL HISTORY: Social History Marital status: Spouse name: Aixa Years of education: Number of children: 3 Occupational History Occupation Employer Comment [employer] Social History Main Topics Smoking status: Former Smoker Packs/day: 0.50 Years: 10.00 Types: Cigarettes Start date: 01/07/1955 Quit date: 01/08/1976 Smokeless status: Never Used Comment: Age 13 to 31. No smoking in childhood home. Spouse ex-smoker. 12/05/15. TO Alcohol use: No Drug use: No MEDICATIONS: Prior to Admission medications as of 11/11/17 1144 Medication Sig Last Dose Taking furosemide (LASIX) 40 mg tablet Take 1 tablet by mouth twice daily. Yes fluticasone (FLONASE) 50 mcg/actuation nasal spray Use 1 Wideman in each nostril daily at bedtime. Yes warfarin (COUMADIN) 5 mg tablet hold his coumadin for next 3 days and take 1/2 of normal dose on Wednesday 10/11. To return on 10/12 for recheck INR. all other days Yes insulin lispro (HUMALOG) 100 unit/mL injection Inject 10 Units subcutaneously daily at bedtime. Yes metoprolol tartrate, short acting, (LOPRESSOR) 100 mg tablet Take 2 tablets by mouth twice daily. Yes spironolactone (ALDACTONE) 25 mg tablet Take 1 tablet by mouth once daily. Yes rosuvastatin (CRESTOR) 40 mg tablet Take 20 mg by mouth once daily. Yes blood sugar diagnostic (ONETOUCH ULTRA TEST) test strip Use as instructed to check glucose 4 times daily. Dx: insulin dependent type II diabetic. Yes Insulin Alsip, Disposable, (NOVOFINE 32) 32 gauge x 1/4ANDquot; ndle 1 Each four times daily as needed. Use for Victoza and insulin injections 4 times daily. DX: E11.65 Yes insulin glargine (LANTUS SOLOSTAR) 100 unit/mL (3 mL) inpn Inject 30 Units subcutaneously once daily. Patient taking differently: Inject 40 Units subcutaneously once daily. Yes Insulin Lispro, Human, (HUMALOG KWIKPEN) 100 unit/mL inpn Inject 5 units if sugar ANDlt;200 at bedtime or 10 units if ANDgt;200. Yes Blood-Glucose Meter (ONETOUCH ULTRA2) monitoring kit 1 Each as needed. One Touch Meter Kit Diagnosis: Type 2 DM - Uncontrolled E11.65 Yes liraglutide (VICTOZA) 0.6 mg/0.1 mL (18 mg/3 mL) pnij Inject 1.2 mg subcutaneously once daily. DX: E11.65 Yes therapeutic multivitamin w/ iron (THERAGRAN-M) 9 mg iron-400 mcg tablet Take 1 tablet by mouth once daily. Yes COMPOUNDED PRESCRIPTION insulin syringes 0.3 31 g 5/16 needle Yes CPAP ASV machine. Initiate @ EEP14, Min ps. 3 Max ps 15, cm of water with humidification. Auto rate. Mask (per patient preference) optional chin strap (if indicated) , filters, tubing, humidifier and lifetime supplies. CSA 327.27 and Ryan-Leach 786.04 Yes albuterol HFA (VENTOLIN HFA) 90 mcg/actuation inhaler Inhale 2 Puffs as instructed every 4 hours as needed. albuterol 5 mg/mL Nebu Inhale 0.5 mL as instructed every 4 hours as needed for 7 days. 1 DOSE NOW - BACK OFFICE. PLACE 0.5 ML PER DROPPER AND 2.5 ML OF NORMAL SALINE INTO RESERVOIR. No medication comments found. CURRENT ALLERGIES: ALLERGIES Allergen Reactions - Nabeel Inhibitors Cough REVIEW OF SYSTEMS: PAIN ASSESSMENT: General: No weight loss, malaise or fevers. Neuro: Postive for H/O TIA ? 12/2016 - episode of right facial drooping. Most likely secondary to AFIB. Denies major strokes, seizures, impaired sensorium or headaches. Respiratory: Positive for Current cough - productive, clear. Sinus drainage. (+) DERRICK using CPAP. (+) Recent pneumonia 10/09/2017 - CAP; prescribed ABX but didn't take. Last chest CT was clear of pneumonia (10/2017). Denies history of asthma or COPD. Denies SOB with activity. Cardiovascular: Positive for: Hypertension on Rx. (+) HLD on Rx. (+) AFIB - on Coumadin; persistent. Denies palpitations. (+) Lightheaded/dizziness occasionally. (+) H/O syncopal episodes - last was 2015. States no one can figure out why they are happening. Had loop recorder implanted at that time. (+) Suspected CHF - will see Dr. Goldberg on 11/30. (+) PAD - recent PVR done; patient has no interest in vascular consult at this time. Denies CP, PA, DVT, PE or CAD. ECHO (10/2017) CONCLUSIONS: - Technically difficult exam due to body habitus. - Exam indication: Atrial fibrillation - The left ventricle is normal in size. Left ventricular systolic function is normal. EF = 54 ? 5% (2D 4-ch.) - The right ventricle is normal in size. Right ventricular systolic function is mildly decreased. - The left atrial cavity is moderately dilated. - The right atrial cavity is mildly dilated. - Mild (1-2+) tricuspid regurgitation. - Exam was compared with the prior CC echocardiographic exam performed on 10/29/2011. TR more prominent on today' study. Otherwise, similar results. GI: See HPI. : Positive for frequency and urgency; incontinence frequently throughout the day. (+) Nighttime frequency - up at least once. (+) CKD stage 3. Denies pain or burning with urination; no recent UTIs. No hematuria. No history of kidney stones or renal disease. Endocrine: Diabetes Mellitus on insulin and injectable (Victoza). Denies history of thyroid disease. Hematology: Easy bruising / bleeding, Chronic anti-coagulation / platelet meds (Coumadin). Denies anemia or bleeding/clotting disorders. 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 Psych: No history of psychiatric symptoms or problems. Musculoskeletal: Swelling on BLE - Lasix recently increased and doing much better. Denies joint pain. Skin: Negative for lesions, rash and itching. Objective PHYSICAL EXAM: VITALS: BP 126/71 Pulse 64 Temp (Src) 97.4 (Tympanic) Resp 16 Ht 5' 6ANDquot; (1.68m) Wt 203 lb (92.1kg) SpO2 98% BMI 32.78 kg/(m2). General: Alert and oriented, No acute distress, Obese Skin: Normal color, no rash, no lesions. HEENT: Pupils equal, round and reactive., No carotid bruits Cardiovascular: Pulse irregular. Heart sounds distant. Lungs: Normal breath sounds, no wheezes or crackles., No chest deformities or chest wall tenderness. Abdomen: Soft, non-tender, no rigidity., No masses or organomegaly., Positive bowel sounds Extremities: BLE edema, non-pitting, +1. Compression stockings on. Neurological: Normal cognition and motor skills. Pulses: Carotid pulses; left 2+ / right 2+. Radial pulses; left 1+ / right 1+. Diagnostic tests reviewed for today's visit: Lab Value Units Date High Low HB 14.5 g/dL 10/28/2017 17.0 13.0 HCT 46.0 % 10/28/2017 51.0 39.0 WBC 6.43 k/uL 10/28/2017 11.00 3.70 PLT 267 k/uL 10/28/2017 400 150 NA 140 mmol/L 10/28/2017 144 136 K 4.3 mmol/L 10/28/2017 5.1 3.7 GLUC 120 mg/dL 10/28/2017 99 74 BUN 25 mg/dL 10/28/2017 24 9 CREAT 1.52 mg/dL 10/28/2017 1.22 0.73 PTSEC Test s* sec 10/07/2017 13.0 9.7 INR 1.5 no uni* 11/09/2017 INR Test s* no uni* 10/07/2017 1.3 0.9 APTT No results within date range. ALT 43 U/L 10/28/2017 54 10 AST 44 U/L 10/28/2017 40 14 TBILI 0.6 mg/dL 10/28/2017 1.3 0.2 TSH No results within date range. Lab Value Units Date High Low HCGQT No results within date range. UHCG No results within date range. HCG, BODY* No results within date range. Lab Value Units Date High Low ABORHD No results within date range. ABSCREEN No results within date range. Hemoglobin A1C (%) Date Value 10/28/2017 7.5 01/07/2017 7.0 07/15/2016 7.3 10/28/2015 7.4 07/11/2015 7.7 Hemoglobin A1c (%) Date Value 03/20/2016 8.2 Most recent labs Most recent imaging Most recent EKG Most recent Echo Most recent PFT's All in Epic Assessment ASSESSMENT Atrial Fibrillation - Is Anticoagulated with Coumadin; Persistent. Follows with Dr. Goldberg. Diabetes - last A1C - 7.5 (10/2017); on Victoza and Insulin. HTN - Well controlled on Rx Hyperlipidemia on Rx DERRICK - Patient is using CPAP/BIPAP. Advised to bring CPAP/BIPAP machine to hospital. CKD stage 3 - last BUN - 25, Cr. - 1.25 ANDamp; GFR - 45 (10/2017) CHF (? Possible) - increased BNP, dilated atrial cavity, BLE edema PAD - recent PVR done H/O suspected TIA 12/2016 secondary to AFIB H/O unexplained syncopal episodes - loop recorder implanted; last episode in 2015. Recent pneumonia - 10/09/2018; did not take prescribed ABX. Recent CT 10/2017 clear. Difficult IV access METS: Climb a flight of stairs or walk up a hill (5.50 METs) Patient denies any chest pain or undue shortness of breath with the above physical activity. ASA Class: 3 ANESTHESIA FINDINGS: Intubation History: No history of difficult intubation Significant Anesthesia Considerations: Difficult IV/Vein Access: - multiple sticks, states they need a ANDquot;machineANDquot; to find a vein. Airway Exam: General: Obese Mallampati Score is CLASS II ULBT: Class II - Lower incisors can bite the upper lip below the chelsea line Neck: Normal appearance and function, Distance from hyoid to mentum during neck extension is at least 3 finger breaths Mouth: Normal tongue size and Mouth opening greater than 2 finger breaths Dentition: Partial upper denture. Airway History: No abnormal airway history STOP BANG Score: DERRICK uses CPAP/BiPAP PLAN This patient is optimally prepared for surgery pending ANESTHESIA CLEARANCE. Patient OK to continue Coumadin per Dr. Villar (noted 10/19/2017 in OV) CONSULTS: E-mail sent to anesthesia regarding patient's health history. Dr. Henderson aware - as long as functional capacity is OK, patient may proceed as colonoscopy is minimal risk procedure. The Following Tests/Procedures Have Been Initiated: Labs not indicated per PACC protocol, EKG not indicated per PACC protocol Planned Anesthetic: MAC Instructions Given to Patient: Patient given verbal and written preop instructions and voices comprehension and compliance. SIGNATURE: Radha Mcclellan CNP PATIENT NAME: Alai Trejo DATE: November 11, 2017 TIME: 11:28 AM PAGER/CONTACT #: Radha Mcclellan CNP, CNP 11/11/2017 11:45 AM Addendum PATIENT PREOPERATIVE INSTRUCTIONS Mary Villar MD has scheduled you for your procedure at this surgery center: [facility]: [phone] -- [address] [facility] [id number]. Please read below carefully for your personalized instructions. Blood Thinning Medications: - Stop NSAIDS (Ibuprofen, Advil, Aleve, Motrin, Celebrex, Mobic, etc.) 7 days before surgery, as directed by your surgeon. - Stop Aspirin 7 days before surgery, as directed by your surgeon. - Stop Vitamin E, ALL multi-vitamins, herbals and dietary supplements 7 days before surgery. - You may take Tylenol (Acetaminophen) or any of your pain medications that do not contain aspirin or NSAIDS as needed. - Please continue your Coumadin before your colonoscopy as directed by Dr. Villar. Dietary Restrictions: - Nothing to eat or drink after midnight except for a sip of water with approved medications. - Do not drink any alcohol after midnight the night before your surgery. - Bowel Prep Medications: Approved medications to take the morning of surgery with a sip of water: Metoprolol - Accucheck day of surgery. - Take full dose of insulin the day before surgery. - Take half dose of long acting insulin (Lantus, NPH) the day of surgery. Do NOT take Victoza the morning of your procedure If you start any new medications after today's visit, please contact the surgery center above. Important Reminders: - If you use CPAP/BIPAP, bring the machine with you to the surgery center. - If you are prescribed inhalers for breathing, continue using them AND bring them to the surgery center. - Candy, mints, gum and tobacco products are NOT permitted the morning of surgery. - Hearing aids, dentures and glasses may be worn the morning of surgery. - NO jewelry, body piercings, makeup, nail qatari, hairpins or contacts are to be worn the day of surgery. If you develop symptoms such as a fever, cold, or flu, or have other changes to your health within TWO DAYS of scheduled surgery or the morning of surgery, please contact the surgery center above. Personal Belongings: - Leave ALL valuables and money at home or with family members. For Outpatient Procedures: - YOU MUST HAVE A RESPONSIBLE SLAB POLISHER TAKE YOU HOME. A OCEANOLOGY TEACHER OR WOOL FLEECE SORTER CANNOT BE MADE A RESPONSIBLE SLAB POLISHER. - We recommend that a responsible person stays with you overnight to take care of you. - You cannot stay in a hotel alone after outpatient surgery. You will not be permitted to have your surgery, if you do not have someone to take care of you. Arrival Time for Surgery: - The Surgery Center or hospital where you are having surgery will call the afternoon before surgery (or Wednesday for Wednesday surgery) with a scheduled arrival time. - If you have not heard by 4 pm, please contact the surgery center above. Please be aware that emergency situations arise, which may delay or change your surgical time. If this happens, we will notify you as soon as possible and regret any inconvenience. Radha Mcclellan CNP Referring Provider: MARY VILLAR [[id number]] Allergies As of Date: 11/11/2017 Noted Allergy Reaction NABEEL INHIBITORS 05/16/2014 3 - Cough Date Reviewed: 11/11/2017 Reviewed by: Radha ([facility]) PINKY Mcclellan - Fully Assessed Reason for Visit: Pre-Op Exam [87] Primary Visit Diagnosis:Preoperative examination [Z01.818] Other Visit Diagnoses:Screening for colon cancer [Z12.11] Atrial fibrillation, unspecified type (HCC) [I48.91] Controlled type 2 diabetes mellitus without complication, without long-term current use of insulin (HCC) [E11.9] Essential hypertension [I10] Other hyperlipidemia [E78.4] CKD (chronic kidney disease) stage 3, GFR 30-59 ml/min [N18.3] Prescriptions as of 11/11/2017 Sig: FUROSEMIDE 40 MG TABLET Take 1 tablet by mouth twice * FLUTICASONE 50 MCG/ACTUATION * Use 1 Wideman in each nostril d* WARFARIN 5 MG TABLET hold his coumadin for next 3 * INSULIN LISPRO 100 UNIT/ML ZELAYA* Inject 10 Units subcutaneousl* METOPROLOL TARTRATE 100 MG TA* Take 2 tablets by mouth twice* SPIRONOLACTONE 25 MG TABLET Take 1 tablet by mouth once d* ROSUVASTATIN 40 MG TABLET Take 20 mg by mouth once jenn* BLOOD SUGAR DIAGNOSTIC STRIPS Use as instructed to check gl* PEN NEEDLE, DIABETIC 32 GAUGE* 1 Each four times daily as ne* INSULIN GLARGINE 100 UNIT/ML * Inject 30 Units subcutaneousl* Patient taking differently: Inject 40 Units subcutaneousl* INSULIN LISPRO 100 UNIT/ML ZELAYA* Inject 5 units if sugar <200 * BLOOD-GLUCOSE METER KIT 1 Each as needed. One Touch M* LIRAGLUTIDE 0.6 MG/0.1 ML (18* Inject 1.2 mg subcutaneously * MULTIVITAMIN-IRON 9 MG-FOLIC * Take 1 tablet by mouth once d* COMPOUNDED PRESCRIPTION insulin syringes 0.3 31 g 5/* CPAP ASV machine. Initiate @ EEP1* ALBUTEROL SULFATE HFA 90 MCG/* Inhale 2 Puffs as instructed * ALBUTEROL SULFATE CONCENTRATE* Inhale 0.5 mL as instructed e* Medication notes this encounter ALBUTEROL SULFATE HFA 90 MCG/ACTUATION AEROSOL INHALER >> Radha Mcclellan CNP [facility] 11/11/2017 11:43 AM >> RADHA MCCLELLAN CNP [facility] Nov 11, 2017 11:43 AM Not using ALBUTEROL SULFATE CONCENTRATE 5 MG/ML(0.5 %) SOLUTION FOR NEBULIZATION >> Radha Mcclellan CNP [employer] [facility] 11/11/2017 11:44 AM >> RADHA MCCLELLAN CNP [facility] Nov 11, 2017 11:44 AM Not using Problem List As Of Date 11/11/2017 Noted Resolved Essential hypertension [I10] DIABETES MELLITUS TYPE II UNCONTR UNCOMPL [E11.* 09/12/2014 Hyperlipidemia [E78.5] CHRONIC RHINITIS [J31.0] INVALID FOR* PAD (peripheral artery disease) (HCC) [I73.9] INVALID FOR* VIRAL WARTS NOS [B07.9] INVALID FOR* Type I (juvenile type) diabetes mellitus withou*INVALID FOR*02/06/2014 Unspecified sleep apnea [G47.30] INVALID FOR*07/21/2014 More... BENIGN NEOPLASM LG BOWEL [D12.6] INVALID FOR* DIVERTICULOSIS OF COLON W/O BLEED [K57.30] INVALID FOR* INT HEMORRHOID W/O COMPL [K64.8] INVALID FOR* Premature atrial beats [I49.1] INVALID FOR* Atrial fibrillation, permanent [I48.2] INVALID FOR*01/30/2015 Atherosclerosis of aortic arch [I70.0] INVALID FOR* More... BMI 37.0-37.9, adult [Z68.37] INVALID FOR*01/30/2015 DERRICK (obstructive sleep apnea) AHI 36 [G47.33] INVALID FOR* DM (diabetes mellitus), type 2, uncontrolled (H*INVALID FOR* Atrial fibrillation (HCC) [I48.91] INVALID FOR* BMI 35.0-35.9,adult [Z68.35] INVALID FOR*11/11/2017 nursing home (current) use of anticoagulants [Z79.*INVALID FOR* SUMMARY INVALID FOR* More... Cough with expectoration [R05] INVALID FOR* More... Atrial fibrillation with RVR (HCC) [I48.91] INVALID FOR*11/10/2017 Syncope [R55] INVALID FOR* Acute bronchitis with chronic obstructive pulmo*INVALID FOR*07/04/2016 Acute diastolic CHF (congestive heart failure) *INVALID FOR*07/04/2016 Status post placement of implantable loop recor*INVALID FOR* Type 2 diabetes mellitus without retinopathy (H*INVALID FOR* Vitreous floaters of both eyes [H43.393] INVALID FOR* TIA due to embolism (HCC) [G45.9, I74.9] INVALID FOR* Facial droop [R29.810] INVALID FOR*11/11/2017 Controlled type 2 diabetes mellitus without com*INVALID FOR* Combined forms of age-related cataract of both *INVALID FOR* Screening for colon cancer [Z12.11] INVALID FOR* More... Hiatal hernia [K44.9] INVALID FOR* More... Acute bronchitis with chronic obstructive pulmo*INVALID FOR* More... CKD (chronic kidney disease) stage 3, GFR 30-59*INVALID FOR* Other instructions from your clinician: PATIENT PREOPERATIVE INSTRUCTIONS Mary Villar MD has scheduled you for your procedure at this surgery center: [facility]: [phone] -- [address] [address] [facility] [id number]. Please read below carefully for your personalized instructions. Blood Thinning Medications: - Stop NSAIDS (Ibuprofen, Advil, Aleve, Motrin, Celebrex, Mobic, etc.) 7 days before surgery, as directed by your surgeon. - Stop Aspirin 7 days before surgery, as directed by your surgeon. - Stop Vitamin E, ALL multi-vitamins, herbals and dietary supplements 7 days before surgery. - You may take Tylenol (Acetaminophen) or any of your pain medications that do not contain aspirin or NSAIDS as needed. - Please continue your Coumadin before your colonoscopy as directed by Dr. Villar. Dietary Restrictions: - Nothing to eat or drink after midnight except for a sip of water with approved medications. - Do not drink any alcohol after midnight the night before your surgery. - Bowel Prep Medications: Approved medications to take the morning of surgery with a sip of water: Metoprolol - Accucheck day of surgery. - Take full dose of insulin the day before surgery. - Take half dose of long acting insulin (Lantus, NPH) the day of surgery. Do NOT take Victoza the morning of your procedure If you start any new medications after today's visit, please contact the surgery center above. Important Reminders: - If you use CPAP/BIPAP, bring the machine with you to the surgery center. - If you are prescribed inhalers for breathing, continue using them AND bring them to the surgery center. - Candy, mints, gum and tobacco products are NOT permitted the morning of surgery. - Hearing aids, dentures and glasses may be worn the morning of surgery. - NO jewelry, body piercings, makeup, nail qatari, hairpins or contacts are to be worn the day of surgery. If you develop symptoms such as a fever, cold, or flu, or have other changes to your health within TWO DAYS of scheduled surgery or the morning of surgery, please contact the surgery center above. Personal Belongings: - Leave ALL valuables and money at home or with family members. For Outpatient Procedures: - YOU MUST HAVE A RESPONSIBLE SLAB POLISHER TAKE YOU HOME. A OCEANOLOGY TEACHER OR WOOL FLEECE SORTER CANNOT BE MADE A RESPONSIBLE SLAB POLISHER. - We recommend that a responsible person stays with you overnight to take care of you. - You cannot stay in a hotel alone after outpatient surgery. You will not be permitted to have your surgery, if you do not have someone to take care of you. Arrival Time for Surgery: - The Surgery Center or hospital where you are having surgery will call the afternoon before surgery (or Wednesday for Wednesday surgery) with a scheduled arrival time. - If you have not heard by 4 pm, please contact the surgery center above. Please be aware that emergency situations arise, which may delay or change your surgical time. If this happens, we will notify you as soon as possible and regret any inconvenience. Radha Mcclellan CNP Encounter Status:Closed by RADHA MCCLELLAN CNP on 11/11/17 CNOV Observed: 11/10/2017 Status: COMPLETED Source: [place] 3:00 PM [facility] REPOSITORY [facility] ALIA TREJO ([id number]) 1940 M Date Time Provider Department 11/10/17 3:00 PM ROCKY RIVERA) [facility] During your visit today, we recorded the following information about you: Pulse Respiration Blood pressure Weight 50/minute 12/minute 104/72 92.1 kg Rocky Rivera MD 11/10/2017 8:28 PM Signed Chief Complaint Patient presents with: Hospital Follow Up: patient says he is here today for ANDquot;just a check upANDquot; becuase he has a lot of questions. HPI Alia Carey Neil is a 77 year old male who presents here today for ER follow up and above complaint. Patient was seen at [place] ER back in September for community acquired pneumonia of right lung which was treated with azithromycin and prednisone taper. Since that time, he has followed up with pulmonology who recommended use of CPAP nightly and wanted patient worked up further for CHF as he had elevated BNP ANDgt;4000. They ordered and echo which is resulted below and showed normal EF and no significant change from previous study. Also increased his lasix to 40 mg BID. Repeat BNP has improved to 1695. Since increasing the Lasix, the patient has not noticed swelling in his legs and denies orthopnea. Wearing compression stockings with zippers today. Has appointment to see Dr. Goldberg next month. Discussed recent lab work which shows worsening renal function with increased lasix dose. Discussed referral to nephrology to help balance fluid status, renal function, and diuretic use. Patient requesting handicap placards for cars today. Past medical history, appointments, medications, allergies reviewed. Previous Medical History PAST MEDICAL HISTORY Diagnosis Date - Acute bronchitis with chronic obstructive pulmonary disease (COPD) ([facility]) 12/28/2015 - Acute diastolic CHF (congestive heart failure) ([facility]) 12/28/2015 - Atrial fibrillation, permanent ([facility]) 11/04/[address] Curtis-cardiology - Benign neoplasm of colon - Diverticulosis of colon (without mention of hemorrhage) - Hiatal hernia 10/26/201710/2017 CT chest. 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 Patient Allergies ALLERGIES Allergen Reactions - Nabeel Inhibitors Cough Current Medications Current Outpatient Prescriptions on File Prior to Visit: furosemide (LASIX) 40 mg tablet Take 1 tablet by mouth twice daily. fluticasone (FLONASE) 50 mcg/actuation nasal spray Use 1 Wideman in each nostril daily at bedtime. warfarin (COUMADIN) 5 mg tablet hold his coumadin for next 3 days and take 1/2 of normal dose on Wednesday 10/11. To return on 10/12 for recheck INR. all other days albuterol HFA (VENTOLIN HFA) 90 mcg/actuation inhaler Inhale 2 Puffs as instructed every 4 hours as needed. insulin lispro (HUMALOG) 100 unit/mL injection Inject 10 Units subcutaneously daily at bedtime. metoprolol tartrate, short acting, (LOPRESSOR) 100 mg tablet Take 2 tablets by mouth twice daily. spironolactone (ALDACTONE) 25 mg tablet Take 1 tablet by mouth once daily. rosuvastatin (CRESTOR) 40 mg tablet Take 20 mg by mouth once daily. blood sugar diagnostic (ONETOUCH ULTRA TEST) test strip Use as instructed to check glucose 4 times daily. Dx: insulin dependent type II diabetic. Insulin Alsip, Disposable, (NOVOFINE 32) 32 gauge x 1/4ANDquot; ndle 1 Each four times daily as needed. Use for Victoza and insulin injections 4 times daily. DX: E11.65 insulin glargine (LANTUS SOLOSTAR) 100 unit/mL (3 mL) inpn Inject 30 Units subcutaneously once daily. (Patient taking differently: Inject 40 Units subcutaneously once daily.) Insulin Lispro, Human, (HUMALOG KWIKPEN) 100 unit/mL inpn Inject 5 units if sugar ANDlt;200 at bedtime or 10 units if ANDgt;200. Blood-Glucose Meter (ONETOUCH ULTRA2) monitoring kit 1 Each as needed. One Touch Meter Kit Diagnosis: Type 2 DM - Uncontrolled E11.65 liraglutide (VICTOZA) 0.6 mg/0.1 mL (18 mg/3 mL) pnij Inject 1.2 mg subcutaneously once daily. DX: E11.65 therapeutic multivitamin w/ iron (THERAGRAN-M) 9 mg iron-400 mcg tablet Take 1 tablet by mouth once daily. COMPOUNDED PRESCRIPTION insulin syringes 0.3 31 g 5/16 needle CPAP ASV machine. Initiate @ EEP14, Min ps. 3 Max ps 15, cm of water with humidification. Auto rate. Mask (per patient preference) optional chin strap (if indicated) , filters, tubing, humidifier and lifetime supplies. CSA 327.27 and Ryan-Leach 786.04 albuterol 5 mg/mL Nebu Inhale 0.5 mL as instructed every 4 hours as needed for 7 days. 1 DOSE NOW - BACK OFFICE. PLACE 0.5 ML PER DROPPER AND 2.5 ML OF NORMAL SALINE INTO RESERVOIR. No current facility-administered medications on file prior to visit. Social History Social History Marital status: Spouse name: Aixa Years of education: Number of children: 3 Occupational History Occupation Employer Comment [employer] Social History Main Topics Smoking status: Former Smoker Packs/day: 1.00 Years: 21.00 Types: Cigarettes Start date: 01/07/1955 Quit date: 01/08/1976 Smokeless status: Never Used Comment: Age 13 to 31. No smoking in childhood home. Spouse ex-smoker. 12/05/15. TO Alcohol use: No Drug use: No Review of Symptoms REVIEW OF SYSTEMS GENERAL: No weight loss, malaise or fevers RESPIRATORY: Chronic productive cough with clear sputum. Denies SOB, wheezing, orthopenea. CARDIOVASCULAR: Negative for chest pain, leg swelling, hypertension, CHF or palpitations GI: No nausea, vomiting, or diarrhea SKIN: Negative for lesions, rash, and itching EXAM: BP 104/72 Pulse (!) 50 Resp 12 Wt 92.1 kg (203 lb) SpO2 97% BMI 32.77 kg/m2 General Appearance: Well appearing, alert, in no acute distress, well-hydrated, well nourished.. Skin: Skin color, texture, turgor normal, no suspicious rashes or lesions. Lungs: Lungs clear to auscultation. No wheezing, rhonchi, rales. Heart: Negative findings: no murmurs, clicks, or gallops, Positive findings: irregularly irregular rhythm. Abdomen: Normal abdominal exam, Abdomen soft, non-tender. Bowel sounds normal. No masses, organomegaly. Extremities: Positive findings: Trace to 1+ edema to mid jon, compression stocking in place. Health Maintenance List TETANUS due on 03/11/2015 COLORECTAL CANCER SCREENING,SEE MODIFIER due on 10/25/2016 DIABETIC FOOT EXAM due on 03/20/2017 INFLUENZA(1) due on 06/11/2017 LDL due on 01/07/2018 HBA1C due on 04/27/2018 DILATED RETINAL EXAM due on 07/13/2018 URINE ALBUMIN CREATININE RATIO due on 10/28/2018 PROSTATE CANCER SCREENING DISCUSSION Completed ADULT PREVNAR-13 Completed PNEUMOVAX AGE 65 AND OVER WITH 5YR LOOKBACK Completed Data reviewed Component Latest Ref Rng ANDamp; Units 10/28/2017 11/03/2017 Protein, Total 6.3 - 8.0 g/dL 7.0 Albumin 3.9 - 4.9 g/dL 4.0 Calcium 8.5 - 10.2 mg/dL 9.3 Bilirubin, Total 0.2 - 1.3 mg/dL 0.6 Alkaline Phosphatase 36 - 108 U/L 82 AST 14 - 40 U/L 44 (H) Glucose 74 - 99 mg/dL 120 (H) BUN 9 - 24 mg/dL 25 (H) Creatinine 0.73 - 1.22 mg/dL 1.52 (H) Sodium 136 - 144 mmol/L 140 Potassium 3.7 - 5.1 mmol/L 4.3 Chloride 97 - 105 mmol/L 98 CO2 22 - 30 mmol/L 28 Anion Gap 9 - 18 mmol/L 14 ALT 10 - 54 U/L 43 eGFR- 54 eGFR-All Other Races . 45 WBC 3.70 - 11.00 k/uL 6.43 RBC 4.20 - 6.00 m/uL 4.68 Hemoglobin 13.0 - 17.0 g/dL 14.5 Hematocrit 39.0 - 51.0 % 46.0 MCV 80.0 - 100.0 fL 98.3 MCH 26.0 - 34.0 pG 31.0 MCHC 30.5 - 36.0 g/dL 31.5 RDW-CV 11.5 - 15.0 % 13.2 Platelet Count 150 - 400 k/uL 267 MPV 9.0 - 12.7 fL 13.0 (H) Absolute nRBC ANDlt;0.01 k/uL ANDlt;0.01 Creatinine, Ur Random (UCRR) 20 - 300 mg/dL 64.1 Albumin, Urine Random 0.0 - 23.0 mg/L 92.6 (H) Albumin/Creat Ratio 0 - 30 mg/g 144 (H) Hemoglobin A1C 4.3 - 5.6 % 7.5 (H) Estimated Average Glucose mg/dL 169 NT Pro BNP ANDlt;450 pg/mL 1695 (H) CONCLUSIONS: - Technically difficult exam due to body habitus. - Exam indication: Atrial fibrillation - The left ventricle is normal in size. Left ventricular systolic function is normal. EF = 54 ? 5% (2D 4-ch.) - The right ventricle is normal in size. Right ventricular systolic function is mildly decreased. - The left atrial cavity is moderately dilated. - The right atrial cavity is mildly dilated. - Mild (1-2+) tricuspid regurgitation. - Exam was compared with the prior echocardiographic exam performed on 10/29/2011. TR more prominent on today' study. Otherwise, similar results. ASSESSMENT/PLAN: 1. Community acquired pneumonia of right lung, unspecified part of lung - ICD9: 486, ICD10: J18.9 (primary diagnosis) Normal exam today. Symptoms resolved. 2. Atrial fibrillation, unspecified type (HCC) - ICD9: 427.31, ICD10: I48.91 Rate controlled. Will continue medical management and have patient follow up with cardiology as scheduled. - PARKING FOR HANDICAPPED - PARKING FOR HANDICAPPED 3. DERRICK (obstructive sleep apnea) AHI 36 - ICD9: 327.23, ICD10: G47.33 Patient to continue CPAP nightly. - PARKING FOR HANDICAPPED - PARKING FOR HANDICAPPED 4. Essential hypertension - ICD9: 401.9, ICD10: I10 - good control - Continue current medication(s) - Encouraged dietary sodium restriction/DASH diet - Recommended regular aerobic exercise. - Reviewed risks of HTN and principles of treatment - Goal of BP ANDlt;140/90 5. Elevated brain natriuretic peptide (BNP) level - ICD9: 790.99, ICD10: R79.89 Improving with increased dose of Lasix. Echo showing normal EF and mild decrease in right ventricle function. Will have patient discuss further with cardiology as scheduled. 6. Lower extremity edema - ICD9: 782.3, ICD10: R60.0 Improved. Continue current dosage of lasix, limit salt in diet, continue compression stockings, keep legs elevated. 7. Decreased GFR - ICD9: 794.4, ICD10: R94.4 Will have patient follow up with nephrology to evaluate worsening function and manage diuresis. 8. Chronic obstructive pulmonary disease, unspecified COPD type (HCC) - ICD9: 496, ICD10: J44.9 Patient without wheezing at home and has normal exam today. Continue albuterol PRN. To call with worsening cough, SOB or wheezing. Rocky Rivera MD Referring Provider: SELF [[id number]] Allergies As of Date: 11/10/2017 Noted Allergy Reaction NABEEL INHIBITORS 05/16/2014 3 - Cough Date Reviewed: 11/10/2017 Reviewed by: Brian Kevin Ma - Fully Assessed Reason for Visit: Hospital Follow Up [177] Cmt: patient says he is here today for just a check up becuase he has a lot of questions. Primary Visit Diagnosis:Community acquired pneumonia of right lung, unspecified part of lung [J18.9] Other Visit Diagnoses:Atrial fibrillation, unspecified type (HCC) [I48.91] DERRICK (obstructive sleep apnea) AHI 36 [G47.33] Essential hypertension [I10] Elevated brain natriuretic peptide (BNP) level [R79.89] Lower extremity edema [R60.0] Decreased GFR [R94.4] Chronic obstructive pulmonary disease, unspecified COPD type (HCC) [J44.9] Order(s):PARKING FOR HANDICAPPED [0126737] Order #: [id number] PARKING FOR HANDICAPPED [[id number]] Order #: [id number] Prescriptions as of 11/10/2017 Sig: FUROSEMIDE 40 MG TABLET Take 1 tablet by mouth twice * FLUTICASONE 50 MCG/ACTUATION * Use 1 Wideman in each nostril d* WARFARIN 5 MG TABLET hold his coumadin for next 3 * ALBUTEROL SULFATE HFA 90 MCG/* Inhale 2 Puffs as instructed * INSULIN LISPRO 100 UNIT/ML ZELAYA* Inject 10 Units subcutaneousl* METOPROLOL TARTRATE 100 MG TA* Take 2 tablets by mouth twice* SPIRONOLACTONE 25 MG TABLET Take 1 tablet by mouth once d* ROSUVASTATIN 40 MG TABLET Take 20 mg by mouth once jenn* BLOOD SUGAR DIAGNOSTIC STRIPS Use as instructed to check gl* PEN NEEDLE, DIABETIC 32 GAUGE* 1 Each four times daily as ne* INSULIN GLARGINE 100 UNIT/ML * Inject 30 Units subcutaneousl* Patient taking differently: Inject 40 Units subcutaneousl* INSULIN LISPRO 100 UNIT/ML ZELAYA* Inject 5 units if sugar <200 * BLOOD-GLUCOSE METER KIT 1 Each as needed. One Touch M* LIRAGLUTIDE 0.6 MG/0.1 ML (18* Inject 1.2 mg subcutaneously * MULTIVITAMIN-IRON 9 MG-FOLIC * Take 1 tablet by mouth once d* COMPOUNDED PRESCRIPTION insulin syringes 0.3 31 g 5/* CPAP ASV machine. Initiate @ EEP1* ALBUTEROL SULFATE CONCENTRATE* Inhale 0.5 mL as instructed e* Problem List As Of Date 11/10/2017 Noted Resolved Essential hypertension [I10] DIABETES MELLITUS TYPE II UNCONTR UNCOMPL [E11.* 09/12/2014 Hyperlipidemia [E78.5] CHRONIC RHINITIS [J31.0] INVALID FOR* Venous (peripheral) insufficiency [I87.2] INVALID FOR* VIRAL WARTS NOS [B07.9] INVALID FOR* Type I (juvenile type) diabetes mellitus withou*INVALID FOR*02/06/2014 Unspecified sleep apnea [G47.30] INVALID FOR*07/21/2014 More... BENIGN NEOPLASM LG BOWEL [D12.6] INVALID FOR* DIVERTICULOSIS OF COLON W/O BLEED [K57.30] INVALID FOR* INT HEMORRHOID W/O COMPL [K64.8] INVALID FOR* Premature atrial beats [I49.1] INVALID FOR* Atrial fibrillation, permanent [I48.2] INVALID FOR*01/30/2015 Atherosclerosis of aortic arch [I70.0] INVALID FOR* More... BMI 37.0-37.9, adult [Z68.37] INVALID FOR*01/30/2015 DERRICK (obstructive sleep apnea) AHI 36 [G47.33] INVALID FOR* DM (diabetes mellitus), type 2, uncontrolled (H*INVALID FOR* Atrial fibrillation (HCC) [I48.91] INVALID FOR* BMI 35.0-35.9,adult [Z68.35] INVALID FOR* nursing home (current) use of anticoagulants [Z79.*INVALID FOR* SUMMARY INVALID FOR* More... Cough with expectoration [R05] INVALID FOR* More... Atrial fibrillation with RVR (HCC) [I48.91] INVALID FOR*11/10/2017 Syncope [R55] INVALID FOR* Acute bronchitis with chronic obstructive pulmo*INVALID FOR*07/04/2016 Acute diastolic CHF (congestive heart failure) *INVALID FOR*07/04/2016 Status post placement of implantable loop recor*INVALID FOR* Type 2 diabetes mellitus without retinopathy (H*INVALID FOR* Vitreous floaters of both eyes [H43.393] INVALID FOR* TIA due to embolism (HCC) [G45.9, I74.9] INVALID FOR* Facial droop [R29.810] INVALID FOR* Controlled type 2 diabetes mellitus without com*INVALID FOR* Combined forms of age-related cataract of both *INVALID FOR* Screening for colon cancer [Z12.11] INVALID FOR* More... Hiatal hernia [K44.9] INVALID FOR* More... Acute bronchitis with chronic obstructive pulmo*INVALID FOR* More... Disposition: Return in about 3 months (around 02/07/2018). Follow-up and Disposition History Recorded Encounter Status:Closed by ROCKY RIVERA MD on 11/10/17 PROGRESS Observed: 11/10/2017 Status: COMPLETED Source: [place] 2:52 PM [facility] [place] REPOSITORY HNO ID: [id number] Author: Rocky Olea) Miguel Service: (none) Author Type: Physician Type: Progress Notes Filed: 11/10/2017 8:28 PM Note Text: Chief Complaint Patient presents with: Hospital Follow Up: patient says he is here today for just a check up becuase he has a lot of questions. HPI Alia Trejo is a 77 year old male who presents here today for ER follow up and above complaint. Patient was seen at [place] ER back in September for community acquired pneumonia of right lung which was treated with azithromycin and prednisone taper. Since that time, he has followed up with pulmonology who recommended use of CPAP nightly and wanted patient worked up further for CHF as he had elevated BNP >4000. They ordered and echo which is resulted below and showed normal EF and no significant change from previous study. Also increased his lasix to 40 mg BID. Repeat BNP has improved to 1695. Since increasing the Lasix, the patient has not noticed swelling in his legs and denies orthopnea. Wearing compression stockings with zippers today. Has appointment to see Dr. Goldberg next month. Discussed recent lab work which shows worsening renal function with increased lasix dose. Discussed referral to nephrology to help balance fluid status, renal function, and diuretic use. Patient requesting handicap placards for cars today. Past medical history, appointments, medications, allergies reviewed. Previous Medical History PAST MEDICAL HISTORY Diagnosis Date - Acute bronchitis with chronic obstructive pulmonary disease (COPD) ([facility]) 12/28/2015 - Acute diastolic CHF (congestive heart failure) ([facility]) 12/28/2015 - Atrial fibrillation, permanent ([facility]) 11/04/[address] Curtis-cardiology - Benign neoplasm of colon - Diverticulosis of colon (without mention of hemorrhage) - Hiatal hernia 10/26/201710/2017 CT chest. 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 Patient Allergies ALLERGIES Allergen Reactions - Nabeel Inhibitors Cough Current Medications Current Outpatient Prescriptions on File Prior to Visit: furosemide (LASIX) 40 mg tablet Take 1 tablet by mouth twice daily. fluticasone (FLONASE) 50 mcg/actuation nasal spray Use 1 Wideman in each nostril daily at bedtime. warfarin (COUMADIN) 5 mg tablet hold his coumadin for next 3 days and take 1/2 of normal dose on Wednesday 10/11. To return on 10/12 for recheck INR. all other days albuterol HFA (VENTOLIN HFA) 90 mcg/actuation inhaler Inhale 2 Puffs as instructed every 4 hours as needed. insulin lispro (HUMALOG) 100 unit/mL injection Inject 10 Units subcutaneously daily at bedtime. metoprolol tartrate, short acting, (LOPRESSOR) 100 mg tablet Take 2 tablets by mouth twice daily. spironolactone (ALDACTONE) 25 mg tablet Take 1 tablet by mouth once daily. rosuvastatin (CRESTOR) 40 mg tablet Take 20 mg by mouth once daily. blood sugar diagnostic (ONETOUCH ULTRA TEST) test strip Use as instructed to check glucose 4 times daily. Dx: insulin dependent type II diabetic. Insulin Alsip, Disposable, (NOVOFINE 32) 32 gauge x 1/4 ndle 1 Each four times daily as needed. Use for Victoza and insulin injections 4 times daily. DX: E11.65 insulin glargine (LANTUS SOLOSTAR) 100 unit/mL (3 mL) inpn Inject 30 Units subcutaneously once daily. (Patient taking differently: Inject 40 Units subcutaneously once daily.) Insulin Lispro, Human, (HUMALOG KWIKPEN) 100 unit/mL inpn Inject 5 units if sugar <200 at bedtime or 10 units if >200. Blood-Glucose Meter (ONETOUCH ULTRA2) monitoring kit 1 Each as needed. One Touch Meter Kit Diagnosis: Type 2 DM - Uncontrolled E11.65 liraglutide (VICTOZA) 0.6 mg/0.1 mL (18 mg/3 mL) pnij Inject 1.2 mg subcutaneously once daily. DX: E11.65 therapeutic multivitamin w/ iron (THERAGRAN-M) 9 mg iron-400 mcg tablet Take 1 tablet by mouth once daily. COMPOUNDED PRESCRIPTION insulin syringes 0.3 31 g 5/16 needle CPAP ASV machine. Initiate @ EEP14, Min ps. 3 Max ps 15, cm of water with humidification. Auto rate. Mask (per patient preference) optional chin strap (if indicated) , filters, tubing, humidifier and lifetime supplies. CSA 327.27 and Ryan-Leach 786.04 albuterol 5 mg/mL Nebu Inhale 0.5 mL as instructed every 4 hours as needed for 7 days. 1 DOSE NOW - BACK OFFICE. PLACE 0.5 ML PER DROPPER AND 2.5 ML OF NORMAL SALINE INTO RESERVOIR. No current facility-administered medications on file prior to visit. Social History Social History Marital status: Spouse name: Aixa Years of education: Number of children: 3 Occupational History Occupation Employer Comment [employer] Social History Main Topics Smoking status: Former Smoker Packs/day: 1.00 Years: 21.00 Types: Cigarettes Start date: 01/07/1955 Quit date: 01/08/1976 Smokeless status: Never Used Comment: Age 13 to 31. No smoking in childhood home. Spouse ex-smoker. 12/05/15. TO Alcohol use: No Drug use: No Review of Symptoms REVIEW OF SYSTEMS GENERAL: No weight loss, malaise or fevers RESPIRATORY: Chronic productive cough with clear sputum. Denies SOB, wheezing, orthopenea. CARDIOVASCULAR: Negative for chest pain, leg swelling, hypertension, CHF or palpitations GI: No nausea, vomiting, or diarrhea SKIN: Negative for lesions, rash, and itching EXAM: BP 104/72 Pulse (!) 50 Resp 12 Wt 92.1 kg (203 lb) SpO2 97% BMI 32.77 kg/m2 General Appearance: Well appearing, alert, in no acute distress, well-hydrated, well nourished.. Skin: Skin color, texture, turgor normal, no suspicious rashes or lesions. Lungs: Lungs clear to auscultation. No wheezing, rhonchi, rales. Heart: Negative findings: no murmurs, clicks, or gallops, Positive findings: irregularly irregular rhythm. Abdomen: Normal abdominal exam, Abdomen soft, non-tender. Bowel sounds normal. No masses, organomegaly. Extremities: Positive findings: Trace to 1+ edema to mid jon, compression stocking in place. Health Maintenance List TETANUS due on 03/11/2015 COLORECTAL CANCER SCREENING,SEE MODIFIER due on 10/25/2016 DIABETIC FOOT EXAM due on 03/20/2017 INFLUENZA(1) due on 06/11/2017 LDL due on 01/07/2018 HBA1C due on 04/27/2018 DILATED RETINAL EXAM due on 07/13/2018 URINE ALBUMIN CREATININE RATIO due on 10/28/2018 PROSTATE CANCER SCREENING DISCUSSION Completed ADULT PREVNAR-13 Completed PNEUMOVAX AGE 65 AND OVER WITH 5YR LOOKBACK Completed Data reviewed Component Latest Ref Rng AND Units 10/28/2017 11/03/2017 Protein, Total 6.3 - 8.0 g/dL 7.0 Albumin 3.9 - 4.9 g/dL 4.0 Calcium 8.5 - 10.2 mg/dL 9.3 Bilirubin, Total 0.2 - 1.3 mg/dL 0.6 Alkaline Phosphatase 36 - 108 U/L 82 AST 14 - 40 U/L 44 (H) Glucose 74 - 99 mg/dL 120 (H) BUN 9 - 24 mg/dL 25 (H) Creatinine 0.73 - 1.22 mg/dL 1.52 (H) Sodium 136 - 144 mmol/L 140 Potassium 3.7 - 5.1 mmol/L 4.3 Chloride 97 - 105 mmol/L 98 CO2 22 - 30 mmol/L 28 Anion Gap 9 - 18 mmol/L 14 ALT 10 - 54 U/L 43 eGFR- 54 eGFR-All Other Races . 45 WBC 3.70 - 11.00 k/uL 6.43 RBC 4.20 - 6.00 m/uL 4.68 Hemoglobin 13.0 - 17.0 g/dL 14.5 Hematocrit 39.0 - 51.0 % 46.0 MCV 80.0 - 100.0 fL 98.3 MCH 26.0 - 34.0 pG 31.0 MCHC 30.5 - 36.0 g/dL 31.5 RDW-CV 11.5 - 15.0 % 13.2 Platelet Count 150 - 400 k/uL 267 MPV 9.0 - 12.7 fL 13.0 (H) Absolute nRBC <0.01 k/uL <0.01 Creatinine, Ur Random (UCRR) 20 - 300 mg/dL 64.1 Albumin, Urine Random 0.0 - 23.0 mg/L 92.6 (H) Albumin/Creat Ratio 0 - 30 mg/g 144 (H) Hemoglobin A1C 4.3 - 5.6 % 7.5 (H) Estimated Average Glucose mg/dL 169 NT Pro BNP <450 pg/mL 1695 (H) CONCLUSIONS: - Technically difficult exam due to body habitus. - Exam indication: Atrial fibrillation - The left ventricle is normal in size. Left ventricular systolic function is normal. EF = 54 ? 5% (2D 4-ch.) - The right ventricle is normal in size. Right ventricular systolic function is mildly decreased. - The left atrial cavity is moderately dilated. - The right atrial cavity is mildly dilated. - Mild (1-2+) tricuspid regurgitation. - Exam was compared with the prior echocardiographic exam performed on 10/29/2011. TR more prominent on today' study. Otherwise, similar results. ASSESSMENT/PLAN: 1. Community acquired pneumonia of right lung, unspecified part of lung - ICD9: 486, ICD10: J18.9 (primary diagnosis) Normal exam today. Symptoms resolved. 2. Atrial fibrillation, unspecified type (HCC) - ICD9: 427.31, ICD10: I48.91 Rate controlled. Will continue medical management and have patient follow up with cardiology as scheduled. - PARKING FOR HANDICAPPED - PARKING FOR HANDICAPPED 3. DERRICK (obstructive sleep apnea) AHI 36 - ICD9: 327.23, ICD10: G47.33 Patient to continue CPAP nightly. - PARKING FOR HANDICAPPED - PARKING FOR HANDICAPPED 4. Essential hypertension - ICD9: 401.9, ICD10: I10 - good control - Continue current medication(s) - Encouraged dietary sodium restriction/DASH diet - Recommended regular aerobic exercise. - Reviewed risks of HTN and principles of treatment - Goal of BP <140/90 5. Elevated brain natriuretic peptide (BNP) level - ICD9: 790.99, ICD10: R79.89 Improving with increased dose of Lasix. Echo showing normal EF and mild decrease in right ventricle function. Will have patient discuss further with cardiology as scheduled. 6. Lower extremity edema - ICD9: 782.3, ICD10: R60.0 Improved. Continue current dosage of lasix, limit salt in diet, continue compression stockings, keep legs elevated. 7. Decreased GFR - ICD9: 794.4, ICD10: R94.4 Will have patient follow up with nephrology to evaluate worsening function and manage diuresis. 8. Chronic obstructive pulmonary disease, unspecified COPD type (HCC) - ICD9: 496, ICD10: J44.9 Patient without wheezing at home and has normal exam today. Continue albuterol PRN. To call with worsening cough, SOB or wheezing. Rocky Rivera MD PROGRESS Observed: 11/10/2017 Status: COMPLETED Source: [place] 8:43 AM [facility] REPOSITORY HNO ID: [id number] Author: Dottie Pineda LPN Service: (none) Author Type: (none) Type: Progress Notes Filed: 11/10/2017 8:43 AM Note Text: Pt notified. PROGRESS Observed: 11/10/2017 Status: COMPLETED Source: [place] 7:49 AM [facility] REPOSITORY HNO ID: [id number] Author: Rocky Olea) Miguel Service: (none) Author Type: Physician Type: Progress Notes Filed: 11/10/2017 7:49 AM Note Text: INR subtherapeutic. Increase coumadin to 5 mg Wed, Sat, 2.5 mg all other days. Recheck in 1 week. PROGRESS Observed: 11/09/2017 Status: COMPLETED Source: [place] 11:59 AM [facility] REPOSITORY HNO ID: [id number] Author: Roseline Gurrola RN Service: (none) Author Type: (none) Type: Progress Notes Filed: 11/09/2017 12:02 PM Note Text: patient had inr completed at [facility] [place] patients inr is 1.5 (patients inr range is 2.0-3.0) patient is currently taking 2.5mg daily patients last dose change was on 10/12/17 due to a low level of 1.5 (dose at that time was 1.25mg daily) patient has had a change in medication as patient in no longer on antibiotics and no change in diet Advised patient that they would be contacted regarding medication dose and when to follow up after information is reviewed by provider. After provider review please contact the patient with information and schedule follow up appointment with coumadin clinic. FYI - patient has been scheduled for a 1 week follow up inr on 11/16/17 HOSP Observed: 11/09/2017 Status: COMPLETED Source: [place] 10:45 AM [facility] REPOSITORY Anticoagulation Visit (COUMWS) NEILALIA Carey ([id number]) 1940 M Date Time Provider Department 11/09/17 10:[address] [facility] COUMWS During your visit today, we recorded the following information about you: Roseline Gurrola RN 11/09/2017 12:02 PM Signed patient had inr completed at [facility] [place] [place] patients inr is 1.5 (patients inr range is 2.0-3.0) patient is currently taking 2.5mg daily patients last dose change was on 10/12/17 due to a low level of 1.5 (dose at that time was 1.25mg daily) patient has had a change in medication as patient in no longer on antibiotics and no change in diet Advised patient that they would be contacted regarding medication dose and when to follow up after information is reviewed by provider. After provider review please contact the patient with information and schedule follow up appointment with coumadin clinic. FYI - patient has been scheduled for a 1 week follow up inr on 11/16/17 Rocky Rivera MD 11/10/2017 7:49 AM Signed INR subtherapeutic. Increase coumadin to 5 mg Wed, Sat, 2.5 mg all other days. Recheck in 1 week. Dottie Pineda LPN 11/10/2017 8:43 AM Signed Pt notified. Referring Provider: ROCKY RIVERA) [[id number]] Allergies As of Date: 11/09/2017 Noted Allergy Reaction NABEEL INHIBITORS 05/16/2014 3 - Cough Date Reviewed: 11/09/2017 Reviewed by: Roseline Gurrola RN - Fully Assessed Reason for Visit: Anticoagulation [8] Primary Visit Diagnosis:Atrial fibrillation with RVR (HCC) [I48.91] Prescriptions as of 11/09/2017 Sig: FUROSEMIDE 40 MG TABLET Take 1 tablet by mouth twice * FLUTICASONE 50 MCG/ACTUATION * Use 1 Wideman in each nostril d* WARFARIN 5 MG TABLET hold his coumadin for next 3 * ALBUTEROL SULFATE HFA 90 MCG/* Inhale 2 Puffs as instructed * INSULIN LISPRO 100 UNIT/ML ZELAYA* Inject 10 Units subcutaneousl* METOPROLOL TARTRATE 100 MG TA* Take 2 tablets by mouth twice* SPIRONOLACTONE 25 MG TABLET Take 1 tablet by mouth once d* ROSUVASTATIN 40 MG TABLET Take 20 mg by mouth once jenn* BLOOD SUGAR DIAGNOSTIC STRIPS Use as instructed to check gl* PEN NEEDLE, DIABETIC 32 GAUGE* 1 Each four times daily as ne* INSULIN GLARGINE 100 UNIT/ML * Inject 30 Units subcutaneousl* Patient taking differently: Inject 40 Units subcutaneousl* INSULIN LISPRO 100 UNIT/ML ZELAYA* Inject 5 units if sugar <200 * BLOOD-GLUCOSE METER KIT 1 Each as needed. One Touch M* LIRAGLUTIDE 0.6 MG/0.1 ML (18* Inject 1.2 mg subcutaneously * MULTIVITAMIN-IRON 9 MG-FOLIC * Take 1 tablet by mouth once d* COMPOUNDED PRESCRIPTION insulin syringes 0.3 31 g 5/* CPAP ASV machine. Initiate @ EEP1* ALBUTEROL SULFATE CONCENTRATE* Inhale 0.5 mL as instructed e* Problem List As Of Date 11/09/2017 Noted Resolved Essential hypertension [I10] DIABETES MELLITUS TYPE II UNCONTR UNCOMPL [E11.* 09/12/2014 Hyperlipidemia [E78.5] CHRONIC RHINITIS [J31.0] INVALID FOR* Venous (peripheral) insufficiency [I87.2] INVALID FOR* VIRAL WARTS NOS [B07.9] INVALID FOR* Type I (juvenile type) diabetes mellitus withou*INVALID FOR*02/06/2014 Unspecified sleep apnea [G47.30] INVALID FOR*07/21/2014 More... BENIGN NEOPLASM LG BOWEL [D12.6] INVALID FOR* DIVERTICULOSIS OF COLON W/O BLEED [K57.30] INVALID FOR* INT HEMORRHOID W/O COMPL [K64.8] INVALID FOR* Premature atrial beats [I49.1] INVALID FOR* Atrial fibrillation, permanent [I48.2] INVALID FOR*01/30/2015 Atherosclerosis of aortic arch [I70.0] INVALID FOR* More... BMI 37.0-37.9, adult [Z68.37] INVALID FOR*01/30/2015 DERRICK (obstructive sleep apnea) AHI 36 [G47.33] INVALID FOR* DM (diabetes mellitus), type 2, uncontrolled (H*INVALID FOR* Atrial fibrillation (HCC) [I48.91] INVALID FOR* BMI 35.0-35.9,adult [Z68.35] INVALID FOR* long term care pharmacist (current) use of anticoagulants [Z79.*INVALID FOR* SUMMARY INVALID FOR* More... Cough with expectoration [R05] INVALID FOR* More... Atrial fibrillation with RVR (HCC) [I48.91] INVALID FOR* Syncope [R55] INVALID FOR* Acute bronchitis with chronic obstructive pulmo*INVALID FOR*07/04/2016 Acute diastolic CHF (congestive heart failure) *INVALID FOR*07/04/2016 Status post placement of implantable loop recor*INVALID FOR* Type 2 diabetes mellitus without retinopathy (H*INVALID FOR* Vitreous floaters of both eyes [H43.393] INVALID FOR* TIA due to embolism (HCC) [G45.9, I74.9] INVALID FOR* Facial droop [R29.810] INVALID FOR* Controlled type 2 diabetes mellitus without com*INVALID FOR* Combined forms of age-related cataract of both *INVALID FOR* Screening for colon cancer [Z12.11] INVALID FOR* More... Hiatal hernia [K44.9] INVALID FOR* More... Follow-up and Disposition History Recorded Encounter Status:Closed by DOTTIE PINEDA LPN on 11/10/17 PROGRESS Observed: 11/04/2017 Status: COMPLETED Source: [place] 10:07 AM [facility] [place] REPOSITORY O ID: [id number] Author: Alen Rodriguez Service: (none) Author Type: Physician Type: Progress Notes Filed: 11/04/2017 10:11 AM Note Text: Follow up podiatric office visit for: Chief Complaint: This 77 year old who presents for follow up to discuss pvr. Patient currently having no issues. Patient has no pain in his feet. He does have dryness for which he has been applying lotion to his feet. PAIN EVALUATION No data found. Hemoglobin A1C Date Value Ref Range Status 10/28/2017 7.5 (H) 4.3 - 5.6 % Final PCP: Rocky Rivera MD PAST MEDICAL HISTORY Diagnosis Date - Acute bronchitis with chronic obstructive pulmonary disease (COPD) ([facility]) 12/28/2015 - Acute diastolic CHF (congestive heart failure) ([facility]) 12/28/2015 - Atrial fibrillation, permanent ([facility]) 11/04/[address] Curtis-cardiology - Benign neoplasm of colon - Diverticulosis of colon (without mention of hemorrhage) - Hiatal hernia 10/26/201710/2017 CT chest. 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 - Type II or unspecified type diabetes mellitus without mention of complication, uncontrolled Seeing WILDER Rodrigues - Unspecified essential hypertension Current Outpatient Prescriptions: furosemide (LASIX) 40 mg tablet Take 1 tablet by mouth twice daily. fluticasone (FLONASE) 50 mcg/actuation nasal spray Use 1 Wideman in each nostril daily at bedtime. warfarin (COUMADIN) 5 mg tablet hold his coumadin for next 3 days and take 1/2 of normal dose on Wednesday 10/11. To return on 10/12 for recheck INR. all other days albuterol HFA (VENTOLIN HFA) 90 mcg/actuation inhaler Inhale 2 Puffs as instructed every 4 hours as needed. insulin lispro (HUMALOG) 100 unit/mL injection Inject 10 Units subcutaneously daily at bedtime. metoprolol tartrate, short acting, (LOPRESSOR) 100 mg tablet Take 2 tablets by mouth twice daily. spironolactone (ALDACTONE) 25 mg tablet Take 1 tablet by mouth once daily. rosuvastatin (CRESTOR) 40 mg tablet Take 20 mg by mouth once daily. blood sugar diagnostic (Hytle ULTRA TEST) test strip Use as instructed to check glucose 4 times daily. Dx: insulin dependent type II diabetic. Insulin Alsip, Disposable, (NOVOFINE 32) 32 gauge x 1/4 ndle 1 Each four times daily as needed. Use for Victoza and insulin injections 4 times daily. DX: E11.65 insulin glargine (LANTUS SOLOSTAR) 100 unit/mL (3 mL) inpn Inject 30 Units subcutaneously once daily. (Patient taking differently: Inject 40 Units subcutaneously once daily.) Insulin Lispro, Human, (HUMALOG KWIKPEN) 100 unit/mL inpn Inject 5 units if sugar <200 at bedtime or 10 units if >200. Blood-Glucose Meter (ONETOUCH ULTRA2) monitoring kit 1 Each as needed. One Touch Meter Kit Diagnosis: Type 2 DM - Uncontrolled E11.65 liraglutide (VICTOZA) 0.6 mg/0.1 mL (18 mg/3 mL) pnij Inject 1.2 mg subcutaneously once daily. DX: E11.65 therapeutic multivitamin w/ iron (THERAGRAN-M) 9 mg iron-400 mcg tablet Take 1 tablet by mouth once daily. COMPOUNDED PRESCRIPTION insulin syringes 0.3 31 g 02/23 needle CPAP ASV machine. Initiate @ EEP14, Min ps. 3 Max ps 15, cm of water with humidification. Auto rate. Mask (per patient preference) optional chin strap (if indicated) , filters, tubing, humidifier and lifetime supplies. CSA 327.27 and Ryan-Leach 786.04 albuterol 5 mg/mL Nebu Inhale 0.5 mL as instructed every 4 hours as needed for 7 days. 1 DOSE NOW - BACK OFFICE. PLACE 0.5 ML PER DROPPER AND 2.5 ML OF NORMAL SALINE INTO RESERVOIR. No current facility-administered medications for this visit. 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 OBJECTIVE: Vascular: DP and PT pulses are nonpalpable. Hair growth is absence. Mild swelling present. Skin temperature is warm to cool b/l Dermatological: Nails 1-5 b/l are discolored and thick. Webspaces clean and dry 1-4 b/l. Skin appears well hydrated and supple. good color, texture, turgor. No open lesions present. Callus present to b/l hallux and b/l 5th toe. No ulceration noted. Musculoskeletal/Orthopaedic: Patient has no pain to palpation of b/l feet ASSESSMENT: (E11.49) Other diabetic neurological complication associated with type 2 diabetes mellitus ([facility]) (primary encounter diagnosis) (I73.9) PAD (peripheral artery disease) ([facility]) (L85.9) Hyperkeratosis PLAN: 1. History and physical examination completed today. 2. Reviewed pvr. He has calcified vessels and likely small vessel disease. Discussed referral to vascular surgery or vascular medicine. He is not interested at this time. 3. No open sores noted on current exam. Very superficial callus present to b/l hallux and 5th toe and these were debrided with sanding disk without trauma as courtesy. 4. Continue with good supportive shoes 5. Continue with lotion to his feet daily 6. F/u in 2 months for nail care Alen Rodriguez DPM CNOV Observed: 11/04/2017 Status: COMPLETED Source: [place] 9:40 AM [facility] REPOSITORY Office Visit (PODIWS) ALIA TREJO ([id number]) 1940 M Date Time Provider Department 11/04/17 9:40 AM ALEN RODRIGUEZ During your visit today, we recorded the following information about you: Alen Rodriguez DPM 11/04/2017 10:11 AM Signed Follow up podiatric office visit for: Chief Complaint: This 77 year old who presents for follow up to discuss pvr. Patient currently having no issues. Patient has no pain in his feet. He does have dryness for which he has been applying lotion to his feet. PAIN EVALUATION No data found. Hemoglobin A1C Date Value Ref Range Status 10/28/2017 7.5 (H) 4.3 - 5.6 % Final PCP: Rocky Rivera MD PAST MEDICAL HISTORY Diagnosis Date - Acute bronchitis with chronic obstructive pulmonary disease (COPD) ([facility]) 12/28/2015 - Acute diastolic CHF (congestive heart failure) ([facility]) 12/28/2015 - Atrial fibrillation, permanent ([facility]) 11/04/[address] Curtis-cardiology - Benign neoplasm of colon - Diverticulosis of colon (without mention of hemorrhage) - Hiatal hernia 10/26/201710/2017 CT chest. 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 - Type II or unspecified type diabetes mellitus without mention of complication, uncontrolled Seeing WILDER Rodrigues - Unspecified essential hypertension Current Outpatient Prescriptions: furosemide (LASIX) 40 mg tablet Take 1 tablet by mouth twice daily. fluticasone (FLONASE) 50 mcg/actuation nasal spray Use 1 Wideman in each nostril daily at bedtime. warfarin (COUMADIN) 5 mg tablet hold his coumadin for next 3 days and take 1/2 of normal dose on Wednesday 10/11. To return on 10/12 for recheck INR. all other days albuterol HFA (VENTOLIN HFA) 90 mcg/actuation inhaler Inhale 2 Puffs as instructed every 4 hours as needed. insulin lispro (HUMALOG) 100 unit/mL injection Inject 10 Units subcutaneously daily at bedtime. metoprolol tartrate, short acting, (LOPRESSOR) 100 mg tablet Take 2 tablets by mouth twice daily. spironolactone (ALDACTONE) 25 mg tablet Take 1 tablet by mouth once daily. rosuvastatin (CRESTOR) 40 mg tablet Take 20 mg by mouth once daily. blood sugar diagnostic (ONETOUCH ULTRA TEST) test strip Use as instructed to check glucose 4 times daily. Dx: insulin dependent type II diabetic. Insulin Alsip, Disposable, (NOVOFINE 32) 32 gauge x 1/4ANDquot; ndle 1 Each four times daily as needed. Use for Victoza and insulin injections 4 times daily. DX: E11.65 insulin glargine (LANTUS SOLOSTAR) 100 unit/mL (3 mL) inpn Inject 30 Units subcutaneously once daily. (Patient taking differently: Inject 40 Units subcutaneously once daily.) Insulin Lispro, Human, (HUMALOG KWIKPEN) 100 unit/mL inpn Inject 5 units if sugar ANDlt;200 at bedtime or 10 units if ANDgt;200. Blood-Glucose Meter (ONETOUCH ULTRA2) monitoring kit 1 Each as needed. One Touch Meter Kit Diagnosis: Type 2 DM - Uncontrolled E11.65 liraglutide (VICTOZA) 0.6 mg/0.1 mL (18 mg/3 mL) pnij Inject 1.2 mg subcutaneously once daily. DX: E11.65 therapeutic multivitamin w/ iron (THERAGRAN-M) 9 mg iron-400 mcg tablet Take 1 tablet by mouth once daily. COMPOUNDED PRESCRIPTION insulin syringes 0.3 31 g 02/23 needle CPAP ASV machine. Initiate @ EEP14, Min ps. 3 Max ps 15, cm of water with humidification. Auto rate. Mask (per patient preference) optional chin strap (if indicated) , filters, tubing, humidifier and lifetime supplies. CSA 327.27 and Ryan-Leach 786.04 albuterol 5 mg/mL Nebu Inhale 0.5 mL as instructed every 4 hours as needed for 7 days. 1 DOSE NOW - BACK OFFICE. PLACE 0.5 ML PER DROPPER AND 2.5 ML OF NORMAL SALINE INTO RESERVOIR. No current facility-administered medications for this visit. 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 OBJECTIVE: Vascular: DP and PT pulses are nonpalpable. Hair growth is absence. Mild swelling present. Skin temperature is warm to cool b/l Dermatological: Nails 1-5 b/l are discolored and thick. Webspaces clean and dry 1-4 b/l. Skin appears well hydrated and supple. good color, texture, turgor. No open lesions present. Callus present to b/l hallux and b/l 5th toe. No ulceration noted. Musculoskeletal/Orthopaedic: Patient has no pain to palpation of b/l feet ASSESSMENT: (E11.49) Other diabetic neurological complication associated with type 2 diabetes mellitus (HCC) (primary encounter diagnosis) (I73.9) PAD (peripheral artery disease) ([facility]) (L85.9) Hyperkeratosis PLAN: 1. History and physical examination completed today. 2. Reviewed pvr. He has calcified vessels and likely small vessel disease. Discussed referral to vascular surgery or vascular medicine. He is not interested at this time. 3. No open sores noted on current exam. Very superficial callus present to b/l hallux and 5th toe and these were debrided with sanding disk without trauma as courtesy. 4. Continue with good supportive shoes 5. Continue with lotion to his feet daily 6. F/u in 2 months for nail care Alen Rodriguez DPM Referring Provider: ALEN RODRIGUEZ [[id number]] Allergies As of Date: 11/04/2017 Noted Allergy Reaction NABEEL INHIBITORS 05/16/2014 3 - Cough Date Reviewed: 11/04/2017 Reviewed by: Selma Canchola RN - Fully Assessed Reason for Visit: Results [95] Primary Visit Diagnosis:Other diabetic neurological complication associated with type 2 diabetes mellitus (HCC) [E11.49] Other Visit Diagnoses:PAD (peripheral artery disease) ([facility]) [I73.9] Hyperkeratosis [L85.9] Order(s):DIAB SHOE FOR DENSITY INSERT [[id number]] Order #: [id number] Prescriptions as of 11/04/2017 Sig: FUROSEMIDE 40 MG TABLET Take 1 tablet by mouth twice * FLUTICASONE 50 MCG/ACTUATION * Use 1 Wideman in each nostril d* WARFARIN 5 MG TABLET hold his coumadin for next 3 * ALBUTEROL SULFATE HFA 90 MCG/* Inhale 2 Puffs as instructed * INSULIN LISPRO 100 UNIT/ML ZELAYA* Inject 10 Units subcutaneousl* METOPROLOL TARTRATE 100 MG TA* Take 2 tablets by mouth twice* SPIRONOLACTONE 25 MG TABLET Take 1 tablet by mouth once d* ROSUVASTATIN 40 MG TABLET Take 20 mg by mouth once jenn* BLOOD SUGAR DIAGNOSTIC STRIPS Use as instructed to check gl* PEN NEEDLE, DIABETIC 32 GAUGE* 1 Each four times daily as ne* INSULIN GLARGINE 100 UNIT/ML * Inject 30 Units subcutaneousl* Patient taking differently: Inject 40 Units subcutaneousl* INSULIN LISPRO 100 UNIT/ML ZELAYA* Inject 5 units if sugar <200 * BLOOD-GLUCOSE METER KIT 1 Each as needed. One Touch M* LIRAGLUTIDE 0.6 MG/0.1 ML (18* Inject 1.2 mg subcutaneously * MULTIVITAMIN-IRON 9 MG-FOLIC * Take 1 tablet by mouth once d* COMPOUNDED PRESCRIPTION insulin syringes 0.3 31 g 5/* CPAP ASV machine. Initiate @ EEP1* ALBUTEROL SULFATE CONCENTRATE* Inhale 0.5 mL as instructed e* Problem List As Of Date 11/04/2017 Noted Resolved Essential hypertension [I10] DIABETES MELLITUS TYPE II UNCONTR UNCOMPL [E11.* 09/12/2014 Hyperlipidemia [E78.5] CHRONIC RHINITIS [J31.0] INVALID FOR* Venous (peripheral) insufficiency [I87.2] INVALID FOR* VIRAL WARTS NOS [B07.9] INVALID FOR* Type I (juvenile type) diabetes mellitus withou*INVALID FOR*02/06/2014 Unspecified sleep apnea [G47.30] INVALID FOR*07/21/2014 More... BENIGN NEOPLASM LG BOWEL [D12.6] INVALID FOR* DIVERTICULOSIS OF COLON W/O BLEED [K57.30] INVALID FOR* INT HEMORRHOID W/O COMPL [K64.8] INVALID FOR* Premature atrial beats [I49.1] INVALID FOR* Atrial fibrillation, permanent [I48.2] INVALID FOR*01/30/2015 Atherosclerosis of aortic arch [I70.0] INVALID FOR* More... BMI 37.0-37.9, adult [Z68.37] INVALID FOR*01/30/2015 DERRICK (obstructive sleep apnea) AHI 36 [G47.33] INVALID FOR* DM (diabetes mellitus), type 2, uncontrolled (H*INVALID FOR* Atrial fibrillation (HCC) [I48.91] INVALID FOR* BMI 35.0-35.9,adult [Z68.35] INVALID FOR* nursing home (current) use of anticoagulants [Z79.*INVALID FOR* SUMMARY INVALID FOR* More... Cough with expectoration [R05] INVALID FOR* More... Atrial fibrillation with RVR (HCC) [I48.91] INVALID FOR* Syncope [R55] INVALID FOR* Acute bronchitis with chronic obstructive pulmo*INVALID FOR*07/04/2016 Acute diastolic CHF (congestive heart failure) *INVALID FOR*07/04/2016 Status post placement of implantable loop recor*INVALID FOR* Type 2 diabetes mellitus without retinopathy (H*INVALID FOR* Vitreous floaters of both eyes [H43.393] INVALID FOR* TIA due to embolism (HCC) [G45.9, I74.9] INVALID FOR* Facial droop [R29.810] INVALID FOR* Controlled type 2 diabetes mellitus without com*INVALID FOR* Combined forms of age-related cataract of both *INVALID FOR* Screening for colon cancer [Z12.11] INVALID FOR* More... Hiatal hernia [K44.9] INVALID FOR* More... Follow-up and Disposition History Recorded Encounter Status:Closed by ALEN RODRIGUEZ DPM on 11/04/17 NT PRO BNP Collected: 11/03/2017 Status: F Source: [place] 11:[facility] REPOSITORY TYPE CODE TESTS RESULT OUT OF REFERENCE UNITS RANGE LAB PBNP <450 pg/mL High PRO B Natr 1695 Peptide Performed By: #### NTBNP #### [facility] [address] [id number] ALLERGIES ALLERGIES DATE TYPE / CODE NAME / CODE REACTION SEVERITY SOURCE 05/16/2014 Drug NABEEL INHIBITORS COUGH [facility] Class/[address] [address] [place] 1003(SNOMED Repository CT) ENCOUNTERS ENCOUNTERS ADMIT/DISCHARGE ACCOUNT ADMITTING ENCOUNTER LOCATION SOURCE NUMBER CLASS 10/27/2018/10/27/19 [id number] Ambulatory [address] [place] Repository 10/25/2018/10/26/19 [id number] Ambulatory [address] [place] Repository 10/21/2018/10/24/19 [id number] Ambulatory [address] [place] Repository 10/07/2018/10/10/20 [id number] Ambulatory [address] [place] Repository 10/07/2018/10/10/20 [id number] Ambulatory [address] [place] Repository 10/05/2018/10/06/20 [id number] Ambulatory [address] [place] Repository 09/23/2018/09/26/20 [id number] Ambulatory [address] [place] Repository 09/19/2018 [id number] Ambulatory [facility] ing:LAB Repository 09/19/2018/09/19/20 [id number] Ambulatory [address] [place] Rep[place] 09/19/2018/09/20/20 [id number] Ambulatory [address] [place] Repository 08/24/2018/08/25/20 [id number] Ambulatory [address] [place] Repository 08/10/2018/08/11/20 [id number] Ambulatory [address] [place] Repository 08/09/2018/08/09/20 [id number] Ambulatory [address] [place] Repository 07/29/2018/07/29/20 [id number] [facility] [place] Repository 07/29/2018/07/29/20 [id number] [facility] [place] Repository 07/29/2018/08/01/20 [id number] [facility] [place] Repository 07/26/2018 [id number] Ambulatory [facility] ing:CVS Repository 07/26/2018/07/27/20 [id number] [facility] [place] Repository 07/22/2018/07/25/20 [id number] [facility] [place] Rep[facility] 07/01/2018/07/04/20 [id number] [facility] [place] Repository 05/20/2018/05/23/20 [id number] [facility] [place] Repository 05/12/2018/05/28/20 [id number] [facility] [place] Repository 04/22/2018/04/25/20 [id number] [facility] [place] Repository 04/07/2018/04/12/20 [id number] [facility] [place] Repository 03/25/2018/03/28/20 [id number] [facility] [place] Repository 03/22/2018/03/23/20 [id number] [facility] [place] Repository 02/25/2018/02/29/20 [id number] [facility] [place] Repository 02/17/2018/02/19/20 [id number] [facility] [place] Rep[facility] 02/17/2018/02/18/20 [id number] [facility] [place] Rep[facility] 02/14/2018/02/16/20 [id number] [facility] [place] Repository 01/20/2018/01/22/20 [id number] [facility] [place] Repository 01/13/2018/02/09/20 [id number] [facility] [place] Repository 12/23/2017/12/24/19 [id number] [facility] [place] Repository 12/23/2017/12/25/19 [id number] [facility] [place] Repository 12/17/2017/12/18/19 [id number] [facility] [place] Repository 12/16/[id number] [facility] [place] Repository 12/16/2017/12/17/19 [id number] Amb[facility] [place] [facility] [place] Repository 12/09/2017/12/11/19 [id number] Amb[place] [facility] [place] Repository 12/01/2017/12/02/19 [id number] Amb[place] [facility] [place] Repository 11/30/2017/12/06/19 [id number] Amb[place] [facility] [place] Repository 11/24/2017/11/24/19 [id number] HATTIE, Ambulatory [place] [facility] Other [place] Repository 11/17/2017 [id number] Ambulatory [facility] ing:LABSPEC Repository 11/17/2017/11/17/19 [id number] Ambulatory [address] [place] Repository 11/17/2017/11/17/19 [id number] Ambulatory [address] [place] Repository 11/16/2017/11/17/19 [id number] Ambulatory [address] [place] Repository 11/11/2017/11/11/19 [id number] Ambulatory [place] [facility] Other [place] Repository 11/10/2017/11/10/19 [id number] Ambulatory [place] [facility] [place] Repository 11/09/2017/11/10/19 [id number] Ambulatory [place] [address] [facility] [place] Repository 11/04/2017/11/04/19 [id number] Ambulatory [address] [place] Repository 11/03/2017/11/03/19 [id number] Ambulatory [address] [place] Repository PAYERS PAYERS ENCOUNTER GUARANTOR PAYER SUBSCRIBER SOURCE 09/19/2018 ALIA [id number] Primary ALIA BYRNE: [place] Insurance:MEDICARE [id number] [address]Dnw: (330) Number: Repository [phone] [id number] Date:2018-09-19 09/19/2018 Secondary ALIA BYRNE: [place] Insurance:MONUMENTAL [id number] [id number] cydney Date:2018-09-19P O [place]ENN POO[place] [phone]: . 09/19/2018 Tertiary NOT GIVENUNK [place] Insurance:SELF PAY [facility]: Effective Repository Date:2018-09-19 07/26/2018 ALIA Carey [id number] Primary ALIA TREJODOB: [place] Insurance[id number] [facility] [address]ue: (330) Number: Repository [phone] () [id number] Date:2018-07-26 07/26/2018 Secondary ALIA TREJODOB: [place] Insurance:MONUMENTAL [id number] Community [facility] Number: Repository [id number] cydney Date:2018-07-26P O [place] [id number]: . 07/26/2018 Tertiary NOT GIVENUNK [place] Insurance:SELF PAY [facility] Number: Effective Repository Date:2018-07-26 11/17/2017 Alia Carey [id number] Primary Alia TrejoDOB: [place] E [place] Insurance:MEDICARE [id number] [facility] [id number]: (330) Number: Repository [phone] () [id number] Date:2017-11-17 11/17/2017 Secondary Alia TrejoDOB: [place] Insurance:MONUMENTAL [id number] Number: Repository [id number] cydney Date:2017-11-17P O [place] POO[place] [phone]: . 11/17/2017 Tertiary NOT GIVENUNK [place] Insurance:SELF PAY [facility] Number: Effective Repository Date:2017-11-17
== END ==
PROVIDERS: Family Provider Family Medicine; PCP Family Medicine; Referring Provider Family Medicine; Visit Provider Family Medicine
DX: I48.91 Unspecified atrial fibrillation (principal)
CPT/HCPCS: 85610

== ENCOUNTER → 2019-01-04 12:18 | Outpatient (CLI) | payer MEDICARE, OTHER, SELFPAY ==
[2019-01-04 13:10] LABS: International Normalized Ratio 2.2; Prothrombin Time (Protime)PT. 24.8 SECONDS (11.7-14.9)
== END ==
PROVIDERS: Family Provider Family Medicine; PCP Family Medicine; Referring Provider Family Medicine; Visit Provider Family Medicine
DX: I48.91 Unspecified atrial fibrillation (principal)
CPT/HCPCS: 85610

== ENCOUNTER → 2019-02-09 10:44 | Outpatient (CLI) | payer MEDICARE, OTHER, SELFPAY ==
[2019-02-09 11:18] LABS: International Normalized Ratio 2.8; Prothrombin Time (Protime)PT. 29.8 SECONDS (11.7-14.9)
== END ==
PROVIDERS: Family Provider Family Medicine; PCP Family Medicine; Referring Provider Family Medicine; Visit Provider Family Medicine
DX: I48.91 Unspecified atrial fibrillation (principal)
CPT/HCPCS: 85610

== ENCOUNTER → 2019-03-01 10:12 | Outpatient (CLI) | payer MEDICARE, OTHER, SELFPAY ==
[2019-03-01 10:41] LABS: International Normalized Ratio 2.3; Prothrombin Time (Protime)PT. 25.1 SECONDS (11.7-14.9)
== END ==
PROVIDERS: Family Provider Family Medicine; PCP Family Medicine; Referring Provider Family Medicine; Visit Provider Family Medicine
DX: I48.91 Unspecified atrial fibrillation (principal)
CPT/HCPCS: 85610

== ENCOUNTER → 2019-03-20 12:13 | Outpatient (CLI) | payer MEDICARE, OTHER, SELFPAY ==
[2019-03-20 12:38] LABS: Prothrombin Time (Protime)PT. 39.9 SECONDS (11.7-14.9)
[2019-03-20 12:54] LABS: International Normalized Ratio 4.1
== END ==
PROVIDERS: Family Provider Family Medicine; PCP Family Medicine; Referring Provider Family Medicine; Visit Provider Family Medicine
DX: I48.91 Unspecified atrial fibrillation (principal)
CPT/HCPCS: 85610

== ENCOUNTER → 2019-03-22 11:27 | Outpatient (CLI) | payer MEDICARE, OTHER, SELFPAY ==
[2019-03-22 11:53] LABS: International Normalized Ratio 2.9; Prothrombin Time (Protime)PT. 30.7 SECONDS (11.7-14.9)
== END ==
PROVIDERS: Family Provider Family Medicine; PCP Family Medicine; Referring Provider Family Medicine; Visit Provider Family Medicine
DX: I48.91 Unspecified atrial fibrillation (principal)
CPT/HCPCS: 85610

== ENCOUNTER → 2019-12-20 | Outpatient (CLI) | payer MEDICARE, OTHER, SELFPAY ==
[2019-12-20 14:58] LABS: Prothrombin Time (Protime)PT. 38.2 SECONDS (11.7-14.9)
[2019-12-20 15:14] LABS: International Normalized Ratio 3.8
== END | disposition home or self-care (01) ==
LOC: LABSPEC 14:18
PROVIDERS: PCP Family Medicine; Referring Provider Family Medicine; Visit Provider Family Medicine
DX: I48.20 Chronic atrial fibrillation, unspecified (principal)
CPT/HCPCS: 85610